=== PATIENT | male | born 1940 | race Caucasian/White ===

== ENCOUNTER → 2017-06-29 | Outpatient (CLI) | payer MEDICARE, OTHER ==
[~2017-06-29] MED LIST: ASPI-586 PO; ASPI-983 PO; ATOR40TA PO; ATOR40TA70 PO; BLOO-367 MC; BLOO1EAC87 MC; CEFT1FRO2 IV; CEPH500C PO; CLOP75TA28 PO; FURO-125 PO; IBUP1TAB14 PO; INSU100V16 SC; INSU100V16 SQ; INSU100V5 SQ; LANC-954 MC; METO-370 PO; METO-387 PO; MICO90PO TOP; MUPI22OI2 TOP; PANT40TA3 PO; PEN1DIS.93 MC; SODI473S7 TOP; SULF-222 PO
[2017-06-29 07:49] LABS: BASOPHILS % (AUTO) 0 % (0-10); EOSINOPHILS # (AUTO) 0.1 10^3/uL (0.0-0.3); EOSINOPHILS % (AUTO) 0 % (0-10); HEMATOCRIT 39 % (40-54); HEMOGLOBIN 13.1 G/DL (13.3-17.7); LYMPHOCYTES # (AUTO) 1.3 X 10^3 (1.0-4.0); LYMPHOCYTES % (AUTO) 11 % (12-44); MEAN CORPUSCULAR HEMOGLOBIN 27 PG (25-34); MEAN CORPUSCULAR HGB CONC 34 G/DL (32-36); MEAN CORPUSCULAR VOLUME 80 FL (80-99); MEAN PLATELET VOLUME 9.7 FL (7.4-10.4); MONOCYTES # (AUTO) 0.8 X 10^3 (0.0-1.0); MONOCYTES % (AUTO) 7 % (0-12); NEUTROPHILS # (AUTO) 9.9 X 10^3 (1.8-7.8); NEUTROPHILS % (AUTO) 82 % (42-75); PLATELET COUNT 435 10^3/uL (130-400); RED BLOOD COUNT 4.87 10^6/uL (4.35-5.85); WHITE BLOOD COUNT 12.1 10^3/uL (4.3-11.0)
[2017-06-29 08:13] LABS: ALANINE AMINOTRANSFERASE 7 U/L (0-55); ALBUMIN 3.5 GM/DL (3.2-4.5); ALKALINE PHOSPHATASE 150 U/L (40-136); BILIRUBIN,TOTAL 0.5 MG/DL (0.1-1.0); BUN/CREATININE RATIO 10; CALCIUM 9.6 MG/DL (8.5-10.1); CARBON DIOXIDE 24 MMOL/L (21-32); CHLORIDE 96 MMOL/L (98-107); CHOLESTEROL 156 MG/DL (< 200); CREATININE SERUM 0.96 MG/DL (0.60-1.30); GFR ESTIMATED > 60; GLUCOSE 343 MG/DL (70-105); HDL CHOLESTEROL 37 MG/DL (40-60); POTASSIUM 4.4 MMOL/L (3.6-5.0); SODIUM 132 MMOL/L (135-145); TOTAL PROTEIN 6.8 GM/DL (6.4-8.2); TRIGLYCERIDES 81 MG/DL (<150); VLDL CHOLESTEROL 16 MG/DL (5-40)
== END ==
LOC: LAB 07:27
PROVIDERS: ATTEND Family Medicine
DX: L03.119 Cellulitis of unspecified part of limb (principal)
CPT/HCPCS: 36415; 80053; 80061; 83036; 85025

== ENCOUNTER 2017-06-30 14:12 | Inpatient (IN) | payer MEDICARE, OTHER ==
[~2017-06-30] VITALS: Ht 177.8 cm; Wt 88.2 kg
[2017-06-30 14:39] VITALS: BP 149/65
[2017-06-30] MEDS ORDERED: SULF-222 PO (15:44)
[2017-06-30] MEDS ORDERED: CEPH500C PO (15:44)
[2017-06-30] MEDS ORDERED: MUPI22OI2 TOP (15:44)
[2017-06-30] MEDS ORDERED: IBUP1TAB14 PO (15:45)
[2017-06-30 16:10] VITALS: BP 145/65
[2017-06-30 17:23] LABS: HEMOGLOBIN 13.1 G/DL (13.3-17.7); MEAN PLATELET VOLUME 9.7 FL (7.4-10.4); RED BLOOD COUNT 4.87 10^6/uL (4.35-5.85); RED CELL DISTRIBUTION WIDTH 13.3 % (10.0-14.5); WHITE BLOOD COUNT 11.5 10^3/uL (4.3-11.0)
[2017-06-30 17:30] LABS: INR 1.1 (0.8-1.4); PROTHROMBIN TIME PATIENT 14.4 SEC (12.2-14.7)
[2017-06-30 17:37] LABS: ALANINE AMINOTRANSFERASE 6 U/L (0-55); ALBUMIN 3.4 GM/DL (3.2-4.5); ALKALINE PHOSPHATASE 140 U/L (40-136); BILIRUBIN,TOTAL 0.4 MG/DL (0.1-1.0); BUN/CREATININE RATIO 11; CALCIUM 9.2 MG/DL (8.5-10.1); CARBON DIOXIDE 25 MMOL/L (21-32); CHLORIDE 99 MMOL/L (98-107); CREATININE SERUM 0.84 MG/DL (0.60-1.30); GFR ESTIMATED > 60; GLUCOSE 269 MG/DL (70-105); POTASSIUM 4.3 MMOL/L (3.6-5.0); SODIUM 135 MMOL/L (135-145); TOTAL PROTEIN 6.9 GM/DL (6.4-8.2)
[2017-06-30] MEDS ORDERED: inSUlin DETERMIR 1 UNIT/0.01 ML (LEVEMIR) CHARGE PER UNIT SQ NR (18:00)
--- NOTE | 2017-06-30 18:56 | Diagnostic Imaging Report ---
INDICATION: Right foot abscess. FINDINGS: Three views of the right foot show some gas in the soft tissues adjacent to the head of the fifth metatarsal with some osteopenia of the head of the first metatarsal and of the proximal phalanx and middle phalanx of the second toe. IMPRESSION: Gas in the soft tissues over the fifth MTP joint. There is osteopenia. The findings are concerning for osteomyelitis. Dictated by: Dictated on workstation # [id number]
--- NOTE | 2017-06-30 18:57 | Diagnostic Imaging Report ---
INDICATION: Right ankle pain. FINDINGS: Three views of the right ankle show an accessory ossicle at the tip of the medial malleolus. There is no acute fracture or dislocation. IMPRESSION: No acute abnormalities seen in the right ankle. Dictated by: Dictated on workstation # [id number]
--- NOTE | 2017-06-30 19:05 | Diagnostic Imaging Report ---
Clinical indication: Patient with severe ulcers, bilaterally. Comparison: None. Procedure: Bilateral lower extremity Doppler duplex examination was performed using B-mode ultrasound, color Doppler imaging, Doppler spectral recordings and peak systolic velocities. Ankle/brachial indices were calculated. Findings: Right lower extremity: Flow velocities (in cm per second) are as follows- Common femoral: 110 Profunda femoris: 102 Superficial femoral (proximal): 113 Superficial femoral (mid): Occluded Superficial femoral (distal): 120 Popliteal: 36 Dorsalis pedis artery: 93 Left lower extremity: Flow velocities (in cm per second) are as follows- Common femoral: 82 Profunda femoris: 73 Superficial femoral (proximal): 86 Superficial femoral (mid): 38 Superficial femoral (distal): 27 Popliteal: 34 Posterior tibial artery: 27 Dorsalis pedis artery: 24 There is diffuse atherosclerotic disease seen throughout the bilateral arterial lower extremity systems. The bilateral common femoral arteries show biphasic waveform. Otherwise, remainder of the bilateral lower extremity arterial systems shows monophasic waveforms. There is a roughly 8-10 cm segment of occlusion involving the right mid superficial femoral artery. Impression: 1. There is a 8-10 cm segment of occlusion of the right mid superficial femoral artery. 2: There is diffuse atherosclerotic disease with multisegmental areas of arterial vascular stenosis of both lower extremities. Dictated by: Dictated on workstation # [id number]
[2017-06-30 19:20] VITALS: BP 140/64
[2017-06-30] MEDS ORDERED: VANCOMYCIN INJECTION 0.1 MG in NS (IVPB) 250 ML IV SCH (19:30)
[2017-06-30] MEDS ORDERED: PIPERACILLIN/TAZO 4.5 GM/D5W 100 ML IVPB IV NR ×2 (19:30)
--- NOTE | 2017-06-30 19:37 | History & Physicial ---
History of Present Illness History of Present Illness Reason for visit/HPI Patient came to the office with abscess and ulcer of right foot. Left foot is not as bad. Blood tests taken showing that patient's new diabetic with a hemoglobin of 13.4. Patient sent to wound care. Patient admitted. Patient needed debridement by surgeon tomorrow. Surgery prostate Date of Admission June 30, 2017 at 14:40 Time Seen by Provider: 19:30 I consulted on this patient on 06/30/17 19:31 Attending Physician Neel Arriaga DO Admitting Physician Neel Arriaga DO Consult Allergies and Home Medications Allergies Coded Allergies: No Known Drug Allergies (Unverified , 06/30/17) Home Medications Cephalexin 500 Mg Capsule, 500 MG PO TID, (Reported) 10 DAY SUPPLY FILLED 06-23-17 Ibuprofen/Diphenhydramine Cit 1 Each Tablet, 2 TAB PO HS PRN for PAIN-MILD, ( Reported) Mupirocin 22 Gm Oint...g., TOP BID, (Reported) APPLY TO RIGHT TOE Sulfamethoxazole/Trimethoprim 1 Each Tablet, 1 TAB PO BID, (Reported) 10 DAY SUPPLY FILLED 06-23-17 Patient Home Medication List Home Medication List Reviewed: Yes Past Kdmhzsx-Uzjivy-Cqokjd Hx Patient Social History Marrital Status: Employed/Student: unemployed Alcohol Use: Denies Use Recreational Drug Use: No Smoking Status: Former Smoker Former Smoker, Quit: June 15, 2006 Type Used: Cigarettes Physical Abuse Screen: No Sexual Abuse: No Recent Foreign Travel: No Contact w/other who traveled: No Recent Infectious Disease Expo: No Seasonal Allergies Seasonal Allergies: No Respiratory No Cardiovascular No Neurological No Genitourinary Yes (prostate removed) Gastrointestinal No Musculoskeletal No HEENT History of HEENT Disorders: Yes Cancer No Psychosocial History of Psychiatric Problem: No Integumentary History of Skin or Integumenta: No Blood Transfusions History of Blood Disorders: No Adverse Reaction to a Blood Tr: No Constitutional: no symptoms reported EENTM: no symptoms reported, other (Hearing aid since hard of hearing) Respiratory: no symptoms reported Cardiovascular: no symptoms reported Gastrointestinal: no symptoms reported Genitourinary: no symptoms reported, other (Past states surgery) Physical Exam Vital Signs Vital Signs - First Documented 06/30/17 14:39 Temp 97.5 Pulse 60 Resp 20 B/P (MAP) 149/65 (93) Pulse Ox 97 O2 Delivery Room Air Capillary Refill : General Appearance: No Apparent Distress, WD/WN Eyes: Bilateral Eye Normal Inspection HEENT: Normal ENT Inspection Neck: Full Range of Motion, Normal Inspection Respiratory: Chest Non Tender, Normal Breath Sounds, No Accessory Muscle Use, No Respiratory Distress Cardiovascular: Regular Rate, Rhythm, No Murmur Gastrointestinal: Non Tender, Soft Assessment/Plan Assessment and Plan Abscess of right foot. Could have osteomyelitis. New-onset diabetes. Cellulitis of feet. Occlusion of artery Admission Diagnosis Admission Status: Inpatient Order (span 2 midnights) Reason for Inpatient Admission: New-onset diabetes. Abscess of foot. Osteomyelitis. Occlusion of artery in leg Clinical Quality Measures DVT/VTE Risk/Contraindication: Risk Factor Score Per Nursin RFS Level Per Nursing on Admit: 4+=Very High NEEL ARRIAGA DO June 30, 2017 19:37
[2017-06-30] MEDS ORDERED: VANCOMYCIN 1500 MG/NS 500 ML IVPB IV NR ×2 (20:00)
[2017-06-30] MEDS: inSUlin ASPART (NovoLOG) 1 UNIT/0.01 ML (CHARGE PER UNIT) SC SCH (20:34)
[2017-07-01 00:35] VITALS: BP 117/58
[2017-07-01] MEDS: PIPERACILLIN SODIUM/TAZOBACTAM 4.5 GM in D5W 100 ML IVPB 100 ML IV SCH ×3 (01:28→16:35)
[2017-07-01 04:23] VITALS: BP 123/61
[2017-07-01] MEDS: inSUlin ASPART (NovoLOG) 1 UNIT/0.01 ML (CHARGE PER UNIT) SC SCH ×4 (05:18→21:15)
[2017-07-01 06:11] LABS: HEMOGLOBIN 12.5 G/DL (13.3-17.7); MEAN PLATELET VOLUME 10.1 FL (7.4-10.4); RED BLOOD COUNT 4.68 10^6/uL (4.35-5.85); WHITE BLOOD COUNT 11.8 10^3/uL (4.3-11.0)
[2017-07-01 06:26] LABS: BUN/CREATININE RATIO 10; CALCIUM 8.9 MG/DL (8.5-10.1); CARBON DIOXIDE 24 MMOL/L (21-32); CHLORIDE 103 MMOL/L (98-107); CHOLESTEROL 147 MG/DL (< 200); CREATININE SERUM 0.84 MG/DL (0.60-1.30); GFR ESTIMATED > 60; GLUCOSE 123 MG/DL (70-105); HDL CHOLESTEROL 33 MG/DL (40-60); POTASSIUM 4.1 MMOL/L (3.6-5.0); SODIUM 138 MMOL/L (135-145); TRIGLYCERIDES 72 MG/DL (<150); VLDL CHOLESTEROL 14 MG/DL (5-40)
[2017-07-01] MEDS ORDERED: morphine INJ 4 MG/ML 1 ML (VIAL/SYRINGE) ONE (07:39)
[2017-07-01 08:00] VITALS: BP 147/67
[2017-07-01] MEDS: VANCOMYCIN 1250 MG/NS 250 ML IVPB IV SCH ×4 (08:43→21:14)
--- NOTE | 2017-07-01 08:51 | Progress Note (SOAP) ---
Subjective Time Seen by Provider: 08:51 Subjective/Events-last exam Abscess right foot and ulcers. New-onset diabetes. Patient feeling okay today. Blood sugars better Objective Exam Vital Signs Date Time Temp Pulse Resp B/P (MAP) Pulse Ox O2 Delivery O2 Flow Rate FiO2 07/01/17 04:23 97.9 68 17 123/61 (81) 93 Room Air 07/01/17 00:35 98.2 70 17 117/58 (77) 92 Room Air 06/30/17 19:20 98.2 77 18 140/64 (89) 95 Room Air 06/30/17 16:10 97.6 68 20 145/65 (91) 98 Room Air 06/30/17 16:10 97.6 68 20 145/65 (91) 98 Room Air 06/30/17 15:00 97 Room Air 06/30/17 14:39 97.5 60 20 149/65 (93) 97 Room Air I & O 07/01/17 07:00 Intake Total 820 ml Balance 820 ml Capillary Refill : General Appearance: No Apparent Distress, Thin HEENT: Normal ENT Inspection, Other (Has hearing aid in left ear) Neck: Full Range of Motion Respiratory: Lungs Clear, No Accessory Muscle Use, No Respiratory Distress Cardiovascular: Regular Rate, Rhythm, No Murmur Results Lab Laboratory Tests 06/30/17 17:10 07/01/17 05:21 Laboratory Tests 06/30/17 17:10: White Blood Count 11.5H, Red Blood Count 4.87, Hemoglobin 13.1L, Hematocrit 39L , Mean Corpuscular Volume 80, Mean Corpuscular Hemoglobin 27, Mean Corpuscular Hemoglobin Concent 34, Red Cell Distribution Width 13.3, Platelet Count 506H, Mean Platelet Volume 9.7, Prothrombin Time 14.4, INR Comment 1.1, Activated Partial Thromboplast Time 28, Sodium Level 135, Potassium Level 4.3, Chloride Level 99, Carbon Dioxide Level 25, Anion Gap 11, Blood Urea Nitrogen 9, Creatinine 0.84, Estimat Glomerular Filtration Rate > 60, BUN/Creatinine Ratio 11, Glucose Level 269H, Calcium Level 9.2, Total Bilirubin 0.4, Aspartate Amino Transf (AST/SGOT) 8, Alanine Aminotransferase (ALT/SGPT) 6, Alkaline Phosphatase 140H, Total Protein 6.9, Albumin 3.4 06/30/17 20:27: Glucometer 359H 07/01/17 05:01: Glucometer 119H 07/01/17 05:21: White Blood Count 11.8H, Red Blood Count 4.68, Hemoglobin 12.5L, Hematocrit 38L , Mean Corpuscular Volume 81, Mean Corpuscular Hemoglobin 27, Mean Corpuscular Hemoglobin Concent 33, Red Cell Distribution Width 13.0, Platelet Count 459H, Mean Platelet Volume 10.1, Sodium Level 138, Potassium Level 4.1, Chloride Level 103, Carbon Dioxide Level 24, Anion Gap 11, Blood Urea Nitrogen 8, Creatinine 0.84, Estimat Glomerular Filtration Rate > 60, BUN/Creatinine Ratio 10, Glucose Level 123H, Calcium Level 8.9, Triglycerides Level 72, Cholesterol Level 147, LDL Cholesterol Direct 100, VLDL Cholesterol 14, HDL Cholesterol 33L Assessment/Plan Assessment/Plan Assess & Plan/Chief Complaint Abscess right foot. Peripheral artery disease. Occlusion of vessels. New-onset diabetes area Hemoglobin A1c 13.4 Clinical Quality Measures Admission Status Admission Dx Abscess of right foot. Could have osteomyelitis. New-onset diabetes. Cellulitis of feet. Occlusion of artery DVT/VTE Risk/Contraindication: Risk Factor Score Per Nursin RFS Level Per Nursing on Admit: 4+=Very High Contraindications-Pharm: Other *list below* Contraindications-Mechi: Other *list below* BRITTANY ARRIAGA DO July 01, 2017 08:51
--- NOTE | 2017-07-01 09:16 | Diagnostic Imaging Report ---
PROCEDURE: MRI right lower extremity without contrast. TECHNIQUE: Multiplanar, multisequence non contrast-enhanced MRI of the right lower extremity was accomplished. INDICATION: Diabetic ulcer on the lateral side of the right foot for several weeks. FINDINGS: A marker was placed at the area of ulcer along the lateral aspect of the right foot. There is soft tissue thickening and soft tissue defect noted at the area of marker along the lateral aspect of the right foot at the level of the distal fifth metatarsal. A low signal intensity within the soft tissues is noted consistent with soft tissue gas. This does correlate to plain films performed one day earlier. There does appear to be some gas located within the marrow of the distal fifth metatarsal as well as mild edema. Features are suggestive of acute osteomyelitis of the distal fifth metatarsal. The first through fourth metatarsals are intact. The tissues surrounding the fifth metatarsal appear to be inflamed. Overlying skin is thickened. No superficial or deep soft tissue fluid collection or abscess is identified. There does appear to be fluid signal along the plantar aspect of the right foot, not entirely included on this study. This does not appear to be well formed. IMPRESSION: Inflammatory changes involving the lateral aspect of the right foot at the level of the distal fifth metatarsal. This correlates with the patient's known skin ulcer. There appears to be gas within the surrounding soft tissues as well as intraosseous gas in the distal fifth metatarsal and signal changes present. Features are consistent with acute osteomyelitis. Ill-defined fluid along the plantar aspect is also seen but no well-formed fluid collection is identified. Dictated by: Dictated on workstation # [id number]
--- NOTE | 2017-07-01 09:19 | Diagnostic Imaging Report ---
PROCEDURE: MRI right joint lower extremity without contrast. TECHNIQUE: Multiplanar, multisequence non contrast-enhanced MRI of the right lower extremity was accomplished. INDICATION: Diabetic ulcer of the lateral portion of the right foot. FINDINGS: The marrow signal intensity of the hindfoot is normal. No marrow edema is identified. The visualized portion of the fifth metatarsal does show some edema on the inversion recovery sequence in the midshaft, correlating with the abnormality noted on MRI of the forefoot and changes of osteomyelitis. The marrow of the mid foot is unremarkable. No fluid collections are seen to suggest abscess formation. Nonspecific fluid along the plantar aspect of the right foot is identified, indeterminate. No definite soft tissue gas is seen. IMPRESSION: There are some mild marrow changes identified in the visualized portion of the fifth metatarsal midshaft, correlating with the findings noted on the forefoot MRI of osteomyelitis distally. There is also ill-defined fluid along the plantar aspect of the right foot but no well-formed fluid collection or abscess is seen. Dictated by: Dictated on workstation # [id number]
[2017-07-01 11:30] VITALS: BP 147/67
--- NOTE | 2017-07-01 11:40 | Consultation ---
History of Present Illness History of Present Illness Patient Consulted On(uli/time) 07/01/17 11:32 Date Seen by Provider: July 01, 2017 Time Seen by Provider: 11:33 Reason for Visit: Right foot wound with infection. History of Present Illness Pt seen today for inpatient consult of right foot. He has necrotic foul smelling draining wound to his right foot that got significantly worse in the past week. He presented to wound care for his foot yesterday and was direct admitted for the infection. Allergies and Home Medications Allergies Coded Allergies: No Known Drug Allergies (Unverified , 06/30/17) Home Medications Cephalexin 500 Mg Capsule, 500 MG PO TID, (Reported) 10 DAY SUPPLY FILLED 06-23-17 Ibuprofen/Diphenhydramine Cit 1 Each Tablet, 2 TAB PO HS PRN for PAIN-MILD, ( Reported) Mupirocin 22 Gm Oint...g., TOP BID, (Reported) APPLY TO RIGHT TOE Sulfamethoxazole/Trimethoprim 1 Each Tablet, 1 TAB PO BID, (Reported) 10 DAY SUPPLY FILLED 06-23-17 Patient Home Medication List Home Medication List Reviewed: Yes Past Kdkwvng-Imjexc-Kmxamj Hx Patient Social History Alcohol Use: Denies Use Recreational Drug Use: No Smoking Status: Former Smoker Type Used: Cigarettes Former Smoker, Quit: June 15, 2006 Recent Foreign Travel: No Contact w/Someone Who Travel: No Recent Infectious Disease Expo: No Seasonal Allergies Seasonal Allergies: No Past Medical History Respiratory: No Cardiac: No Neurological: No Genitourinary: Yes (prostate removed) Gastrointestinal: No Musculoskeletal: No HEENT: Yes Cancer: No Psychosocial: No Integumentary: No Blood Disorders: No Adverse Reaction/Blood Tranf: No Review of Systems-General Constitutional: No no symptoms reported, No see HPI, No chills, No diaphoresis , No dizziness, No fever, No malaise, No weakness, No weight gain, No weight loss, No other Respiratory: No no symptoms reported, No see HPI, No cough, No dyspnea on exertion, No hemoptysis, No orthopnea, No phlegm, No short of breath, No stridor , No wheezing, No other Physical Exam-General Problems Physical Exam Vital Signs Vital Signs - First Documented 06/30/17 14:39 Temp 97.5 Pulse 60 Resp 20 B/P (MAP) 149/65 (93) Pulse Ox 97 O2 Delivery Room Air Capillary Refill : Extremities: other (right foot with 2.5 x 2.5cm necrotic wound over the dorsal 5th MTPJ, +malodor, +purulence, +probe to bone, +erythema, pulses nonpalpable, foot warm to the touch CFT WNL) Assessment/Plan Assessment/Plan Admission Diagnosis/Plan Gangrene Right Foot Osteomyelitis Right 5th Metatarsal Peripheral Arterial Disease RLE -Consult Dr Colvin for Arterial Occlusion RLE -NPO tomorrow -Consent patient for Right 5th Ray Resection RLE and wound VAC application RLE -Plan for OR tomorrow. Reason for Inpatient Admission: DM foot Infection Clinical Quality Measures DVT/VTE Risk/Contraindication: Risk Factor Score Per Nursin RFS Level Per Nursing on Admit: 4+=Very High Contraindications-Pharm: Other *list below* Contraindications-Mechi: Other *list below* MARK KNIGHT DPM July 01, 2017 11:40
--- NOTE | 2017-07-01 13:31 | Vascular Consult ---
HPI-Cardiology Cardiology Consultation: Date of Consultation 07/01/17 Date of Admission Attending Physician Neel Cottrell DO Admitting Physician Neel Cottrell DO Consulting Physician Nathalia COLVIN MD HPI: Time Seen by Provider: 13:15 Chief Complaint: Right foot ulcer This is a 76-year-old gentleman who has history of diabetes and previous prolonged history of smoking. He presented with necrotic ulcer of the right small toe with plan for amputation by Dr. Schmitz. MRI shows evidence of osteomyelitis. Leukocytosis with suggest infection. Right superficial femoral artery occlusion on ultrasound. Review of Systems-Cardiology Review of Systems Constitutional: As described under HPI; No As described under HPI, No no symptoms reported, No chills, No fever, No lightheadedness Eyes: No As described under HPI, No no symptoms reported, No blindness, No blurred vision, No contact lenses, No drainage, No decreased acuity, No foreign body sensation, No pain, No vision change Ears/Nose/Throat: No As described under HPI, No no symptoms reported, No chronic hearing loss, No ear discharge, No ear pain, No nasal drainage, No ulcerations Respiratory: No no symptoms reported; As described under HPI; No As described under HPI, No cough, No orthopnea, No shortness of breath, No SOB with excertion Cardiovascular: No no symptoms reported; As described under HPI; No As described under HPI, No chest pain, No edema, No irregular heart rate, No lightheadedness, No palpitations Gastrointestinal: No no symptoms reported, No As described under HPI, No abdomen distended, No abdominal pain, No blood streaked bowels, No constipation , No diarrhea, No nausea, No vomiting, No stool coloration changes Genitourinary: No As described under HPI, No burning, No dysuria, No discharge , No frequency, No flank pain, No hematuria, No urgency Skin: No rash, No skin related problems; ulcerations Psychiatric/Neurological: No anxiety, No depression, No seizure, No focal weakness, No syncope Hematologic: No bleeding abnormalities LPR-Rauzyh-Ljmccz Hx Patient Social History Marrital Status: Employed/Student: unemployed Alcohol Use: Denies Use Recreational Drug Use: No Smoking Status: Former Smoker Type Used: Cigarettes Recent Foreign Travel: No Recent Infectious Disease Expo: No Physical Abuse Screen: No Sexual Abuse: No Past Medical History PMH As described under Assessment. Allergies and Home Medications Allergies Coded Allergies: No Known Drug Allergies (Unverified , 06/30/17) Home Medications Cephalexin 500 Mg Capsule, 500 MG PO TID, (Reported) 10 DAY SUPPLY FILLED 06-23-17 Ibuprofen/Diphenhydramine Cit 1 Each Tablet, 2 TAB PO HS PRN for PAIN-MILD, ( Reported) Mupirocin 22 Gm Oint...g., TOP BID, (Reported) APPLY TO RIGHT TOE Sulfamethoxazole/Trimethoprim 1 Each Tablet, 1 TAB PO BID, (Reported) 10 DAY SUPPLY FILLED 06-23-17 Patient Home Medication List Home Medication List Reviewed: Yes Physical Exam-Cardiology Physical Exam Vital Signs/I&O 07/01/17 07/01/17 07/01/17 07/01/17 04:23 08:00 09:00 11:30 Temp 97.9 97.5 98.0 Pulse 68 63 62 Resp 17 18 20 B/P (MAP) 123/61 (81) 147/67 (93) 147/67 (93) Pulse Ox 93 97 94 O2 Delivery Room Air Room Air Room Air Room Air 07/01/17 00:00 Intake Total 720 ml Balance 720 ml Capillary Refill : Constitutional: No appears stated age; AAO x 3; No apparent distress, No PERRL , No well-developed, No well-nourished, No other HEENT: No PERRL, No normal ENT inspection, No TMs normal, No pharynx normal, No scleral icterus (R), No scleral icterus (L), No pale conjunctivae (R), No pale conjunctivae (L), No photophobia, No TM abnormal (R), No TM abnormal (L), No pharyngeal erythema, No tonsillar exudate, No other, No discharge, No EOMI, No hearing is well preserved, No hard of hearing, No oral hygience is good, No ulceration, No xanthelasmas are seen Neck: No non-tender, No full range of motion, No supple, No normal inspection, No carotid bruit, No limited range of motion, No lymphadenopathy (R), No lymphadenopathy (L), No tender lateral, No tender midline, No thyromegaly, No other, No carotid pulses are 2 + bilaterally, No with good upstrokes Respiratory: No accessory muscle use, No respiratory distress, No chest tender , No chest expansion is symmetric; chest is bilaterally symmetric; No lungs clear to percussion; lungs clear to auscultation; No crackles, No rhonchi, No rales, No stridor, No wheezing, No pleural rub, No other Cardiovascular: regular rate-rhythm; No irregularly irregular, No extra beats, No parasternal heave is noted, No JVD, No edema, No bradycardia, No tachycardia , No point of maximal impulse, No cardiac thrills are palpable; S1 and S2; No gallop/S3, No gallop/S4, No diastolic murmur, No systolic murmur, No friction rub, No click, No other Gastrointestinal: No tender, No soft, No round, No distended, No pulsatile mass , No organomegaly, No guarding, No rebound, No tenderness, No hernia, No mass, No audible bowel sounds, No abnormal bowel sounds, No abdominal bruits, No spleenomegaly, No other Rectal: deferred Extremities: No normal range of motion, No non-tender, No normal inspection, No pedal edema, No calf tenderness, No normal capillary refill, No pelvis stable , No calf tenderness, No inflammation, No pedal edema, No slow capillary refill , No swelling, No other, No abrasion, No clubbing, No cyanosis, No ecchymosis, No laceration, No no lower extremity edema bilateral, No significant edema, No tenderness; wound Neurologic/Psychiatric: no motor/sensory deficits, alert, normal mood/affect, oriented x 3 Skin: No normal color, No warm/dry, No cyanosis, No cool, No diaphoresis, No damp, No ecchymosis, No jaundice, No mottled, No pallor, No rash, No tattoos/ piercings, No ulcerations, No rash on exposed areas, No ulcerations on exposed areas, No other Data Review Labs Laboratory Tests 06/30/17 17:10: White Blood Count 11.5H, Red Blood Count 4.87, Hemoglobin 13.1L, Hematocrit 39L , Mean Corpuscular Volume 80, Mean Corpuscular Hemoglobin 27, Mean Corpuscular Hemoglobin Concent 34, Red Cell Distribution Width 13.3, Platelet Count 506H, Mean Platelet Volume 9.7, Prothrombin Time 14.4, INR Comment 1.1, Activated Partial Thromboplast Time 28, Sodium Level 135, Potassium Level 4.3, Chloride Level 99, Carbon Dioxide Level 25, Anion Gap 11, Blood Urea Nitrogen 9, Creatinine 0.84, Estimat Glomerular Filtration Rate > 60, BUN/Creatinine Ratio 11, Glucose Level 269H, Calcium Level 9.2, Total Bilirubin 0.4, Aspartate Amino Transf (AST/SGOT) 8, Alanine Aminotransferase (ALT/SGPT) 6, Alkaline Phosphatase 140H, Total Protein 6.9, Albumin 3.4 06/30/17 20:27: Glucometer 359H 07/01/17 05:01: Glucometer 119H 07/01/17 05:21: White Blood Count 11.8H, Red Blood Count 4.68, Hemoglobin 12.5L, Hematocrit 38L , Mean Corpuscular Volume 81, Mean Corpuscular Hemoglobin 27, Mean Corpuscular Hemoglobin Concent 33, Red Cell Distribution Width 13.0, Platelet Count 459H, Mean Platelet Volume 10.1, Sodium Level 138, Potassium Level 4.1, Chloride Level 103, Carbon Dioxide Level 24, Anion Gap 11, Blood Urea Nitrogen 8, Creatinine 0.84, Estimat Glomerular Filtration Rate > 60, BUN/Creatinine Ratio 10, Glucose Level 123H, Calcium Level 8.9, Triglycerides Level 72, Cholesterol Level 147, LDL Cholesterol Direct 100, VLDL Cholesterol 14, HDL Cholesterol 33L 07/01/17 10:59: Glucometer 182H A/P-Cardiology Assessment/Admission Diagnosis Right fifth metatarsal osteomyelitis, Severe PAD with total right superficial femoral artery occlusion, Diabetes, Previous history of smoking Plan Right fifth metatarsal osteomyelitis, IV antibiotics, plan for amputation and wound evacuation by Dr. Schmitz tomorrow. Critical limb ischemia /Severe PAD with total right superficial femoral artery occlusion, peripheral angiography and intervention to the right SFA tomorrow afternoon. Discussed with the patient and family. Left femoral access. Diabetes, Previous history of smoking. Thank you for your consultation. Please call me if you have any questions. Alberto Colvin MD, FACP, FACC, FSCAI, FHRS, CCDS Interventional Cardiology Cardiac Electrophysiology Vascular Medicine and Endovascular Interventions Clinical Quality Measures DVT/VTE Risk/Contraindication: Risk Factor Score Per Nursin RFS Level Per Nursing on Admit: 4+=Very High Contraindications-Pharm: Other *list below* Contraindications-Mechi: Other *list below* KHALID,M YORDY MD July 01, 2017 1:31 pm
[2017-07-01] MEDS ORDERED: PANTOPRAZOLE 40 MG (PROTONIX) TAB PO ONE (16:28)
[2017-07-01] MEDS ORDERED: CALCIUM CARBONATE 500 MG (TUMS) TAB.CHEW ONE (16:29)
[2017-07-01] MEDS ORDERED: CALCIUM CARBONATE 500 MG (TUMS) TAB.CHEW PO NR (16:30)
[2017-07-01] MEDS: PANTOPRAZOLE 40 MG (PROTONIX) TAB PO SCH (16:35)
[2017-07-01 17:00] VITALS: BP 158/72
[2017-07-01] MEDS: ONDANSETRON 4 MG/2 ML (SDV) Z0FRAN IVP PRN ×2 (17:10→21:17)
[2017-07-01 19:59] VITALS: BP 136/60
[2017-07-02 00:19] VITALS: BP 131/62
[2017-07-02] MEDS: PIPERACILLIN SODIUM/TAZOBACTAM 4.5 GM in D5W 100 ML IVPB 100 ML IV SCH ×3 (01:52→17:02)
[2017-07-02 04:26] VITALS: BP 141/75
[2017-07-02] MEDS: PANTOPRAZOLE 40 MG (PROTONIX) TAB PO SCH (05:34)
[2017-07-02] MEDS: inSUlin ASPART (NovoLOG) 1 UNIT/0.01 ML (CHARGE PER UNIT) SC SCH ×4 (05:38→21:08)
[2017-07-02] MEDS: ONDANSETRON 4 MG/2 ML (SDV) Z0FRAN IVP PRN ×2 (05:55→08:39)
[2017-07-02] MEDS ORDERED: TROUGH ORDER-PHARMACY XX NR (07:00)
--- NOTE | 2017-07-02 07:52 | Progress Note (SOAP) ---
Subjective Time Seen by Provider: 07:50 Subjective/Events-last exam Patient have to procedures done today. Spoke to about his diabetes. To get education. Patient to have wound VAC arm. Objective Exam Vital Signs Date Time Temp Pulse Resp B/P (MAP) Pulse Ox O2 Delivery O2 Flow Rate FiO2 07/02/17 04:26 97.7 68 17 141/75 (97) 95 Room Air 07/02/17 00:19 97.6 70 18 131/62 (85) 95 Room Air 07/01/17 21:00 Room Air 07/01/17 19:59 98.8 78 17 136/60 (85) 96 Room Air 07/01/17 17:00 97.7 74 17 158/72 (100) 97 Room Air 07/01/17 11:30 98.0 62 20 147/67 (93) 94 Room Air 07/01/17 09:00 Room Air 07/01/17 08:00 97.5 63 18 147/67 (93) 97 Room Air I & O 07/02/17 07:00 Intake Total 1657 ml Balance 1657 ml Capillary Refill : General Appearance: No Apparent Distress, WD/WN HEENT: Normal ENT Inspection Neck: Normal Inspection Respiratory: Chest Non Tender, Lungs Clear, No Accessory Muscle Use, No Respiratory Distress Cardiovascular: Regular Rate, Rhythm Gastrointestinal: non tender, soft Results Lab Laboratory Tests 07/01/17 10:59: Glucometer 182H 07/01/17 16:41: Glucometer 244H 07/01/17 20:20: Glucometer 275H 07/02/17 07:22: Assessment/Plan Assessment/Plan Assess & Plan/Chief Complaint Abscess right foot. Peripheral artery disease. Occlusion of vessels. New-onset diabetes area Hemoglobin A1c 13.4. . 07/02/17. Abscess right foot. Osteomyelitis. Peripheral artery disease. Occlusion of artery. Patient have 2 procedures done today Clinical Quality Measures Admission Status Admission Dx Abscess of right foot. Could have osteomyelitis. New-onset diabetes. Cellulitis of feet. Occlusion of artery DVT/VTE Risk/Contraindication: Risk Factor Score Per Nursin RFS Level Per Nursing on Admit: 4+=Very High Contraindications-Pharm: Other *list below* Contraindications-Mechi: Other *list below* BRITTANY ARRIAGA DO July 02, 2017 07:52
[2017-07-02 08:00] VITALS: BP 164/66
[2017-07-02] MEDS: VANCOMYCIN 1250 MG/NS 250 ML IVPB IV SCH ×2 (08:05)
[2017-07-02] MEDS ORDERED: NS IV 1000 ML 2,000 ML ONE (11:39)
[2017-07-02] MEDS ORDERED: HEParin 1000 UNIT/ML (10ML VIAL) FOR BOLUS ONE (11:45)
[2017-07-02] MEDS ORDERED: MIDAZOLAM 5 MG/5 ML (VERSED) VIAL ONE (11:45)
[2017-07-02] MEDS ORDERED: fentaNYL INJECTION 100 MCG/2 ML AMP ONE ×2 (11:45→12:12)
[2017-07-02] MEDS ORDERED: LIDOCAINE 1% INJ 20 ML 20 ML VIAL ONE (11:52)
[2017-07-02] MEDS ORDERED: BUPIVACAINE 0.5% 30 ML (SENSORCAINE) VIAL ONE (11:59)
[2017-07-02] MEDS ORDERED: MIDAZOLAM 2 MG/2 ML (VERSED) VIAL ONE (12:12)
[2017-07-02] MEDS ORDERED: LACTATED RINGERS 1,000 ML IV SCH (12:30)
[2017-07-02] MEDS ORDERED: VANCOMYCIN 1000 MG/VIAL ONE (13:38)
[2017-07-02] MEDS ORDERED: GENTAMICIN 40 MG/ML 2 ML INJ SDV ONE (13:38)
--- NOTE | 2017-07-02 13:56 | Cardiology Progress Note ---
Cardiology SOAP Progress Note Subjective: Right foot surgery today. Objective: I&O/Vital Signs 07/02/17 07/02/17 04:26 08:00 Temp 97.7 97.8 Pulse 68 63 Resp 17 20 B/P (MAP) 141/75 (97) 164/66 (98) Pulse Ox 95 99 O2 Delivery Room Air Room Air 07/02/17 00:00 Intake Total 942 ml Balance 942 ml Weight (Pounds): 194 Weight (Ounces): 8.0 Weight (Calculated Kilograms): 88.211867 Constitutional: No appears stated age; AAO x 3; No apparent distress, No PERRL , No well-developed, No well-nourished, No other Respiratory: No accessory muscle use, No respiratory distress, No chest tender , No chest expansion is symmetric; chest is bilaterally symmetric; No lungs clear to percussion; lungs clear to auscultation; No crackles, No rhonchi, No rales, No stridor, No wheezing, No pleural rub, No other Cardiovascular: regular rate-rhythm; No irregularly irregular, No extra beats, No parasternal heave is noted, No JVD, No edema, No bradycardia, No tachycardia , No point of maximal impulse, No cardiac thrills are palpable; S1 and S2; No gallop/S3, No gallop/S4, No diastolic murmur, No systolic murmur, No friction rub, No click, No other Gastrointestional: No tender, No soft, No round, No distended, No pulsatile mass, No organomegaly, No guarding, No rebound, No tenderness, No hernia, No mass, No audible bowel sounds, No abnormal bowel sounds, No abdominal bruits, No spleenomegaly, No other Extremities: No normal range of motion, No non-tender, No normal inspection, No pedal edema, No calf tenderness, No normal capillary refill, No pelvis stable , No calf tenderness, No inflammation, No pedal edema, No slow capillary refill , No swelling, No other, No abrasion, No clubbing, No cyanosis, No ecchymosis, No laceration, No no lower extremity edema bilateral, No significant edema, No tenderness; wound Neurologic/Psychiatric: no motor/sensory deficits, alert, normal mood/affect, oriented x 3 Skin: No normal color, No warm/dry, No cyanosis, No cool, No diaphoresis, No damp, No ecchymosis, No jaundice, No mottled, No pallor, No rash, No tattoos/ piercings, No ulcerations, No rash on exposed areas, No ulcerations on exposed areas, No other Results/Procedures: Labs Laboratory Tests 07/01/17 16:41: Glucometer 244H 07/01/17 20:20: Glucometer 275H 07/02/17 07:22: Vancomycin Level Trough 23.5H 07/02/17 11:40: Glucometer 275H A/P: Assessment/Dx: Right fifth metatarsal osteomyelitis, Severe PAD with total right superficial femoral artery occlusion, Diabetes, Previous history of smoking Plan: Right fifth metatarsal osteomyelitis, IV antibiotics. Dr. Schmitz to proceed with amputation and wound evacuation today. Critical limb ischemia /Severe PAD with total right superficial femoral artery occlusion. We will delay peripheral angiography and intervention since we may have to give high dose heparin and other antiplatelet agents and in the immediate postop period there is a risk of bleeding. If the patient gets discharged over the weekend I will arrange it early next week. If the patient ends up staying the weekend we will do the procedure on Wednesday afternoon. Discussed at length with the family. Left femoral access. Diabetes, Previous history of smoking. Thank you for your consultation. Please call me if you have any questions. Alberto Colvin MD, FACP, FACC, FSCAI, FHRS, CCDS Interventional Cardiology Cardiac Electrophysiology Vascular Medicine and Endovascular Interventions Nathalia COLVIN MD July 02, 2017 1:56 pm
[2017-07-02] MEDS ORDERED: LIDOCAINE PF 2% 5 ML (XYLOCAINE) VIAL ONE (14:10)
[2017-07-02] MEDS ORDERED: SEVOFLURANE (ULTANE) 15 ML INHAL SOLN ONE (14:10)
[2017-07-02] MEDS ORDERED: ONDANSETRON 4 MG/2 ML (SDV) Z0FRAN ONE (14:10)
[2017-07-02] MEDS ORDERED: proPOfol 200 MG/20 ML (DIPRIVAN) VIAL IV ONE (14:10)
[2017-07-02] MEDS ORDERED: LIDOCAINE JELLY 2% (XYLOCAINE) 5 ML TUBE ONE (14:13)
[2017-07-02] MEDS ORDERED: ONDANSETRON 4 MG/2 ML (SDV) Z0FRAN IVP PRN (14:45)
[2017-07-02] MEDS ORDERED: morphine INJ 10 MG/ML 1ML (SYR OR VIAL) IVP PRN (14:45)
[2017-07-02] MEDS ORDERED: MEPERIDINE (DEMEROL) INJ 50 MG/ML IVP PRN (14:45)
[2017-07-02 15:30] VITALS: BP 160/64
--- NOTE | 2017-07-02 18:30 | Wound Care Assessment ---
Wound Care Assessment Date Seen by Provider: July 02, 2017 Time Seen by Provider: 18:25 Chief Complaint R foot abscess. HPI The patient is a 76 year old male with necrotic abscess of R lateral foot, s/p debridement and R 5th ray amputation for gangrene and osteomyelitis. R superficial femoral obstruction identified and is to be addressed after recovery from today's procedure. No complaint of pain at this time. He is noted to have perineal galding; topical antifungal ordered. Past Medical History: Admits Diabetes Type II, Admits Heart Disease, Admits Peripheral Artery Disease Smoking Status: Former Smoker Recreational Drug Use: No Alcohol Use: Denies Use Review of Systems Pulmonary: No Dyspnea Cardiovascular: No: Chest Pain Exam Vital Signs Date Time Temp Pulse Resp B/P (MAP) Pulse Ox O2 Delivery O2 Flow Rate FiO2 07/02/17 15:30 96.2 71 18 160/64 (96) 96 Room Air Capillary Refill : General Appearance: no apparent distress Extremities: other (R foot is in an intact, dry surgical dressing.) Results Laboratory Tests 07/01/17 20:20: Glucometer 275H 07/02/17 07:22: Vancomycin Level Trough 23.5H 07/02/17 11:40: Glucometer 275H 07/02/17 14:31: Glucometer 314H 07/02/17 16:22: Glucometer 335H Assessment/Plan/Dx 1. Abscess, R lateral foot. 2. Diabetic foot ulcer, R lateral foot, [place] Grade 4. 3. Atherosclerotic peripheral arterial disease, R superficial femoral artery occlusion, with critical limb ischemia. 4. Osteomyelitis R 5th metatarsal. 5. Perineal fungal dermatitis. Plan: Will follow. Nystatin to groins. Revascularization per Dr. Colvin next week. MARIA R REYNOSO MD July 02, 2017 18:30
[2017-07-02 19:05] VITALS: BP 148/63
[2017-07-02] MEDS: MICONAZOLE 2% POWDER (DESENEX AF) 90 GM TOP SCH (21:08)
[2017-07-03 00:26] VITALS: BP 135/62
[2017-07-03] MEDS: PIPERACILLIN SODIUM/TAZOBACTAM 4.5 GM in D5W 100 ML IVPB 100 ML IV SCH ×3 (01:55→17:05)
[2017-07-03] MEDS: ONDANSETRON 4 MG/2 ML (SDV) Z0FRAN IVP PRN (02:33)
[2017-07-03 04:16] VITALS: BP 127/61
[2017-07-03] MEDS ORDERED: TROUGH ORDER-PHARMACY XX ONE (06:00)
[2017-07-03 06:36] LABS: BASOPHILS % (AUTO) 0 % (0-10); EOSINOPHILS % (AUTO) 0 % (0-10); HEMATOCRIT 39 % (40-54); HEMOGLOBIN 12.8 G/DL (13.3-17.7); LYMPHOCYTES # (AUTO) 1.1 X 10^3 (1.0-4.0); LYMPHOCYTES % (AUTO) 9 % (12-44); MEAN CORPUSCULAR HEMOGLOBIN 27 PG (25-34); MEAN CORPUSCULAR HGB CONC 33 G/DL (32-36); MEAN CORPUSCULAR VOLUME 81 FL (80-99); MEAN PLATELET VOLUME 9.9 FL (7.4-10.4); MONOCYTES # (AUTO) 0.7 X 10^3 (0.0-1.0); MONOCYTES % (AUTO) 6 % (0-12); NEUTROPHILS # (AUTO) 10.6 X 10^3 (1.8-7.8); NEUTROPHILS % (AUTO) 85 % (42-75); PLATELET COUNT 524 10^3/uL (130-400); RED BLOOD COUNT 4.81 10^6/uL (4.35-5.85); RED CELL DISTRIBUTION WIDTH 13.3 % (10.0-14.5); WHITE BLOOD COUNT 12.5 10^3/uL (4.3-11.0)
[2017-07-03 06:55] LABS: CALCIUM 8.8 MG/DL (8.5-10.1); CREATININE SERUM 2.85 MG/DL (0.60-1.30); POTASSIUM 4.5 MMOL/L (3.6-5.0)
[2017-07-03] MEDS: PANTOPRAZOLE 40 MG (PROTONIX) TAB PO SCH (07:02)
[2017-07-03] MEDS: inSUlin ASPART (NovoLOG) 1 UNIT/0.01 ML (CHARGE PER UNIT) SC SCH ×4 (07:03→20:56)
[2017-07-03 07:04] LABS: VANCOMYCIN,TROUGH 16.5 UG/ML (10.0-20.0)
[2017-07-03 08:00] VITALS: BP 143/65
[2017-07-03] MEDS: MICONAZOLE 2% POWDER (DESENEX AF) 90 GM TOP SCH ×2 (09:35→20:56)
--- NOTE | 2017-07-03 09:41 | Anesthesia-General Post-Op ---
General Patient Condition Mental Status/LOC: Same as Preop Cardiovascular: Satisfactory Nausea/Vomiting: Absent Respiratory: Satisfactory Pain: Controlled Complications: Absent Post Op Complications Complications None Follow Up Care/Instructions Patient Instructions None needed. Anesthesia/Patient Condition Patient Condition Patient is doing well, no complaints, stable vital signs, no apparent adverse anesthesia problems. No complications reported per nursing. DEDRICK STORY CRNA July 03, 2017 09:41
--- NOTE | 2017-07-03 11:38 | Progress Note-Hospitalist ---
Subjective HPI/CC On Admission Date Seen by Provider: July 03, 2017 Time Seen by Provider: 10:30 Subjective/Events-last exam Patient is extremely hard of hearing. He has no new complaints. History is obtained primarily from his . He does have some complaints of some nausea with some reflux and constipation. Labs are reviewed and he has a new onset of creatinine up to 2.85 vancomycin has been held. Review of Systems Gastrointestinal: Nausea, Vomiting, Constipation Neurological: Weakness Objective Exam Vital Signs Vital Signs Date Time Temp Pulse Resp B/P (MAP) Pulse Ox O2 Delivery O2 Flow Rate FiO2 07/03/17 09:10 Room Air 07/03/17 08:00 97.2 72 16 143/65 (91) 95 Capillary Refill : General Appearance: Chronically ill, Obese HEENT: Normal ENT Inspection Neck: Normal Inspection, Limited Range of Motion Respiratory: Chest Non Tender, Lungs Clear, Normal Breath Sounds, No Accessory Muscle Use Cardiovascular: Regular Rate, Rhythm, Other (Decreased peripheral pulses) Gastrointestinal: Normal Bowel Sounds, Soft, Distended Rectal: Deferred Extremity: Pedal Edema, Slow Capillary Refill Neurologic/Psychiatric: Alert Skin: Pallor Results/Procedures Lab Laboratory Tests 07/03/17 06:05 Patient resulted labs reviewed. Imaging: Reviewed Imaging Report Assessment/Plan Assessment and Plan Assess & Plan/Chief Complaint 1. New onset acute renal failure. Patient has not had a dye load at this time so I suspect his new onset renal insufficiency is from dehydration and vancomycin. Combination with Zosyn has shown to augment acute renal failure. Vancomycin has been held at this time. We'll start IV fluids and monitor 2. Osteomyelitis of the right fifth metatarsal-Vanco and Zosyn 3. History of abscess-status post I&D with placement of the wound VAC followed by Dr. Schmitz and Dr. Tatum 4. Severe peripheral vascular disease with superficial femoral artery occlusion waiting and intervention although this will be complicated by the acute renal failure currently and may require waiting 5. Type II diabetes 6. Nausea with vomiting considered delayed gastric emptying we'll start Reglan. 7. Constipation we'll utilize a Dulcolax suppository. Complicated multifactorial patient Clinical Quality Measures DVT/VTE Risk/Contraindication: Risk Factor Score Per Nursin RFS Level Per Nursing on Admit: 4+=Very High Contraindications-Pharm: Other *list below* Contraindications-Mechi: Other *list below* MINNIE WALSH MD July 03, 2017 11:38
[2017-07-03] MEDS ORDERED: BISACODYL 10 MG SUPP (DULCOLAX) PR ONE (11:45)
[2017-07-03] MEDS: METOCLOPRAMIDE INJ 10 MG/2 ML (REGLAN) IVP SCH ×3 (11:48→23:51)
[2017-07-03] MEDS: NS IV 1000 ML 1,000 ML IV SCH ×3 (11:48→23:23)
[2017-07-03 12:00] VITALS: BP 155/69
[2017-07-03] MEDS: VANCOMYCIN 500 MG/D5W 100 ML IV SCH ×2 (13:31)
[2017-07-03 16:02] VITALS: BP 144/63
[2017-07-03] MEDS: POLYETHYLENE GLYCOL 17 GM (MIRALAX) PACK PO SCH (20:56)
[2017-07-04 00:51] VITALS: BP 128/64
[2017-07-04] MEDS: PIPERACILLIN SODIUM/TAZOBACTAM 4.5 GM in D5W 100 ML IVPB 100 ML IV SCH ×3 (01:44→16:55)
[2017-07-04] MEDS: inSUlin ASPART (NovoLOG) 1 UNIT/0.01 ML (CHARGE PER UNIT) SC SCH ×4 (06:29→21:57)
[2017-07-04] MEDS: PANTOPRAZOLE 40 MG (PROTONIX) TAB PO SCH (06:29)
[2017-07-04] MEDS: METOCLOPRAMIDE INJ 10 MG/2 ML (REGLAN) IVP SCH ×3 (06:29→17:00)
[2017-07-04 06:51] LABS: HEMOGLOBIN 12.6 G/DL (13.3-17.7); MEAN PLATELET VOLUME 9.7 FL (7.4-10.4); RED BLOOD COUNT 4.79 10^6/uL (4.35-5.85); RED CELL DISTRIBUTION WIDTH 13.6 % (10.0-14.5); WHITE BLOOD COUNT 11.2 10^3/uL (4.3-11.0)
[2017-07-04 07:09] LABS: CALCIUM 8.7 MG/DL (8.5-10.1); CREATININE SERUM 2.91 MG/DL (0.60-1.30); POTASSIUM 4.4 MMOL/L (3.6-5.0)
[2017-07-04 08:00] VITALS: BP 138/65
[2017-07-04] MEDS: NS IV 1000 ML 1,000 ML IV SCH ×2 (08:14→16:56)
[2017-07-04] MEDS: MICONAZOLE 2% POWDER (DESENEX AF) 90 GM TOP SCH ×2 (08:14→21:58)
[2017-07-04] MEDS: VANCOMYCIN 500 MG/D5W 100 ML IV SCH ×2 (12:21)
--- NOTE | 2017-07-04 12:41 | Progress Note-Hospitalist ---
Subjective HPI/CC On Admission Date Seen by Provider: July 04, 2017 Time Seen by Provider: 12:00 Subjective/Events-last exam Patient is without complaint. Creatinine has increased up to 2.91 today hemoglobin dropped from 12.5-11.2. He has some urinary hesitancy but no other symptoms. He denies having had any previous renal problems Objective Exam Vital Signs Vital Signs Date Time Temp Pulse Resp B/P (MAP) Pulse Ox O2 Delivery O2 Flow Rate FiO2 07/04/17 08:00 98.2 72 18 138/65 (89) 96 Room Air Capillary Refill : General Appearance: No Apparent Distress, WD/WN HEENT: Normal ENT Inspection Neck: Limited Range of Motion Respiratory: Lungs Clear, Normal Breath Sounds, No Accessory Muscle Use, No Respiratory Distress Cardiovascular: Regular Rate, Rhythm, No Gallop Gastrointestinal: No Organomegaly, Non Tender, Soft Rectal: Deferred Back: Normal Inspection Extremity: Pedal Edema Neurologic/Psychiatric: Alert, Oriented x3, No Motor/Sensory Deficits, Normal Mood/Affect Results/Procedures Lab Laboratory Tests 07/04/17 06:05 Patient resulted labs reviewed. Imaging: Reviewed Imaging Report Assessment/Plan Assessment and Plan Assess & Plan/Chief Complaint 1. New onset acute non-oliguric renal failure. Patient has not had a dye load at this time so I suspect his new onset renal insufficiency is from dehydration and vancomycin. Combination with Zosyn has shown to augment acute renal failure. Vancomycin has been held at this time. He is on IV fluids. We will check a post void residual and a renal sonogram. 2. Osteomyelitis of the right fifth metatarsal-Vanco held will continue Zosyn 3. History of abscess-status post I&D with placement of the wound VAC followed by Dr. Schmitz and Dr. Tatum 4. Severe peripheral vascular disease with superficial femoral artery occlusion waiting and intervention although this will be complicated by the acute renal failure currently and may require waiting 5. Type II diabetes 6. Nausea with vomiting considered delayed gastric emptying improved with Reglan- 7. Constipation we'll utilize a Dulcolax suppository. Complicated multifactorial patient Clinical Quality Measures DVT/VTE Risk/Contraindication: Risk Factor Score Per Nursin RFS Level Per Nursing on Admit: 4+=Very High Contraindications-Pharm: Other *list below* Contraindications-Mechi: Other *list below* MINNIE WALSH MD July 04, 2017 12:41
[2017-07-04 16:00] VITALS: BP 147/72
[2017-07-04] MEDS: POLYETHYLENE GLYCOL 17 GM (MIRALAX) PACK PO SCH (21:50)
[2017-07-05 00:23] VITALS: BP 162/92
[2017-07-05] MEDS: METOCLOPRAMIDE INJ 10 MG/2 ML (REGLAN) IVP SCH ×2 (01:17→05:49)
[2017-07-05] MEDS: PIPERACILLIN SODIUM/TAZOBACTAM 4.5 GM in D5W 100 ML IVPB 100 ML IV SCH ×3 (01:17→17:41)
[2017-07-05] MEDS: NS IV 1000 ML 1,000 ML IV SCH ×3 (01:18→17:42)
[2017-07-05] MEDS: PANTOPRAZOLE 40 MG (PROTONIX) TAB PO SCH (05:49)
[2017-07-05] MEDS: inSUlin ASPART (NovoLOG) 1 UNIT/0.01 ML (CHARGE PER UNIT) SC SCH ×4 (05:49→21:18)
[2017-07-05 07:00] LABS: HEMOGLOBIN 13.3 G/DL (13.3-17.7); MEAN PLATELET VOLUME 9.9 FL (7.4-10.4); RED BLOOD COUNT 4.95 10^6/uL (4.35-5.85); RED CELL DISTRIBUTION WIDTH 13.5 % (10.0-14.5); WHITE BLOOD COUNT 12.1 10^3/uL (4.3-11.0)
[2017-07-05 07:22] LABS: CALCIUM 9.2 MG/DL (8.5-10.1); CREATININE SERUM 2.69 MG/DL (0.60-1.30); POTASSIUM 4.2 MMOL/L (3.6-5.0)
--- NOTE | 2017-07-05 07:40 | Progress Note (SOAP) ---
Subjective Time Seen by Provider: 07:35 Subjective/Events-last exam Patient doing good today. Abscess of right foot. Peripheral vascular disease. Osteomyelitis of the right fifth metatarsal. New-onset renal insufficiency. Objective Exam Vital Signs Date Time Temp Pulse Resp B/P (MAP) Pulse Ox O2 Delivery O2 Flow Rate FiO2 07/05/17 00:23 97.9 82 16 162/92 (115) 94 Room Air 07/04/17 21:00 Room Air 07/04/17 16:00 98.2 79 16 147/72 (97) 97 Room Air 07/04/17 08:00 98.2 72 18 138/65 (89) 96 Room Air I & O 07/05/17 07:00 Intake Total 4920 ml Output Total 1350 ml Balance 3570 ml Capillary Refill : General Appearance: No Apparent Distress, WD/WN HEENT: Normal ENT Inspection Neck: Full Range of Motion, Normal Inspection Respiratory: No Accessory Muscle Use, No Respiratory Distress Results Lab Laboratory Tests 07/04/17 10:57: Glucometer 312H 07/04/17 15:41: Glucometer 267H 07/04/17 20:41: Glucometer 256H 07/05/17 04:56: Glucometer 251H 07/05/17 06:20: 07/05/17 06:30: White Blood Count 12.1H, Red Blood Count 4.95, Hemoglobin 13.3, Hematocrit 41, Mean Corpuscular Volume 82, Mean Corpuscular Hemoglobin 27, Mean Corpuscular Hemoglobin Concent 33, Red Cell Distribution Width 13.5, Platelet Count 577H, Mean Platelet Volume 9.9, Sodium Level 140, Potassium Level 4.2, Chloride Level 105, Carbon Dioxide Level 22, Anion Gap 13, Blood Urea Nitrogen 20H, Creatinine 2.69H, Estimat Glomerular Filtration Rate 23, BUN/Creatinine Ratio 7, Glucose Level 252H, Calcium Level 9.2 Microbiology 07/01/17 MRSA Screen - Final, Complete MRSA not isolated Assessment/Plan Assessment/Plan Assess & Plan/Chief Complaint Abscess right foot. Peripheral artery disease. Occlusion of vessels. New-onset diabetes area Hemoglobin A1c 13.4. . 07/02/17. Abscess right foot. Osteomyelitis. Peripheral artery disease. Occlusion of artery. Patient have 2 procedures done today. . 07/05/17. [place] of right foot. Osteomyelitis of right fifth metatarsal. Peripheral vascular disease. Occlusion of the superficial femoral artery. Type II diabetes. Renal insufficiency Clinical Quality Measures Admission Status Admission Dx Abscess of right foot. Could have osteomyelitis. New-onset diabetes. Cellulitis of feet. Occlusion of artery DVT/VTE Risk/Contraindication: Risk Factor Score Per Nursin RFS Level Per Nursing on Admit: 4+=Very High Contraindications-Pharm: Other *list below* Contraindications-Mechi: Other *list below* BRITTANY ARRIAGA DO July 05, 2017 07:40
[2017-07-05 08:00] VITALS: BP 151/78
[2017-07-05] MEDS: MICONAZOLE 2% POWDER (DESENEX AF) 90 GM TOP SCH ×2 (09:19→21:18)
[2017-07-05] MEDS: inSUlin DETERMIR 1 UNIT/0.01 ML (LEVEMIR) CHARGE PER UNIT SQ SCH (09:19)
--- NOTE | 2017-07-05 10:15 | Cardiology Progress Note ---
Cardiology SOAP Progress Note Subjective: No chest pain or shortness of breath. Objective: I&O/Vital Signs 07/05/17 07/05/17 08:00 09:00 Temp 98.3 Pulse 85 Resp 20 B/P (MAP) 151/78 (102) Pulse Ox 96 O2 Delivery Room Air Room Air 07/05/17 00:00 Intake Total 2220 ml Output Total 500 ml Balance 1720 ml Weight (Pounds): 194 Weight (Ounces): 8.0 Weight (Calculated Kilograms): 88.931786 Constitutional: No appears stated age; AAO x 3; No apparent distress, No PERRL , No well-developed, No well-nourished, No other Respiratory: No accessory muscle use, No respiratory distress, No chest tender , No chest expansion is symmetric; chest is bilaterally symmetric; No lungs clear to percussion; lungs clear to auscultation; No crackles, No rhonchi, No rales, No stridor, No wheezing, No pleural rub, No other Cardiovascular: regular rate-rhythm; No irregularly irregular, No extra beats, No parasternal heave is noted, No JVD, No edema, No bradycardia, No tachycardia , No point of maximal impulse, No cardiac thrills are palpable; S1 and S2; No gallop/S3, No gallop/S4, No diastolic murmur, No systolic murmur, No friction rub, No click, No other Gastrointestional: No tender, No soft, No round, No distended, No pulsatile mass, No organomegaly, No guarding, No rebound, No tenderness, No hernia, No mass, No audible bowel sounds, No abnormal bowel sounds, No abdominal bruits, No spleenomegaly, No other Extremities: No normal range of motion, No non-tender, No normal inspection, No pedal edema, No calf tenderness, No normal capillary refill, No pelvis stable , No calf tenderness, No inflammation, No pedal edema, No slow capillary refill , No swelling, No other, No abrasion, No clubbing, No cyanosis, No ecchymosis, No laceration, No no lower extremity edema bilateral, No significant edema, No tenderness; wound Neurologic/Psychiatric: no motor/sensory deficits, alert, normal mood/affect, oriented x 3 Skin: No normal color, No warm/dry, No cyanosis, No cool, No diaphoresis, No damp, No ecchymosis, No jaundice, No mottled, No pallor, No rash, No tattoos/ piercings, No ulcerations, No rash on exposed areas, No ulcerations on exposed areas, No other Results/Procedures: Labs Laboratory Tests 07/04/17 15:41: Glucometer 267H 07/04/17 20:41: Glucometer 256H 07/05/17 04:56: Glucometer 251H 07/05/17 06:20: B-Type Natriuretic Peptide 1352.4H 07/05/17 06:30: White Blood Count 12.1H, Red Blood Count 4.95, Hemoglobin 13.3, Hematocrit 41, Mean Corpuscular Volume 82, Mean Corpuscular Hemoglobin 27, Mean Corpuscular Hemoglobin Concent 33, Red Cell Distribution Width 13.5, Platelet Count 577H, Mean Platelet Volume 9.9, Sodium Level 140, Potassium Level 4.2, Chloride Level 105, Carbon Dioxide Level 22, Anion Gap 13, Blood Urea Nitrogen 20H, Creatinine 2.69H, Estimat Glomerular Filtration Rate 23, BUN/Creatinine Ratio 7, Glucose Level 252H, Calcium Level 9.2 07/05/17 11:23: Glucometer 218H Microbiology 07/01/17 MRSA Screen - Final, Complete MRSA not isolated A/P: Assessment/Dx: Right fifth metatarsal osteomyelitis, Severe PAD with total right superficial femoral artery occlusion, Acute kidney injury Diabetes, Previous history of smoking Plan: Right fifth metatarsal osteomyelitis, IV antibiotics. Dr. Schmitz performed amputation and wound care on Wednesday afternoon. Patient on Zosyn IV. Critical limb ischemia /Severe PAD with total right superficial femoral artery occlusion. Peripheral angiography not performed on Wednesday since the patient was going for amputation and the risk of bleeding was elevated. Currently the concern is acute kidney injury. The patient is not having any resting limb discomfort. Therefore we will continue to watch renal function and hopefully perform angiography once creatinine is close to or below 1.5. Even then we'll try to perform angiography and intervention with least amount of contrast. Acute kidney injury: Likely ATN from either vancomycin or even Zosyn. Rule out obstruction with renal ultrasound. Change IV fluids to half-normal saline with 1-1/2 ampule of bicarbonate at 200 mL an hour. Elevated BNP: Clear lungs. We'll request an echocardiogram to assess LV function. Patient denies any resting shortness of breath but obviously he is not ambulating therefore we do not know if he has any shortness of breath with exertion. Diabetes, Previous history of smoking. Thank you for your consultation. Please call me if you have any questions. Alberto Colvin MD, FACP, FACC, FSCAI, FHRS, CCDS Interventional Cardiology Cardiac Electrophysiology Vascular Medicine and Endovascular Interventions Nathalia COLVIN MD July 05, 2017 10:15
[2017-07-05] MEDS ORDERED: METOCLOPRAMIDE INJ 10 MG/2 ML (REGLAN) IVP SCH (12:00)
[2017-07-05] MEDS: morphine INJ 4 MG/ML 1 ML (VIAL/SYRINGE) IVP PRN (12:14)
--- NOTE | 2017-07-05 12:17 | Podiatry Progress Note ---
Standard Progress Note Progress Notes/Assess & Plan Date Seen by Provider: July 05, 2017 Time Seen by Provider: 12:11 Progress/Assessment & Plan Pt seen at . No complaints at this time. RLE- Wound VAC intact, minimal drainage. VAC changed today, erythema much improved mild amount of seropurulent drainage from the plantar foot, tracking noted, +necrosis noted to the wound. Final Diagnosis POD #3 I&D Right foot with 5th Ray Resection -D/C wound VAC at this time -Start Flush and pack dressing twice daily per wound care -Awaiting Revascularization procedure -Will likely need another debridement after revasc procedure MARK KNIGHT DPM July 05, 2017 12:17
--- NOTE | 2017-07-05 14:20 | Diagnostic Imaging Report ---
INDICATION: Acute renal failure. Please give technique for renal ultrasound. Right kidney measures 12.2 x 7.3 x 6.5 cm and left kidney measures 13.1 x 6.6 x 5.4 cm. Cortical thickness and echogenicity is normal. No calculi are seen. There is no hydronephrosis. There is a 14 mm cyst involving the lower pole of the left kidney. The bladder is unremarkable. Ureteral jets are not visualized. IMPRESSION: Small left renal cyst. Study is otherwise unremarkable. Dictated by: Dictated on workstation # [id number]
[2017-07-05] MEDS: SODIUM BICARBONATE IV SCH ×4 (14:38→23:45)
[2017-07-05] MEDS: 1/2 NS IV SCH ×4 (14:38→23:45)
[2017-07-05 16:20] VITALS: BP 133/73
[2017-07-06] VITALS: BP 139/77
[2017-07-06] MEDS: PIPERACILLIN SODIUM/TAZOBACTAM 4.5 GM in D5W 100 ML IVPB 100 ML IV SCH (01:14)
[2017-07-06] MEDS: inSUlin ASPART (NovoLOG) 1 UNIT/0.01 ML (CHARGE PER UNIT) SC SCH ×4 (05:22→22:59)
[2017-07-06] MEDS: 1/2 NS IV SCH ×4 (06:03→21:55)
[2017-07-06] MEDS: SODIUM BICARBONATE IV SCH ×4 (06:03→21:55)
[2017-07-06] MEDS: PANTOPRAZOLE 40 MG (PROTONIX) TAB PO SCH (06:24)
[2017-07-06 06:53] LABS: HEMOGLOBIN 12.6 G/DL (13.3-17.7); MEAN PLATELET VOLUME 9.7 FL (7.4-10.4); RED BLOOD COUNT 4.76 10^6/uL (4.35-5.85); RED CELL DISTRIBUTION WIDTH 13.8 % (10.0-14.5); WHITE BLOOD COUNT 10.2 10^3/uL (4.3-11.0)
[2017-07-06 07:15] LABS: CALCIUM 8.8 MG/DL (8.5-10.1); CREATININE SERUM 2.4 MG/DL (0.60-1.30)
--- NOTE | 2017-07-06 07:34 | Progress Note (SOAP) ---
Subjective Time Seen by Provider: 07:30 Subjective/Events-last exam Patient feeling better today. Renal insufficiency. GFR is 27 today compared to 21 2 days ago. GFR is slowly turning around Abscess of right foot. Occlusion of vessel artery Objective Exam Vital Signs Date Time Temp Pulse Resp B/P (MAP) Pulse Ox O2 Delivery O2 Flow Rate FiO2 07/06/17 00:00 96.8 78 16 139/77 (97) 95 Room Air 07/05/17 21:00 Room Air 07/05/17 16:20 98.4 74 20 133/73 (93) 95 Room Air 07/05/17 09:00 Room Air 07/05/17 08:00 98.3 85 20 151/78 (102) 96 Room Air I & O 07/06/17 07:00 Intake Total 2890 ml Output Total 1600 ml Balance 1290 ml Capillary Refill : General Appearance: No Apparent Distress, WD/WN Neck: Normal Inspection, Non Tender Respiratory: Lungs Clear, No Accessory Muscle Use, No Respiratory Distress Cardiovascular: Regular Rate, Rhythm, No Murmur Gastrointestinal: non tender, soft Results Lab Laboratory Tests 07/06/17 06:23 Laboratory Tests 07/05/17 11:23: Glucometer 218H 07/05/17 16:53: Glucometer 265H 07/05/17 21:11: Glucometer 270H 07/06/17 05:14: Glucometer 115H 07/06/17 06:23: White Blood Count 10.2, Red Blood Count 4.76, Hemoglobin 12.6L, Hematocrit 39L, Mean Corpuscular Volume 82, Mean Corpuscular Hemoglobin 26, Mean Corpuscular Hemoglobin Concent 32, Red Cell Distribution Width 13.8, Platelet Count 565H, Mean Platelet Volume 9.7, Sodium Level 141, Potassium Level 4.0, Chloride Level 107, Carbon Dioxide Level 21, Anion Gap 13, Blood Urea Nitrogen 17, Creatinine 2.40H, Estimat Glomerular Filtration Rate 27, BUN/Creatinine Ratio 7, Glucose Level 125H, Calcium Level 8.8 Microbiology 07/01/17 MRSA Screen - Final, Complete MRSA not isolated Assessment/Plan Assessment/Plan Assess & Plan/Chief Complaint Abscess right foot. Peripheral artery disease. Occlusion of vessels. New-onset diabetes area Hemoglobin A1c 13.4. . 07/02/17. Abscess right foot. Osteomyelitis. Peripheral artery disease. Occlusion of artery. Patient have 2 procedures done today. . 07/05/17. [place] of right foot. Osteomyelitis of right fifth metatarsal. Peripheral vascular disease. Occlusion of the superficial femoral artery. Type II diabetes. Renal insufficiency. . 07/06/17. Abscess of right foot. Osteomyelitis of right middle metatarsal. Peripheral vascular disease. Occlusion of the superficial femoral artery. Renal insufficiency slowly improving. Type II diabetes Clinical Quality Measures Admission Status Admission Dx Abscess of right foot. Could have osteomyelitis. New-onset diabetes. Cellulitis of feet. Occlusion of artery DVT/VTE Risk/Contraindication: Risk Factor Score Per Nursin RFS Level Per Nursing on Admit: 4+=Very High Contraindications-Pharm: Other *list below* Contraindications-Mechi: Other *list below* BRITTANY ARRIAGA DO July 06, 2017 07:34
[2017-07-06 08:13] VITALS: BP 151/73
[2017-07-06] MEDS: cefTRIAXone INJECTION 1,000 MG in NS (IVPB) 50 ML IV SCH (09:21)
[2017-07-06] MEDS: inSUlin DETERMIR 1 UNIT/0.01 ML (LEVEMIR) CHARGE PER UNIT SQ SCH (09:21)
[2017-07-06] MEDS: MICONAZOLE 2% POWDER (DESENEX AF) 90 GM TOP SCH ×2 (09:21→21:38)
[2017-07-06 15:58] VITALS: BP 165/74
--- NOTE | 2017-07-06 18:16 | Wound Care Assessment ---
Wound Care Assessment Date Seen by Provider: July 06, 2017 Time Seen by Provider: 18:07 Chief Complaint R foot abscess. HPI The patient is a 76 year old male s/p amputation of R 5th ray for abscess of R lateral foot and gangrene. Has suffered intercurrent deterioration of renal function. This will delay any vascular intervention to address the documented R superficial femoral artery obstruction. The rationale for continued hospitalization was discussed at length with the patient and his . Plan to recheck wound in morning. Will request a mobility assessment from Physical Therapy for managing at home non-weight bearing on R foot. Past Medical History: Admits Diabetes Type II, Admits Heart Disease, Admits Peripheral Artery Disease Chronic renal failure. Smoking Status: Former Smoker Recreational Drug Use: No Alcohol Use: Denies Use Review of Systems Pulmonary: No Dyspnea Cardiovascular: No: Chest Pain Musculoskeletal: foot pain (less) Exam Vital Signs Date Time Temp Pulse Resp B/P (MAP) Pulse Ox O2 Delivery O2 Flow Rate FiO2 07/06/17 15:58 97.8 74 22 165/74 (104) 96 Room Air Capillary Refill : General Appearance: no apparent distress Neurologic/Psychiatric: alert, other (Upset at staying in hospital. Need for continued evaluation again explained.) Skin: other (R foot dressed.) Results Laboratory Tests 07/05/17 21:11: Glucometer 270H 07/06/17 05:14: Glucometer 115H 07/06/17 06:23: White Blood Count 10.2, Red Blood Count 4.76, Hemoglobin 12.6L, Hematocrit 39L, Mean Corpuscular Volume 82, Mean Corpuscular Hemoglobin 26, Mean Corpuscular Hemoglobin Concent 32, Red Cell Distribution Width 13.8, Platelet Count 565H, Mean Platelet Volume 9.7, Sodium Level 141, Potassium Level 4.0, Chloride Level 107, Carbon Dioxide Level 21, Anion Gap 13, Blood Urea Nitrogen 17, Creatinine 2.40H, Estimat Glomerular Filtration Rate 27, BUN/Creatinine Ratio 7, Glucose Level 125H, Calcium Level 8.8 07/06/17 11:11: Glucometer 229H 07/06/17 16:02: Glucometer 246H Microbiology 07/01/17 MRSA Screen - Final, Complete MRSA not isolated Assessment/Plan/Dx 1. Abscess, R lateral foot with gangrene, s/p 5th ray amputation. 2. Diabetic foot ulcer, R distal foot, [place] Grade 4. 3. Atherosclerotic peripheral arterial disease, R superficial femoral artery occlusion, with critical limb ischemia. 4. Osteomyelitis R 5th metatarsal. 5. Acute on chronic renal failure, Stage 4. Plan: Case/care d/w Dr. Cottrell and Diamond. Plan wound recheck tomorrow, further debridement as needed -- cognizant of critical limb ischemia. Revascularization per Dr. Colvin when safe from a renal standpoint. Will request Physical Therapy assessment of mobility needs for home in light of non- weight bearing R leg. MARIA R REYNOSO MD July 06, 2017 18:16
[2017-07-07] VITALS: BP 159/75
[2017-07-07] MEDS: SODIUM BICARBONATE IV SCH ×3 (03:02→16:44)
[2017-07-07] MEDS: 1/2 NS IV SCH ×3 (03:02→16:44)
[2017-07-07] MEDS: inSUlin ASPART (NovoLOG) 1 UNIT/0.01 ML (CHARGE PER UNIT) SC SCH ×4 (05:43→20:40)
[2017-07-07] MEDS: PANTOPRAZOLE 40 MG (PROTONIX) TAB PO SCH (06:22)
[2017-07-07 06:24] LABS: MEAN PLATELET VOLUME 9.8 FL (7.4-10.4); RED BLOOD COUNT 4.51 10^6/uL (4.35-5.85); RED CELL DISTRIBUTION WIDTH 13.4 % (10.0-14.5); WHITE BLOOD COUNT 9.6 10^3/uL (4.3-11.0)
[2017-07-07 06:48] LABS: CALCIUM 8.5 MG/DL (8.5-10.1); CREATININE SERUM 2.02 MG/DL (0.60-1.30); POTASSIUM 3.9 MMOL/L (3.6-5.0)
--- NOTE | 2017-07-07 07:26 | Progress Note (SOAP) ---
Subjective Time Seen by Provider: 07:15 Subjective/Events-last exam Abscess right foot. GFR 32 coming up. Patient to be evaluated today by wound care to see if needs further debridement. New-onset diabetes Objective Exam Vital Signs Date Time Temp Pulse Resp B/P (MAP) Pulse Ox O2 Delivery O2 Flow Rate FiO2 07/07/17 00:00 98.0 92 18 159/75 (103) 94 Room Air 07/06/17 15:58 97.8 74 22 165/74 (104) 96 Room Air 07/06/17 08:13 96.4 79 16 151/73 (99) 95 Room Air I & O 07/07/17 07:00 Intake Total 5132 ml Output Total 1425 ml Balance 3707 ml Capillary Refill : General Appearance: No Apparent Distress, WD/WN HEENT: Normal ENT Inspection Neck: Full Range of Motion, Non Tender Respiratory: Lungs Clear, Normal Breath Sounds, No Accessory Muscle Use, No Respiratory Distress Cardiovascular: Regular Rate, Rhythm, Normal Peripheral Pulses Gastrointestinal: non tender, soft Results Lab Laboratory Tests 07/07/17 06:00 Laboratory Tests 07/06/17 11:11: Glucometer 229H 07/06/17 16:02: Glucometer 246H 07/06/17 21:24: Glucometer 200H 07/07/17 05:18: Glucometer 171H 07/07/17 06:00: White Blood Count 9.6, Red Blood Count 4.51, Hemoglobin 12.0L, Hematocrit 37L, Mean Corpuscular Volume 81, Mean Corpuscular Hemoglobin 27, Mean Corpuscular Hemoglobin Concent 33, Red Cell Distribution Width 13.4, Platelet Count 488H, Mean Platelet Volume 9.8, Sodium Level 140, Potassium Level 3.9, Chloride Level 107, Carbon Dioxide Level 23, Anion Gap 10, Blood Urea Nitrogen 17, Creatinine 2.02H, Estimat Glomerular Filtration Rate 32, BUN/Creatinine Ratio 8, Glucose Level 188H, Calcium Level 8.5 Microbiology 07/01/17 MRSA Screen - Final, Complete MRSA not isolated Assessment/Plan Assessment/Plan Assess & Plan/Chief Complaint Abscess right foot. Peripheral artery disease. Occlusion of vessels. New-onset diabetes area Hemoglobin A1c 13.4. . 07/02/17. Abscess right foot. Osteomyelitis. Peripheral artery disease. Occlusion of artery. Patient have 2 procedures done today. . 07/05/17. [place] of right foot. Osteomyelitis of right fifth metatarsal. Peripheral vascular disease. Occlusion of the superficial femoral artery. Type II diabetes. Renal insufficiency. . 07/06/17. Abscess of right foot. Osteomyelitis of right middle metatarsal. Peripheral vascular disease. Occlusion of the superficial femoral artery. Renal insufficiency slowly improving. Type II diabetes. . 07/07/17. Abscess right foot. Osteomyelitis of right middle metatarsal. Peripheral vascular disease. Occlusion of the superficial femoral artery. Diabetes type II. Patient feeling good today. To evaluate surgical area. Patient may need debridement today. Renal functioning is improving. Admitting in the right direction. Patient voices no complaints Clinical Quality Measures Admission Status Admission Dx Abscess of right foot. Could have osteomyelitis. New-onset diabetes. Cellulitis of feet. Occlusion of artery DVT/VTE Risk/Contraindication: Risk Factor Score Per Nursin RFS Level Per Nursing on Admit: 4+=Very High Contraindications-Pharm: Other *list below* Contraindications-Mechi: Other *list below* BRITTANY ARRIAGA DO July 07, 2017 07:26
[2017-07-07 08:30] VITALS: BP 159/76
--- NOTE | 2017-07-07 08:35 | Wound Care Assessment ---
Wound Care Assessment Date Seen by Provider: July 07, 2017 Time Seen by Provider: 07:45 Chief Complaint R foot abscess. HPI The patient is a 76 year old male s/p amputation of R 5th ray for abscess of R lateral foot and gangrene. He is to have mobility assessment from Physical Therapy. No new complaint. He continues IV antibiotics. Past Medical History: Admits Diabetes Type II, Admits Heart Disease, Admits Peripheral Artery Disease Smoking Status: Former Smoker Recreational Drug Use: No Alcohol Use: Denies Use Review of Systems Pulmonary: No Dyspnea Cardiovascular: No: Chest Pain Gastrointestinal: No: Nausea Exam Vital Signs Date Time Temp Pulse Resp B/P (MAP) Pulse Ox O2 Delivery O2 Flow Rate FiO2 07/07/17 00:00 98.0 92 18 159/75 (103) 94 Room Air Capillary Refill : General Appearance: no apparent distress Skin: other (R lateral foot -- 5.4 x 2.3 x 1.3 cm, base 75% granulation, 25% slough, fascia exposed, mod. s.s. drainage.) Results Laboratory Tests 07/06/17 11:11: Glucometer 229H 07/06/17 16:02: Glucometer 246H 07/06/17 21:24: Glucometer 200H 07/07/17 05:18: Glucometer 171H 07/07/17 06:00: White Blood Count 9.6, Red Blood Count 4.51, Hemoglobin 12.0L, Hematocrit 37L, Mean Corpuscular Volume 81, Mean Corpuscular Hemoglobin 27, Mean Corpuscular Hemoglobin Concent 33, Red Cell Distribution Width 13.4, Platelet Count 488H, Mean Platelet Volume 9.8, Sodium Level 140, Potassium Level 3.9, Chloride Level 107, Carbon Dioxide Level 23, Anion Gap 10, Blood Urea Nitrogen 17, Creatinine 2.02H, Estimat Glomerular Filtration Rate 32, BUN/Creatinine Ratio 8, Glucose Level 188H, Calcium Level 8.5 Microbiology 07/01/17 MRSA Screen - Final, Complete MRSA not isolated Assessment/Plan/Dx 1. Abscess, R lateral foot with gangrene, s/p 5th ray amputation. 2. Diabetic foot ulcer, R distal foot, [place] Grade 4. 3. Atherosclerotic peripheral arterial disease, R superficial femoral artery occlusion, with critical limb ischemia. 4. Osteomyelitis R 5th metatarsal. 5. Acute on chronic renal failure, Stage 4. Plan: Will hold off any debridement pending revascularization per Dr. Colvin when safe from a renal standpoint. MARIA R REYNOSO MD July 07, 2017 08:35
[2017-07-07] MEDS ORDERED: DAKIN'S 1/4 STRENGTH (0.125%) 473 ML BTL TOP SCH (09:00)
[2017-07-07] MEDS: cefTRIAXone INJECTION 1,000 MG in NS (IVPB) 50 ML IV SCH (09:01)
[2017-07-07] MEDS: inSUlin DETERMIR 1 UNIT/0.01 ML (LEVEMIR) CHARGE PER UNIT SQ SCH (09:01)
[2017-07-07] MEDS: MICONAZOLE 2% POWDER (DESENEX AF) 90 GM TOP SCH ×2 (09:02→20:42)
--- NOTE | 2017-07-07 09:32 | Physical Therapy Evaluation ---
PT Evaluation-General Medical Diagnosis Admission Date June 30, 2017 at 14:40 Medical Diagnosis: abscess right lateral foot, s/p right 5th toe amputation, debility Onset Date: June 30, 2017 Therapy Diagnosis Therapy Diagnosis: impaired mobility, strength, endurance, balance Height/Weight Height (Feet): 5 Height (Inches): 10.00 Weight (Pounds): 194 Weight (Ounces): 8.0 Precautions Precautions/Isolations: Standard Precautions Weight Bear Status Right Lower Extremity: Right Non Weight Bearing Referral Physician: Willam Tatum MD Reason for Referral: Evaluation/Treatment Medical History Pertinent Medical History: DM Additional Medical History former smoker Social History Home: Single Level Current Living Status: Spouse Entry Into Home: Stairs Without Railing PT Steps Into Home: 2 Prior/Core FIM Prior Level of Function Functional [place] Measure 0=Not Assessed/NA 4=Minimal Assistance 1=Total Assistance 5=Supervision or Setup 2=Maximal Assistance 6=Modified [place] 3=Moderate Assistance 7=Complete [place] Bed Mobility: 7 Transfers (B,C,W/C) (FIM): 7 Gait: 7 PT Evaluation-Current Subjective Patient in bed pre tx, agrees to PT, no complaints of pain. Pt/Family Goals to be independent at home Objective Patient Orientation: Person, Place, Situation Attachments: IV ROM/Strength ROM Lower Extremities WNL Strength Lower Extremities right lower extremity (hip flexion 3/5, knee flexion 5/5, knee extension 4/5), left lower extremity (hip flexion 3/5, knee flexion 5/5, knee extension 4/5), dorsiflexion not tested due to bandages on feet. Neuromuscular (Tone, Coordination, Reflexes) NT Sensory Vision: Wears Glasses Hearing: Impaired Sensation Right Lower Extremit: Impaired Sensation Left Lower Extremity: Impaired Sensation Lower Extremities Patient has impaired light touch sensation in both legs below the knees Transfers Functional [place] Measure 0=Not Assessed/NA 4=Minimal Assistance 1=Total Assistance 5=Supervision or Setup 2=Maximal Assistance 6=Modified [place] 3=Moderate Assistance 7=Complete [place] Transfers (B, C, W/C) (FIM): 4 Scootin Rollin Supine to/from Sit: 5 Sit to/from Stand: 4 bed t/f WC(FIM only if WC use): 4 cues for hand placement and safety Gait Mode of Locomotion: Walk Anticipated Mode of Locomotion: Walk Gait (FIM): 1 Distance: 10' Gait Level of Assist: 4 Gait Persons Needed: 1 Gait Assistive Device: FWW Comments/Gait Description Patient can ambulate 10' with min assist for balance and cues for step placement and weight bearing status. Patient is able to maintain NWB of right leg. Balance Sitting Static: Normal Sitting Dynamic: Normal Standing Static: Fair Standing Dynamic: Fair Treatment supine exercises x20 (AP, QS, HS) Assessment/Needs Patient has impaired mobility, strength, endurance, balance. Patient's inquired about a knee scooter but he doesn't have the balance required to be able to do one of those safely. Rehab Potential: Fair PT Short Term Goals Short Term Goals Time Frame: July 14, 2017 Transfers (B,C,W/C) (FIM): 5 Gait (FIM): 2 Gait Distance Comment: 50' Gait Level of Assist: 5 Gait Assistive Device: FWW PT Plan Problem List Problem List: Activity Tolerance, Functional Strength, Safety, Balance, Gait, Transfer, Bed Mobility, ROM Treatment/Plan Treatment Plan: Continue Plan of Care Treatment Plan: Bed Mobility, Education, Functional Activity [place], Functional Strength, Gait, Safety, Therapeutic Exercise, Transfers Treatment Duration: July 14, 2017 Frequency: 6 times per week Estimated Hrs Per Day: .25 hour per day (15-30') Patient and/or Family Agrees t: Yes Safety Risks/Education Patient Education: Gait Training, Transfer Techniques, Reviewed Precautions, Correct Positioning, Safety Issues Teaching Recipient: Patient Teaching Methods: Demonstration, Discussion Response to Teaching: Reinforcement Needed Discharge Recommendations Plan Patient will perform bed mobility and transfer training, balance and endurance training, functional strengthening, stair training, gait training, and education , to improve functional mobility and independence at home. Therapy D/C Recommendations: Home w/ Family Support Time/GCodes Time In: 904 Time Out: 924 Total Billed Treatment Time: 20 Total Billed Treatment 1 visit EVNathalia 20' KISHAN LONG PT July 07, 2017 09:32
--- NOTE | 2017-07-07 10:04 | Cardiology Progress Note ---
Cardiology SOAP Progress Note Subjective: No chest pain or shortness of breath Objective: I&O/Vital Signs 07/07/17 07/07/17 07/07/17 00:00 08:30 08:45 Temp 98.0 97.8 Pulse 92 70 Resp 18 18 B/P (MAP) 159/75 (103) 159/76 (103) Pulse Ox 94 96 O2 Delivery Room Air Room Air Room Air 07/07/17 00:00 Intake Total 2932 ml Output Total 1425 ml Balance 1507 ml Weight (Pounds): 194 Weight (Ounces): 8.0 Weight (Calculated Kilograms): [id number] Constitutional: No appears stated age; AAO x 3; No apparent distress, No PERRL , No well-developed, No well-nourished, No other Respiratory: No accessory muscle use, No respiratory distress, No chest tender , No chest expansion is symmetric; chest is bilaterally symmetric; No lungs clear to percussion; lungs clear to auscultation; No crackles, No rhonchi, No rales, No stridor, No wheezing, No pleural rub, No other Cardiovascular: regular rate-rhythm; No irregularly irregular, No extra beats, No parasternal heave is noted, No JVD, No edema, No bradycardia, No tachycardia , No point of maximal impulse, No cardiac thrills are palpable; S1 and S2; No gallop/S3, No gallop/S4, No diastolic murmur, No systolic murmur, No friction rub, No click, No other Gastrointestional: No tender, No soft, No round, No distended, No pulsatile mass, No organomegaly, No guarding, No rebound, No tenderness, No hernia, No mass, No audible bowel sounds, No abnormal bowel sounds, No abdominal bruits, No spleenomegaly, No other Extremities: No normal range of motion, No non-tender, No normal inspection, No pedal edema, No calf tenderness, No normal capillary refill, No pelvis stable , No calf tenderness, No inflammation, No pedal edema, No slow capillary refill , No swelling, No other, No abrasion, No clubbing, No cyanosis, No ecchymosis, No laceration, No no lower extremity edema bilateral, No significant edema, No tenderness; wound Neurologic/Psychiatric: no motor/sensory deficits, alert, normal mood/affect, oriented x 3 Skin: No normal color, No warm/dry, No cyanosis, No cool, No diaphoresis, No damp, No ecchymosis, No jaundice, No mottled, No pallor, No rash, No tattoos/ piercings, No ulcerations, No rash on exposed areas, No ulcerations on exposed areas, No other Results/Procedures: Labs Laboratory Tests 07/06/17 11:11: Glucometer 229H 07/06/17 16:02: Glucometer 246H 07/06/17 21:24: Glucometer 200H 07/07/17 05:18: Glucometer 171H 07/07/17 06:00: White Blood Count 9.6, Red Blood Count 4.51, Hemoglobin 12.0L, Hematocrit 37L, Mean Corpuscular Volume 81, Mean Corpuscular Hemoglobin 27, Mean Corpuscular Hemoglobin Concent 33, Red Cell Distribution Width 13.4, Platelet Count 488H, Mean Platelet Volume 9.8, Sodium Level 140, Potassium Level 3.9, Chloride Level 107, Carbon Dioxide Level 23, Anion Gap 10, Blood Urea Nitrogen 17, Creatinine 2.02H, Estimat Glomerular Filtration Rate 32, BUN/Creatinine Ratio 8, Glucose Level 188H, Calcium Level 8.5 Microbiology 07/01/17 MRSA Screen - Final, Complete MRSA not isolated A/P: Assessment/Dx: Right fifth metatarsal osteomyelitis, Severe PAD with total right superficial femoral artery occlusion, Acute kidney injury Diabetes, Previous history of smoking Plan: Right fifth metatarsal osteomyelitis, IV antibiotics. Dr. Schmitz performed amputation and wound care on Wednesday afternoon. Patient on Zosyn IV. Critical limb ischemia /Severe PAD with total right superficial femoral artery occlusion. Peripheral angiography not performed on Wednesday since the patient was going for amputation and the risk of bleeding was elevated. Currently the concern is acute kidney injury. The patient is not having any resting limb discomfort. Peripheral angiography tomorrow. Discussed with the patient and family. Especially the risk of worsening kidney function. Acute kidney injury: Likely ATN from either vancomycin or even Zosyn. Renal ultrasound did not show any obstruction. On half-normal saline with 1-1/2 ampule of bicarbonate at 200 mL an hour. Significantly improved kidney function with a creatinine of 2 today. Elevated BNP: Clear lungs. Echocardiogram. Patient denies any resting shortness of breath but obviously he is not ambulating therefore we do not know if he has any shortness of breath with exertion. Diabetes, Previous history of smoking. Thank you for your consultation. Please call me if you have any questions. Alberto Colvin MD, FACP, FACC, FSCAI, FHRS, CCDS Interventional Cardiology Cardiac Electrophysiology Vascular Medicine and Endovascular Interventions Nathalia COLVIN MD July 07, 2017 10:04 am
[2017-07-07] MEDS: CLOPIDOGREL 75 MG (PLAVIX) TABLET PO SCH (11:11)
[2017-07-07] MEDS: ASPIRIN E.C. 81 MG (ECOTRIN) TAB PO SCH (11:11)
[2017-07-07] MEDS: DAKIN'S 1/4 STRENGTH (0.125%) 473 ML BTL TOP SCH ×2 (11:11→20:40)
--- NOTE | 2017-07-07 12:54 | Diagnostic Imaging Report ---
Clinical indication: PICC line placement. Exam: Portable chest x-ray upright view. Comparisons: None. Findings: Right PICC line is seen with tip in the distal superior vena cava. Lungs/pleura: There is mild bibasilar atelectasis versus infiltrate. There is no pneumothorax. There is no pleural effusion. Mediastinum: Unremarkable. Pulmonary vasculature: Unremarkable. Heart: There is cardiomegaly. Bones/extrathoracic soft tissue: Unremarkable. Impression: 1: Right PICC line is seen with tip in the distal superior vena cava. 2: Cardiomegaly with no significant pulmonary vascular congestion. 3: Mild bibasilar atelectasis versus infiltrate. Dictated by: Dictated on workstation # [id number]
[2017-07-07 16:26] VITALS: BP 172/83
[2017-07-07 18:16] VITALS: BP 174/79
[2017-07-07] MEDS: amLODIPine 5 MG (NORVASC) TAB PO SCH (18:31)
[2017-07-08] VITALS (24 sets, daily range): BP systolic 133–164; BP diastolic 68–96
[2017-07-08] MEDS: inSUlin ASPART (NovoLOG) 1 UNIT/0.01 ML (CHARGE PER UNIT) SC SCH ×4 (05:35→21:48)
[2017-07-08] MEDS: 1/2 NS IV SCH ×2 (05:35→11:57)
[2017-07-08] MEDS: SODIUM BICARBONATE IV SCH ×2 (05:35→11:57)
[2017-07-08] MEDS: PANTOPRAZOLE 40 MG (PROTONIX) TAB PO SCH (05:35)
[2017-07-08 05:49] LABS: MEAN PLATELET VOLUME 9.6 FL (7.4-10.4); RED BLOOD COUNT 4.51 10^6/uL (4.35-5.85); RED CELL DISTRIBUTION WIDTH 13.7 % (10.0-14.5)
[2017-07-08 06:27] LABS: CALCIUM 8.8 MG/DL (8.5-10.1); CREATININE SERUM 1.83 MG/DL (0.60-1.30); POTASSIUM 3.8 MMOL/L (3.6-5.0)
[2017-07-08] MEDS ORDERED: CEFT1FRO2 IV (07:21)
--- NOTE | 2017-07-08 07:51 | Progress Note (SOAP) ---
Subjective Time Seen by Provider: 07:15 Subjective/Events-last exam Abscess of right foot. Diabetes. Occlusion of the vessel and leg. GFR 36 coming up Sugars okay. Patient have procedure today by Dr. Colvin lacer and tier Objective Exam Vital Signs Date Time Temp Pulse Resp B/P (MAP) Pulse Ox O2 Delivery O2 Flow Rate FiO2 07/08/17 00:00 97.6 72 16 162/84 (110) 96 Room Air 07/07/17 21:00 Room Air 07/07/17 18:16 174/79 (110) 07/07/17 16:26 97.0 78 18 172/83 (112) 96 Room Air 07/07/17 08:45 Room Air 07/07/17 08:30 97.8 70 18 159/76 (103) 96 Room Air I & O 07/08/17 07:00 Intake Total 2980 ml Output Total 1950 ml Balance 1030 ml Capillary Refill : General Appearance: No Apparent Distress, Thin HEENT: Normal ENT Inspection Neck: Normal Inspection Respiratory: Lungs Clear, No Accessory Muscle Use, No Respiratory Distress Cardiovascular: Regular Rate, Rhythm Gastrointestinal: non tender, soft Results Lab Laboratory Tests 07/07/17 10:48: Glucometer 294H 07/07/17 16:29: Glucometer 259H 07/07/17 20:30: Glucometer 222H 07/08/17 05:15: Glucometer 127H 07/08/17 05:31: White Blood Count 9.0, Red Blood Count 4.51, Hemoglobin 12.0L, Hematocrit 37L, Mean Corpuscular Volume 81, Mean Corpuscular Hemoglobin 27, Mean Corpuscular Hemoglobin Concent 33, Red Cell Distribution Width 13.7, Platelet Count 516H, Mean Platelet Volume 9.6, Sodium Level 142, Potassium Level 3.8, Chloride Level 107, Carbon Dioxide Level 23, Anion Gap 12, Blood Urea Nitrogen 17, Creatinine 1.83H, Estimat Glomerular Filtration Rate 36, BUN/Creatinine Ratio 9, Glucose Level 140H, Calcium Level 8.8 Microbiology 07/01/17 MRSA Screen - Final, Complete MRSA not isolated Assessment/Plan Assessment/Plan Assess & Plan/Chief Complaint Abscess right foot. Peripheral artery disease. Occlusion of vessels. New-onset diabetes area Hemoglobin A1c 13.4. . 07/02/17. Abscess right foot. Osteomyelitis. Peripheral artery disease. Occlusion of artery. Patient have 2 procedures done today. . 07/05/17. [place] of right foot. Osteomyelitis of right fifth metatarsal. Peripheral vascular disease. Occlusion of the superficial femoral artery. Type II diabetes. Renal insufficiency. . 07/06/17. Abscess of right foot. Osteomyelitis of right middle metatarsal. Peripheral vascular disease. Occlusion of the superficial femoral artery. Renal insufficiency slowly improving. Type II diabetes. . 07/07/17. Abscess right foot. Osteomyelitis of right middle metatarsal. Peripheral vascular disease. Occlusion of the superficial femoral artery. Diabetes type II. Patient feeling good today. To evaluate surgical area. Patient may need debridement today. Renal functioning is improving. Admitting in the right direction. Patient voices no complaints. . 07/08/17. Abscess right foot area Osteomyelitis Diabetes. GFR improving now at 36. Sugars okay. To have lacer and tier to procedure today open vessel Clinical Quality Measures Admission Status Admission Dx Abscess of right foot. Could have osteomyelitis. New-onset diabetes. Cellulitis of feet. Occlusion of artery DVT/VTE Risk/Contraindication: Risk Factor Score Per Nursin RFS Level Per Nursing on Admit: 4+=Very High Contraindications-Pharm: Other *list below* Contraindications-Mechi: Other *list below* BRITTANY ARRIAGA DO July 08, 2017 7:51 am
--- NOTE | 2017-07-08 07:53 | Progress Note (SOAP) ---
Subjective Time Seen by Provider: 07:15 Subjective/Events-last exam Patient feeling good. GFR going up is 36. Sugars better. Patient have procedure today by cardiology Objective Exam Vital Signs Date Time Temp Pulse Resp B/P (MAP) Pulse Ox O2 Delivery O2 Flow Rate FiO2 07/08/17 00:00 97.6 72 16 162/84 (110) 96 Room Air 07/07/17 21:00 Room Air 07/07/17 18:16 174/79 (110) 07/07/17 16:26 97.0 78 18 172/83 (112) 96 Room Air 07/07/17 08:45 Room Air 07/07/17 08:30 97.8 70 18 159/76 (103) 96 Room Air I & O 07/08/17 07:00 Intake Total 2980 ml Output Total 1950 ml Balance 1030 ml Capillary Refill : General Appearance: No Apparent Distress, WD/WN HEENT: Normal ENT Inspection Neck: Full Range of Motion, Normal Inspection Results Lab Laboratory Tests 07/07/17 10:48: Glucometer 294H 07/07/17 16:29: Glucometer 259H 07/07/17 20:30: Glucometer 222H 07/08/17 05:15: Glucometer 127H 07/08/17 05:31: White Blood Count 9.0, Red Blood Count 4.51, Hemoglobin 12.0L, Hematocrit 37L, Mean Corpuscular Volume 81, Mean Corpuscular Hemoglobin 27, Mean Corpuscular Hemoglobin Concent 33, Red Cell Distribution Width 13.7, Platelet Count 516H, Mean Platelet Volume 9.6, Sodium Level 142, Potassium Level 3.8, Chloride Level 107, Carbon Dioxide Level 23, Anion Gap 12, Blood Urea Nitrogen 17, Creatinine 1.83H, Estimat Glomerular Filtration Rate 36, BUN/Creatinine Ratio 9, Glucose Level 140H, Calcium Level 8.8 Microbiology 07/01/17 MRSA Screen - Final, Complete MRSA not isolated Assessment/Plan Assessment/Plan Assess & Plan/Chief Complaint Abscess right foot. Peripheral artery disease. Occlusion of vessels. New-onset diabetes area Hemoglobin A1c 13.4. . 07/02/17. Abscess right foot. Osteomyelitis. Peripheral artery disease. Occlusion of artery. Patient have 2 procedures done today. . 07/05/17. [place] of right foot. Osteomyelitis of right fifth metatarsal. Peripheral vascular disease. Occlusion of the superficial femoral artery. Type II diabetes. Renal insufficiency. . 07/06/17. Abscess of right foot. Osteomyelitis of right middle metatarsal. Peripheral vascular disease. Occlusion of the superficial femoral artery. Renal insufficiency slowly improving. Type II diabetes. . 07/07/17. Abscess right foot. Osteomyelitis of right middle metatarsal. Peripheral vascular disease. Occlusion of the superficial femoral artery. Diabetes type II. Patient feeling good today. To evaluate surgical area. Patient may need debridement today. Renal functioning is improving. Admitting in the right direction. Patient voices no complaints Clinical Quality Measures Admission Status Admission Dx Abscess of right foot. Could have osteomyelitis. New-onset diabetes. Cellulitis of feet. Occlusion of artery DVT/VTE Risk/Contraindication: Risk Factor Score Per Nursin RFS Level Per Nursing on Admit: 4+=Very High Contraindications-Pharm: Other *list below* Contraindications-Mechi: Other *list below* BRITTANY ARRIAGA DO July 08, 2017 07:53
[2017-07-08] MEDS ORDERED: LIDOCAINE 1% INJ 20 ML 20 ML VIAL ONE (09:02)
[2017-07-08] MEDS ORDERED: HEParin (CATH LAB) 2,000 ML IV ONE (09:02)
[2017-07-08] MEDS: cefTRIAXone INJECTION 1,000 MG in NS (IVPB) 50 ML IV SCH (09:15)
[2017-07-08] MEDS: MICONAZOLE 2% POWDER (DESENEX AF) 90 GM TOP SCH ×2 (09:16→21:49)
[2017-07-08] MEDS: DAKIN'S 1/4 STRENGTH (0.125%) 473 ML BTL TOP SCH ×2 (09:16→21:48)
[2017-07-08] MEDS: CLOPIDOGREL 75 MG (PLAVIX) TABLET PO SCH (09:17)
[2017-07-08] MEDS: amLODIPine 5 MG (NORVASC) TAB PO SCH (09:18)
[2017-07-08] MEDS: ASPIRIN E.C. 81 MG (ECOTRIN) TAB PO SCH (09:18)
[2017-07-08] MEDS: inSUlin DETERMIR 1 UNIT/0.01 ML (LEVEMIR) CHARGE PER UNIT SQ SCH (09:36)
--- NOTE | 2017-07-08 11:34 | Physical Therapy Daily Note ---
PT Daily Note-Current Subjective Patient agrees to PT. Pain Numeric Pain Scale: 0-No Pain Location: No Pain Reported Mental Status Patient Orientation: Normal For Age Attachments: IV Transfers Functional [place] Measure 0=Not Assessed/NA 4=Minimal Assistance 1=Total Assistance 5=Supervision or Setup 2=Maximal Assistance 6=Modified [place] 3=Moderate Assistance 7=Complete IndependenceIRFPAI Quality Coding Scale 6 Independent with activity with or without an assistive device 5 Patient requires set up or clean up by helper. Patient completes activity by themselves 4 Supervision or touching assist (CGA). [place] provide cues , steadying assist 3 The helper provides less than half the effort to complete the activity 2 The helper provides more than half the effort to complete the activity 1 Dependent. The helper does all the effort to complete an activity 7 Patient refused to complete or attempt activity 9 The patient did not perform the activity before the current illness or injury 88 Not attempted due to Medical conditions or safety concerns Transfers (B, C, W/C) (FIM): 5 Scootin Rollin Supine to/from Sit: 5 Sit to/from Stand: 5 Weight Bearing Right Lower Extremity: Right Non Weight Bearing Gait Training Gait (FIM): 1 Distance (FIM): 1=up to 49 ft Distance: 10' x 6 Gait Level of Assist: 5 Gait Persons Needed: 1 Gait Assistive Device: FWW Patient is able to comply with NWB right foot for short distances Assessment Patient returned to bed with right Le elevated. Patient to have procedure in a.m. per report. PT Short Term Goals Short Term Goals Time Frame: July 14, 2017 Transfers (B,C,W/C) (FIM): 5 Gait (FIM): 2 Gait Distance Comment: 50' Gait Level of Assist: 5 Gait Assistive Device: FWW PT Plan Treatment/Plan Treatment Plan: Continue Plan of Care Treatment Plan: Bed Mobility, Education, Functional Activity Abdirizak, Functional Strength, Gait, Safety, Therapeutic Exercise, Transfers Treatment Duration: July 14, 2017 Frequency: 6 times per week Estimated Hrs Per Day: .25 hour per day (15-30') Patient and/or Family Agrees t: Yes Time/GCodes Time In: 1015 Time Out: 1029 Total Billed Treatment Time: 14 Total Billed Treatment 1 visit GT 14 min REI DANGELO PT July 08, 2017 11:34
[2017-07-08] MEDS ORDERED: fentaNYL INJECTION 100 MCG/2 ML AMP ONE (12:09)
[2017-07-08] MEDS ORDERED: MIDAZOLAM 5 MG/5 ML (VERSED) VIAL ONE (12:09)
[2017-07-08] MEDS ORDERED: HEParin 1000 UNIT/ML (10ML VIAL) FOR BOLUS ONE (12:09)
[2017-07-08] MEDS ORDERED: NS IV 1000 ML 1,000 ML ONE ×2 (12:50→13:26)
[2017-07-08] MEDS ORDERED: NITRO DRIP 25000 MCG/D5W 0 ML IV ONE (13:25)
--- NOTE | 2017-07-08 16:03 | Cardiology Progress Note ---
Cardiology SOAP Progress Note Subjective: Chest pain or shortness of breath Objective: I&O/Vital Signs 07/08/17 08:00 Temp 97.6 Pulse 72 Resp 21 B/P (MAP) 163/81 (108) Pulse Ox 92 O2 Delivery Room Air 07/08/17 00:00 Intake Total 1905 ml Output Total 1650 ml Balance 255 ml Weight (Pounds): 194 Weight (Ounces): 8.0 Weight (Calculated Kilograms): 88.831332 Constitutional: No appears stated age; AAO x 3; No apparent distress, No PERRL , No well-developed, No well-nourished, No other Respiratory: No accessory muscle use, No respiratory distress, No chest tender , No chest expansion is symmetric; chest is bilaterally symmetric; No lungs clear to percussion; lungs clear to auscultation; No crackles, No rhonchi, No rales, No stridor, No wheezing, No pleural rub, No other Cardiovascular: regular rate-rhythm; No irregularly irregular, No extra beats, No parasternal heave is noted, No JVD, No edema, No bradycardia, No tachycardia , No point of maximal impulse, No cardiac thrills are palpable; S1 and S2; No gallop/S3, No gallop/S4, No diastolic murmur, No systolic murmur, No friction rub, No click, No other Gastrointestional: No tender, No soft, No round, No distended, No pulsatile mass, No organomegaly, No guarding, No rebound, No tenderness, No hernia, No mass, No audible bowel sounds, No abnormal bowel sounds, No abdominal bruits, No spleenomegaly, No other Extremities: No normal range of motion, No non-tender, No normal inspection, No pedal edema, No calf tenderness, No normal capillary refill, No pelvis stable , No calf tenderness, No inflammation, No pedal edema, No slow capillary refill , No swelling, No other, No abrasion, No clubbing, No cyanosis, No ecchymosis, No laceration, No no lower extremity edema bilateral, No significant edema, No tenderness; wound Neurologic/Psychiatric: no motor/sensory deficits, alert, normal mood/affect, oriented x 3 Skin: No normal color, No warm/dry, No cyanosis, No cool, No diaphoresis, No damp, No ecchymosis, No jaundice, No mottled, No pallor, No rash, No tattoos/ piercings, No ulcerations, No rash on exposed areas, No ulcerations on exposed areas, No other Results/Procedures: Labs Laboratory Tests 07/07/17 16:29: Glucometer 259H 07/07/17 20:30: Glucometer 222H 07/08/17 05:15: Glucometer 127H 07/08/17 05:31: White Blood Count 9.0, Red Blood Count 4.51, Hemoglobin 12.0L, Hematocrit 37L, Mean Corpuscular Volume 81, Mean Corpuscular Hemoglobin 27, Mean Corpuscular Hemoglobin Concent 33, Red Cell Distribution Width 13.7, Platelet Count 516H, Mean Platelet Volume 9.6, Sodium Level 142, Potassium Level 3.8, Chloride Level 107, Carbon Dioxide Level 23, Anion Gap 12, Blood Urea Nitrogen 17, Creatinine 1.83H, Estimat Glomerular Filtration Rate 36, BUN/Creatinine Ratio 9, Glucose Level 140H, Calcium Level 8.8 07/08/17 10:45: Glucometer 137H Microbiology 07/01/17 MRSA Screen - Final, Complete MRSA not isolated A/P: Assessment/Dx: Right fifth metatarsal osteomyelitis, Severe PAD with total right superficial femoral artery occlusion, Mild acute systolic congestive heart failure Acute kidney injury Diabetes, Previous history of smoking Plan: Right fifth metatarsal osteomyelitis, IV antibiotics. Dr. Schmitz performed amputation and wound care on Wednesday afternoon. Patient on ceftriaxone. Critical limb ischemia /Severe PAD with total right superficial femoral artery occlusion. Peripheral angiography not performed on Wednesday since the patient was going for amputation and the risk of bleeding was elevated. Currently the concern is acute kidney injury. The patient is not having any resting limb discomfort. Peripheral angiography today. Discussed with the patient and family. Especially the risk of worsening kidney function. Acute kidney injury: Likely ATN from either vancomycin or even Zosyn. Renal ultrasound did not show any obstruction. On half-normal saline with 1-1/2 ampule of bicarbonate at 200 mL an hour. Significantly improved kidney function with a creatinine of 1.8 today. Acute mild systolic congestive heart failure: Elevated BNP: Clear lungs. Echocardiogram shows an EF of 35-40 percent. Patient denies any resting shortness of breath but obviously he is not ambulating therefore we do not know if he has any shortness of breath with exertion. Diabetes, Previous history of smoking. Thank you for your consultation. Please call me if you have any questions. Alberto Colvin MD, FACP, FACC, FSCAI, FHRS, CCDS Interventional Cardiology Cardiac Electrophysiology Vascular Medicine and Endovascular Interventions Nathalia COLVIN MD July 08, 2017 4:03 pm
--- NOTE | 2017-07-08 16:03 | Cardiac Procedure Note-CS/ASA ---
Pre-Procedure Note Pre-Op Procedure Note H&P Reviewed The H&P was reviewed, patient examined and no changes noted. Date H&P Reviewed: July 08, 2017 Time H&P Reviewed: 12:00 Conscious Sedation Pre-Proced Time Reviewed: 12:00 ASA Class: 3 Airway Mallampati Classification: ([place] appropriate class) I. II. III, IV Lungs Heart ASA score ASA 1: a normal healthy patient ASA 2: a patient with a mild systemic disease (mid diabetes, controlled hypertension, obesity ASA 3: a patient with a severe systemic disease that limits activity (angina , COPD, prior Myocardial infarction) ASA 4: a patient with an incapacitating disease that is a constant threat to life (CHF, renal failure) ASA 5: a moribund patient not expected to survive 24 hrs. (ruptured aneurysm) ASA 6: a declared brain patient whose organs are being harvested. For emergent operations, add the letter E after the classification Grade 1 Sedation Plan: Analgesia, Amnesia, Plan communicated to team members, Discussed options with patient/fam, Discussed risks with patient/fam Note The patient is an appropriate candidate to undergo the planned procedure, sedation, and anesthesia. The patient immediately re-assessed prior to indication. Nathalia RAMIREZ MD July 08, 2017 4:03 pm
--- NOTE | 2017-07-08 16:06 | Cardiology Post Procedure Note ---
Post-Procedure Note Physician (s)/Collection Specialist (s) Physician Nathalia RAMIREZ MD Pre-Procedure Diagnosis Pre-Procedure Diagnosis: Critical limb ischemia Post-Procedure Note Procedure Start Date: July 08, 2017 Procedure Start Time: 13:00 Name of Procedure: Peripheral angiography and intervention Findings/Procedure Note Severe bilateral PAD. Totally occluded long the right SFA with severe disease in the right TP trunk and posterior tibial artery. Short segment total occlusion left SFA with below the knee disease as well. Right SFA treated with arthrectomy and TECHNICIAN TEST SYSTEMS with excellent results. Right TP trunk and posterior tibial artery treated with TECHNICIAN TEST SYSTEMS alone. Anesthesia Type: Conscious Sedation Estimated blood loss (mL): 50 Contrast Amount: 110 Post-Procedure Diagnosis Post-operative diagnosis: Critical limb ischemia status post-successful intervention to the right lower extremity. Nathalia RAMIREZ MD July 08, 2017 4:06 pm
[2017-07-08] MEDS ORDERED: PATIENT MAY USE OWN MEDS, ALL PO SCH (16:15)
[2017-07-08] MEDS: morphine INJ 4 MG/ML 1 ML (VIAL/SYRINGE) IVP PRN (20:09)
[2017-07-08] MEDS ORDERED: ATORVASTATIN 80 MG (LIPITOR) TABLET PO SCH (21:00)
[2017-07-08] MEDS ORDERED: ATORVASTATIN 40 MG (LIPITOR) TABLET PO SCH (21:00)
--- NOTE | 2017-07-08 22:01 | OPERATIVE REPORT ---
DATE OF SERVICE: 07/08/2017 PERIPHERAL ANGIOGRAM AND INTERVENTION INDICATION: Critical limb ischemia. PREOPERATIVE DIAGNOSIS: Critical limb ischemia. POSTOPERATIVE DIAGNOSIS: Critical limb ischemia, severe bilateral PAD, successful intervention to right lower extremity. HISTORY: The patient is a 76-year-old gentleman, who presented with necrotic right 5th metatarsal. He has history of diabetes on insulin. He has remote history of smoking. MRI showed osteomyelitis, therefore the plan was amputation of the 5th metatarsal with wound evacuation. Ultrasound of bilateral lower extremity showed occlusive disease in the right superficial femoral artery with likely disease in the left lower extremity as well. The patient was initially started on Zosyn and vancomycin intravenously. The patient underwent right metatarsal amputation 6 days ago under general anesthesia by Dr. Fields. The next day, the patient was found to have developed acute kidney injury with creatinine going from 0.8 to 2.91. This was thought to be likely from either vancomycin or possibly Zosyn, therefore vancomycin was discontinued. Vancomycin trough level was 29. Zosyn was also discontinued and patient was started on ceftriaxone IV. The patient was started on generous IV fluids. Four days ago, I changed the IV fluid to half normal saline with 75 mEq of bicarbonate at 200 mL an hour. The patient gradually improved as far as the creatinine is concerned. The patient's creatinine today was 1.8. The patient was also noted to have an elevated BNP and an echocardiogram showed an LVEF of 30% to 35%. Due to critical limb ischemia, peripheral angiography and intervention is strongly indicated, therefore I discussed at length with the patient and family and Dr. Fields. This consent included significant worsening of renal function and even dialysis. I also discussed with Dr. Cottrell. The patient was brought to the laboratory worker today. PROCEDURE PERFORMED: 1. Abdominal aortogram with nonselective bilateral renal artery angiogram. 2. Bilateral lower extremity runoff. 3. Selective angiogram of the right lower extremity. 4. Atherectomy and MANAGER READING of right superficial femoral artery. 5. MANAGER READING of the tibioperoneal trunk. 6. MANAGER READING of right posterior tibial artery. ESTIMATED BLOOD LOSS: 50 mL. COMPLICATIONS: None. SPECIMENS: None. ANTICOAGULATION: IV heparin. ANESTHESIA: Conscious sedation. CONTRAST: 130 mL of Omnipaque. FLUOROSCOPY DOSE: 317 milligrays. PROCEDURE IN DETAIL: The patient was brought to the laboratory worker after informed consent was taken. He was draped and prepped in the usual sterile fashion. Access was gained in the left femoral artery with a 6-[place] sheath. Over a regular wire, we advanced a pigtail catheter into the mid abdominal aorta and an abdominal aortogram with nonselective bilateral renal angiogram was performed. The pigtail catheter was then moved to the level of the bifurcation and crossover was performed. The tip of the pigtail catheter was placed in the right common iliac artery and the right lower extremity runoff was performed. Through the sheath in, the left LABEL CODER runoff of the left lower extremity was also performed. The wire, which was a Storq wire was then advanced and placed in the right SFA. The pigtail catheter was taken out. The sheath was upgraded to a 7-[place] 65 cm destination sheath. The wire was taken out. The tip of the sheath was placed in the right LABEL CODER and a lower extremity runoff was performed. FINDINGS: Abdominal aortogram did not show any severe abdominal aortic disease. Patent left renal artery. Mild to moderate mid segment stenosis of the right renal artery. Mild diffuse disease in the distal abdominal aorta. 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 Moderate to severe disease in the left external iliac and common femoral artery. Patent proximal and mid segment of the left SFA with total occlusion in the mid to distal segment. It is a short occlusion with collaterals supplied by the deep femoral artery. Reconstitution in the left distal SFA and popliteal artery. There is a possibility of the [id number]; however, we cannot accurately assess stenosis severity. However, there is at least 2-vessel runoff [id number] that supplies to the left foot. This is with an anterior tibial artery and with likely either a deep peroneal artery or the posterior tibial artery. Moderate to severe right external iliac stenosis is noted. Severe stenosis is noted at the ostium of the right SFA with diffuse severe disease in the proximal segment of the right SFA. Total occlusion of the mid and distal segments of the right SFA with reconstitution in the popliteal artery, which is rather healthy. Collaterals are supplied by the deep femoral artery. Three-vessel runoff is noted. No significant disease in the right anterior tibial artery. Severe disease is noted in the right tibioperoneal trunk as well as the proximal and mid posterior tibial artery. There is mild disease noted in the deep peroneal artery; however, this supplies only to the mid bains area. RECOMMENDATIONS: 1. Atherectomy/MANAGER READING to the right SFA is recommended. 2. MANAGER READING is recommended to the right tibioperoneal trunk. 3. MANAGER READING is recommended to the right posterior tibial artery. INTERVENTION DETAILS: IV heparin was given. Three ACTs were performed. The first ACT was 190 seconds. A 1000 units of IV heparin was further given. The next ACT was over 220 seconds. The patient was already on aspirin and Plavix. The tip of the destination sheath in the distal common femoral artery. We then took a 0.035 Glidewire with a NaviCross; however, we were not able to get into the proximal SFA. We therefore switched to a V-18 wire; however, we were still not able to get into the mid segment of the SFA. We then took a 0.014 Command wire and we were able to not only get into the mid segment of the right SFA, but were able to cross the occlusive segment and get distally into the reconstitution segment in the distal SFA and proximal popliteal artery. The NaviCross catheter was advanced till after the distal reconstitution. The wire was taken out and selective angiogram which showed that we were intraluminal. We then put in a 0.014 bare wire. This wire was placed in the distal right posterior tibial artery. We then placed Emboshield filter wire. The filter was deployed in the mid popliteal artery. We then took a JetTectura G3 system 2.0 and performed atherectomy burst with the blades in from the ostium of the SFA and the distal SFA. Angiogram showed recanalization with still severe residual disease. We then performed next round of atherectomy with the blades out. This was also done from the level of the ostium of the right SFA till the proximal popliteal segment. The Jetstream atherectomy system was taken out and peripheral angiogram showed recanalization with less residual stenosis. We then took a machine lacer 5 x 200 x 135 cm balloon and placed the distal tip was placed in the proximal popliteal artery and the proximal tip was in the mid SFA. The balloon was inflated to above nominal pressure for 3 minutes. We then withdrew the balloon back where the distal tip was in the mid SFA and the proximal tip was in the distal common femoral artery. Another prolonged inflation for 3 minutes was performed at higher than nominal pressures. The balloon was then taken out and post-angiogram showed excellent recanalization and revascularization of the right SFA with almost no residual stenosis and brisk blood flow. The balloon was then taken out. The filter wire and bare wire was very carefully taken out as well. We then took over command 0.014 wire and placed it in the distal right posterior tibial artery and then took a 3.0 long coyote balloon and 2 inflations were performed. Both inflations were for 2-1/2 minutes at above nominal pressures. The first inflation was in the mid right posterior tibial artery and the second was in the right tibioperoneal trunk with excellent results. The wire was taken out and final angiogram showed excellent revascularization. Moderate to severe stenosis was noted in the right external iliac artery. The sheath was pulled back to the bifurcation of the aorta and a hand injection showed no damage to the bifurcation. The sheath was taken out and exchange for a short 7 [place] sheath. Patient tolerated procedure well and did not have any complications. Conclusions: 1. Successful revascularization of the right lower extremity with arthrectomy/ MANAGER READING to the right SFA and MANAGER READING alone to the right tibioperoneal trunk and posterior tibial artery. 2. Staged intervention to the left lower extremity for critical limb ischemia. 3. Continue aspirin, Plavix and Lipitor. Admit to the ICU for manual compression. 4. Check BUN/creatinine the morning. Continue IV fluids overnight. Job ID: [id number] DocumentID: [id number] Dictated Date: 07/08/2017 17:46:39 Manager [place]ow Date: 07/08/2017 22:00:48 Dictated By: TAVON RAMIREZ MD [id number]
[2017-07-09 00:34] VITALS: BP 146/72
[2017-07-09] MEDS: SODIUM BICARBONATE IV SCH ×3 (03:51→12:33)
[2017-07-09] MEDS: 1/2 NS IV SCH ×3 (03:51→12:33)
[2017-07-09 05:36] LABS: HEMOGLOBIN 10.2 G/DL (13.3-17.7); MEAN PLATELET VOLUME 9.8 FL (7.4-10.4); RED BLOOD COUNT 3.9 10^6/uL (4.35-5.85); RED CELL DISTRIBUTION WIDTH 13.9 % (10.0-14.5)
[2017-07-09] MEDS: inSUlin ASPART (NovoLOG) 1 UNIT/0.01 ML (CHARGE PER UNIT) SC SCH ×3 (06:02→17:36)
[2017-07-09 06:03] LABS: CALCIUM 8.6 MG/DL (8.5-10.1); CREATININE SERUM 1.76 MG/DL (0.60-1.30); POTASSIUM 3.9 MMOL/L (3.6-5.0)
[2017-07-09] MEDS: NS IV 1000 ML 1,000 ML IV SCH ×3 (06:31→12:33)
[2017-07-09] MEDS: PANTOPRAZOLE 40 MG (PROTONIX) TAB PO SCH (06:31)
--- NOTE | 2017-07-09 07:37 | Progress Note (SOAP) ---
Subjective Time Seen by Provider: 07:35 Subjective/Events-last exam In good today. Yesterday patient had geography down. Patient kidney function today 36 better GFR Objective Exam Vital Signs Date Time Temp Pulse Resp B/P (MAP) Pulse Ox O2 Delivery O2 Flow Rate FiO2 07/09/17 01:00 77 07/09/17 00:34 97.9 61 19 146/72 (96) 95 Room Air 07/08/17 21:20 98.6 83 20 148/73 (98) 95 Room Air 07/08/17 21:10 84 07/08/17 21:00 98.1 81 20 154/69 (97) 91 Room Air 07/08/17 20:45 98.1 81 20 137/75 (95) 91 Room Air 07/08/17 20:30 98.1 90 20 155/96 (115) 91 Room Air 07/08/17 20:15 98.1 70 20 141/68 (92) 91 Room Air 07/08/17 20:00 98.6 80 18 137/71 (93) 91 Room Air 07/08/17 19:45 98.5 77 20 133/68 (89) 94 Room Air 07/08/17 19:30 73 23 142/70 (94) 91 Room Air 07/08/17 19:15 78 16 146/78 (100) 93 Nasal Cannula 2.00 07/08/17 19:00 78 26 144/72 (96) 94 Nasal Cannula 2.00 07/08/17 19:00 85 07/08/17 18:45 86 32 160/84 (109) 95 Nasal Cannula 2.00 07/08/17 18:30 83 13 152/76 (101) 95 Nasal Cannula 2.00 07/08/17 18:15 85 16 164/91 (115) 94 Nasal Cannula 2.00 07/08/17 18:00 78 19 146/83 (104) 95 Nasal Cannula 2.00 07/08/17 17:45 80 18 150/77 (101) 93 Nasal Cannula 2.00 07/08/17 17:30 71 18 157/71 (99) 94 Nasal Cannula 2.00 07/08/17 17:15 64 17 155/77 (103) 94 Nasal Cannula 2.00 07/08/17 17:00 65 20 154/78 (103) 93 Nasal Cannula 2.00 07/08/17 16:45 78 23 153/81 (105) 93 Nasal Cannula 2.00 07/08/17 16:30 67 22 154/72 (99) 91 Nasal Cannula 2.00 07/08/17 16:15 71 21 156/79 (104) 93 Nasal Cannula 2.00 07/08/17 16:00 97.8 75 25 152/74 (100) 93 Nasal Cannula 2.00 07/08/17 08:00 97.6 72 21 163/81 (108) 92 Room Air I & O 07/09/17 07:00 Intake Total 770 ml Output Total 2125 ml Balance -1355 ml Capillary Refill : Less Than 3 Seconds General Appearance: No Apparent Distress, WD/WN HEENT: Normal ENT Inspection Neck: Full Range of Motion Respiratory: No Accessory Muscle Use, No Respiratory Distress Cardiovascular: Regular Rate, Rhythm Gastrointestinal: non tender, soft Results Lab Laboratory Tests 07/08/17 10:45: Glucometer 137H 07/08/17 17:30: Activated Partial Thromboplast Time 40H 07/08/17 21:26: Glucometer 168H 07/09/17 05:07: White Blood Count 11.0, Red Blood Count 3.90L, Hemoglobin 10.2L, Hematocrit 32L , Mean Corpuscular Volume 83, Mean Corpuscular Hemoglobin 26, Mean Corpuscular Hemoglobin Concent 32, Red Cell Distribution Width 13.9, Platelet Count 512H, Mean Platelet Volume 9.8, Sodium Level 143, Potassium Level 3.9, Chloride Level 109H, Carbon Dioxide Level 21, Anion Gap 13, Blood Urea Nitrogen 26H, Creatinine 1.76H, Estimat Glomerular Filtration Rate 38, BUN/Creatinine Ratio 15 , Glucose Level 170H, Calcium Level 8.6 07/09/17 05:36: Glucometer 161H Microbiology 07/01/17 MRSA Screen - Final, Complete MRSA not isolated Assessment/Plan Assessment/Plan Assess & Plan/Chief Complaint Abscess right foot. Peripheral artery disease. Occlusion of vessels. New-onset diabetes area Hemoglobin A1c 13.4. . 07/02/17. Abscess right foot. Osteomyelitis. Peripheral artery disease. Occlusion of artery. Patient have 2 procedures done today. . 07/05/17. [place] of right foot. Osteomyelitis of right fifth metatarsal. Peripheral vascular disease. Occlusion of the superficial femoral artery. Type II diabetes. Renal insufficiency. . 07/06/17. Abscess of right foot. Osteomyelitis of right middle metatarsal. Peripheral vascular disease. Occlusion of the superficial femoral artery. Renal insufficiency slowly improving. Type II diabetes. . 07/07/17. Abscess right foot. Osteomyelitis of right middle metatarsal. Peripheral vascular disease. Occlusion of the superficial femoral artery. Diabetes type II. Patient feeling good today. To evaluate surgical area. Patient may need debridement today. Renal functioning is improving. Admitting in the right direction. Patient voices no complaints. . 07/08/17. Abscess right foot area Osteomyelitis Diabetes. GFR improving now at 36. Sugars okay. To have ink technician to procedure today open vessel. . 07/09/17. Abscess right foot. Osteomyelitis. Diabetes new-onset. GFR improving. Political Organizer procedure done yesterday. Clinical Quality Measures Admission Status Admission Dx Abscess of right foot. Could have osteomyelitis. New-onset diabetes. Cellulitis of feet. Occlusion of artery DVT/VTE Risk/Contraindication: Risk Factor Score Per Nursin RFS Level Per Nursing on Admit: 4+=Very High Contraindications-Pharm: Other *list below* Contraindications-Mechi: Other *list below* BRITTANY ARRIAGA DO July 09, 2017 07:37
[2017-07-09 07:53] VITALS: BP 144/65
[2017-07-09] MEDS: meTOproloL SUCCINATE 50 MG (TOPROL XL) TAB PO SCH ×2 (08:16→08:19)
[2017-07-09] MEDS: amLODIPine 5 MG (NORVASC) TAB PO SCH (08:17)
[2017-07-09] MEDS: cefTRIAXone INJECTION 1,000 MG in NS (IVPB) 50 ML IV SCH (08:17)
[2017-07-09] MEDS: ASPIRIN E.C. 81 MG (ECOTRIN) TAB PO SCH (08:17)
[2017-07-09] MEDS: CLOPIDOGREL 75 MG (PLAVIX) TABLET PO SCH (08:18)
[2017-07-09] MEDS: inSUlin DETERMIR 1 UNIT/0.01 ML (LEVEMIR) CHARGE PER UNIT SQ SCH (08:18)
[2017-07-09] MEDS: DAKIN'S 1/4 STRENGTH (0.125%) 473 ML BTL TOP SCH (08:18)
[2017-07-09] MEDS: MICONAZOLE 2% POWDER (DESENEX AF) 90 GM TOP SCH (08:19)
[2017-07-09] MEDS ORDERED: CLOPIDOGREL 75 MG (PLAVIX) TABLET PO SCH (09:00)
[2017-07-09] MEDS ORDERED: ASPIRIN E.C. 81 MG (ECOTRIN) TAB PO SCH (09:00)
--- NOTE | 2017-07-09 09:37 | Cardiology Progress Note ---
Cardiology SOAP Progress Note Subjective: No chest pain or shortness of breath. However the patient does have history of shortness of breath. Objective: I&O/Vital Signs 07/09/17 07/09/17 07/09/17 00:34 01:00 07:53 Temp 97.9 96.7 Pulse 61 77 85 Resp 19 16 B/P (MAP) 146/72 (96) 144/65 (91) Pulse Ox 95 97 O2 Delivery Room Air Room Air 07/09/17 00:00 Intake Total 520 ml Output Total 1225 ml Balance -705 ml Weight (Pounds): 194 Weight (Ounces): 8.0 Weight (Calculated Kilograms): 88.790191 Constitutional: No appears stated age; AAO x 3; No apparent distress, No PERRL , No well-developed, No well-nourished, No other Respiratory: No accessory muscle use, No respiratory distress, No chest tender , No chest expansion is symmetric; chest is bilaterally symmetric; No lungs clear to percussion; lungs clear to auscultation; No crackles, No rhonchi, No rales, No stridor, No wheezing, No pleural rub, No other Cardiovascular: regular rate-rhythm; No irregularly irregular, No extra beats, No parasternal heave is noted, No JVD, No edema, No bradycardia, No tachycardia , No point of maximal impulse, No cardiac thrills are palpable; S1 and S2; No gallop/S3, No gallop/S4, No diastolic murmur, No systolic murmur, No friction rub, No click, No other Gastrointestional: No tender, No soft, No round, No distended, No pulsatile mass, No organomegaly, No guarding, No rebound, No tenderness, No hernia, No mass, No audible bowel sounds, No abnormal bowel sounds, No abdominal bruits, No spleenomegaly, No other Extremities: No normal range of motion, No non-tender, No normal inspection, No pedal edema, No calf tenderness, No normal capillary refill, No pelvis stable , No calf tenderness, No inflammation, No pedal edema, No slow capillary refill , No swelling, No other, No abrasion, No clubbing, No cyanosis, No ecchymosis, No laceration, No no lower extremity edema bilateral, No significant edema, No tenderness; wound (left lower extremity wounds as well.) Neurologic/Psychiatric: no motor/sensory deficits, alert, normal mood/affect, oriented x 3 Skin: No normal color, No warm/dry, No cyanosis, No cool, No diaphoresis, No damp, No ecchymosis, No jaundice, No mottled, No pallor, No rash, No tattoos/ piercings, No ulcerations, No rash on exposed areas, No ulcerations on exposed areas, No other Results/Procedures: Labs Laboratory Tests 07/08/17 17:30: Activated Partial Thromboplast Time 40H 07/08/17 21:26: Glucometer 168H 07/09/17 05:07: White Blood Count 11.0, Red Blood Count 3.90L, Hemoglobin 10.2L, Hematocrit 32L , Mean Corpuscular Volume 83, Mean Corpuscular Hemoglobin 26, Mean Corpuscular Hemoglobin Concent 32, Red Cell Distribution Width 13.9, Platelet Count 512H, Mean Platelet Volume 9.8, Sodium Level 143, Potassium Level 3.9, Chloride Level 109H, Carbon Dioxide Level 21, Anion Gap 13, Blood Urea Nitrogen 26H, Creatinine 1.76H, Estimat Glomerular Filtration Rate 38, BUN/Creatinine Ratio 15 , Glucose Level 170H, Calcium Level 8.6 07/09/17 05:36: Glucometer 161H 07/09/17 10:37: Glucometer 300H Microbiology 07/01/17 MRSA Screen - Final, Complete MRSA not isolated A/P: Assessment/Dx: Right fifth metatarsal osteomyelitis, Severe PAD with total right superficial femoral artery occlusion, Mild acute systolic congestive heart failure Acute kidney injury Diabetes, Previous history of smoking Plan: Right fifth metatarsal osteomyelitis, IV antibiotics. Dr. Schmitz performed amputation and wound care on Wednesday afternoon. Patient on ceftriaxone. Bilateral Critical limb ischemia /Severe bilateral PAD with total right superficial femoral artery occlusion. Peripheral angiography not performed on Wednesday since the patient was going for amputation and the risk of bleeding was elevated. Currently the concern is acute kidney injury. The patient is not having any resting limb discomfort. Peripheral angiography was done yesterday. With complicated intervention but successful revascularization of the right SFA with arthrectomy and CANAL SUPERINTENDENT. CANAL SUPERINTENDENT also performed to the right tibioperoneal trunk and posterior tibial artery and establishing at least a 2 vessel runoff to the foot. Patient also has ulcers on the left lower extremity and angiogram showed short total occlusion in the left SFA which will require revascularization in the near future. Acute kidney injury: Likely ATN from either vancomycin or even Zosyn. Renal ultrasound did not show any obstruction. On half-normal saline with 1-1/2 ampule of bicarbonate at 200 mL an hour. Significantly improved kidney function with a creatinine of 1.7 today. Acute mild systolic congestive heart failure: Elevated BNP: Clear lungs. Echocardiogram shows an EF of 3035 percent. Coronary angiography is recommended however cannot be done due to acute kidney injury and contrast load yesterday. Will treat for cardiomyopathy with beta rayna. Will hold lisinopril until kidney function improves. LifeVest for primary prevention of sudden cardiac . Patient can be discharged after LifeVest is done. Diabetes, Previous history of smoking. Okay to discharge on aspirin, Plavix, beta rayna, Lipitor, with LifeVest. Comprehensive metabolic profile on Wednesday07/14/2017 and follow-up in the morning with me. If kidney function is significantly improved we will likely schedule staged procedure and coronary angiography on 07/15/2017. Thank you for your consultation. Please call me if you have any questions. Alberto Colvin MD, FACP, FACC, FSCAI, FHRS, CCDS Interventional Cardiology Cardiac Electrophysiology Vascular Medicine and Endovascular Interventions Nathalia COLVIN MD July 09, 2017 9:37 am
[2017-07-09] MEDS ORDERED: FUROSEMIDE 40 MG/4 ML INJ (LASIX) IVP NR (10:15)
--- NOTE | 2017-07-09 11:38 | Physical Therapy Daily Note ---
PT Daily Note-Current Subjective Patient agrees to PT. Pain Numeric Pain Scale: 0-No Pain Location: No Pain Reported Mental Status Patient Orientation: Normal For Age Attachments: IV Transfers Functional [place] Measure 0=Not Assessed/NA 4=Minimal Assistance 1=Total Assistance 5=Supervision or Setup 2=Maximal Assistance 6=Modified [place] 3=Moderate Assistance 7=Complete IndependenceIRFPAI Quality Coding Scale 6 Independent with activity with or without an assistive device 5 Patient requires set up or clean up by helper. Patient completes activity by themselves 4 Supervision or touching assist (CGA). [place] provide cues , steadying assist 3 The helper provides less than half the effort to complete the activity 2 The helper provides more than half the effort to complete the activity 1 Dependent. The helper does all the effort to complete an activity 7 Patient refused to complete or attempt activity 9 The patient did not perform the activity before the current illness or injury 88 Not attempted due to Medical conditions or safety concerns Transfers (B, C, W/C) (FIM): 4 Scootin Rollin Supine to/from Sit: 5 Sit to/from Stand: 4 CGA for safety Weight Bearing Right Lower Extremity: Right Non Weight Bearing Gait Training Gait (FIM): 1 Distance (FIM): 1=up to 49 ft Distance: 20' x 4 Gait Level of Assist: 4 Gait Assistive Device: FWW patient is able to comply with NWB right foot Exercises Supine Ex: Ankle pumps, Quad Set, Heel Slides, Straight leg raise Supine Reps: 15 Assessment Patient tolerated treatment well and returned to bed with right LE elevated. Patient does fatigue very quickly with minimal activity. PT Short Term Goals Short Term Goals Time Frame: July 14, 2017 Transfers (B,C,W/C) (FIM): 5 Gait (FIM): 2 Gait Distance Comment: 50' Gait Level of Assist: 5 Gait Assistive Device: FWW PT Plan Treatment/Plan Treatment Plan: Continue Plan of Care Treatment Plan: Bed Mobility, Education, Functional Activity [place], Functional Strength, Gait, Safety, Therapeutic Exercise, Transfers Treatment Duration: July 14, 2017 Frequency: 6 times per week Estimated Hrs Per Day: .25 hour per day (15-30') Patient and/or Family Agrees t: Yes Time/GCodes Time In: 1045 Time Out: 1108 Total Billed Treatment Time: 23 Total Billed Treatment 1 visit FA x 2 23 min REI DANGELO PT July 09, 2017 11:38
[2017-07-09 12:00] VITALS: BP 125/58
[2017-07-09] MEDS ORDERED: PANT40TA3 PO (14:07)
[2017-07-09] MEDS ORDERED: CLOP75TA28 PO (14:07)
[2017-07-09] MEDS ORDERED: METO-370 PO (14:07)
[2017-07-09] MEDS ORDERED: INSU100V5 SQ (14:07)
[2017-07-09] MEDS ORDERED: ATOR40TA PO (14:07)
[2017-07-09] MEDS ORDERED: SODI473S7 TOP (14:07)
[2017-07-09] MEDS ORDERED: ASPI-983 PO (14:07)
[2017-07-09] MEDS ORDERED: MICO90PO TOP (14:07)
[2017-07-09] MEDS ORDERED: INSU100V16 SC (14:07)
[2017-07-09 16:03] VITALS: BP 115/56
[2017-07-09] MEDS ORDERED: BLOO1EAC87 MC (17:08)
[2017-07-09] MEDS ORDERED: BLOO-367 MC (17:08)
[2017-07-09] MEDS ORDERED: PEN1DIS.93 MC (17:08)
[2017-07-09] MEDS ORDERED: LANC-954 MC (17:08)
--- NOTE | 2017-07-09 17:12 | Wound Care Assessment ---
Wound Care Assessment Date Seen by Provider: July 09, 2017 Time Seen by Provider: 16:30 Chief Complaint R lateral foot ulcer. HPI The patient is a 76 year old male s/p amputation of R 5th ray for abscess of R lateral foot and gangrene. The wound is clean, with primarily a viable base. Past Medical History: Admits Diabetes Type II, Admits Heart Disease, Admits Peripheral Artery Disease Smoking Status: Former Smoker Recreational Drug Use: No Alcohol Use: Denies Use Review of Systems Pulmonary: No Dyspnea Cardiovascular: No: Chest Pain Exam Vital Signs Date Time Temp Pulse Resp B/P (MAP) Pulse Ox O2 Delivery O2 Flow Rate FiO2 07/09/17 12:00 97.0 62 18 125/58 (80) 96 Room Air 07/08/17 19:15 2.00 Capillary Refill : Less Than 3 Seconds General Appearance: no apparent distress Respiratory: no respiratory distress Skin: other (R foot wound dressing intact and dry.) Results Laboratory Tests 07/08/17 17:30: Activated Partial Thromboplast Time 40H 07/08/17 21:26: Glucometer 168H 07/09/17 05:07: White Blood Count 11.0, Red Blood Count 3.90L, Hemoglobin 10.2L, Hematocrit 32L , Mean Corpuscular Volume 83, Mean Corpuscular Hemoglobin 26, Mean Corpuscular Hemoglobin Concent 32, Red Cell Distribution Width 13.9, Platelet Count 512H, Mean Platelet Volume 9.8, Sodium Level 143, Potassium Level 3.9, Chloride Level 109H, Carbon Dioxide Level 21, Anion Gap 13, Blood Urea Nitrogen 26H, Creatinine 1.76H, Estimat Glomerular Filtration Rate 38, BUN/Creatinine Ratio 15 , Glucose Level 170H, Calcium Level 8.6 07/09/17 05:36: Glucometer 161H 07/09/17 10:37: Glucometer 300H Microbiology 07/01/17 MRSA Screen - Final, Complete MRSA not isolated Assessment/Plan/Dx 1. Abscess, R lateral foot with gangrene, s/p 5th ray amputation. 2. Diabetic foot ulcer, R distal foot, [place] Grade 4. 3. Atherosclerotic peripheral arterial disease, R superficial femoral artery occlusion, with critical limb ischemia. 4. Osteomyelitis R 5th metatarsal. 5. Acute on chronic renal failure, Stage 4. Plan: Will follow patient as out-patient in [facility]. MARIA R REYNOSO MD July 09, 2017 17:12
--- NOTE | 2017-07-14 07:34 | Discharge Summary ---
Diagnosis/Chief Complaint Date of Admission June 30, 2017 at 14:40 Date of Discharge July 09, 2017 at 20:11 Discharge Time: 07:30 Discharge Diagnosis New-onset diabetes. 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 Occlusion of right mid superficial vessel. Abscess right lateral foot with gangrene. Diabetic foot ulcer. Peripheral artery disease. Mild acute systolic congestive heart failure. skin ulcer. Take renal insufficiency. Acute kidney failure. Personal history of nicotine dependence. Reason Hospital Visit Patient came to the office with abscess and ulcer of right foot. Left foot is not as bad. Blood tests taken showing that patient's new diabetic with a hemoglobin of 13.4. Patient sent to wound care. Patient admitted. Patient needed debridement by surgeon tomorrow. Surgery prostate Discharge Summary Procedures Surgery for osteomyelitis. Angiography of the limb by cardiology Consultations Podiatry. Cardiology. Wound care. Discharge Physical Examination Allergies: Coded Allergies: No Known Drug Allergies (Unverified , 06/30/17) Vitals & I&Os Vital Signs Date Time Temp Pulse Resp B/P (MAP) Pulse Ox O2 Delivery O2 Flow Rate FiO2 07/09/17 16:03 97.5 63 18 115/56 (75) 97 Room Air 07/08/17 19:15 2.00 Hospital Course Patient in the hospital acute renal failure. Patient had successful surgeries. Patient sent home on IV antibiotic for osteomyelitis Labs (last 24 hrs) Laboratory Tests 06/30/17 17:10: White Blood Count 11.5H, Red Blood Count 4.87, Hemoglobin 13.1L, Hematocrit 39L , Mean Corpuscular Volume 80, Mean Corpuscular Hemoglobin 27, Mean Corpuscular Hemoglobin Concent 34, Red Cell Distribution Width 13.3, Platelet Count 506H, Mean Platelet Volume 9.7, Prothrombin Time 14.4, INR Comment 1.1, Activated Partial Thromboplast Time 28, Sodium Level 135, Potassium Level 4.3, Chloride Level 99, Carbon Dioxide Level 25, Anion Gap 11, Blood Urea Nitrogen 9, Creatinine 0.84, Estimat Glomerular Filtration Rate > 60, BUN/Creatinine Ratio 11, Glucose Level 269H, Calcium Level 9.2, Total Bilirubin 0.4, Aspartate Amino Transf (AST/SGOT) 8, Alanine Aminotransferase (ALT/SGPT) 6, Alkaline Phosphatase 140H, Total Protein 6.9, Albumin 3.4 06/30/17 20:27: Glucometer 359H 07/01/17 05:01: Glucometer 119H 07/01/17 05:21: White Blood Count 11.8H, Red Blood Count 4.68, Hemoglobin 12.5L, Hematocrit 38L , Mean Corpuscular Volume 81, Mean Corpuscular Hemoglobin 27, Mean Corpuscular Hemoglobin Concent 33, Red Cell Distribution Width 13.0, Platelet Count 459H, Mean Platelet Volume 10.1, Sodium Level 138, Potassium Level 4.1, Chloride Level 103, Carbon Dioxide Level 24, Anion Gap 11, Blood Urea Nitrogen 8, Creatinine 0.84, Estimat Glomerular Filtration Rate > 60, BUN/Creatinine Ratio 10, Glucose Level 123H, Calcium Level 8.9, Triglycerides Level 72, Cholesterol Level 147, LDL Cholesterol Direct 100, VLDL Cholesterol 14, HDL Cholesterol 33L 07/01/17 10:59: Glucometer 182H 07/01/17 16:41: Glucometer 244H 07/01/17 20:20: Glucometer 275H 07/02/17 07:22: Vancomycin Level Trough 23.5H 07/02/17 11:40: Glucometer 275H 07/02/17 14:31: Glucometer 314H 07/02/17 16:22: Glucometer 335H 07/02/17 20:53: Glucometer 354H 07/03/17 05:26: Glucometer 251H 07/03/17 06:05: White Blood Count 12.5H, Red Blood Count 4.81, Hemoglobin 12.8L, Hematocrit 39L , Mean Corpuscular Volume 81, Mean Corpuscular Hemoglobin 27, Mean Corpuscular Hemoglobin Concent 33, Red Cell Distribution Width 13.3, Platelet Count 524H, Mean Platelet Volume 9.9, Neutrophils (%) (Auto) 85H, Lymphocytes (%) (Auto) 9L , Monocytes (%) (Auto) 6, Eosinophils (%) (Auto) 0, Basophils (%) (Auto) 0, Neutrophils # (Auto) 10.6H, Lymphocytes # (Auto) 1.1, Monocytes # (Auto) 0.7, Eosinophils # (Auto) 0.0, Basophils # (Auto) 0.0, Erythrocyte Sedimentation Rate 71H, Sodium Level 137, Potassium Level 4.5, Chloride Level 101, Carbon Dioxide Level 23, Anion Gap 13, Blood Urea Nitrogen 22H, Creatinine 2.85#H, Estimat Glomerular Filtration Rate 22, BUN/Creatinine Ratio 8, Glucose Level 300H, Calcium Level 8.8, Vancomycin Level Trough 16.5 07/03/17 12:15: Glucometer 284H 07/03/17 16:06: Glucometer 300H 07/03/17 20:20: Glucometer 255H 07/04/17 05:12: Glucometer 266H 07/04/17 06:05: White Blood Count 11.2H, Red Blood Count 4.79, Hemoglobin 12.6L, Hematocrit 39L , Mean Corpuscular Volume 81, Mean Corpuscular Hemoglobin 26, Mean Corpuscular Hemoglobin Concent 32, Red Cell Distribution Width 13.6, Platelet Count 560H, Mean Platelet Volume 9.7, Sodium Level 140, Potassium Level 4.4, Chloride Level 105, Carbon Dioxide Level 20L, Anion Gap 15H, Blood Urea Nitrogen 21H, Creatinine 2.91H, Estimat Glomerular Filtration Rate 21, BUN/Creatinine Ratio 7 , Glucose Level 264H, Calcium Level 8.7 07/04/17 10:57: Glucometer 312H 07/04/17 15:41: Glucometer 267H 07/04/17 20:41: Glucometer 256H 07/05/17 04:56: Glucometer 251H 07/05/17 06:20: B-Type Natriuretic Peptide 1352.4H 07/05/17 06:30: White Blood Count 12.1H, Red Blood Count 4.95, Hemoglobin 13.3, Hematocrit 41, Mean Corpuscular Volume 82, Mean Corpuscular Hemoglobin 27, Mean Corpuscular Hemoglobin Concent 33, Red Cell Distribution Width 13.5, Platelet Count 577H, Mean Platelet Volume 9.9, Sodium Level 140, Potassium Level 4.2, Chloride Level 105, Carbon Dioxide Level 22, Anion Gap 13, Blood Urea Nitrogen 20H, Creatinine 2.69H, Estimat Glomerular Filtration Rate 23, BUN/Creatinine Ratio 7, Glucose Level 252H, Calcium Level 9.2 07/05/17 11:23: Glucometer 218H 07/05/17 16:53: Glucometer 265H 07/05/17 21:11: Glucometer 270H 07/06/17 05:14: Glucometer 115H 07/06/17 06:23: White Blood Count 10.2, Red Blood Count 4.76, Hemoglobin 12.6L, Hematocrit 39L, Mean Corpuscular Volume 82, Mean Corpuscular Hemoglobin 26, Mean Corpuscular Hemoglobin Concent 32, Red Cell Distribution Width 13.8, Platelet Count 565H, Mean Platelet Volume 9.7, Sodium Level 141, Potassium Level 4.0, Chloride Level 107, Carbon Dioxide Level 21, Anion Gap 13, Blood Urea Nitrogen 17, Creatinine 2.40H, Estimat Glomerular Filtration Rate 27, BUN/Creatinine Ratio 7, Glucose Level 125H, Calcium Level 8.8 07/06/17 11:11: Glucometer 229H 07/06/17 16:02: Glucometer 246H 07/06/17 21:24: Glucometer 200H 07/07/17 05:18: Glucometer 171H 07/07/17 06:00: White Blood Count 9.6, Red Blood Count 4.51, Hemoglobin 12.0L, Hematocrit 37L, Mean Corpuscular Volume 81, Mean Corpuscular Hemoglobin 27, Mean Corpuscular Hemoglobin Concent 33, Red Cell Distribution Width 13.4, Platelet Count 488H, Mean Platelet Volume 9.8, Sodium Level 140, Potassium Level 3.9, Chloride Level 107, Carbon Dioxide Level 23, Anion Gap 10, Blood Urea Nitrogen 17, Creatinine 2.02H, Estimat Glomerular Filtration Rate 32, BUN/Creatinine Ratio 8, Glucose Level 188H, Calcium Level 8.5 07/07/17 10:48: Glucometer 294H 07/07/17 16:29: Glucometer 259H 07/07/17 20:30: Glucometer 222H 07/08/17 05:15: Glucometer 127H 07/08/17 05:31: White Blood Count 9.0, Red Blood Count 4.51, Hemoglobin 12.0L, Hematocrit 37L, Mean Corpuscular Volume 81, Mean Corpuscular Hemoglobin 27, Mean Corpuscular Hemoglobin Concent 33, Red Cell Distribution Width 13.7, Platelet Count 516H, Mean Platelet Volume 9.6, Sodium Level 142, Potassium Level 3.8, Chloride Level 107, Carbon Dioxide Level 23, Anion Gap 12, Blood Urea Nitrogen 17, Creatinine 1.83H, Estimat Glomerular Filtration Rate 36, BUN/Creatinine Ratio 9, Glucose Level 140H, Calcium Level 8.8 07/08/17 10:45: Glucometer 137H 07/08/17 17:30: Activated Partial Thromboplast Time 40H 07/08/17 21:26: Glucometer 168H 07/09/17 05:07: White Blood Count 11.0, Red Blood Count 3.90L, Hemoglobin 10.2L, Hematocrit 32L , Mean Corpuscular Volume 83, Mean Corpuscular Hemoglobin 26, Mean Corpuscular Hemoglobin Concent 32, Red Cell Distribution Width 13.9, Platelet Count 512H, Mean Platelet Volume 9.8, Sodium Level 143, Potassium Level 3.9, Chloride Level 109H, Carbon Dioxide Level 21, Anion Gap 13, Blood Urea Nitrogen 26H, Creatinine 1.76H, Estimat Glomerular Filtration Rate 38, BUN/Creatinine Ratio 15 , Glucose Level 170H, Calcium Level 8.6 07/09/17 05:36: Glucometer 161H 07/09/17 10:37: Glucometer 300H 07/09/17 17:35: Glucometer 100 Microbiology 07/01/17 MRSA Screen - Final, Complete MRSA not isolated Laboratory Tests 06/30/17 17:10 07/01/17 05:21 07/03/17 06:05 07/04/17 06:05 07/05/17 06:30 07/06/17 06:23 07/07/17 06:00 07/08/17 05:31 07/09/17 05:07 Pending Labs Microbiology Date/Time Source Procedure Growth Status 07/01/17 21:25 Nasal MRSA Screen - Final MRSA not isolated Complete Laboratory Tests 06/30/17 17:10: White Blood Count 11.5, Red Blood Count 4.87, Hemoglobin 13.1, Hematocrit 39, Mean Corpuscular Volume 80, Mean Corpuscular Hemoglobin 27, Mean Corpuscular Hemoglobin Concent 34, Red Cell Distribution Width 13.3, Platelet Count 506, Mean Platelet Volume 9.7, Prothrombin Time 14.4, INR Comment 1.1, Activated Partial Thromboplast Time 28, Sodium Level 135, Potassium Level 4.3, Chloride Level 99, Carbon Dioxide Level 25, Anion Gap 11, Blood Urea Nitrogen 9, Creatinine 0.84, Estimat Glomerular Filtration Rate > 60, BUN/Creatinine Ratio 11, Glucose Level 269, Calcium Level 9.2, Total Bilirubin 0.4, Aspartate Amino Transf (AST/SGOT) 8, Alanine Aminotransferase (ALT/SGPT) 6, Alkaline Phosphatase 140, Total Protein 6.9, Albumin 3.4 06/30/17 20:27: Glucometer 359 07/01/17 05:01: Glucometer 119 07/01/17 05:21: White Blood Count 11.8, Red Blood Count 4.68, Hemoglobin 12.5, Hematocrit 38, Mean Corpuscular Volume 81, Mean Corpuscular Hemoglobin 27, Mean Corpuscular Hemoglobin Concent 33, Red Cell Distribution Width 13.0, Platelet Count 459, Mean Platelet Volume 10.1, Sodium Level 138, Potassium Level 4.1, Chloride Level 103, Carbon Dioxide Level 24, Anion Gap 11, Blood Urea Nitrogen 8, Creatinine 0.84, Estimat Glomerular Filtration Rate > 60, BUN/Creatinine Ratio 10, Glucose Level 123, Calcium Level 8.9, Triglycerides Level 72, Cholesterol Level 147, LDL Cholesterol Direct 100, VLDL Cholesterol 14, HDL Cholesterol 33 07/01/17 10:59: Glucometer 182 07/01/17 16:41: Glucometer 244 07/01/17 20:20: Glucometer 275 07/02/17 07:22: Vancomycin Level Trough 23.5 07/02/17 11:40: Glucometer 275 07/02/17 14:31: Glucometer 314 07/02/17 16:22: Glucometer 335 07/02/17 20:53: Glucometer 354 07/03/17 05:26: Glucometer 251 07/03/17 06:05: White Blood Count 12.5, Red Blood Count 4.81, Hemoglobin 12.8, Hematocrit 39, Mean Corpuscular Volume 81, Mean Corpuscular Hemoglobin 27, Mean Corpuscular Hemoglobin Concent 33, Red Cell Distribution Width 13.3, Platelet Count 524, Mean Platelet Volume 9.9, Neutrophils (%) (Auto) 85, Lymphocytes (%) (Auto) 9, Monocytes (%) (Auto) 6, Eosinophils (%) (Auto) 0, Basophils (%) (Auto) 0, Neutrophils # (Auto) 10.6, Lymphocytes # (Auto) 1.1, Monocytes # (Auto) 0.7, Eosinophils # (Auto) 0.0, Basophils # (Auto) 0.0, Erythrocyte Sedimentation Rate 71, Sodium Level 137, Potassium Level 4.5, Chloride Level 101, Carbon Dioxide Level 23, Anion Gap 13, Blood Urea Nitrogen 22, Creatinine 2.85, Estimat Glomerular Filtration Rate 22, BUN/Creatinine Ratio 8, Glucose Level 300 , Calcium Level 8.8, Vancomycin Level Trough 16.5 07/03/17 12:15: Glucometer 284 07/03/17 16:06: Glucometer 300 07/03/17 20:20: Glucometer 255 07/04/17 05:12: Glucometer 266 07/04/17 06:05: White Blood Count 11.2, Red Blood Count 4.79, Hemoglobin 12.6, Hematocrit 39, Mean Corpuscular Volume 81, Mean Corpuscular Hemoglobin 26, Mean Corpuscular Hemoglobin Concent 32, Red Cell Distribution Width 13.6, Platelet Count 560, Mean Platelet Volume 9.7, Sodium Level 140, Potassium Level 4.4, Chloride Level 105, Carbon Dioxide Level 20, Anion Gap 15, Blood Urea Nitrogen 21, Creatinine 2.91, Estimat Glomerular Filtration Rate 21, BUN/Creatinine Ratio 7, Glucose Level 264, Calcium Level 8.7 07/04/17 10:57: Glucometer 312 07/04/17 15:41: Glucometer 267 07/04/17 20:41: Glucometer 256 07/05/17 04:56: Glucometer 251 07/05/17 06:20: B-Type Natriuretic Peptide 1352.4 07/05/17 06:30: White Blood Count 12.1, Red Blood Count 4.95, Hemoglobin 13.3, Hematocrit 41, Mean Corpuscular Volume 82, Mean Corpuscular Hemoglobin 27, Mean Corpuscular Hemoglobin Concent 33, Red Cell Distribution Width 13.5, Platelet Count 577, Mean Platelet Volume 9.9, Sodium Level 140, Potassium Level 4.2, Chloride Level 105, Carbon Dioxide Level 22, Anion Gap 13, Blood Urea Nitrogen 20, Creatinine 2.69, Estimat Glomerular Filtration Rate 23, BUN/Creatinine Ratio 7, Glucose Level 252, Calcium Level 9.2 07/05/17 11:23: Glucometer 218 07/05/17 16:53: Glucometer 265 07/05/17 21:11: Glucometer 270 07/06/17 05:14: Glucometer 115 07/06/17 06:23: White Blood Count 10.2, Red Blood Count 4.76, Hemoglobin 12.6, Hematocrit 39, Mean Corpuscular Volume 82, Mean Corpuscular Hemoglobin 26, Mean Corpuscular Hemoglobin Concent 32, Red Cell Distribution Width 13.8, Platelet Count 565, Mean Platelet Volume 9.7, Sodium Level 141, Potassium Level 4.0, Chloride Level 107, Carbon Dioxide Level 21, Anion Gap 13, Blood Urea Nitrogen 17, Creatinine 2.40, Estimat Glomerular Filtration Rate 27, BUN/Creatinine Ratio 7, Glucose Level 125, Calcium Level 8.8 07/06/17 11:11: Glucometer 229 07/06/17 16:02: Glucometer 246 07/06/17 21:24: Glucometer 200 07/07/17 05:18: Glucometer 171 07/07/17 06:00: White Blood Count 9.6, Red Blood Count 4.51, Hemoglobin 12.0, Hematocrit 37, Mean Corpuscular Volume 81, Mean Corpuscular Hemoglobin 27, Mean Corpuscular Hemoglobin Concent 33, Red Cell Distribution Width 13.4, Platelet Count 488, Mean Platelet Volume 9.8, Sodium Level 140, Potassium Level 3.9, Chloride Level 107, Carbon Dioxide Level 23, Anion Gap 10, Blood Urea Nitrogen 17, Creatinine 2.02, Estimat Glomerular Filtration Rate 32, BUN/Creatinine Ratio 8, Glucose Level 188, Calcium Level 8.5 07/07/17 10:48: Glucometer 294 07/07/17 16:29: Glucometer 259 07/07/17 20:30: Glucometer 222 07/08/17 05:15: Glucometer 127 07/08/17 05:31: White Blood Count 9.0, Red Blood Count 4.51, Hemoglobin 12.0, Hematocrit 37, Mean Corpuscular Volume 81, Mean Corpuscular Hemoglobin 27, Mean Corpuscular Hemoglobin Concent 33, Red Cell Distribution Width 13.7, Platelet Count 516, Mean Platelet Volume 9.6, Sodium Level 142, Potassium Level 3.8, Chloride Level 107, Carbon Dioxide Level 23, Anion Gap 12, Blood Urea Nitrogen 17, Creatinine 1.83, Estimat Glomerular Filtration Rate 36, BUN/Creatinine Ratio 9, Glucose Level 140, Calcium Level 8.8 07/08/17 10:45: Glucometer 137 07/08/17 17:30: Activated Partial Thromboplast Time 40 07/08/17 21:26: Glucometer 168 07/09/17 05:07: White Blood Count 11.0, Red Blood Count 3.90, Hemoglobin 10.2, Hematocrit 32, Mean Corpuscular Volume 83, Mean Corpuscular Hemoglobin 26, Mean Corpuscular Hemoglobin Concent 32, Red Cell Distribution Width 13.9, Platelet Count 512, Mean Platelet Volume 9.8, Sodium Level 143, Potassium Level 3.9, Chloride Level 109, Carbon Dioxide Level 21, Anion Gap 13, Blood Urea Nitrogen 26, Creatinine 1.76, Estimat Glomerular Filtration Rate 38, BUN/Creatinine Ratio 15, Glucose Level 170, Calcium Level 8.6 07/09/17 05:36: Glucometer 161 07/09/17 10:37: Glucometer 300 07/09/17 17:35: Glucometer 100 Discharge Home Medications: Active Scripts Active Pen Needle ([place], Insulin Disposable) 1 Each Dis.needle Each MC QID diabetes Sidekick Blood Glucose System (Blood Glucose Strips-Dispmeter) 1 Each Kit Each MC TID Diabetes Blood Lancets (Lancets) 1 Each Each Each MC TID DM check sugar TID Blood Glucose Meter (Blood-Glucose Meter) 1 Each Each Each MC TID E11.65 Dakin's (Sodium Hypochlorite) 473 Ml Solution 0 Ml TOP BID 30 Days Pantoprazole Sodium 40 Mg Tablet.dr 40 Mg PO DAILY@0700 30 Days Levemir (Insulin Determir) 1,000 Units/10 Ml Soln 15 Unit SQ DAILY 30 Days Lotrimin AF (Miconazole Nitrate) 90 Gm Powder 0 Gm TOP BID 30 Days Novolog (Insulin Aspart) 100 Unit/1 Ml Susp 0 Unit SC ACHS 30 Days Aspirin EC (Aspirin) 81 Mg Tablet.dr 81 Mg PO DAILY 30 Days Metoprolol Succinate 50 Mg Tab.er.24h 50 Mg PO DAILY 30 Days Lipitor (Atorvastatin Calcium) 40 Mg Tablet 40 Mg PO HS 30 Days Clopidogrel (Clopidogrel Bisulfate) 75 Mg Tablet 75 Mg PO DAILY 30 Days Ceftriaxone 1 gm Piggyback (Ceftriaxone Na/Dextrose,Iso) 1 Gm/50 Ml Froz.piggy 1 Gm IV DAILY LAST DOSE DUE ON 08/11/2017 Reported Advil Pm Caplet (Ibuprofen/Diphenhydramine Cit) 1 Each Tablet 2 Tab PO HS PRN Instructions to patient/family Please see electronic discharge instructions given to patient. Clinical Quality Measures DVT/VTE Risk/Contraindication: Risk Factor Score Per Nursin RFS Level Per Nursing on Admit: 4+=Very High Contraindications-Pharm: Other *list below* Contraindications-Mechi: Other *list below* BRITTANY ARRIAGA DO July 14, 2017 07:34
--- NOTE | 2017-07-29 00:24 | OPERATIVE REPORT ---
DATE OF SERVICE: 07/02/2017 SURGEON: Josh Knight DPM. BUSINESS ANALYTICS ANALYST: None. PREOPERATIVE DIAGNOSES: 1. Abscess, right foot. 2. Osteomyelitis, right fifth metatarsal. POSTOPERATIVE DIAGNOSES: 1. Abscess, right foot. 2. Osteomyelitis, right fifth metatarsal. PROCEDURES PERFORMED: 1. I and D right foot. 2. Fifth ray resection, right foot. 3. Placement of bone void spacer with antibiotic bead bone void. 4. Wound VAC application, right foot. ANESTHESIA: General anesthesia. HEMOSTASIS: Locally controlled. ESTIMATED BLOOD LOSS: Less than 50 mL. MATERIALS USED: Antibiotic bone void spacer and KCI wound VAC. INTRAOPERATIVE INJECTABLES: None. COMPLICATIONS: None. INDICATIONS: The patient is a 77-year-old male with a history of an abscess and osteomyelitis to his right foot. He has a large wound to the plantar aspect of the right fifth metatarsal head that is now concerning for osteomyelitis of the fifth metatarsal. There is a positive purulent drainage and abscess formation is noted. The patient was made aware of the risks and benefits of the surgery as well as alternatives to undergoing and signed consent prior to being taken to the OR. DESCRIPTION OF PROCEDURE: Under mild sedation, the patient was brought to the OR and placed on the operating table in a supine position with administration of general anesthesia, the right lower extremity was prepped and draped in aseptic manner and proper timeout was performed. Right lower extremity was identified as surgical site. Next, an approximately 6 cm incision was made extending from the base of the fifth metatarsal dorsolaterally down to the level of the fifth toe and encompassing the fifth toe around the level of the metatarsal head. It was also to encompass the wound to the plantar aspect of the fifth metatarsal. The incision was made down to the level of the bone and the fifth toe was then amputated as it was released at the metatarsophalangeal joint and disarticulated from this joint and passed from the surgical table. It was noted there was abscess formation that was tracking plantarly approximately 2 cm down toward the plantar vault of the foot. This was released and expressed. There was purulent fluid expressed from the plantar foot. Approximately, 5 mL of purulence was noted from this area. There was also purulence from the dorsal aspect around the fifth metatarsal. It was noted that the bone in the fifth metatarsal was very poor quality and consistent with the diagnosis of osteomyelitis. Next, a sagittal saw was used to resect the distal two-thirds of the fifth metatarsal and using a sagittal saw, the bone was cut and passed from the surgical field. A proximal margin was sent for pathological specimen. The wound was then flushed with copious amounts of sterile saline under pulse lavage and once 3 liters of pulse lavage were used to flush the foot, any remaining necrotic tissue was debrided using a rongeur and passed from the surgical field. There was good healthy bleeding wound bed noted at the area of the wound. The wound was approximately 6 cm x 3 cm x 2 cm. There was exposed fourth metatarsal shaft noted within the wound. Next, a bone void filler was placed in the area of the bone void of the fifth metatarsal with antibiotic beads that were made on the back table with vancomycin and gentamicin was added into the beads. The beads were . Once hardened, they were placed into the area of the surgical wound and Adaptic was placed over the area of the beads and then the wound VAC was applied with appropriate suction was administered throughout the wound VAC. The foot was then dressed with a dry sterile dressing consisting of 4 x 4's, cast padding and Tera wrap. The patient was transferred from OR to recovery with vital signs stable and the vascular status intact to the right lower extremity. Job ID: [id number] DocumentID: [id number] Dictated Date: 07/28/2017 15:55:17 Mast Maker Date: 07/29/2017 00:24:02 Dictated By: JOSH KNIGHT DPM
== END 2017-07-09 20:11 | disposition home or self-care (01) | DRG 270 ==
LOC: 4TH 14:40
PROVIDERS: ADMIT Family Medicine; ATTEND Family Medicine
PROC: 0Y6X0Z0 Detachment at Right 5th Toe, Complete, Open Approach (ICD-10-PCS; 2017-07-02)
PROC: 0QBN0ZZ Excision of Right Metatarsal, Open Approach (ICD-10-PCS; 2017-07-02)
PROC: 0J9Q0ZZ Drainage of Right Foot Subcutaneous Tissue and Fascia, Open Approach (ICD-10-PCS; 2017-07-02)
PROC: 04CK3ZZ Extirpation of Matter from Right Femoral Artery, Percutaneous Approach (ICD-10-PCS; principal; 2017-07-08)
PROC: 047K3ZZ Dilation of Right Femoral Artery, Percutaneous Approach (ICD-10-PCS; 2017-07-08)
PROC: 047R3ZZ Dilation of Right Posterior Tibial Artery, Percutaneous Approach (ICD-10-PCS; 2017-07-08)
PROC: 047T3ZZ Dilation of Right Peroneal Artery, Percutaneous Approach (ICD-10-PCS; 2017-07-08)
PROC: B41D1ZZ Fluoroscopy of Aorta and Bilateral Lower Extremity Arteries using Low Osmolar Contrast (ICD-10-PCS; 2017-07-08)
DX: E11.52 Type 2 diabetes mellitus with diabetic peripheral angiopathy with gangrene (principal); N17.0 Acute kidney failure with tubular necrosis; I50.21 Acute systolic (congestive) heart failure; M86.171 Other acute osteomyelitis, right ankle and foot; L97.416 Non-pressure chronic ulcer of right heel and midfoot with bone involvement without evidence of necrosis; L03.115 Cellulitis of right lower limb; L03.116 Cellulitis of left lower limb; N18.4 Chronic kidney disease, stage 4 (severe); E11.69 Type 2 diabetes mellitus with other specified complication; E11.621 Type 2 diabetes mellitus with foot ulcer; I70.234 Atherosclerosis of native arteries of right leg with ulceration of heel and midfoot; I70.201 Unspecified atherosclerosis of native arteries of extremities, right leg; E11.22 Type 2 diabetes mellitus with diabetic chronic kidney disease; I70.1 Atherosclerosis of renal artery; I70.0 Atherosclerosis of aorta; I70.8 Atherosclerosis of other arteries; K30 Functional dyspepsia; K59.00 Constipation, unspecified; B35.6 Tinea cruris; H91.90 Unspecified hearing loss, unspecified ear; Z97.4 Presence of external hearing-aid; Z87.891 Personal history of nicotine dependence; Z90.79 Acquired absence of other genital organ(s); T36.8X5A Adverse effect of other systemic antibiotics, initial encounter; T36.0X5A Adverse effect of penicillins, initial encounter
CPT/HCPCS: 36415; 36569; 37225; 71045; 73610; 73630; 73721; 75625; 75716; 76770; 76937; 80048; 80053; 80061; 80202; 82962; 83880; 85025; 85027; 85347; 85610; 85652; 85730; 87081; 88305; 88311; 93306; 93925

== ENCOUNTER → 2017-06-30 | Outpatient (CLI) | payer MEDICARE, OTHER | LOC: WOUNDCARE 12:00 | PROVIDERS: ATTEND Surgery | DX: E11.621 Type 2 diabetes mellitus with foot ulcer (principal); L97.512 Non-pressure chronic ulcer of other part of right foot with fat layer exposed; I70.245 Atherosclerosis of native arteries of left leg with ulceration of other part of foot; L97.522 Non-pressure chronic ulcer of other part of left foot with fat layer exposed; M65.171 Other infective (teno)synovitis, right ankle and foot; E11.42 Type 2 diabetes mellitus with diabetic polyneuropathy; E11.65 Type 2 diabetes mellitus with hyperglycemia ==

== ENCOUNTER → 2017-07-13 | Outpatient (CLI) | payer MEDICARE | LOC: WOUNDCARE 14:51 | PROVIDERS: ATTEND Surgery | DX: E11.621 Type 2 diabetes mellitus with foot ulcer (principal); I70.235 Atherosclerosis of native arteries of right leg with ulceration of other part of foot; L97.513 Non-pressure chronic ulcer of other part of right foot with necrosis of muscle; L97.522 Non-pressure chronic ulcer of other part of left foot with fat layer exposed; E11.622 Type 2 diabetes mellitus with other skin ulcer; L97.211 Non-pressure chronic ulcer of right calf limited to breakdown of skin; E11.42 Type 2 diabetes mellitus with diabetic polyneuropathy; E11.65 Type 2 diabetes mellitus with hyperglycemia | CPT/HCPCS: 11043; 11046 ==

== ENCOUNTER 2017-07-15 08:18 | Day surgery (SDC) | payer MEDICARE ==
[2017-07-15] VITALS (14 sets, daily range): BP systolic 129–169; BP diastolic 55–75
[~2017-07-15] VITALS: Ht 177.8 cm; Wt 88.0 kg
[~2017-07-15 08:18] MED LIST changes: -ASPI-586 PO; -ATOR40TA70 PO; -FURO-125 PO; -INSU100V16 SQ; -METO-387 PO
[2017-07-15] MEDS ORDERED: HEParin (CATH LAB) 2,000 ML IV ONE (09:31)
[2017-07-15] MEDS ORDERED: NS IV 1000 ML 1,000 ML ONE ×2 (09:31→15:24)
[2017-07-15] MEDS ORDERED: LIDOCAINE 1% INJ 20 ML 20 ML VIAL ONE (09:31)
[2017-07-15] MEDS ORDERED: NS IV 1000 ML 1,000 ML IV SCH ×2 (09:45→10:00)
[2017-07-15 10:08] LABS: HEMOGLOBIN 9.4 G/DL (13.3-17.7); MEAN PLATELET VOLUME 10.2 FL (7.4-10.4); RED BLOOD COUNT 3.5 10^6/uL (4.35-5.85); RED CELL DISTRIBUTION WIDTH 14.2 % (10.0-14.5)
[2017-07-15 10:22] LABS: INR 1.1 (0.8-1.4); PROTHROMBIN TIME PATIENT 14.2 SEC (12.2-14.7)
[2017-07-15 10:28] LABS: ALBUMIN 3.1 GM/DL (3.2-4.5); BILIRUBIN,TOTAL 0.3 MG/DL (0.1-1.0); CALCIUM 8.6 MG/DL (8.5-10.1); CREATININE SERUM 1.59 MG/DL (0.60-1.30); POTASSIUM 3.7 MMOL/L (3.6-5.0)
[2017-07-15] MEDS ORDERED: CLOP75TA28 PO (11:02)
[2017-07-15] MEDS ORDERED: ASPI-586 PO (11:03)
[2017-07-15] MEDS ORDERED: METO-370 PO (11:04)
[2017-07-15] MEDS ORDERED: PANT40TA3 PO (11:04)
[2017-07-15] MEDS ORDERED: ATOR40TA70 PO (11:05)
[2017-07-15] MEDS ORDERED: INSU100V5 SQ (11:09)
[2017-07-15] MEDS ORDERED: INSU100V16 SQ (11:12)
[2017-07-15] MEDS ORDERED: MIDAZOLAM 5 MG/5 ML (VERSED) VIAL ONE (14:42)
[2017-07-15] MEDS ORDERED: fentaNYL INJECTION 100 MCG/2 ML AMP ONE (14:42)
--- NOTE | 2017-07-15 14:48 | Cardiac Procedure Note-CS/ASA ---
Pre-Procedure Note Pre-Op Procedure Note H&P Reviewed The H&P was reviewed, patient examined and no changes noted. Date H&P Reviewed: July 15, 2017 Time H&P Reviewed: 14:48 Conscious Sedation Pre-Proced Time Reviewed: 14:48 ASA Class: 3 Airway Mallampati Classification: (crow appropriate class) I. II. III, IV Lungs Heart ASA score ASA 1: a normal healthy patient ASA 2: a patient with a mild systemic disease (mid diabetes, controlled hypertension, obesity ASA 3: a patient with a severe systemic disease that limits activity (angina , COPD, prior Myocardial infarction) ASA 4: a patient with an incapacitating disease that is a constant threat to life (CHF, renal failure) ASA 5: a moribund patient not expected to survive 24 hrs. (ruptured aneurysm) ASA 6: a declared brain patient whose organs are being harvested. For emergent operations, add the letter E after the classification Grade 1 Sedation Plan: Analgesia, Amnesia, Plan communicated to team members, Discussed options with patient/fam, Discussed risks with patient/fam Note The patient is an appropriate candidate to undergo the planned procedure, sedation, and anesthesia. The patient immediately re-assessed prior to indication. Nathalia RAMIREZ MD July 15, 2017 14:48
[2017-07-15] MEDS ORDERED: HEParin 1000 UNIT/ML (10ML VIAL) FOR BOLUS ONE (15:54)
[2017-07-15] MEDS ORDERED: NITRO DRIP 25000 MCG/D5W 250 ML IV ONE (15:54)
[2017-07-15] MEDS ORDERED: FUROSEMIDE 40 MG/4 ML INJ (LASIX) ONE (18:07)
[2017-07-15] MEDS: NS IV 1000 ML 1,000 ML IV SCH (18:25)
--- NOTE | 2017-07-15 18:25 | Coronary Angiography & PCI ---
Coronary Angiography & PCI DATE OF PROCEDURE: 07/15/17 INDICATION: Shortness of breath, new onset dilated cardiomyopathy, bilateral lower extremity critical limb ischemia. PREOPERATIVE DIAGNOSIS: Shortness of breath, new onset dilated cardiomyopathy, bilateral lower extremity critical limb ischemia. POSTOPERATIVE DIAGNOSIS: Severe two-vessel CAD, status post successful PCI to LAD and left circumflex artery. HISTORY: This is a 76-year-old gentleman who has history of diabetes. He presented 2 weeks ago with right lower extremity necrotic fifth metatarsal and critical limb ischemia. Ultrasound showed severe bilateral SFA disease. He underwent amputation of the fifth metatarsal. Patient developed acute kidney injury likely due to vancomycin or Zosyn. Kidney function improved significantly with IV fluids. peripheral angiography and intervention was performed on 07/08/2017, with left femoral access and treatment of long total occlusion of the right SFA and below the knee disease. The procedure was successful in revascularizing right lower extremity. Due to creatinine of 1.8, the procedure was stopped. The patient was hydrated overnight. His creatinine the next day was 1.7 and he was discharged on aspirin, Plavix, statin, beta blockers. SEBASTIAN inhibitor was were not given due to renal insufficiency. Echocardiogram showed LVEF of 25 percent with dilated LV. This is first known LVEF measurement on the patient with no coronary evaluation. The patient had elevated BNP and complain of shortness of breath. However coronary angiography was not performed last week due to significant renal insufficiency. Repeat creatinine today was 1.5 therefore he was scheduled for coronary angiography as well as peripheral angiography and intervention to the left lower extremity due to nonhealing ulcers suggesting critical limb ischemia. All the risks and complication were explained in detail. PROCEDURES PERFORMED: 1. Coronary angiography. 2. Left heart catheterization. 3. PCI to the LAD. 4. PCI to mid left circumflex artery. 5. Peripheral angiography and intervention (please see other dictated report for further details). COMPLICATIONS: None. SPECIMENS: None. ESTIMATED BLOOD LOSS: 10 mL ANESTHESIA: Conscious sedation ANTICOAGULATION: IV heparin CONTRAST: 136 mL for both coronary and peripheral procedures. FLUOROSCOPY: 32.5 minutes for both procedures. FLOUROSCOPY DOSE: 1875 mg for both procedures. PROCEDURE DETAILS: The patient is a 76 male and was brought to the labor relations supervisor after informed consent was taken. All the risks and complications were explained in detail; this included the risk of bleeding, vascular damage, stroke , AK and even . The patient was draped and prepped in the usual sterile fashion. Access was gained in the right femoral artery with a 6 Vincentian sheath. Coronary angiography was performed with a JR4 and a JL4 catheter. Left heart catheterization was performed with a JR4 catheter. FINDINGS: 1.Left main: Separate ostia. 2.LAD: Severe long disease segment in the proximal and mid LAD. Stenosis severity 99 percent. AMELIA 2 flow. Likely subtotal occlusion. Transapical vessel. First diagonal artery also has ostial/proximal segment which is totally occluded with distal reconstitution. 3.Left circumflex artery: Severe mid left circumflex artery stenosis. Stenosis severity is 90 percent. AMELIA 3 flow. 4.RCA: Mild mid disease. 5.Left heart catheterization: LV pressure 101/14 mmHg. LVEDP 23 mmHg. Aortic pressure 127/51 mmHg. No gradient across the aortic valve. LV gram not done due to elevated creatinine. RECOMMENDATIONS: 1. PCI to the LAD is recommended. 2. PCI to the left circumflex artery is recommended. INTERVENTION DETAILS: EBU 3.5 guide catheter, whisper extra-support guidewire, IV heparin for anticoagulation. 3 ACTs were performed. The lesion in the left circumflex artery was crossed with a whisper wire. Direct stenting was performed with the Xience Alpine 3 x 15 mm drug eluting stent at 16 anthony for 51 seconds. Postdilatation was performed with the NC Quantum 3.5 x 12 mm balloon. 14 nathony for 34 seconds. The wire was taken out and post-angiographic results were excellent. The same wire was used and the lesion in the LAD was crossed and the tip of the whisper wire was placed in the distal LAD. We predilated the entire segment of proximal/mid LAD with a 2.0 by 20 mm Emerge balloon. 3 inflations were done for 10 anthony for 30 seconds, 10 anthony for 65 seconds, 12 anthony for 28 seconds. We then took a Xience Alpine 2.5 x 13 mm drug-eluting stent and placed it in the proximal/mid LAD segment at 12 anthony for 50 seconds. We then took a second Xience Alpine 2.5 x 15 mm and placed it proximal to the previous stent with slight overlap. This was done at 14 anthony 46 seconds. The overlap zone was postdilated with the same stent balloon at 16 anthony for 34 seconds. The stent balloon and wire was taken out and showed excellent angiographic result with no residue stenosis and AMELIA-3 flow distally. Mild to moderate ostial LAD and distal disease is noted. This was left alone. Patient tolerated procedure well and did not have any complication. Patient then had peripheral angiography and intervention done on the left lower extremity. Please see separate dictation for details. CONCLUSIONS: 1. Severe long LAD subtotal occlusion treated with 2 drug-eluting stents. 2. Severe mid left circumflex artery stenosis treated with one drug-eluting stent. 3. Elevated LVEDP. 4. Continue long-term dual antiplatelet therapy. Continue rest of the secondary prevention measures. 5. IV fluids overnight. BUN and creatinine in the morning. Alberto Colvin MD, FACP, FACC, [facility] Interventional Cardiology Nathalia COLVIN MD July 15, 2017 18:25
[2017-07-15] MEDS ORDERED: PATIENT MAY USE OWN MEDS, ALL PO SCH (18:30)
[2017-07-15] MEDS: FUROSEMIDE 40 MG/4 ML INJ (LASIX) IVP SCH (18:30)
[2017-07-16] VITALS (11 sets, daily range): BP systolic 125–171; BP diastolic 52–70
[2017-07-16] MEDS: NS IV 1000 ML 1,000 ML IV SCH (01:29)
--- NOTE | 2017-07-16 04:39 | OPERATIVE REPORT ---
DATE OF SERVICE: 07/15/2017 PERIPHERAL ANGIOGRAPHY AND INTERVENTION REPORT PRIMARY PHYSICIAN: Dr. Cottrell. INDICATION: Bilateral critical limb ischemia. Nonhealing ulcers on the left lower extremity. Recent right fifth metatarsal amputation. PREOPERATIVE INDICATION: Severe critical limb ischemia, left lower extremity. POSTOPERATIVE DIAGNOSIS: Successful percutaneous transluminal angioplasty to left external iliac artery and stent/percutaneous transluminal angioplasty to left superficial femoral artery/popliteal artery. HISTORY: This is a 76-year-old gentleman with history of necrotic right fifth metatarsal, which was amputated 2 weeks ago. The patient developed acute kidney injury. Therefore, peripheral angiography was delayed. Arterial ultrasound showed severe occlusive disease in the right SFA and left SFA. Peripheral angiography was performed in 07/08/2017 and arthrectomy/OILSEED MEAT PRESSER was done to the right occlusive SFA with complete revascularization. OILSEED MEAT PRESSER was also done to the right tibioperoneal trunk and posterior tibial artery, which was successful. The patient was discharged and seen in the office yesterday. The patient has nonhealing ulcers in the left foot. Previous ultrasound showed likely severe disease in the left SFA. Angiogram had shown occlusive disease in the distal left SFA. Severe stenosis was also noted in the left external iliac artery. The patient was, therefore, scheduled for peripheral angiography and intervention. Please note that the patient has shortness of breath and new onset dilated cardiomyopathy; therefore, he also underwent coronary angiography and PCI to the LAD and left circumflex artery with drug-eluting stents. Please see the separate report for details of coronary angiography and PCI. PROCEDURE PERFORMED: 1. Left lower extremity angiogram. 2. Selective left SFA, popliteal, [id number] angiogram. 3. OILSEED MEAT PRESSER to left external iliac artery. 4. OILSEED MEAT PRESSER/stent to the distal SFA/popliteal artery. ANESTHESIA: Conscious sedation. BLOOD LOSS: 20 mL. COMPLICATIONS: None. CONTRAST USED: 136 mL for both coronary and peripheral procedures. FLUOROSCOPY DOSE: 1875 mCi for both procedures. FLUOROSCOPY TIME: 32.5 minutes for both procedures. ANTICOAGULATION: IV heparin. DESCRIPTION OF PROCEDURE: We had a 6-Portuguese sheath in the right femoral artery. The patient received IV heparin and aspirin and Plavix. Crossover was performed with the UF catheter and a a long Storq wire. The wire was placed in the SFA and the UF catheter was taken out. The sheath was then taken out and exchanged for a long sheath, which is a 6-Portuguese x 45 cm flexor sheath. The tip of the sheath was placed in the SFA and a unilateral left lower extremity angiogram was performed. This showed occlusive disease in the distal SFA and popliteal artery. The sheath was then pulled to the level of the left common iliac artery and another angiogram performed of the left external iliac artery and common femoral artery, which showed severe disease in the distal left external iliac artery. Stenosis severity was 80%. We then took 0.014 Command 300 cm wire and a NaviCross 0.035 catheter. With both of these, we were able to advance till the level of the occlusion. We damaged the Command wire; therefore that was taken out and we used another 0.014 Command 300 cm wire. With the NaviCross and Command wire, we were able to cross the occlusive segment in the distal SFA. The tip of the wire was then placed in the distal popliteal artery. We took an [place] 5 x 60 x 150 balloon and performed 2 balloon inflations in the distal SFA and popliteal artery. These inflations were performed for 10 atmospheres at 206 seconds. The next one was for 14 atmospheres for 180 seconds. Post-balloon angiogram showed significant dissection and residual stenosis; therefore, this needed to be stented. At this point in time, we took the balloon and performed balloon inflation to the left external iliac artery for 14 atmospheres for 180 milliseconds with excellent results. Residual stenosis was less than 20% with good flow. Prolonged balloon inflation was done at the level of the dissection in the distal SFA and popliteal artery with not significant resolution. The balloon was taken out and then the distal SFA was treated with a Supera 5 mm x 100 mm Florentino stent. Post-stent deployment, we noted that there was a significant dissection even distal to the stent. Therefore, another Supera 5 mm x 80 mm stent was deployed with an overlap with the proximal stent in the distal SFA till the mid popliteal artery. Post-angiogram showed excellent results with no residual dissection or stenosis with excellent blood flow to the lower extremity. Moderate disease in the anterior tibial artery is seen; however, with good flow, no further intervention was performed. The wire and balloons were taken out and post-angiogram showed excellent results. The sheath was then pulled out to the level of distal abdominal aorta and abdominal aortogram was performed, which showed no damage to the distal bifurcation. The sheath was exchanged to a short 6-Portuguese sheath and a Mynx device was placed. The patient tolerated procedure well, did not have any complication. Three ACTs were performed, which were over 200 seconds. CONCLUSION: 1. Critical limb ischemia in left lower extremity. 2. Total occlusion of the distal left SFA treated with 2 stents. 3. Severe disease in the left external iliac artery treated with balloon angioplasty with excellent results. Continue aspirin, Plavix, statin. Continue IV fluids and check BUN and creatinine in the morning. Job ID: [id number] DocumentID: [id number] Dictated Date: 07/15/2017 18:58:45 Floor Care Technician Date: 07/16/2017 04:38:45 Dictated By: TAVON RAMIREZ MD MTDD
[2017-07-16 05:15] LABS: HEMOGLOBIN 9.6 G/DL (13.3-17.7); MEAN PLATELET VOLUME 10.2 FL (7.4-10.4); RED BLOOD COUNT 3.61 10^6/uL (4.35-5.85); RED CELL DISTRIBUTION WIDTH 14.7 % (10.0-14.5); WHITE BLOOD COUNT 12.3 10^3/uL (4.3-11.0)
[2017-07-16 05:32] LABS: CALCIUM 8.6 MG/DL (8.5-10.1); CREATININE SERUM 1.45 MG/DL (0.60-1.30); POTASSIUM 3.6 MMOL/L (3.6-5.0)
[2017-07-16] MEDS: FUROSEMIDE 40 MG/4 ML INJ (LASIX) IVP SCH (08:38)
[2017-07-16] MEDS ORDERED: ASPIRIN E.C. 81 MG (ECOTRIN) TAB PO SCH (09:00)
[2017-07-16] MEDS ORDERED: CLOPIDOGREL 75 MG (PLAVIX) TABLET PO SCH (09:00)
[2017-07-16] MEDS ORDERED: FURO-125 PO (09:44)
[2017-07-16] MEDS ORDERED: METO-387 PO (09:44)
--- NOTE | 2017-07-16 10:30 | Cardiology Discharge Summary ---
Diagnosis/Chief Complaint Date of Admission 07/15/2017 Date of Discharge 07/16/2017 Admission Diagnosis Severe new-onset dilated cardiomyopathy, shortness of breath, critical limb ischemia Final/Discharge Diagnosis Severe 2 vessel CAD treated with drug-eluting stents. Critical limb ischemia left lower extremity treated with stent and CLINICAL DATA MANAGEMENT DIRECTOR to left SFA and CLINICAL DATA MANAGEMENT DIRECTOR to left external iliac artery. Chief Complaint/HPI Chief Complaint/HPI This is a 76-year-old gentleman who has history of diabetes. He presented 2 weeks ago with right lower extremity necrotic fifth metatarsal and critical limb ischemia. Ultrasound showed severe bilateral SFA disease. He underwent amputation of the fifth metatarsal. Patient developed acute kidney injury likely due to vancomycin or Zosyn. Kidney function improved significantly with IV fluids. peripheral angiography and intervention was performed on 07/08/2017, with left femoral access and treatment of long total occlusion of the right SFA and below the knee disease. The procedure was successful in revascularizing right lower extremity. Due to creatinine of 1.8, the procedure was stopped. The patient was hydrated overnight. His creatinine the next day was 1.7 and he was discharged on aspirin, Plavix, statin, beta blockers. SEBASTIAN inhibitor was were not given due to renal insufficiency. Echocardiogram showed LVEF of 25 percent with dilated LV. This is first known LVEF measurement on the patient with no coronary evaluation. The patient had elevated BNP and complain of shortness of breath. However coronary angiography was not performed last week due to significant renal insufficiency. Repeat creatinine today was 1.5 therefore he was scheduled for coronary angiography as well as peripheral angiography and intervention to the left lower extremity due to nonhealing ulcers suggesting critical limb ischemia. All the risks and complication were explained in detail. Discharge Summary Procedures Coronary angiography showed severe LAD and left circumflex artery stenosis. LAD was treated with 2 stents. Left circumflex artery was treated with one stent. Peripheral angiography showed severe left external iliac artery stenosis treated successfully with CLINICAL DATA MANAGEMENT DIRECTOR. Occluded distal SFA treated with balloon angioplasty and stent. Discharge Physical Examination Normal cardiovascular and respiratory examination. Dopplerable peripheral pulses. Normal right groin. Hospital Course Unremarkable. Pending Labs Laboratory Tests 07/16/17 05:09: White Blood Count 12.3, Red Blood Count 3.61, Hemoglobin 9.6, Hematocrit 30, Mean Corpuscular Volume 83, Mean Corpuscular Hemoglobin 27, Mean Corpuscular Hemoglobin Concent 32, Red Cell Distribution Width 14.7, Platelet Count 560, Mean Platelet Volume 10.2, Sodium Level 146, Potassium Level 3.6, Chloride Level 109, Carbon Dioxide Level 21, Anion Gap 16, Blood Urea Nitrogen 21, Creatinine 1.45, Estimat Glomerular Filtration Rate 47, BUN/Creatinine Ratio 14 , Glucose Level 58, Calcium Level 8.6 07/16/17 06:21: Glucometer 80 Discussion & Recommendations Discussion All the discharge instructions were discussed at length with the patient. He will need to be on aspirin and Plavix long-term. Continue low-dose beta rayna and high-dose statin. No SEBASTIAN inhibitor for now due to elevated creatinine. Get an improved to 1.4 today. Patient was given Lasix overnight due to elevated LVEDP and shortness of breath. Patient will follow-up in the office in 6 weeks. Discharge took over 30 minutes to complete. Follow up appt.: Dr. Colvin in 6 weeks. Dicharge Diet: Cardiac Diet Activity as Tolerated: Yes Home Medications Reviewed patient Home Medication Reconciliation performed by pharmacy medication reconciliations dish technician and/or nursing. Patients Allergies have been reviewed. Discharge Home Medications: Reviewed and agree with Discharge Medication list on patient's Discharge Instruction sheet Condition at discharge Stable. Instructions to patient/family Discharge instruction discussed with the patient. Diagnosis/Problems Diagnosis/Problems (1) Critical lower limb ischemia Status: Chronic (2) NEW ONSET DILATED CARDIOMYOPATHY Status: Chronic Nathalia COLVIN MD Jul 16, 2017 10:30 am
--- NOTE | 2017-07-16 10:32 | Discharge Inst-Post CATH ---
Discharge Inst-CATH Post Cardiac Cath D/C Inst Follow Up/Plan Dr Colvin in 6 weeks CARDIAC CATH DISCHARGE INSTRUCTIONS *Hold Metformin for 48 hours post heart cath. ACTIVITY * Go Home directly and rest. * Limit activity of the leg (or wrist if it was used) for 7 days including aerobics, swimming, jogging, bicycling, etc. * Restrict stair-climbing for 7 days if possible, if not, climb up with your non -cath leg, then bring together on the same step. * Avoid lifting, pushing, pulling or excessive movement of the affected extremity for 7 days. * Customary sexual activity may be resumed after 2 days-use caution not to use a position that strains or causes pain to the affected extremity. * No driving for 24 hours. * NO SMOKING. * Avoid straining for bowel movements for 7 days. * Gentle walking on level ground is allowed. * Returning to work will depend on the type of procedure and the results. Your doctor will discuss this with you. CALL YOUR DOCTOR FOR ANY OF THE FOLLOWING: *If bleeding from the puncture site occurs- Apply gentle pressure to site with clean cloth and call your doctor or EMS. * If a knot or lump forms under the skin, increases in size, or causes pain. * If bruising appears to be worsening or moving further down your leg instead of disappearing. * Temperature above 101 F. CARE OF YOUR GROIN INCISION; * Bruising or purple discoloration of the skin near the puncture site is common. * You may shower only, no bathtub bathing for 5 days. Be careful to avoid slipping as your leg may feel stiff. * If a closure device was used on your femoral artery, please see the attached guide regarding care of the device and your leg. * REMOVE the dressing from your groin the next day after your procedure in the shower. CARE OF YOUR WRIST INCISION; * Bruising or purple discoloration of the skin near the puncture site is common. * You may shower. * DO NOT submerge wrist. * Remove dressing in 24 hours. Nathalia COLVIN MD Jul 16, 2017 10:32 am
== END 2017-07-16 10:40 | disposition home or self-care (01) ==
LOC: CATH 08:18 → ICU 18:25 → CATH 07-16 10:40
PROVIDERS: ATTEND Internal Medicine Interventional Cardiology
DX: I70.202 Unspecified atherosclerosis of native arteries of extremities, left leg (principal); I25.10 Atherosclerotic heart disease of native coronary artery without angina pectoris; I42.0 Dilated cardiomyopathy; N18.9 Chronic kidney disease, unspecified; E78.5 Hyperlipidemia, unspecified; I12.9 Hypertensive chronic kidney disease with stage 1 through stage 4 chronic kidney disease, or unspecified chronic kidney disease; E11.9 Type 2 diabetes mellitus without complications; I27.20 Pulmonary hypertension, unspecified; Z87.891 Personal history of nicotine dependence; Z79.4 Long term (current) use of insulin; Z79.899 Other long term (current) drug therapy; Z79.82 Long term (current) use of aspirin
CPT/HCPCS: 36415; 37220; 37226; 80048; 80053; 82962; 85027; 85347; 85610; 85730; 87081; 93005

== ENCOUNTER → 2017-07-21 | Outpatient (CLI) | payer MEDICARE ==
[~2017-07-21] MED LIST changes: +ASPI-586 PO; +ATOR40TA70 PO; +FURO-125 PO; +INSU100V16 SQ; +METO-387 PO
[2017-07-21 13:07] LABS: BASOPHILS % (AUTO) 0 % (0-10); EOSINOPHILS # (AUTO) 0.1 10^3/uL (0.0-0.3); EOSINOPHILS % (AUTO) 2 % (0-10); HEMATOCRIT 30 % (40-54); HEMOGLOBIN 9.7 G/DL (13.3-17.7); LYMPHOCYTES # (AUTO) 1.4 X 10^3 (1.0-4.0); LYMPHOCYTES % (AUTO) 19 % (12-44); MEAN CORPUSCULAR HEMOGLOBIN 27 PG (25-34); MEAN CORPUSCULAR HGB CONC 33 G/DL (32-36); MEAN CORPUSCULAR VOLUME 84 FL (80-99); MEAN PLATELET VOLUME 10.1 FL (7.4-10.4); MONOCYTES # (AUTO) 0.5 X 10^3 (0.0-1.0); MONOCYTES % (AUTO) 7 % (0-12); NEUTROPHILS # (AUTO) 5.4 X 10^3 (1.8-7.8); NEUTROPHILS % (AUTO) 72 % (42-75); PLATELET COUNT 448 10^3/uL (130-400); RED BLOOD COUNT 3.57 10^6/uL (4.35-5.85); RED CELL DISTRIBUTION WIDTH 14.6 % (10.0-14.5); WHITE BLOOD COUNT 7.5 10^3/uL (4.3-11.0)
[2017-07-21 13:18] LABS: CALCIUM 8.7 MG/DL (8.5-10.1); CREATININE SERUM 1.5 MG/DL (0.60-1.30); POTASSIUM 3.9 MMOL/L (3.6-5.0)
== END ==
LOC: LAB 12:50
PROVIDERS: ATTEND Family Medicine
DX: E11.9 Type 2 diabetes mellitus without complications (principal); N28.9 Disorder of kidney and ureter, unspecified
CPT/HCPCS: 36415; 80048; 85025

== ENCOUNTER → 2017-07-21 | Outpatient (CLI) | payer MEDICARE | LOC: WOUNDCARE 13:39 | PROVIDERS: ATTEND Surgery | DX: E11.621 Type 2 diabetes mellitus with foot ulcer (principal); L97.513 Non-pressure chronic ulcer of other part of right foot with necrosis of muscle; E11.42 Type 2 diabetes mellitus with diabetic polyneuropathy; L97.522 Non-pressure chronic ulcer of other part of left foot with fat layer exposed; E11.65 Type 2 diabetes mellitus with hyperglycemia; L97.211 Non-pressure chronic ulcer of right calf limited to breakdown of skin; I70.235 Atherosclerosis of native arteries of right leg with ulceration of other part of foot | CPT/HCPCS: 11043; 11046 ==

== ENCOUNTER → 2017-07-26 | Outpatient (CLI) | payer MEDICARE | LOC: WOUNDCARE 11:59 | PROVIDERS: ATTEND Surgery | DX: E11.621 Type 2 diabetes mellitus with foot ulcer (principal); I70.235 Atherosclerosis of native arteries of right leg with ulceration of other part of foot; L97.516 Non-pressure chronic ulcer of other part of right foot with bone involvement without evidence of necrosis; L97.522 Non-pressure chronic ulcer of other part of left foot with fat layer exposed; E11.622 Type 2 diabetes mellitus with other skin ulcer; L97.211 Non-pressure chronic ulcer of right calf limited to breakdown of skin; E11.42 Type 2 diabetes mellitus with diabetic polyneuropathy | CPT/HCPCS: 11044; 11047; 97597 ==

== ENCOUNTER → 2017-08-02 | Outpatient (CLI) | payer MEDICARE | LOC: WOUNDCARE 12:18 | PROVIDERS: ATTEND Surgery | DX: E11.621 Type 2 diabetes mellitus with foot ulcer (principal); L97.512 Non-pressure chronic ulcer of other part of right foot with fat layer exposed; L97.522 Non-pressure chronic ulcer of other part of left foot with fat layer exposed; I70.235 Atherosclerosis of native arteries of right leg with ulceration of other part of foot; L97.211 Non-pressure chronic ulcer of right calf limited to breakdown of skin; E11.42 Type 2 diabetes mellitus with diabetic polyneuropathy | CPT/HCPCS: 11042; 11045 ==

== ENCOUNTER → 2017-08-16 | Outpatient (CLI) | payer MEDICARE, OTHER ==
[~2017-08-16] MED LIST changes: +DOXY100C42 PO; +FURO20TA4 PO; +HYSEPT TOP; +LISI2.5T PO; +POVI3780 TP
== END ==
LOC: WOUNDCARE 14:46
PROVIDERS: ATTEND Surgery
DX: E11.621 Type 2 diabetes mellitus with foot ulcer (principal); L97.512 Non-pressure chronic ulcer of other part of right foot with fat layer exposed; E11.42 Type 2 diabetes mellitus with diabetic polyneuropathy; L97.522 Non-pressure chronic ulcer of other part of left foot with fat layer exposed; L97.211 Non-pressure chronic ulcer of right calf limited to breakdown of skin; I70.235 Atherosclerosis of native arteries of right leg with ulceration of other part of foot
CPT/HCPCS: 11042; 87070; 87075; 87077; 87186; 87205

== ENCOUNTER → 2017-08-23 | Outpatient (CLI) | payer MEDICARE, OTHER | LOC: WOUNDCARE 14:53 | PROVIDERS: ATTEND Surgery | DX: E11.621 Type 2 diabetes mellitus with foot ulcer (principal); I70.235 Atherosclerosis of native arteries of right leg with ulceration of other part of foot; L97.512 Non-pressure chronic ulcer of other part of right foot with fat layer exposed; L97.522 Non-pressure chronic ulcer of other part of left foot with fat layer exposed; E11.42 Type 2 diabetes mellitus with diabetic polyneuropathy | CPT/HCPCS: 11042 ==

== ENCOUNTER → 2017-08-30 | Outpatient (CLI) | payer MEDICARE | LOC: WOUNDCARE 09:16 | PROVIDERS: ATTEND Surgery | DX: E11.621 Type 2 diabetes mellitus with foot ulcer (principal); L97.512 Non-pressure chronic ulcer of other part of right foot with fat layer exposed; L97.522 Non-pressure chronic ulcer of other part of left foot with fat layer exposed; I70.235 Atherosclerosis of native arteries of right leg with ulceration of other part of foot; E11.42 Type 2 diabetes mellitus with diabetic polyneuropathy | CPT/HCPCS: 11042 ==

== ENCOUNTER → 2017-08-30 | Outpatient (CLI) | payer MEDICARE ==
[2017-08-30 11:12] LABS: BUN/CREATININE RATIO 21; CALCIUM 9.6 MG/DL (8.5-10.1); CARBON DIOXIDE 27 MMOL/L (21-32); CHLORIDE 105 MMOL/L (98-107); CREATININE SERUM 1.16 MG/DL (0.60-1.30); GFR ESTIMATED > 60; GLUCOSE 116 MG/DL (70-105); POTASSIUM 4.4 MMOL/L (3.6-5.0); SODIUM 141 MMOL/L (135-145)
== END ==
LOC: LAB 10:25
PROVIDERS: ATTEND Surgery
DX: E11.621 Type 2 diabetes mellitus with foot ulcer (principal); E11.42 Type 2 diabetes mellitus with diabetic polyneuropathy; L97.512 Non-pressure chronic ulcer of other part of right foot with fat layer exposed
CPT/HCPCS: 36415; 80048

== ENCOUNTER → 2017-09-06 | Outpatient (CLI) | payer MEDICARE | LOC: WOUNDCARE 14:48 | PROVIDERS: ATTEND Surgery | DX: E11.621 Type 2 diabetes mellitus with foot ulcer (principal); I70.235 Atherosclerosis of native arteries of right leg with ulceration of other part of foot; L97.512 Non-pressure chronic ulcer of other part of right foot with fat layer exposed; L97.522 Non-pressure chronic ulcer of other part of left foot with fat layer exposed; E11.42 Type 2 diabetes mellitus with diabetic polyneuropathy | CPT/HCPCS: 11042; 87070; 87075; 87186; 87205 ==

== ENCOUNTER 2017-09-09 08:36 | Day surgery (SDC) | payer MEDICARE ==
[~2017-09-09] VITALS: Ht 175.3 cm; Wt 83.9 kg
[2017-09-09] VITALS (28 sets, daily range): BP systolic 102–175; BP diastolic 48–98
[~2017-09-09 08:36] MED LIST changes: -DOXY100C42 PO; -FURO20TA4 PO; -HYSEPT TOP; -LISI2.5T PO; -POVI3780 TP
[2017-09-09] MEDS ORDERED: HEParin (CATH LAB) 2,000 ML IV ONE (08:50)
[2017-09-09] MEDS ORDERED: NS IV 1000 ML 1,000 ML ONE (08:50)
[2017-09-09] MEDS ORDERED: LIDOCAINE 1% INJ 20 ML 20 ML VIAL ONE (08:50)
[2017-09-09] MEDS ORDERED: NS IV 1000 ML 1,000 ML IV SCH (08:57)
[2017-09-09 09:14] LABS: HEMOGLOBIN 11.8 G/DL (13.3-17.7); MEAN PLATELET VOLUME 10.8 FL (7.4-10.4); RED BLOOD COUNT 4.43 10^6/uL (4.35-5.85); RED CELL DISTRIBUTION WIDTH 14.9 % (10.0-14.5); WHITE BLOOD COUNT 6.8 10^3/uL (4.3-11.0)
[2017-09-09 09:31] LABS: INR 1.1 (0.8-1.4); PROTHROMBIN TIME PATIENT 13.8 SEC (12.2-14.7)
[2017-09-09 09:38] LABS: ALANINE AMINOTRANSFERASE 9 U/L (0-55); ALKALINE PHOSPHATASE 99 U/L (40-136); BILIRUBIN,TOTAL 0.4 MG/DL (0.1-1.0); BUN/CREATININE RATIO 27; CALCIUM 9.6 MG/DL (8.5-10.1); CARBON DIOXIDE 26 MMOL/L (21-32); CHLORIDE 110 MMOL/L (98-107); CREATININE SERUM 1.11 MG/DL (0.60-1.30); GFR ESTIMATED > 60; GLUCOSE 135 MG/DL (70-105); POTASSIUM 4.1 MMOL/L (3.6-5.0); SODIUM 144 MMOL/L (135-145); TOTAL PROTEIN 6.8 GM/DL (6.4-8.2)
[2017-09-09] MEDS ORDERED: MIDAZOLAM 5 MG/5 ML (VERSED) VIAL ONE (10:55)
[2017-09-09] MEDS ORDERED: fentaNYL INJECTION 100 MCG/2 ML AMP ONE ×3 (10:55→17:25)
[2017-09-09] MEDS ORDERED: diphenhydrAMINE 50 MG/ML INJ (BENADRYL) ONE (11:52)
[2017-09-09] MEDS ORDERED: HEParin 1000 UNIT/ML (10ML VIAL) FOR BOLUS ONE (11:55)
--- NOTE | 2017-09-09 14:22 | Cardiac Procedure Note-CS/ASA ---
Pre-Procedure Note Pre-Op Procedure Note H&P Reviewed The H&P was reviewed, patient examined and no changes noted. Date H&P Reviewed: Sep 09, 2017 Time H&P Reviewed: 10:30 Conscious Sedation Pre-Proced Time Reviewed: 10:30 ASA Class: 3 Airway Mallampati Classification: (wales appropriate class) I. II. III, IV Lungs Heart ASA score ASA 1: a normal healthy patient ASA 2: a patient with a mild systemic disease (mid diabetes, controlled hypertension, obesity ASA 3: a patient with a severe systemic disease that limits activity (angina , COPD, prior Myocardial infarction) ASA 4: a patient with an incapacitating disease that is a constant threat to life (CHF, renal failure) ASA 5: a moribund patient not expected to survive 24 hrs. (ruptured aneurysm) ASA 6: a declared brain patient whose organs are being harvested. For emergent operations, add the letter E after the classification Grade 1 Sedation Plan: Analgesia, Amnesia, Plan communicated to team members, Discussed options with patient/fam, Discussed risks with patient/fam Note The patient is an appropriate candidate to undergo the planned procedure, sedation, and anesthesia. The patient immediately re-assessed prior to indication. Nathalia RAMIREZ MD Sep 09, 2017 2:22 pm
--- NOTE | 2017-09-09 14:23 | Coronary Angiography & PCI ---
Peripheral Angio & Interv DATE OF SERVICE: 09/09/17 PRIMARY PHYSICIAN: Neel Cottrell DO PERFORMING INTERVENTIONALIST: Dr. Alberto Ramirez INDICATION: Critical limb ischemia. PREOPERATIVE INDICATION: Critical limb ischemia. POSTOPERATIVE DIAGNOSIS: Stent to right SFA, KNIFEMAN to right PT and right DP. HISTORY: This is a 77-year-old gentleman with history of critical limb ischemia with previous bilateral occluded SFA treated successfully with KNIFEMAN with/without arthrectomy. Patient still had slow healing right lower extremity ulcers. Repeat WEI showed severely abnormal TBI, right worse than left. Therefore peripheral angiography and intervention was recommended. PROCEDURE PERFORMED: 1. Bilateral lower extremity runoff. 2. Stent to distal right SFA. 3. KNIFEMAN to right posterior tibial artery. 4. KNIFEMAN to right deep peroneal artery. SPECIMENS: None. ANESTHESIA: Conscious sedation. BLOOD LOSS: 20 mL. COMPLICATIONS: None. CONTRAST USED: 208 ml. FLUOROSCOPY DOSE: 204 Mgy. FLUOROSCOPY TIME: minutes. ANTICOAGULATION: IV heparin. DESCRIPTION OF PROCEDURE: The patient was brought to the engineering laboratory technician after informed consent was taken. All the risks and complications were explained in detail. The patient was draped and prepped in the usual sterile fashion. Access was gained in the left femoral artery without difficulty due to significant calcification. 6 Swazi sheath was placed. A pigtail catheter was advanced on a Storq wire into distal abdominal aorta and bilateral lower extremity runoff was performed. FINDINGS: Diffuse disease in distal abdominal aorta. Diffuse disease is noted in the right common iliac artery. At least moderate stenosis is noted in the right external iliac artery. Mild diffuse disease in the proximal and mid SFA however severe/subtotal occlusion of distal SFA is noted. Patent right anterior tibial artery. Ostial severe deep peroneal artery stenosis with moderate to severe proximal stenosis. Severe disease in the right posterior tibial artery is noted as well. Moderate to severe left external iliac artery stenosis. Mild diffuse disease in the left SFA. Severe left anterior tibial artery stenosis. RECOMMENDATIONS: Intervention to right SFA, PT and DP is recommended. INTERVENTIONAL DETAILS: Crossover was done with a rim catheter. The Storq wire tip was placed in the mid SFA. The rim catheter was taken out and a long 6 Swazi x 90 cm sheath was placed. IV heparin was given. 2 ACTs were performed. First ACT was 200 seconds. Second ACT was 217 seconds. The tip of the long sheath was placed in mid SFA and another selective angiogram was done. At this point in time it was noted that the severe lesion was now occluded. We crossed the lesion with a command 0.014 guidewire. Balloon angioplasty was done with an [place] 18 [id number] at 14 anthony for 3 minutes. Significant improvement was noted however and dissection was noted which was not flow-limiting therefore we performed a stent with supera 5 mm X 120 mm stent. Excellent post stent results were noted with no residual stenosis and excellent flow. We then crossed the lesion in the posterior tibial artery and placed the tip of the wire in the distal segment of the posterior tibial artery. We used a coyote 2.0X 100 X1 50 balloon and performed 2 inflations in the distal and proximal segments at 12 anthony and 14 anthony respectively. Post-angiogram still showed residual stenosis therefore we did gentle inflations again in both segments at 8 anthony respectively. Flow was reasonable however there was still residual stenosis. The wire was then taken back and we crossed the lesion in the deep peroneal artery in the left lower extremity. The tip of the 014 guidewire was placed in the distal deep peroneal artery in the left lower extremity and 2 inflations were done at 8 anthony each which showed significant improvement however there was still residual disease noted. The wire and balloon was taken out. Moderate to severe disease in the left external iliac artery was left alone. Quick angiogram at the level of the bifurcation did not show any damage with the crossover. Manual compression will be done after the long sheath was taken out and a short sheath was put in. CONCLUSION: 1. Successful stent to distal right SFA, KNIFEMAN to right posterior tibial artery, right deep peroneal artery. 2. Continue dual antiplatelet therapy. Aggressive statin therapy. 3. Staged intervention to left lower extremity next week. Alberto Ramirez MD, FACP, FACC, [facility] Vascular Medicine and Endovascular Interventions Nathalia RAMIREZ MD Sep 09, 2017 2:23 pm
[2017-09-09] MEDS ORDERED: PATIENT MAY USE OWN MEDS, ALL PO SCH (14:30)
[2017-09-09] MEDS ORDERED: CATHETER FLUSH 10 ML SYR IV PRN (15:15)
[2017-09-09] MEDS ORDERED: fentaNYL INJECTION 100 MCG/2 ML AMP IVP ONE (16:50)
[2017-09-09] MEDS ORDERED: ATROPINE INJECTION 1 MG/10 ML SYR (ABBOTT) ONE (17:25)
[2017-09-09] MEDS: NS IV 1000 ML 1,000 ML IV SCH (18:29)
[2017-09-10] VITALS (10 sets, daily range): BP systolic 115–142; BP diastolic 48–60
[2017-09-10] MEDS: NS IV 1000 ML 1,000 ML IV SCH (00:25)
[2017-09-10 06:23] LABS: HEMOGLOBIN 9.9 G/DL (13.3-17.7); MEAN PLATELET VOLUME 10.8 FL (7.4-10.4); RED BLOOD COUNT 3.82 10^6/uL (4.35-5.85); RED CELL DISTRIBUTION WIDTH 14.9 % (10.0-14.5)
[2017-09-10 06:41] LABS: BUN/CREATININE RATIO 23; CALCIUM 8.7 MG/DL (8.5-10.1); CARBON DIOXIDE 23 MMOL/L (21-32); CHLORIDE 112 MMOL/L (98-107); GFR ESTIMATED > 60; GLUCOSE 108 MG/DL (70-105); SODIUM 144 MMOL/L (135-145)
[2017-09-10] MEDS ORDERED: CLOPIDOGREL 75 MG (PLAVIX) TABLET PO SCH (09:00)
[2017-09-10] MEDS ORDERED: ASPIRIN E.C. 81 MG (ECOTRIN) TAB PO SCH (09:00)
--- NOTE | 2017-09-10 14:35 | Cardiology Discharge Summary ---
Diagnosis/Chief Complaint Date of Admission 09/09/2017 Date of Discharge 09/10/2017 Admission Diagnosis Critical limb ischemia Final/Discharge Diagnosis Critical limb ischemia, status post distal SFA stent and SHEET CATCHER to right PT and DP Chief Complaint/HPI Chief Complaint/HPI This is a 77-year-old gentleman with history of critical limb ischemia with previous bilateral occluded SFA treated successfully with SHEET CATCHER with/without arthrectomy. Patient still had slow healing right lower extremity ulcers. Repeat WEI showed severely abnormal TBI, right worse than left. Therefore peripheral angiography and intervention was recommended. Discharge Summary Procedures Peripheral angiography, with stent to right distal SFA and SHEET CATCHER to right PT and DP artery. Discharge Physical Examination Normal cardiovascular examination. Mild bruising noted in left groin. Hospital Course Unremarkable. Discussion & Recommendations Discussion Discussed at length with the patient. We will have staged procedure to the left lower extremity next . Patient will continue aspirin, Plavix and Lipitor. Discharge took over 30 minutes to complete. Follow up appt.: Dr. Colvin in 3-4 weeks. Dicharge Diet: Cardiac Diet Activity as Tolerated: Yes Home Medications Reviewed patient Home Medication Reconciliation performed by pharmacy medication reconciliations orthophotography technician and/or nursing. Patients Allergies have been reviewed. Discharge Home Medications: Reviewed and agree with Discharge Medication list on patient's Discharge Instruction sheet Condition at discharge Stable. Instructions to patient/family Discussed at length with the patient and family. Nathalia COLVIN MD Sep 10, 2017 14:35
--- NOTE | 2017-09-10 14:35 | Discharge Inst-Post CATH ---
Discharge Inst-CATH Post Cardiac Cath D/C Inst Follow Up/Plan Discussed at length with the patient and family. CARDIAC CATH DISCHARGE INSTRUCTIONS *Hold Metformin for 48 hours post heart cath. ACTIVITY * Go Home directly and rest. * Limit activity of the leg (or wrist if it was used) for 7 days including aerobics, swimming, jogging, bicycling, etc. * Restrict stair-climbing for 7 days if possible, if not, climb up with your non -cath leg, then bring together on the same step. * Avoid lifting, pushing, pulling or excessive movement of the affected extremity for 7 days. * Customary sexual activity may be resumed after 2 days-use caution not to use a position that strains or causes pain to the affected extremity. * No driving for 24 hours. * NO SMOKING. * Avoid straining for bowel movements for 7 days. * Gentle walking on level ground is allowed. * Returning to work will depend on the type of procedure and the results. Your doctor will discuss this with you. CALL YOUR DOCTOR FOR ANY OF THE FOLLOWING: *If bleeding from the puncture site occurs- Apply gentle pressure to site with clean cloth and call your doctor or EMS. * If a knot or lump forms under the skin, increases in size, or causes pain. * If bruising appears to be worsening or moving further down your leg instead of disappearing. * Temperature above 101 F. CARE OF YOUR GROIN INCISION; * Bruising or purple discoloration of the skin near the puncture site is common. * You may shower only, no bathtub bathing for 5 days. Be careful to avoid slipping as your leg may feel stiff. * If a closure device was used on your femoral artery, please see the attached guide regarding care of the device and your leg. * REMOVE the dressing from your groin the next day after your procedure in the shower. CARE OF YOUR WRIST INCISION; * Bruising or purple discoloration of the skin near the puncture site is common. * You may shower. * DO NOT submerge wrist. * Remove dressing in 24 hours. Nathalia RAMIREZ MD Sep 10, 2017 14:35
== END 2017-09-10 10:25 | disposition home or self-care (01) ==
LOC: CATH 08:36 → ICU 14:20 → CATH 09-10 10:25
PROVIDERS: ATTEND Internal Medicine Interventional Cardiology
DX: I70.235 Atherosclerosis of native arteries of right leg with ulceration of other part of foot (principal); L97.519 Non-pressure chronic ulcer of other part of right foot with unspecified severity; E11.621 Type 2 diabetes mellitus with foot ulcer; I70.0 Atherosclerosis of aorta; I48.0 Paroxysmal atrial fibrillation; I42.0 Dilated cardiomyopathy; I12.9 Hypertensive chronic kidney disease with stage 1 through stage 4 chronic kidney disease, or unspecified chronic kidney disease; E11.22 Type 2 diabetes mellitus with diabetic chronic kidney disease; N18.9 Chronic kidney disease, unspecified; I25.10 Atherosclerotic heart disease of native coronary artery without angina pectoris; I27.20 Pulmonary hypertension, unspecified; Z79.82 Long term (current) use of aspirin; Z79.4 Long term (current) use of insulin; Z87.891 Personal history of nicotine dependence
CPT/HCPCS: 36415; 37226; 75716; 80048; 80053; 82962; 85027; 85347; 85610; 85730; 87081

== ENCOUNTER → 2017-09-13 | Outpatient (CLI) | payer MEDICARE ==
[~2017-09-13] MED LIST changes: +DOXY100C42 PO; +FURO20TA4 PO; +HYSEPT TOP; +LISI2.5T PO; +POVI3780 TP
== END ==
LOC: WOUNDCARE 14:48
PROVIDERS: ATTEND Surgery
DX: E11.621 Type 2 diabetes mellitus with foot ulcer (principal); I70.235 Atherosclerosis of native arteries of right leg with ulceration of other part of foot; L97.512 Non-pressure chronic ulcer of other part of right foot with fat layer exposed; I70.245 Atherosclerosis of native arteries of left leg with ulceration of other part of foot; L97.522 Non-pressure chronic ulcer of other part of left foot with fat layer exposed; E11.42 Type 2 diabetes mellitus with diabetic polyneuropathy
CPT/HCPCS: 11042

== ENCOUNTER 2017-09-16 10:43 | Day surgery (SDC) | payer MEDICARE ==
[~2017-09-16] VITALS: Ht 177.8 cm; Wt 83.9 kg
[2017-09-16] VITALS (11 sets, daily range): BP systolic 134–171; BP diastolic 57–83
[~2017-09-16 10:43] MED LIST changes: -DOXY100C42 PO; -FURO20TA4 PO; +HEParin (CATH LAB) 2,000 ML IV ONE; -HYSEPT TOP; +LIDOCAINE 1% INJ 20 ML 20 ML VIAL ONE; -LISI2.5T PO; +NS IV 1000 ML 1,000 ML IV SCH; +NS IV 1000 ML 1,000 ML ONE; -POVI3780 TP
[2017-09-16 12:07] LABS: HEMOGLOBIN 10.1 G/DL (13.3-17.7); MEAN PLATELET VOLUME 10.8 FL (7.4-10.4); RED BLOOD COUNT 3.88 10^6/uL (4.35-5.85); RED CELL DISTRIBUTION WIDTH 14.9 % (10.0-14.5); WHITE BLOOD COUNT 6.6 10^3/uL (4.3-11.0)
[2017-09-16 12:15] LABS: INR 1.1 (0.8-1.4); PROTHROMBIN TIME PATIENT 13.9 SEC (12.2-14.7)
[2017-09-16 12:21] LABS: ALANINE AMINOTRANSFERASE 9 U/L (0-55); ALBUMIN 3.6 GM/DL (3.2-4.5); ALKALINE PHOSPHATASE 101 U/L (40-136); BILIRUBIN,TOTAL 0.6 MG/DL (0.1-1.0); BUN/CREATININE RATIO 24; CALCIUM 9.7 MG/DL (8.5-10.1); CARBON DIOXIDE 26 MMOL/L (21-32); CHLORIDE 108 MMOL/L (98-107); CREATININE SERUM 0.98 MG/DL (0.60-1.30); GFR ESTIMATED > 60; GLUCOSE 125 MG/DL (70-105); POTASSIUM 4.5 MMOL/L (3.6-5.0); SODIUM 143 MMOL/L (135-145); TOTAL PROTEIN 6.3 GM/DL (6.4-8.2)
[2017-09-16] MEDS ORDERED: LISI2.5T PO (12:52)
[2017-09-16] MEDS ORDERED: HYSEPT TOP (12:52)
[2017-09-16] MEDS ORDERED: DOXY100C42 PO (12:52)
[2017-09-16] MEDS ORDERED: FURO20TA4 PO (12:52)
[2017-09-16] MEDS ORDERED: POVI3780 TP (12:52)
[2017-09-16] MEDS ORDERED: METO-387 PO (12:52)
[2017-09-16] MEDS ORDERED: MIDAZOLAM 5 MG/5 ML (VERSED) VIAL ONE (12:58)
[2017-09-16] MEDS ORDERED: fentaNYL INJECTION 100 MCG/2 ML AMP ONE (12:58)
[2017-09-16] MEDS ORDERED: HEParin 1000 UNIT/ML (10ML VIAL) FOR BOLUS ONE (13:11)
[2017-09-16] MEDS ORDERED: NITRO DRIP 25000 MCG/D5W 250 ML IV ONE (13:12)
--- NOTE | 2017-09-16 15:42 | Cardiac Procedure Note-CS/ASA ---
Pre-Procedure Note Pre-Op Procedure Note H&P Reviewed The H&P was reviewed, patient examined and no changes noted. Date H&P Reviewed: Sep 16, 2017 Time H&P Reviewed: 13:00 Conscious Sedation Pre-Proced Time Reviewed: 13:00 ASA Class: 3 Airway Mallampati Classification: ([place] appropriate class) I. II. III, IV Lungs Heart ASA score ASA 1: a normal healthy patient ASA 2: a patient with a mild systemic disease (mid diabetes, controlled hypertension, obesity ASA 3: a patient with a severe systemic disease that limits activity (angina , COPD, prior Myocardial infarction) ASA 4: a patient with an incapacitating disease that is a constant threat to life (CHF, renal failure) ASA 5: a moribund patient not expected to survive 24 hrs. (ruptured aneurysm) ASA 6: a declared brain patient whose organs are being harvested. For emergent operations, add the letter E after the classification Grade 1 Sedation Plan: Analgesia, Amnesia, Plan communicated to team members, Discussed options with patient/fam, Discussed risks with patient/fam Note The patient is an appropriate candidate to undergo the planned procedure, sedation, and anesthesia. The patient immediately re-assessed prior to indication. Nathalia RAMIREZ MD Sep 16, 2017 3:42 pm
[2017-09-16] MEDS ORDERED: NS IV 1000 ML 1,000 ML IV SCH (15:44)
--- NOTE | 2017-09-16 15:44 | Coronary Angiography & PCI ---
Peripheral Angio & Interv DATE OF SERVICE: 09/16/17 PRIMARY PHYSICIAN: Neel Cottrell DO PERFORMING INTERVENTIONALIST: Dr. Alberto Ramirez INDICATION: Critical Limb Ischemia. PREOPERATIVE INDICATION: Critical Limb Ischemia. POSTOPERATIVE DIAGNOSIS: Status post HELMET COVERER to numerous lesions in the left lower extremity. HISTORY: This is a 77-year-old gentleman with history of critical limb ischemia and previous intervention to bilateral lower extremities. Ischemic cardiomyopathy. Previous PCI. Peripheral angiogram and intervention to the left lower extremity is recommended. PROCEDURE PERFORMED: 1. Bilateral lower extremity angiogram. 2. HELMET COVERER left anterior tibial artery. 3. HELMET COVERER left posterior tibial artery. 4. HELMET COVERER left tibioperoneal trunk/deep peroneal artery. 5. HELMET COVERER left superficial femoral artery. 6. HELMET COVERER with drug-coated balloon to left external iliac artery. SPECIMENS: None. ANESTHESIA: Conscious sedation. BLOOD LOSS: 20 mL. COMPLICATIONS: None. CONTRAST USED: 145 ml. FLUOROSCOPY DOSE: 584 Mgy. FLUOROSCOPY TIME: minutes. ANTICOAGULATION: IV heparin. DESCRIPTION OF PROCEDURE: The patient was brought to the geoscience laboratory technician after informed consent was taken. All the risks and complications were explained in detail. The patient was draped and prepped in the usual sterile fashion. Access was gained in the right femoral artery with a 6 Burmese sheath. We advanced a UF catheter on stork wire and pressure difference was recorded between distal abdominal aorta and right femoral artery. Crossover was performed with a UF catheter and stork wire. However we were not able to traverse the left external iliac artery and we had to exchange with a zip wire. The tip of the zip wire was placed in the mid SFA and the UF catheter was taken out and exchanged with a straight catheter. Pressure difference across the left external iliac artery was over 30 mm Hg. The straight catheter was then taken out and sheath exchange was done with a 6 Burmese x 90 mm sheath the tip of which was placed in the SFA and lower extremity angiogram was done. The wire was placed in the popliteal artery and the sheath was advanced further till proximal popliteal artery. Another left lower extremity angiogram were done. FINDINGS: Moderate right external iliac artery stenosis. Severe left external iliac artery stenosis. Stenosis severity 80 percent. Moderate to severe diffuse left SFA disease. Pressure difference over 30 mmHg. Totally occluded ostial left anterior tibial artery. Severe diffuse disease of the left TP trunk. Severe tandem lesions in the left posterior tibial artery and deep peroneal artery. RECOMMENDATIONS: HELMET COVERER to the left external iliac artery, SFA, anterior tibial, posterior tibial artery, deep peroneal artery. INTERVENTIONAL DETAILS: All interventions in the left lower extremity. IV heparin was given and to ACTs were done. The first ACT was . The second ACT was 245 seconds. The long sheath was initially placed in the proximal popliteal artery. The lesion in the posterior tibial artery in the left lower extremity was crossed with a 0.014 command wire. The tip of the command wire was placed in distal PT. We then took [place] 14 2 x 120 X 150 mm, and performed 2 inflations in the mid PT on 8 anthony for 3 minutes each. Significant residual stenosis was noted therefore no further inflations were done at 6 anthony for 1-2 minutes. Nitroglycerin was given intravascularly with some improvement. The TP trunk was also treated with the same balloon at 10 anthony for 3 minutes with significant improvement however there was still mild residual stenosis. The balloon and wire were pulled back and then with the same wire we crossed into the deep peroneal artery and the tip was placed in the distal vessel. With the same 2.0 balloon and performed 2 inflations in the mid and ostium of the deep peroneal artery at 8 anthony with reasonable results. However as distal stenosis was still noted. Improvement with nitroglycerin was noted. We then pulled the wire back and with the help of the balloon were able to cross the total occlusion in the proximal anterior tibial artery. The tip of the wire was placed in the mid anterior tibial artery and initial predilatation with the same 2.0 balloon at 10 anthony. We then took the balloon out and [place] 14 3 x 60 x 150 mm and performed 2 inflations in the anterior tibial artery. The first inflation was on nominal pressure which showed recanalization but still significant stenosis. The next inflation was done at 10 anthony with significant improvement in residual stenosis. We then took the wire and balloon back into the popliteal artery and the wire was placed back in the posterior tibial artery and the tibial peroneal trunk was treated with the 3.0 balloon at 10 anthony with excellent results. The balloon was taken out. The sheath was pulled back and the tip was placed in left common iliac artery. The lesion in the left external iliac artery was treated with a drug-coated balloon Lutonix 6 x 100 X 130mm. 10 anthony for 3 minutes. Excellent results. The drug-coated balloon was taken out and we then took a [place] 18 and two inflations in the distal SFA (within the stent) , mid and proximal SFA. Inflations at 10 anthony for 1 minute. Excellent results. The wire and balloons were taken out and post-angiogram showed excellent results. The sheath was pulled back to the level of bifurcation of the distal abdominal aorta. A quick angiogram did not show any vascular complication. We then exchanged the long sheath with a short sheath. Unilateral right lower extremity angiogram was done. Vascular closure was done with Mynx closure device. CONCLUSION: HELMET COVERER to left external iliac artery with a drug-coated balloon. HELMET COVERER to left SFA, anterior tibial artery, posterior tibial artery, deep peroneal artery, tibioperoneal trunk. Aspirin, Plavix, statin. Alberto Ramirez MD, FACP, FACC, [facility] Vascular Medicine and Endovascular Interventions Nathalia RAMIREZ MD Sep 16, 2017 3:44 pm
[2017-09-16] MEDS ORDERED: PATIENT MAY USE OWN MEDS, ALL PO SCH (15:45)
--- NOTE | 2017-09-16 15:47 | Discharge Inst-Post CATH ---
Discharge Inst-CATH Post Cardiac Cath D/C Inst Follow Up/Plan Dr Colvin in a month. CARDIAC CATH DISCHARGE INSTRUCTIONS *Hold Metformin for 48 hours post heart cath. ACTIVITY * Go Home directly and rest. * Limit activity of the leg (or wrist if it was used) for 7 days including aerobics, swimming, jogging, bicycling, etc. * Restrict stair-climbing for 7 days if possible, if not, climb up with your non -cath leg, then bring together on the same step. * Avoid lifting, pushing, pulling or excessive movement of the affected extremity for 7 days. * Customary sexual activity may be resumed after 2 days-use caution not to use a position that strains or causes pain to the affected extremity. * No driving for 24 hours. * NO SMOKING. * Avoid straining for bowel movements for 7 days. * Gentle walking on level ground is allowed. * Returning to work will depend on the type of procedure and the results. Your doctor will discuss this with you. CALL YOUR DOCTOR FOR ANY OF THE FOLLOWING: *If bleeding from the puncture site occurs- Apply gentle pressure to site with clean cloth and call your doctor or EMS. * If a knot or lump forms under the skin, increases in size, or causes pain. * If bruising appears to be worsening or moving further down your leg instead of disappearing. * Temperature above 101 F. CARE OF YOUR GROIN INCISION; * Bruising or purple discoloration of the skin near the puncture site is common. * You may shower only, no bathtub bathing for 5 days. Be careful to avoid slipping as your leg may feel stiff. * If a closure device was used on your femoral artery, please see the attached guide regarding care of the device and your leg. * REMOVE the dressing from your groin the next day after your procedure in the shower. CARE OF YOUR WRIST INCISION; * Bruising or purple discoloration of the skin near the puncture site is common. * You may shower. * DO NOT submerge wrist. * Remove dressing in 24 hours. Nathalia COLVIN MD Sep 16, 2017 3:47 pm
--- NOTE | 2017-09-16 15:49 | Cardiology Discharge Summary ---
Diagnosis/Chief Complaint Date of Admission 09/16/2017 Date of Discharge 09/16/2017 Admission Diagnosis Critical limb ischemia Final/Discharge Diagnosis Critical limb ischemia, status post PRESS OPERATOR MEAT to left PT, AT, DP, SFA, external iliac artery. Chief Complaint/HPI Chief Complaint/HPI This is a 77-year-old gentleman with critical limb ischemia. Discharge Summary Procedures Bilateral lower extremity angiogram. PRESS OPERATOR MEAT to left anterior tibial artery, posterior tibial artery, tibioperoneal trunk , deep peroneal artery, superficial femoral artery, drug-coated balloon to left external iliac artery. Satisfactory results. Discharge Physical Examination Stable. Hospital Course Unremarkable. Pending Labs Laboratory Tests 09/16/17 11:42: White Blood Count 6.6, Red Blood Count 3.88, Hemoglobin 10.1, Hematocrit 31, Mean Corpuscular Volume 80, Mean Corpuscular Hemoglobin 26, Mean Corpuscular Hemoglobin Concent 33, Red Cell Distribution Width 14.9, Platelet Count 292, Mean Platelet Volume 10.8, Prothrombin Time 13.9, INR Comment 1.1, Activated Partial Thromboplast Time 29, Sodium Level 143, Potassium Level 4.5, Chloride Level 108, Carbon Dioxide Level 26, Anion Gap 9, Blood Urea Nitrogen 24, Creatinine 0.98, Estimat Glomerular Filtration Rate > 60, BUN/Creatinine Ratio 24, Glucose Level 125, Calcium Level 9.7, Total Bilirubin 0.6, Aspartate Amino Transf (AST/SGOT) 12, Alanine Aminotransferase (ALT/SGPT) 9, Alkaline Phosphatase 101, Total Protein 6.3, Albumin 3.6 Discussion & Recommendations Discussion Patient will continue dual antiplatelet therapy and Lipitor. We will keep himself well hydrated. I'll follow-up in one month. Follow up appt.: Dr. Colvin in one month Dicharge Diet: Cardiac Diet Activity as Tolerated: Yes Home Medications Reviewed patient Home Medication Reconciliation performed by pharmacy medication reconciliations transport technician and/or nursing. Patients Allergies have been reviewed. Discharge Home Medications: Reviewed and agree with Discharge Medication list on patient's Discharge Instruction sheet Condition at discharge Stable. Instructions to patient/family Dr Colvin in a month. Nathalia COLVIN MD Sep 16, 2017 3:49 pm
[2017-09-17] MEDS ORDERED: ASPIRIN E.C. 81 MG (ECOTRIN) TAB PO SCH (09:00)
[2017-09-17] MEDS ORDERED: CLOPIDOGREL 75 MG (PLAVIX) TABLET PO SCH (09:00)
== END 2017-09-16 19:45 | disposition home or self-care (01) ==
LOC: CATH 10:43 → 4TH 16:09 → CATH 19:45
PROVIDERS: ATTEND Internal Medicine Interventional Cardiology
DX: I70.202 Unspecified atherosclerosis of native arteries of extremities, left leg (principal); I70.239 Atherosclerosis of native arteries of right leg with ulceration of unspecified site; L97.919 Non-pressure chronic ulcer of unspecified part of right lower leg with unspecified severity; I70.92 Chronic total occlusion of artery of the extremities; E11.22 Type 2 diabetes mellitus with diabetic chronic kidney disease; I12.9 Hypertensive chronic kidney disease with stage 1 through stage 4 chronic kidney disease, or unspecified chronic kidney disease; N18.9 Chronic kidney disease, unspecified; I48.0 Paroxysmal atrial fibrillation; I42.0 Dilated cardiomyopathy; I27.20 Pulmonary hypertension, unspecified; E78.5 Hyperlipidemia, unspecified; Z79.82 Long term (current) use of aspirin; Z79.4 Long term (current) use of insulin; Z87.891 Personal history of nicotine dependence
CPT/HCPCS: 36415; 37220; 80053; 85027; 85347; 85610; 85730; 87081

== ENCOUNTER → 2017-09-20 | Outpatient (CLI) | payer MEDICARE ==
[~2017-09-20] MED LIST changes: +DOXY100C42 PO; +FURO20TA4 PO; -HEParin (CATH LAB) 2,000 ML IV ONE; +HYSEPT TOP; -LIDOCAINE 1% INJ 20 ML 20 ML VIAL ONE; +LISI2.5T PO; -NS IV 1000 ML 1,000 ML IV SCH; -NS IV 1000 ML 1,000 ML ONE; +POVI3780 TP
== END ==
LOC: WOUNDCARE 14:42
PROVIDERS: ATTEND Surgery
DX: E11.621 Type 2 diabetes mellitus with foot ulcer (principal); I70.235 Atherosclerosis of native arteries of right leg with ulceration of other part of foot; L97.512 Non-pressure chronic ulcer of other part of right foot with fat layer exposed; I70.245 Atherosclerosis of native arteries of left leg with ulceration of other part of foot; L97.522 Non-pressure chronic ulcer of other part of left foot with fat layer exposed; E11.42 Type 2 diabetes mellitus with diabetic polyneuropathy
CPT/HCPCS: 11042

== ENCOUNTER → 2017-09-27 | Outpatient (CLI) | payer MEDICARE | LOC: WOUNDCARE 12:46 | PROVIDERS: ATTEND Surgery | DX: E11.621 Type 2 diabetes mellitus with foot ulcer (principal); I70.235 Atherosclerosis of native arteries of right leg with ulceration of other part of foot; L97.512 Non-pressure chronic ulcer of other part of right foot with fat layer exposed; I70.245 Atherosclerosis of native arteries of left leg with ulceration of other part of foot; L97.522 Non-pressure chronic ulcer of other part of left foot with fat layer exposed; E11.42 Type 2 diabetes mellitus with diabetic polyneuropathy | CPT/HCPCS: 11042 ==

== ENCOUNTER → 2017-10-20 | Outpatient (CLI) | payer MEDICARE | LOC: WOUNDCARE 09:08 | PROVIDERS: ATTEND Surgery | DX: E11.621 Type 2 diabetes mellitus with foot ulcer (principal); I70.235 Atherosclerosis of native arteries of right leg with ulceration of other part of foot; L97.515 Non-pressure chronic ulcer of other part of right foot with muscle involvement without evidence of necrosis; I70.245 Atherosclerosis of native arteries of left leg with ulceration of other part of foot; L97.522 Non-pressure chronic ulcer of other part of left foot with fat layer exposed; E11.42 Type 2 diabetes mellitus with diabetic polyneuropathy | CPT/HCPCS: 11042 ==

== ENCOUNTER → 2017-10-27 | Outpatient (CLI) | payer MEDICARE | LOC: WOUNDCARE 08:09 | PROVIDERS: ATTEND Surgery | DX: E11.621 Type 2 diabetes mellitus with foot ulcer (principal); I70.235 Atherosclerosis of native arteries of right leg with ulceration of other part of foot; L97.515 Non-pressure chronic ulcer of other part of right foot with muscle involvement without evidence of necrosis; I70.245 Atherosclerosis of native arteries of left leg with ulceration of other part of foot; L97.522 Non-pressure chronic ulcer of other part of left foot with fat layer exposed; E11.42 Type 2 diabetes mellitus with diabetic polyneuropathy | CPT/HCPCS: 11042 ==

== ENCOUNTER → 2017-11-03 | Outpatient (CLI) | payer MEDICARE | LOC: WOUNDCARE 08:05 | PROVIDERS: ATTEND Surgery | DX: E11.621 Type 2 diabetes mellitus with foot ulcer (principal); I70.235 Atherosclerosis of native arteries of right leg with ulceration of other part of foot; L97.515 Non-pressure chronic ulcer of other part of right foot with muscle involvement without evidence of necrosis; I70.245 Atherosclerosis of native arteries of left leg with ulceration of other part of foot; L97.522 Non-pressure chronic ulcer of other part of left foot with fat layer exposed; E11.42 Type 2 diabetes mellitus with diabetic polyneuropathy | CPT/HCPCS: 11042; 87070; 87075; 87205 ==

== ENCOUNTER → 2017-11-10 | Outpatient (CLI) | payer MEDICARE | LOC: WOUNDCARE 08:09 | PROVIDERS: ATTEND Surgery | DX: E11.621 Type 2 diabetes mellitus with foot ulcer (principal); I70.235 Atherosclerosis of native arteries of right leg with ulceration of other part of foot; L97.515 Non-pressure chronic ulcer of other part of right foot with muscle involvement without evidence of necrosis; I70.245 Atherosclerosis of native arteries of left leg with ulceration of other part of foot; L97.522 Non-pressure chronic ulcer of other part of left foot with fat layer exposed; E11.42 Type 2 diabetes mellitus with diabetic polyneuropathy | CPT/HCPCS: 11042 ==

== ENCOUNTER → 2017-11-17 | Outpatient (CLI) | payer MEDICARE | LOC: WOUNDCARE 08:10 | PROVIDERS: ATTEND Surgery | DX: L97.515 Non-pressure chronic ulcer of other part of right foot with muscle involvement without evidence of necrosis (principal); E11.621 Type 2 diabetes mellitus with foot ulcer; I70.235 Atherosclerosis of native arteries of right leg with ulceration of other part of foot; I70.245 Atherosclerosis of native arteries of left leg with ulceration of other part of foot; L97.522 Non-pressure chronic ulcer of other part of left foot with fat layer exposed; E11.42 Type 2 diabetes mellitus with diabetic polyneuropathy | CPT/HCPCS: 11042 ==

== ENCOUNTER → 2017-11-24 | Outpatient (CLI) | payer MEDICARE | LOC: WOUNDCARE 08:08 | PROVIDERS: ATTEND Surgery | DX: E11.621 Type 2 diabetes mellitus with foot ulcer (principal); I70.235 Atherosclerosis of native arteries of right leg with ulceration of other part of foot; L97.515 Non-pressure chronic ulcer of other part of right foot with muscle involvement without evidence of necrosis; I70.245 Atherosclerosis of native arteries of left leg with ulceration of other part of foot; L97.522 Non-pressure chronic ulcer of other part of left foot with fat layer exposed; E11.42 Type 2 diabetes mellitus with diabetic polyneuropathy | CPT/HCPCS: 11042 ==

== ENCOUNTER → 2017-12-01 | Outpatient (CLI) | payer MEDICARE | LOC: WOUNDCARE 08:03 | PROVIDERS: ATTEND Surgery | DX: E11.621 Type 2 diabetes mellitus with foot ulcer (principal); L97.512 Non-pressure chronic ulcer of other part of right foot with fat layer exposed; E11.42 Type 2 diabetes mellitus with diabetic polyneuropathy; L97.522 Non-pressure chronic ulcer of other part of left foot with fat layer exposed; I70.235 Atherosclerosis of native arteries of right leg with ulceration of other part of foot; I70.245 Atherosclerosis of native arteries of left leg with ulceration of other part of foot | CPT/HCPCS: 11042; 87070; 87075; 87205 ==

== ENCOUNTER → 2017-12-08 | Outpatient (CLI) | payer MEDICARE | LOC: WOUNDCARE 08:11 | PROVIDERS: ATTEND Surgery | DX: E11.621 Type 2 diabetes mellitus with foot ulcer (principal); I70.245 Atherosclerosis of native arteries of left leg with ulceration of other part of foot; L97.422 Non-pressure chronic ulcer of left heel and midfoot with fat layer exposed; L97.522 Non-pressure chronic ulcer of other part of left foot with fat layer exposed; L03.116 Cellulitis of left lower limb; I70.235 Atherosclerosis of native arteries of right leg with ulceration of other part of foot; L97.512 Non-pressure chronic ulcer of other part of right foot with fat layer exposed; E11.42 Type 2 diabetes mellitus with diabetic polyneuropathy | CPT/HCPCS: 11042; 15275; 87070; 87075; 87205 ==

== ENCOUNTER → 2017-12-15 | Outpatient (CLI) | payer MEDICARE | LOC: WOUNDCARE 08:09 | PROVIDERS: ATTEND Surgery | DX: E11.621 Type 2 diabetes mellitus with foot ulcer (principal); L97.512 Non-pressure chronic ulcer of other part of right foot with fat layer exposed; L97.422 Non-pressure chronic ulcer of left heel and midfoot with fat layer exposed; L03.116 Cellulitis of left lower limb; E11.42 Type 2 diabetes mellitus with diabetic polyneuropathy; L97.522 Non-pressure chronic ulcer of other part of left foot with fat layer exposed; I70.235 Atherosclerosis of native arteries of right leg with ulceration of other part of foot; I70.245 Atherosclerosis of native arteries of left leg with ulceration of other part of foot | CPT/HCPCS: 11042; 15275 ==

== ENCOUNTER → 2017-12-21 | Outpatient (CLI) | payer MEDICARE | LOC: WOUNDCARE 14:36 | PROVIDERS: ATTEND Surgery | DX: E11.621 Type 2 diabetes mellitus with foot ulcer (principal); E11.42 Type 2 diabetes mellitus with diabetic polyneuropathy; L97.422 Non-pressure chronic ulcer of left heel and midfoot with fat layer exposed; L97.512 Non-pressure chronic ulcer of other part of right foot with fat layer exposed; L97.522 Non-pressure chronic ulcer of other part of left foot with fat layer exposed; I70.235 Atherosclerosis of native arteries of right leg with ulceration of other part of foot; I70.245 Atherosclerosis of native arteries of left leg with ulceration of other part of foot | CPT/HCPCS: 11042; 15275 ==

== ENCOUNTER → 2017-12-29 | Outpatient (CLI) | payer MEDICARE | LOC: WOUNDCARE 10:54 | PROVIDERS: ATTEND Orthopaedic Surgery Hand Surgery | DX: E11.621 Type 2 diabetes mellitus with foot ulcer (principal); I70.245 Atherosclerosis of native arteries of left leg with ulceration of other part of foot; L97.422 Non-pressure chronic ulcer of left heel and midfoot with fat layer exposed; L97.522 Non-pressure chronic ulcer of other part of left foot with fat layer exposed; I70.235 Atherosclerosis of native arteries of right leg with ulceration of other part of foot; L97.512 Non-pressure chronic ulcer of other part of right foot with fat layer exposed; E11.42 Type 2 diabetes mellitus with diabetic polyneuropathy | CPT/HCPCS: 11042; 15275 ==

== ENCOUNTER → 2018-01-04 | Outpatient (CLI) | payer MEDICARE | LOC: WOUNDCARE 10:59 | PROVIDERS: ATTEND Nurse Practitioner | DX: E11.621 Type 2 diabetes mellitus with foot ulcer (principal); L97.522 Non-pressure chronic ulcer of other part of left foot with fat layer exposed; E11.42 Type 2 diabetes mellitus with diabetic polyneuropathy; L97.512 Non-pressure chronic ulcer of other part of right foot with fat layer exposed; I70.235 Atherosclerosis of native arteries of right leg with ulceration of other part of foot; I70.245 Atherosclerosis of native arteries of left leg with ulceration of other part of foot; L97.422 Non-pressure chronic ulcer of left heel and midfoot with fat layer exposed | CPT/HCPCS: 11044; 15275; 87070; 87075; 87077; 87205 ==

== ENCOUNTER → 2018-01-04 | Outpatient (CLI) | payer MEDICARE ==
--- NOTE | 2018-01-04 13:15 | Diagnostic Imaging Report ---
INDICATION: Foot ulcer. FINDINGS: The alignment is normal. There is no fracture or dislocation. There is no radiographic evidence of osteomyelitis. Soft tissues are unremarkable. IMPRESSION: 1. No acute radiographic abnormality. 2. Mild degenerative changes. Dictated by: Dictated on workstation # [id number]
== END ==
LOC: RAD 12:27
PROVIDERS: ATTEND Nurse Practitioner
DX: E11.621 Type 2 diabetes mellitus with foot ulcer (principal); L97.422 Non-pressure chronic ulcer of left heel and midfoot with fat layer exposed; E11.42 Type 2 diabetes mellitus with diabetic polyneuropathy; L97.512 Non-pressure chronic ulcer of other part of right foot with fat layer exposed; I70.235 Atherosclerosis of native arteries of right leg with ulceration of other part of foot; I70.245 Atherosclerosis of native arteries of left leg with ulceration of other part of foot; L97.524 Non-pressure chronic ulcer of other part of left foot with necrosis of bone; M19.072 Primary osteoarthritis, left ankle and foot
CPT/HCPCS: 73630

== ENCOUNTER → 2018-01-12 | Outpatient (CLI) | payer MEDICARE | LOC: WOUNDCARE 10:55 | PROVIDERS: ATTEND Orthopaedic Surgery Hand Surgery | DX: E11.621 Type 2 diabetes mellitus with foot ulcer (principal); I70.245 Atherosclerosis of native arteries of left leg with ulceration of other part of foot; L97.426 Non-pressure chronic ulcer of left heel and midfoot with bone involvement without evidence of necrosis; M86.172 Other acute osteomyelitis, left ankle and foot; I70.235 Atherosclerosis of native arteries of right leg with ulceration of other part of foot; L97.512 Non-pressure chronic ulcer of other part of right foot with fat layer exposed; E11.42 Type 2 diabetes mellitus with diabetic polyneuropathy | CPT/HCPCS: 11042; 15275 ==

== ENCOUNTER → 2018-01-17 | Outpatient (CLI) | payer MEDICARE, OTHER ==
--- NOTE | 2018-01-17 08:55 | Diagnostic Imaging Report ---
EXAMINATION: Magnetic resonance imaging of the left ankle without contrast. DATE: January 17, 2018. COMPARISON: Left foot radiographs January 04, 2018. HISTORY: 77-year-old male, left lateral foot ulcer. Evaluation for osteomyelitis. TECHNIQUE: Magnetic Resonance Imaging sequences were performed of the ankle without contrast. [< >] FINDINGS: TENDONS AND LIGAMENTS: The Achilles tendon is unremarkable. The posterior flexor tendons - tibialis posterior, flexor digitorum longus, flexor hallucis longus - are intact. The peroneal tendons - peroneus longus and peroneus brevis - are intact. The anterior extensor tendons - tibialis anterior, extensor hallucis longus and extensor digitorum longus tendons - are intact. The anterior and posterior syndesmotic ligaments are intact. The anterior talofibular, posterior talofibular, calcaneofibular and deltoid ligaments are intact. The plantar fascia is intact. JOINTS: The ankle mortise is intact. The subtalar and visualized joints of the mid-foot are intact. BONE: The bones all have normal configuration. There is edema-like signal in the base of the fifth metatarsal perhaps best illustrated on series 6, image 9 and sagittal STIR sequence image 8. There is no loss of normal T1 marrow signal or cortical or otherwise noted bone destruction. There is an overlying skin defect compatible with provided history of soft tissue ulcer. The additional bone marrow signal is unremarkable. The talar dome is intact. There is no evidence of osteonecrosis. BURSAE AND SOFT TISSUES: As mentioned above, there is a skin defect laterally located in the region of the base of the fifth metatarsal compatible with provided history of soft tissue ulcer. Sensitivity for detection of abscess is reduced with lack of intravenous contrast. No clearly identified focal fluid collection. There is edema of the abductor hallucis muscle as well as additional edema within the visualized foot musculature at the level of the midfoot. IMPRESSION: 1. Skin defect laterally at the level of the fifth metatarsal base compatible with provided history of soft tissue ulcer. No clearly identified focal fluid collection. 2. Nonspecific edema-like signal within the fifth metatarsal base without loss of normal T1 marrow signal or bone destruction to specifically diagnose osteomyelitis. Early findings of osteomyelitis would be a differential diagnostic consideration. This also potentially could reflect a bone contusion. 3. Edema of the abductor hallucis muscle as well as additional foot musculature at the level of the midfoot. This is nonspecific although may potentially be denervation related. 4. Intact tendons. Dictated by: Dictated on workstation # [id number]
== END ==
LOC: RAD 07:31
PROVIDERS: ATTEND Orthopaedic Surgery Hand Surgery
DX: E11.621 Type 2 diabetes mellitus with foot ulcer (principal); L97.426 Non-pressure chronic ulcer of left heel and midfoot with bone involvement without evidence of necrosis; E11.42 Type 2 diabetes mellitus with diabetic polyneuropathy; L97.512 Non-pressure chronic ulcer of other part of right foot with fat layer exposed; I70.235 Atherosclerosis of native arteries of right leg with ulceration of other part of foot; I70.245 Atherosclerosis of native arteries of left leg with ulceration of other part of foot; M86.172 Other acute osteomyelitis, left ankle and foot

== ENCOUNTER → 2018-01-19 | Outpatient (CLI) | payer MEDICARE, OTHER | LOC: WOUNDCARE 13:02 | PROVIDERS: ATTEND Orthopaedic Surgery Hand Surgery | DX: E11.621 Type 2 diabetes mellitus with foot ulcer (principal); E11.42 Type 2 diabetes mellitus with diabetic polyneuropathy; L97.426 Non-pressure chronic ulcer of left heel and midfoot with bone involvement without evidence of necrosis; L97.512 Non-pressure chronic ulcer of other part of right foot with fat layer exposed; I70.235 Atherosclerosis of native arteries of right leg with ulceration of other part of foot; I70.245 Atherosclerosis of native arteries of left leg with ulceration of other part of foot; M86.172 Other acute osteomyelitis, left ankle and foot | CPT/HCPCS: 15275; 97597 ==

== ENCOUNTER → 2018-01-26 | Outpatient (CLI) | payer MEDICARE | LOC: WOUNDCARE 10:47 | PROVIDERS: ATTEND Orthopaedic Surgery Hand Surgery | DX: E11.621 Type 2 diabetes mellitus with foot ulcer (principal); I70.245 Atherosclerosis of native arteries of left leg with ulceration of other part of foot; L97.426 Non-pressure chronic ulcer of left heel and midfoot with bone involvement without evidence of necrosis; I70.235 Atherosclerosis of native arteries of right leg with ulceration of other part of foot; L97.512 Non-pressure chronic ulcer of other part of right foot with fat layer exposed; M86.172 Other acute osteomyelitis, left ankle and foot; E11.42 Type 2 diabetes mellitus with diabetic polyneuropathy | CPT/HCPCS: 15275 ==

== ENCOUNTER → 2018-01-26 | Outpatient (CLI) | payer MEDICARE, OTHER ==
[2018-01-26 12:16] LABS: ALBUMIN 3.6 GM/DL (3.2-4.5); BUN/CREATININE RATIO 34; CALCIUM 9.1 MG/DL (8.5-10.1); CARBON DIOXIDE 24 MMOL/L (21-32); CHLORIDE 108 MMOL/L (98-107); CREATININE SERUM 1.02 MG/DL (0.60-1.30); GFR ESTIMATED > 60; GLUCOSE 99 MG/DL (70-105); POTASSIUM 4.2 MMOL/L (3.6-5.0); SODIUM 140 MMOL/L (135-145)
--- NOTE | 2018-01-26 15:23 | Diagnostic Imaging Report ---
PROCEDURE: US Bilateral lower extremity arterial. TECHNIQUE: Multiple real-time grayscale images are obtained through both lower extremity arterial systems with color Doppler imaging and color Doppler spectral analysis. INDICATION: Limb ischemia. COMPARISON: There are no prior studies available for comparison. FINDINGS: There is fairly good arterial blood flow in the common femoral and superficial femoral and popliteal arteries. Triphasic and biphasic waveforms were seen and there is no abrupt alteration of the velocities. However, the waveform does change to monophasic in the trifurcation vessels and there is decreased velocity in the trifurcation arteries. I do suspect that there may be a hemodynamically significant stenosis involving the trifurcation and this does result in diminished arterial blood flow to the lower extremities. If further evaluation is desired, then CTA of the aorta with bilateral runoffs would be recommended. IMPRESSION: There does appear to be diminished arterial blood flow to both lower legs. 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 Recommendations, as above. Dictated by: Dictated on workstation # [id number]
--- NOTE | 2018-01-26 15:30 | Diagnostic Imaging Report ---
EXAMINATION: Noninvasive vascular bilateral. INDICATION: Leg pain. FINDINGS: The ankle-brachial indices were obtained in the usual manner. The ankle-brachial index on the right is 0.71 and on the left 0.69 (normal 1.00 or greater). IMPRESSION: 1. The ankle-brachial indices are below normal limits. 2. Reportedly, a dedicated bilateral arterial Doppler exam is pending for further study. Dictated by: Dictated on workstation # [id number]
== END ==
LOC: RAD 11:47
PROVIDERS: ATTEND Internal Medicine Interventional Cardiology
DX: I73.9 Peripheral vascular disease, unspecified (principal); I12.9 Hypertensive chronic kidney disease with stage 1 through stage 4 chronic kidney disease, or unspecified chronic kidney disease; N18.9 Chronic kidney disease, unspecified; I99.8 Other disorder of circulatory system; E78.5 Hyperlipidemia, unspecified; E11.22 Type 2 diabetes mellitus with diabetic chronic kidney disease; I42.9 Cardiomyopathy, unspecified
CPT/HCPCS: 36415; 80069; 93922; 93925

== ENCOUNTER → 2018-02-02 | Outpatient (CLI) | payer MEDICARE | LOC: WOUNDCARE 10:36 | PROVIDERS: ATTEND Orthopaedic Surgery Hand Surgery | DX: E11.621 Type 2 diabetes mellitus with foot ulcer (principal); I70.245 Atherosclerosis of native arteries of left leg with ulceration of other part of foot; L97.426 Non-pressure chronic ulcer of left heel and midfoot with bone involvement without evidence of necrosis; M86.172 Other acute osteomyelitis, left ankle and foot; I70.235 Atherosclerosis of native arteries of right leg with ulceration of other part of foot; L97.512 Non-pressure chronic ulcer of other part of right foot with fat layer exposed; E11.42 Type 2 diabetes mellitus with diabetic polyneuropathy | CPT/HCPCS: 15275; 97597 ==

== ENCOUNTER → 2018-02-16 | Outpatient (CLI) | payer MEDICARE | LOC: LAB 12:25 | PROVIDERS: ATTEND Surgery | DX: E11.621 Type 2 diabetes mellitus with foot ulcer (principal); L97.424 Non-pressure chronic ulcer of left heel and midfoot with necrosis of bone; E11.42 Type 2 diabetes mellitus with diabetic polyneuropathy | CPT/HCPCS: 36415; 83036 ==

== ENCOUNTER → 2018-02-16 | Outpatient (CLI) | payer MEDICARE | LOC: WOUNDCARE 10:48 | PROVIDERS: ATTEND Surgery | DX: E11.621 Type 2 diabetes mellitus with foot ulcer (principal); I70.245 Atherosclerosis of native arteries of left leg with ulceration of other part of foot; L97.424 Non-pressure chronic ulcer of left heel and midfoot with necrosis of bone; M86.172 Other acute osteomyelitis, left ankle and foot; I70.235 Atherosclerosis of native arteries of right leg with ulceration of other part of foot; L97.512 Non-pressure chronic ulcer of other part of right foot with fat layer exposed; E11.42 Type 2 diabetes mellitus with diabetic polyneuropathy | CPT/HCPCS: 11044; 87070; 87075; 87205 ==

== ENCOUNTER → 2018-02-23 | Outpatient (CLI) | payer MEDICARE | LOC: WOUNDCARE 08:10 | PROVIDERS: ATTEND Surgery | DX: E11.621 Type 2 diabetes mellitus with foot ulcer (principal); I70.245 Atherosclerosis of native arteries of left leg with ulceration of other part of foot; L97.426 Non-pressure chronic ulcer of left heel and midfoot with bone involvement without evidence of necrosis; M86.172 Other acute osteomyelitis, left ankle and foot; E11.42 Type 2 diabetes mellitus with diabetic polyneuropathy | CPT/HCPCS: 11043 ==

== ENCOUNTER 2018-02-24 07:54 | Day surgery (SDC) | payer MEDICARE ==
[~2018-02-24] VITALS: Ht 177.8 cm; Wt 83.9 kg
[2018-02-24] VITALS (21 sets, daily range): BP systolic 116–167; BP diastolic 52–110
[2018-02-24] MEDS ORDERED: LIDOCAINE 1% INJ 20 ML 20 ML VIAL ONE (08:04)
[2018-02-24] MEDS ORDERED: NS IV 1000 ML 1,000 ML ONE (08:04)
[2018-02-24] MEDS ORDERED: HEParin (CATH LAB) 2,000 ML IV ONE (08:04)
[2018-02-24] MEDS ORDERED: NS IV 1000 ML 1,000 ML IV SCH (08:15)
[2018-02-24 08:31] LABS: HEMOGLOBIN 10.7 G/DL (13.3-17.7); MEAN PLATELET VOLUME 10.2 FL (7.4-10.4); RED BLOOD COUNT 4.08 10^6/uL (4.35-5.85); WHITE BLOOD COUNT 7.9 10^3/uL (4.3-11.0)
[2018-02-24 08:44] LABS: INR 1.1 (0.8-1.4); PROTHROMBIN TIME PATIENT 13.8 SEC (12.2-14.7)
[2018-02-24 08:53] LABS: ALANINE AMINOTRANSFERASE 11 U/L (0-55); ALBUMIN 3.8 GM/DL (3.2-4.5); ALKALINE PHOSPHATASE 135 U/L (40-136); BILIRUBIN,TOTAL 0.5 MG/DL (0.1-1.0); BUN/CREATININE RATIO 25; CALCIUM 9.4 MG/DL (8.5-10.1); CARBON DIOXIDE 26 MMOL/L (21-32); CHLORIDE 105 MMOL/L (98-107); CHOLESTEROL 129 MG/DL (< 200); CREATININE SERUM 0.95 MG/DL (0.60-1.30); GFR ESTIMATED > 60; GLUCOSE 121 MG/DL (70-105); HDL CHOLESTEROL 49 MG/DL (40-60); POTASSIUM 4.3 MMOL/L (3.6-5.0); SODIUM 140 MMOL/L (135-145); TOTAL PROTEIN 6.5 GM/DL (6.4-8.2); TRIGLYCERIDES 59 MG/DL (<150); VLDL CHOLESTEROL 12 MG/DL (5-40)
[2018-02-24] MEDS ORDERED: MIDAZOLAM 5 MG/5 ML (VERSED) VIAL ONE (09:16)
[2018-02-24] MEDS ORDERED: fentaNYL INJECTION 100 MCG/2 ML AMP ONE (09:17)
[2018-02-24] MEDS ORDERED: NITRO DRIP 25000 MCG/D5W 0 ML IV ONE (10:18)
[2018-02-24] MEDS ORDERED: HEParin 1000 UNIT/ML (10ML VIAL) FOR BOLUS ONE (10:18)
--- NOTE | 2018-02-24 11:47 | Cardiac Procedure Note-CS/ASA ---
Pre-Procedure Note Pre-Op Procedure Note H&P Reviewed The H&P was reviewed, patient examined and no changes noted. Date H&P Reviewed: Feb 24, 2018 Time H&P Reviewed: 09:30 Conscious Sedation Pre-Proced Time 09:30 ASA Score 3 For ASA 3 and 4: Consider anesthesia and medical clearance. Also, for patients with a history of failed moderate sedation consider anesthesia. Airway Lungs Heart ASA score ASA 1: a normal healthy patient ASA 2: a patient with a mild systemic disease (mid diabetes, controlled hypertension, obesity ASA 3: a patient with a severe systemic disease that limits activity (angina , COPD, prior Myocardial infarction) ASA 4: a patient with an incapacitating disease that is a constant threat to life (CHF, renal failure) ASA 5: a moribund patient not expected to survive 24 hrs. (ruptured aneurysm) ASA 6: a declared brain patient whose organs are being harvested. For emergent operations, add the letter E after the classification Mallampati Classification Grade 1 Sedation Plan Analgesia, Amnesia, Plan communicated to team members, Discussed options with patient/fam, Discussed risks with patient/fam The patient is an appropriate candidate to undergo the planned procedure, sedation, and anesthesia. The patient immediately re-assessed prior to indication. Nathalia RAMIREZ MD Feb 24, 2018 11:47
--- NOTE | 2018-02-24 11:48 | Coronary Angiography & PCI ---
Peripheral Angio & Interv DATE OF SERVICE: 02/24/18 PRIMARY PHYSICIAN: Neel Cottrell DO PERFORMING INTERVENTIONALIST: Dr. Alberto Ramirez INDICATION: Left lower extremity critical limb ischemia PREOPERATIVE INDICATION: Left lower extremity critical limb ischemia POSTOPERATIVE DIAGNOSIS: Successful left mid SFA stent, balloon angioplasty to left anterior tibial artery, left tibioperoneal trunk. HISTORY: This is a 77-year-old gentleman with history of CAD and PAD with previous history of nonhealing ulcers. Treated with stents and balloon angioplasty to both right lower extremity and left lower lower extremity. Patient presented with nonhealing ulcer on the left lateral aspect of the foot. Abnormal WEI and TBI. Peripheral angiography and intervention was scheduled for left lower extremity critical limb ischemia. PROCEDURE PERFORMED: 1. Abdominal aortogram with bilateral lower extremity runoff. 2. Left mid SFA stent. 3. Balloon angioplasty to left anterior tibial artery. 4. Balloon angioplasty to left tibioperoneal trunk. SPECIMENS: None. ANESTHESIA: Conscious sedation. BLOOD LOSS: 20 mL. COMPLICATIONS: None. CONTRAST USED: 180 ml. FLUOROSCOPY DOSE: 623 Mgy. FLUOROSCOPY TIME: 27 minutes. ANTICOAGULATION: IV heparin DESCRIPTION OF PROCEDURE: The patient was brought to the lab engineer after informed consent was taken. All the risks and complications were explained in detail. The patient was draped and prepped in the usual sterile fashion. Access was gained in the right femoral artery with a 6 Congolese sheath. A pigtail catheter was advanced on a regular J-wire and placed in the mid abdominal aorta. We performed an abdominal aortogram and lower extremity runoff. We could not perform a crossover with the pigtail catheter therefore the pigtail catheter was taken out and a rim catheter was placed and crossover was performed with the rim catheter and a Glidewire. The tip of the glide wire was placed in the mid left SFA and the rim catheter was taken out. The short 6 Congolese sheath was also taken out and we placed a 6 Congolese by 55 cm long sheath. The tip of the sheath was placed in the proximal left SFA and a selective left lower extremity angiogram was performed. FINDINGS: Mild diffuse abdominal aortic disease. Moderate right renal artery stenosis. Normal left renal artery. No significant disease in the left common/external iliac artery. Severe mid left SFA stenosis. Gradient across the lesion was over 25 mmHg. Stenosis severity 70-80 percent. Mild to moderate in-stent restenosis in the distal SFA stent. Moderate to severe stenosis is noted just distal to the distal SFA stent. Severe subtotal occlusion of the ostium of the left anterior tibial artery. Severe stenosis of the left tibioperoneal trunk. Stenosis severity 80 percent. No significant right common iliac artery disease. Moderate to severe right external iliac artery stenosis. Moderate to severe mid SFA stenosis. Patent stent in the distal SFA. No significant popliteal disease. No significant proximal disease of the right anterior tibial artery and tibioperoneal trunk. RECOMMENDATIONS: Left SFA stent is recommended. Balloon angioplasty to left anterior tibial artery is recommended. Balloon angioplasty to left tibioperoneal trunk is recommended. INTERVENTIONAL DETAILS: As mentioned above the exchange the short 6 Congolese sheath with a long 6 Congolese by 55 cm sheath. The tip of the sheath was placed in the proximal SFA. We took a command 0.014 wire and crossed the lesion in the left tibioperoneal trunk. We then took a 2.0 balloon and performed an initial balloon dilatation at 8 anthony, however the artery is larger than 2 mm. Therefore we took a 3.0 x 60 mm balloon and performed VENEER STOCK GRADER at 13 anthony for 61 seconds with good results of the left tibioperoneal trunk. We then took the same wire and crossed the lesion in the left anterior tibial artery and used the same balloon which was inflated to 14 anthony for 3 minutes with excellent results with less than 10 percent residual stenosis and brisk flow distally. This balloon was taken out and then we went in with a [place] 18 5 x 60 mm balloon and performed balloon angioplasty in the distal aspect of the stent and just distally to the stent in the popliteal artery at 6 anthony for 73 seconds with excellent results. We then performed balloon angioplasty within the distal/mid and proximal segment of the previous stent at 14, 8, 14 anthony respectively. Excellent results were noted. The lesion in the mid SFA was also treated with balloon angioplasty with the same balloon at 14 anthony for 3 minutes. We then took a Supera 5 x 1 20 mm stent and deployed it by overlapping with the previous stent with excellent results. The wire was taken out and post-angiogram showed excellent results with no stenosis in the mid SFA with brisk flow to the left foot. Patient tolerated procedure well and did not have any complications. Mynx closure of the RFA. CONCLUSION: Successful left SFA stent, balloon angioplasty to the left anterior tibial as well as tibioperoneal trunk. Long-term dual antiplatelet therapy. Overnight observation on the stepdown unit. Alberto Ramirez MD, FACP, FACC, [facility] Vascular Medicine and Endovascular Interventions Nathalia RAMIREZ MD Feb 24, 2018 11:47
[2018-02-24] MEDS ORDERED: PATIENT MAY USE OWN MEDS, ALL PO SCH (12:00)
--- NOTE | 2018-02-24 12:09 | NUR ---
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 PT ORIENTED TO SURROUNDINGS AND PLACED ON MONITORS. CALL LIGHT W/IN REACH. RIGHT GROIN CATH SITE WNL. NO C/O AT THIS TIME. WILL CONT TO MONITOR.
[2018-02-24] MEDS ORDERED: CATHETER FLUSH 10 ML SYR IV PRN (12:45)
[2018-02-24] MEDS: NS IV 1000 ML 1,000 ML IV SCH (16:42)
[2018-02-24] MEDS: DOXYCYCLINE 100 MG (VIBRAMYCIN) TABLET PO SCH (18:38)
--- NOTE | 2018-02-24 18:39 | NUR ---
LEFT FOOT DRESSING CHANGED BY W/ BETADINE EARLIER IN DAY.
[2018-02-24] MEDS ORDERED: NON-FORMULARY MEDICATION 1 EA EA (Doxycycline Monohydrate 100 MG) PO SCH (21:00)
[2018-02-24] MEDS ORDERED: ATORVASTATIN 40 MG (LIPITOR) TABLET PO SCH ×2 (21:00)
[2018-02-24] MEDS ORDERED: POVIDONE (BETADINE) 10% SOLN 240 ML BTL TP SCH (21:00)
[2018-02-25] VITALS: BP 116/51
[2018-02-25] MEDS: NS IV 1000 ML 1,000 ML IV SCH (01:06)
[2018-02-25 04:00] VITALS: BP 123/60
[2018-02-25 04:18] LABS: HEMOGLOBIN 9.5 G/DL (13.3-17.7); MEAN PLATELET VOLUME 10.6 FL (7.4-10.4); RED BLOOD COUNT 3.66 10^6/uL (4.35-5.85); WHITE BLOOD COUNT 7.2 10^3/uL (4.3-11.0)
[2018-02-25 04:37] LABS: BUN/CREATININE RATIO 23; CALCIUM 8.9 MG/DL (8.5-10.1); CARBON DIOXIDE 24 MMOL/L (21-32); CHLORIDE 110 MMOL/L (98-107); CREATININE SERUM 0.93 MG/DL (0.60-1.30); GFR ESTIMATED > 60; GLUCOSE 119 MG/DL (70-105); SODIUM 142 MMOL/L (135-145)
[2018-02-25] MEDS ORDERED: inSUlin ASPART (NovoLOG) 1 UNIT/0.01 ML (CHARGE PER UNIT) SC SCH (06:00)
[2018-02-25] MEDS ORDERED: INSULIN VIAL ASPART for PUMP 100 UNIT/ML VIAL SQ SCH (06:00)
[2018-02-25] MEDS ORDERED: PANTOPRAZOLE 40 MG (PROTONIX) TAB PO SCH (07:00)
[2018-02-25] MEDS: DOXYCYCLINE 100 MG (VIBRAMYCIN) TABLET PO SCH (08:04)
[2018-02-25] MEDS ORDERED: NON-FORMULARY MEDICATION 1 EA EA (Aspirin (Aspir 81) 81 MG) PO SCH (09:00)
[2018-02-25] MEDS ORDERED: inSUlin DETERMIR 1 UNIT/0.01 ML (LEVEMIR) CHARGE PER UNIT SQ SCH ×2 (09:00)
[2018-02-25] MEDS ORDERED: FUROSEMIDE 20 MG (LASIX) TAB PO SCH ×2 (09:00)
[2018-02-25] MEDS ORDERED: CLOPIDOGREL 75 MG (PLAVIX) TABLET PO SCH ×3 (09:00)
[2018-02-25] MEDS ORDERED: lisINopril 5 MG (PRINIVIL) TABLET PO SCH (09:00)
[2018-02-25] MEDS ORDERED: LISINOPRIL 2.5 MG TAB PO SCH (09:00)
[2018-02-25] MEDS ORDERED: inSUlin DETERMIR 1000 UNITS/10 ML VIAL (LEVEMIR) SQ SCH (09:00)
[2018-02-25] MEDS ORDERED: NON-FORMULARY MEDICATION 1 EA EA (Lisinopril 2.5 MG) PO SCH (09:00)
[2018-02-25] MEDS ORDERED: ASPIRIN E.C. 81 MG (ECOTRIN) TAB PO SCH ×2 (09:00)
--- NOTE | 2018-02-25 10:16 | Cardiology Discharge Summary ---
Diagnosis/Chief Complaint Date of Admission 02/24/2018 Date of Discharge 02/25/2018 Admission Diagnosis Left foot critical limb ischemia Final/Discharge Diagnosis Severe PAD Chief Complaint/HPI Chief Complaint/HPI This is a 77-year-old gentleman with history of CAD and PAD with previous history of nonhealing ulcers. Treated with stents and balloon angioplasty to both right lower extremity and left lower lower extremity. Patient presented with nonhealing ulcer on the left lateral aspect of the foot. Abnormal WEI and TBI. Peripheral angiography and intervention was scheduled for left lower extremity critical limb ischemia. Discharge Summary Procedures Successful stenting left mid SFA. Successful balloon angioplasty of in-stent restenosis in the distal SFA stent as well as at the distal aspect of the stent in the popliteal artery. Successful balloon angioplasty of the left anterior tibial artery. Successful balloon angioplasty of the left tibioperoneal trunk. Discharge Physical Examination Normal cardiovascular examination. Normal respiratory examination. Hospital Course Unremarkable. Pending Labs Laboratory Tests 02/25/18 03:20: White Blood Count 7.2, Red Blood Count 3.66, Hemoglobin 9.5, Hematocrit 30, Mean Corpuscular Volume 82, Mean Corpuscular Hemoglobin 26, Mean Corpuscular Hemoglobin Concent 32, Red Cell Distribution Width 15.0, Platelet Count 299, Mean Platelet Volume 10.6, Sodium Level 142, Potassium Level 4.0, Chloride Level 110, Carbon Dioxide Level 24, Anion Gap 8, Blood Urea Nitrogen 21, Creatinine 0.93, Estimat Glomerular Filtration Rate > 60, BUN/Creatinine Ratio 23, Glucose Level 119, Calcium Level 8.9 Discussion & Recommendations Discussion Discharge instructions took more than 30 minutes to complete. The procedure was discussed at length with the patient and . Compliance with medications was emphasized. Follow up appt.: Dr. Tatum for wound care. Dr. Colvin in 2-3 weeks. Dicharge Diet: Cardiac Diet Activity as Tolerated: Yes Home Medications Reviewed patient Home Medication Reconciliation performed by pharmacy medication reconciliations ultrasound technician and/or nursing. Patients Allergies have been reviewed. Discharge Home Medications: Reviewed and agree with Discharge Medication list on patient's Discharge Instruction sheet Condition at discharge Stable. Instructions to patient/family Discussed with the patient and . Nathalia COLVIN MD Feb 25, 2018 10:16
--- NOTE | 2018-02-25 10:18 | Discharge Inst-Post CATH ---
Discharge Inst-CATH/EP Post Cardiac Cath/EP D/C Inst Follow Up/Plan Dr. Colvin in 2-3 weeks. CARDIAC CATH DISCHARGE INSTRUCTIONS *Hold Metformin for 48 hours post heart cath. ACTIVITY * Go Home directly and rest. * Limit activity of the leg (or wrist if it was used) for 7 days including aerobics, swimming, jogging, bicycling, etc. * Restrict stair-climbing for 7 days if possible, if not, climb up with your non -cath leg, then bring together on the same step. * Avoid lifting, pushing, pulling or excessive movement of the affected extremity for 7 days. * Customary sexual activity may be resumed after 2 days-use caution not to use a position that strains or causes pain to the affected extremity. * No driving for 24 hours. * NO SMOKING. * Avoid straining for bowel movements for 7 days. * Gentle walking on level ground is allowed. * Returning to work will depend on the type of procedure and the results. Your doctor will discuss this with you. CALL YOUR DOCTOR FOR ANY OF THE FOLLOWING: *If bleeding from the puncture site occurs- Apply gentle pressure to site with clean cloth and call your doctor or EMS. * If a knot or lump forms under the skin, increases in size, or causes pain. * If bruising appears to be worsening or moving further down your leg instead of disappearing. * Temperature above 101 F. CARE OF YOUR GROIN INCISION; * Bruising or purple discoloration of the skin near the puncture site is common. * You may shower only, no bathtub bathing for 5 days. Be careful to avoid slipping as your leg may feel stiff. * If a closure device was used on your femoral artery, please see the attached guide regarding care of the device and your leg. * Leave the dressing on, until removed by office staff. CARE OF YOUR WRIST INCISION; * Bruising or purple discoloration of the skin near the puncture site is common. * You may shower. * DO NOT submerge wrist. * Leave dressing on, until removed by office staff.. Nathalia COLVIN MD Feb 25, 2018 10:18
[2018-02-25 10:52] VITALS: BP 115/51
== END 2018-02-25 10:40 | disposition home or self-care (01) ==
LOC: CATH 07:54 → ICU 12:10 → CATH 02-25 10:40
PROVIDERS: ATTEND Internal Medicine Interventional Cardiology
DX: I70.244 Atherosclerosis of native arteries of left leg with ulceration of heel and midfoot (principal); L97.529 Non-pressure chronic ulcer of other part of left foot with unspecified severity; E11.9 Type 2 diabetes mellitus without complications; I48.0 Paroxysmal atrial fibrillation; I42.9 Cardiomyopathy, unspecified; I12.9 Hypertensive chronic kidney disease with stage 1 through stage 4 chronic kidney disease, or unspecified chronic kidney disease; N18.9 Chronic kidney disease, unspecified; E78.5 Hyperlipidemia, unspecified; Z79.4 Long term (current) use of insulin; Z79.82 Long term (current) use of aspirin; Z79.899 Other long term (current) drug therapy; Z87.891 Personal history of nicotine dependence; Z95.820 Peripheral vascular angioplasty status with implants and grafts
CPT/HCPCS: 36415; 37226; 75630; 80048; 80053; 80061; 85027; 85347; 85610; 85730; 87081

== ENCOUNTER → 2018-03-02 | Outpatient (CLI) | payer MEDICARE | LOC: WOUNDCARE 08:13 | PROVIDERS: ATTEND Surgery | DX: E11.621 Type 2 diabetes mellitus with foot ulcer (principal); I70.245 Atherosclerosis of native arteries of left leg with ulceration of other part of foot; L97.426 Non-pressure chronic ulcer of left heel and midfoot with bone involvement without evidence of necrosis; M86.172 Other acute osteomyelitis, left ankle and foot; E11.42 Type 2 diabetes mellitus with diabetic polyneuropathy | CPT/HCPCS: 11043 ==

== ENCOUNTER → 2018-03-09 | Outpatient (CLI) | payer MEDICARE | LOC: WOUNDCARE 08:10 | PROVIDERS: ATTEND Surgery | DX: E11.621 Type 2 diabetes mellitus with foot ulcer (principal); I70.245 Atherosclerosis of native arteries of left leg with ulceration of other part of foot; L97.426 Non-pressure chronic ulcer of left heel and midfoot with bone involvement without evidence of necrosis; E11.42 Type 2 diabetes mellitus with diabetic polyneuropathy; M86.172 Other acute osteomyelitis, left ankle and foot | CPT/HCPCS: 11043 ==

== ENCOUNTER → 2018-03-16 | Outpatient (CLI) | payer MEDICARE | LOC: WOUNDCARE 08:01 | PROVIDERS: ATTEND Surgery | DX: E11.621 Type 2 diabetes mellitus with foot ulcer (principal); E11.42 Type 2 diabetes mellitus with diabetic polyneuropathy; L97.422 Non-pressure chronic ulcer of left heel and midfoot with fat layer exposed; I70.244 Atherosclerosis of native arteries of left leg with ulceration of heel and midfoot; M86.172 Other acute osteomyelitis, left ankle and foot | CPT/HCPCS: 15275 ==

== ENCOUNTER → 2018-03-23 | Outpatient (CLI) | payer MEDICARE | LOC: WOUNDCARE 08:05 | PROVIDERS: ATTEND Surgery | DX: E11.621 Type 2 diabetes mellitus with foot ulcer (principal); I70.244 Atherosclerosis of native arteries of left leg with ulceration of heel and midfoot; L97.422 Non-pressure chronic ulcer of left heel and midfoot with fat layer exposed; M86.172 Other acute osteomyelitis, left ankle and foot; E11.42 Type 2 diabetes mellitus with diabetic polyneuropathy | CPT/HCPCS: 15275 ==

== ENCOUNTER → 2018-03-30 | Outpatient (CLI) | payer MEDICARE | LOC: WOUNDCARE 08:12 | PROVIDERS: ATTEND Surgery | DX: E11.621 Type 2 diabetes mellitus with foot ulcer (principal); I70.244 Atherosclerosis of native arteries of left leg with ulceration of heel and midfoot; L97.422 Non-pressure chronic ulcer of left heel and midfoot with fat layer exposed; M86.172 Other acute osteomyelitis, left ankle and foot; E11.42 Type 2 diabetes mellitus with diabetic polyneuropathy | CPT/HCPCS: 15275; 87070; 87205 ==

== ENCOUNTER → 2018-04-05 | Outpatient (CLI) | payer MEDICARE | LOC: CARD 09:11 | PROVIDERS: ATTEND Internal Medicine Interventional Cardiology | DX: I42.9 Cardiomyopathy, unspecified (principal); I25.10 Atherosclerotic heart disease of native coronary artery without angina pectoris | CPT/HCPCS: 93306 ==

== ENCOUNTER → 2018-04-06 | Outpatient (CLI) | payer MEDICARE ==
[2018-04-06 10:21] LABS: BUN/CREATININE RATIO 24; CALCIUM 8.9 MG/DL (8.5-10.1); CARBON DIOXIDE 28 MMOL/L (21-32); CHLORIDE 107 MMOL/L (98-107); CREATININE SERUM 1.02 MG/DL (0.60-1.30); GFR ESTIMATED > 60; GLUCOSE 145 MG/DL (70-105); POTASSIUM 4.2 MMOL/L (3.6-5.0); SODIUM 141 MMOL/L (135-145)
== END ==
LOC: LAB 09:50
PROVIDERS: ATTEND Surgery
DX: E11.621 Type 2 diabetes mellitus with foot ulcer (principal); L97.422 Non-pressure chronic ulcer of left heel and midfoot with fat layer exposed
CPT/HCPCS: 36415; 80048

== ENCOUNTER → 2018-04-06 | Outpatient (CLI) | payer MEDICARE | LOC: WOUNDCARE 08:10 | PROVIDERS: ATTEND Surgery | DX: E11.621 Type 2 diabetes mellitus with foot ulcer (principal); I70.244 Atherosclerosis of native arteries of left leg with ulceration of heel and midfoot; L97.422 Non-pressure chronic ulcer of left heel and midfoot with fat layer exposed; E11.42 Type 2 diabetes mellitus with diabetic polyneuropathy; E11.69 Type 2 diabetes mellitus with other specified complication; M86.172 Other acute osteomyelitis, left ankle and foot | CPT/HCPCS: 15275 ==

== ENCOUNTER → 2018-04-13 | Outpatient (CLI) | payer MEDICARE | LOC: WOUNDCARE 08:12 | PROVIDERS: ATTEND Surgery | DX: E11.621 Type 2 diabetes mellitus with foot ulcer (principal); L97.422 Non-pressure chronic ulcer of left heel and midfoot with fat layer exposed; I70.244 Atherosclerosis of native arteries of left leg with ulceration of heel and midfoot; E11.42 Type 2 diabetes mellitus with diabetic polyneuropathy; E11.69 Type 2 diabetes mellitus with other specified complication; M86.172 Other acute osteomyelitis, left ankle and foot | CPT/HCPCS: 15275 ==

== ENCOUNTER → 2018-04-20 | Outpatient (CLI) | payer MEDICARE | LOC: WOUNDCARE 08:09 | PROVIDERS: ATTEND Surgery | DX: E11.621 Type 2 diabetes mellitus with foot ulcer (principal); I70.244 Atherosclerosis of native arteries of left leg with ulceration of heel and midfoot; L97.424 Non-pressure chronic ulcer of left heel and midfoot with necrosis of bone; E11.42 Type 2 diabetes mellitus with diabetic polyneuropathy; E11.69 Type 2 diabetes mellitus with other specified complication; M86.472 Chronic osteomyelitis with draining sinus, left ankle and foot | CPT/HCPCS: 11044; 87070; 87205 ==

== ENCOUNTER → 2018-04-26 | Outpatient (CLI) | payer MEDICARE | LOC: WOUNDCARE 12:01 | PROVIDERS: ATTEND Surgery | DX: E11.621 Type 2 diabetes mellitus with foot ulcer (principal); E11.42 Type 2 diabetes mellitus with diabetic polyneuropathy; L97.424 Non-pressure chronic ulcer of left heel and midfoot with necrosis of bone; M86.472 Chronic osteomyelitis with draining sinus, left ankle and foot; I70.244 Atherosclerosis of native arteries of left leg with ulceration of heel and midfoot | CPT/HCPCS: 11044 ==

== ENCOUNTER → 2018-04-26 | Outpatient (CLI) | payer MEDICARE ==
--- NOTE | 2018-04-26 17:16 | Diagnostic Imaging Report ---
INDICATION: Left foot ulcer FINDINGS: Three views of the left foot shows osteolysis of the lateral aspect of the base of the fifth metatarsal compared to a comparison study from 01/04/2018. There is gas in the overlying soft tissues. 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 Dictated by: Dictated on workstation # [id number]
== END ==
LOC: RAD 11:35
PROVIDERS: ATTEND Surgery
DX: E11.621 Type 2 diabetes mellitus with foot ulcer (principal); E11.42 Type 2 diabetes mellitus with diabetic polyneuropathy; L97.424 Non-pressure chronic ulcer of left heel and midfoot with necrosis of bone; L02.612 Cutaneous abscess of left foot; M86.472 Chronic osteomyelitis with draining sinus, left ankle and foot; I70.244 Atherosclerosis of native arteries of left leg with ulceration of heel and midfoot
CPT/HCPCS: 73630

== ENCOUNTER → 2018-05-04 | Outpatient (CLI) | payer MEDICARE | LOC: WOUNDCARE 07:55 | PROVIDERS: ATTEND Surgery | DX: E11.621 Type 2 diabetes mellitus with foot ulcer (principal); I70.244 Atherosclerosis of native arteries of left leg with ulceration of heel and midfoot; L97.424 Non-pressure chronic ulcer of left heel and midfoot with necrosis of bone; E11.69 Type 2 diabetes mellitus with other specified complication; M86.472 Chronic osteomyelitis with draining sinus, left ankle and foot; E11.42 Type 2 diabetes mellitus with diabetic polyneuropathy | CPT/HCPCS: 11043 ==

== ENCOUNTER → 2018-05-11 | Outpatient (CLI) | payer MEDICARE | LOC: WOUNDCARE 08:09 | PROVIDERS: ATTEND Surgery | DX: E11.621 Type 2 diabetes mellitus with foot ulcer (principal); I70.244 Atherosclerosis of native arteries of left leg with ulceration of heel and midfoot; L97.426 Non-pressure chronic ulcer of left heel and midfoot with bone involvement without evidence of necrosis; E11.69 Type 2 diabetes mellitus with other specified complication; M86.472 Chronic osteomyelitis with draining sinus, left ankle and foot; E11.42 Type 2 diabetes mellitus with diabetic polyneuropathy | CPT/HCPCS: 11042 ==

== ENCOUNTER → 2018-05-18 | Outpatient (CLI) | payer MEDICARE | LOC: WOUNDCARE 08:08 | PROVIDERS: ATTEND Surgery | DX: E11.621 Type 2 diabetes mellitus with foot ulcer (principal); L97.426 Non-pressure chronic ulcer of left heel and midfoot with bone involvement without evidence of necrosis; M86.472 Chronic osteomyelitis with draining sinus, left ankle and foot; E11.42 Type 2 diabetes mellitus with diabetic polyneuropathy; I70.244 Atherosclerosis of native arteries of left leg with ulceration of heel and midfoot | CPT/HCPCS: 11042 ==

== ENCOUNTER → 2018-05-25 | Outpatient (CLI) | payer MEDICARE | LOC: WOUNDCARE 07:58 | PROVIDERS: ATTEND Surgery | DX: E11.621 Type 2 diabetes mellitus with foot ulcer (principal); L97.511 Non-pressure chronic ulcer of other part of right foot limited to breakdown of skin; I70.244 Atherosclerosis of native arteries of left leg with ulceration of heel and midfoot; L97.422 Non-pressure chronic ulcer of left heel and midfoot with fat layer exposed; E11.69 Type 2 diabetes mellitus with other specified complication; M86.472 Chronic osteomyelitis with draining sinus, left ankle and foot; E11.42 Type 2 diabetes mellitus with diabetic polyneuropathy | CPT/HCPCS: 11042 ==

== ENCOUNTER → 2018-06-01 | Outpatient (CLI) | payer MEDICARE ==
[2018-06-01 11:54] LABS: BASOPHILS % (AUTO) 0 % (0-10); EOSINOPHILS % (AUTO) 1 % (0-10); HEMATOCRIT 30 % (40-54); HEMOGLOBIN 9.3 G/DL (13.3-17.7); LYMPHOCYTES # (AUTO) 1.3 X 10^3 (1.0-4.0); LYMPHOCYTES % (AUTO) 17 % (12-44); MEAN CORPUSCULAR HEMOGLOBIN 24 PG (25-34); MEAN CORPUSCULAR HGB CONC 32 G/DL (32-36); MEAN CORPUSCULAR VOLUME 77 FL (80-99); MEAN PLATELET VOLUME 9.2 FL (7.4-10.4); MONOCYTES # (AUTO) 0.7 X 10^3 (0.0-1.0); MONOCYTES % (AUTO) 9 % (0-12); NEUTROPHILS # (AUTO) 5.8 X 10^3 (1.8-7.8); NEUTROPHILS % (AUTO) 73 % (42-75); PLATELET COUNT 359 10^3/uL (130-400); RED CELL DISTRIBUTION WIDTH 14.1 % (10.0-14.5); WHITE BLOOD COUNT 7.9 10^3/uL (4.3-11.0)
[2018-06-01 12:19] LABS: ALANINE AMINOTRANSFERASE 14 U/L (0-55); ALBUMIN 3.2 GM/DL (3.2-4.5); ALKALINE PHOSPHATASE 148 U/L (40-136); BILIRUBIN,TOTAL 0.4 MG/DL (0.1-1.0); BUN/CREATININE RATIO 26; CALCIUM 8.8 MG/DL (8.5-10.1); CARBON DIOXIDE 25 MMOL/L (21-32); CHLORIDE 107 MMOL/L (98-107); CREATININE SERUM 0.95 MG/DL (0.60-1.30); GFR ESTIMATED > 60; GLUCOSE 107 MG/DL (70-105); POTASSIUM 3.8 MMOL/L (3.6-5.0); SODIUM 139 MMOL/L (135-145)
== END ==
LOC: LAB 11:42
PROVIDERS: ATTEND Surgery
DX: E11.621 Type 2 diabetes mellitus with foot ulcer (principal); L97.422 Non-pressure chronic ulcer of left heel and midfoot with fat layer exposed
CPT/HCPCS: 36415; 80053; 83036; 85025

== ENCOUNTER → 2018-06-01 | Outpatient (CLI) | payer MEDICARE | LOC: WOUNDCARE 08:09 | PROVIDERS: ATTEND Surgery | DX: E11.621 Type 2 diabetes mellitus with foot ulcer (principal); I70.244 Atherosclerosis of native arteries of left leg with ulceration of heel and midfoot; L97.422 Non-pressure chronic ulcer of left heel and midfoot with fat layer exposed; L97.511 Non-pressure chronic ulcer of other part of right foot limited to breakdown of skin; E11.69 Type 2 diabetes mellitus with other specified complication; M86.472 Chronic osteomyelitis with draining sinus, left ankle and foot; E11.42 Type 2 diabetes mellitus with diabetic polyneuropathy | CPT/HCPCS: 11042; 87070; 87205 ==

== ENCOUNTER → 2018-06-08 | Outpatient (CLI) | payer MEDICARE | LOC: WOUNDCARE 08:09 | PROVIDERS: ATTEND Surgery | DX: E11.621 Type 2 diabetes mellitus with foot ulcer (principal); I70.244 Atherosclerosis of native arteries of left leg with ulceration of heel and midfoot; L97.426 Non-pressure chronic ulcer of left heel and midfoot with bone involvement without evidence of necrosis; L97.511 Non-pressure chronic ulcer of other part of right foot limited to breakdown of skin; E11.69 Type 2 diabetes mellitus with other specified complication; M86.472 Chronic osteomyelitis with draining sinus, left ankle and foot; E11.42 Type 2 diabetes mellitus with diabetic polyneuropathy | CPT/HCPCS: 11042 ==

== ENCOUNTER 2018-06-13 08:15 | Outpatient (RCR) | payer MEDICARE ==
[2018-07-03] MEDS ORDERED: METR-145 PO (01:03)
[2018-07-03] MEDS ORDERED: MINO100C2 PO (01:03)
[2018-07-03] MEDS ORDERED: LISI-556 PO (01:03)
[2018-07-03] MEDS ORDERED: GABA-488 PO (01:03)
== END 2018-07-06 | disposition home or self-care (01) ==
LOC: WOUNDCARE 08:15
PROVIDERS: ATTEND Surgery
DX: E11.621 Type 2 diabetes mellitus with foot ulcer (principal); L97.424 Non-pressure chronic ulcer of left heel and midfoot with necrosis of bone
CPT/HCPCS: 82962; 99183

== ENCOUNTER → 2018-06-15 | Outpatient (CLI) | payer MEDICARE | LOC: WOUNDCARE 10:48 | PROVIDERS: ATTEND Surgery | DX: E11.621 Type 2 diabetes mellitus with foot ulcer (principal); I70.244 Atherosclerosis of native arteries of left leg with ulceration of heel and midfoot; L97.422 Non-pressure chronic ulcer of left heel and midfoot with fat layer exposed; L97.511 Non-pressure chronic ulcer of other part of right foot limited to breakdown of skin; E11.69 Type 2 diabetes mellitus with other specified complication; M86.472 Chronic osteomyelitis with draining sinus, left ankle and foot; E11.42 Type 2 diabetes mellitus with diabetic polyneuropathy | CPT/HCPCS: 11042 ==

== ENCOUNTER → 2018-06-21 | Outpatient (CLI) | payer MEDICARE | LOC: WOUNDCARE 07:58 | PROVIDERS: ATTEND Nurse Practitioner | DX: E11.621 Type 2 diabetes mellitus with foot ulcer (principal); L97.422 Non-pressure chronic ulcer of left heel and midfoot with fat layer exposed; L97.511 Non-pressure chronic ulcer of other part of right foot limited to breakdown of skin; M86.472 Chronic osteomyelitis with draining sinus, left ankle and foot; E11.42 Type 2 diabetes mellitus with diabetic polyneuropathy; I70.244 Atherosclerosis of native arteries of left leg with ulceration of heel and midfoot | CPT/HCPCS: 11042; 87070; 87075; 87205 ==

== ENCOUNTER → 2018-06-29 | Outpatient (CLI) | payer MEDICARE ==
[~2018-06-29] MED LIST changes: +GABA-488 PO; +LISI-556 PO; +METR-145 PO; +MINO100C2 PO
== END ==
LOC: WOUNDCARE 10:41
PROVIDERS: ATTEND Surgery
DX: E11.621 Type 2 diabetes mellitus with foot ulcer (principal); L97.511 Non-pressure chronic ulcer of other part of right foot limited to breakdown of skin; I70.244 Atherosclerosis of native arteries of left leg with ulceration of heel and midfoot; L97.422 Non-pressure chronic ulcer of left heel and midfoot with fat layer exposed; E11.69 Type 2 diabetes mellitus with other specified complication; M86.472 Chronic osteomyelitis with draining sinus, left ankle and foot; E11.42 Type 2 diabetes mellitus with diabetic polyneuropathy
CPT/HCPCS: 11042

== ENCOUNTER 2018-07-02 12:08 | Inpatient (IN) | payer MEDICARE ==
[~2018-07-02] VITALS: Ht 170.2 cm; Wt 81.7 kg
[~2018-07-02 12:08] MED LIST changes: -GABA-488 PO; -LISI-556 PO; -METR-145 PO; -MINO100C2 PO
--- NOTE | 2018-07-02 12:50 | ED Fall/Injury ---
General Chief Complaint: Trauma-Non Activation Stated Complaint: FALL Nursing Triage Note: PT BROUGHT IN BY EMS FROM HOME WITH COMPLAINT OF FALL. PER FAMILY, PT ROLLED OUT OF BED AROUND 7 AM. STATES PT GOT UP FROM FLOOR, FELL, AND HIT HEAD ON DRESSER. STATES THEY WERE ABLE TO GET PT BACK IN BED. STATES PT LAID IN BED, AND FOR TWO HOURS LAID THERE WITH HIS EYES OPEN, NOT COMMUNICATING. FAMILY STATES PT FELL ON WEDNESDAY AND WEDNESDAY OF THIS WEEK. STATES PT WAS COMPLAINING OF LEFT RIB PAIN ON WEDNESDAY AFTER FALL. [facility] PT HAD BLOOD FLOW STUDY ON LEGS ON WEDNESDAY DUE TO DIABETES. [facility] PT HAS TWO DIABETIC WOUNDS ON FEET. PER DAUGHTER, [facility] PT HAS BEEN "VERY MEAN" OVER THE LAST TWO MONTHS. Source: patient, family, EMS Exam Limitations: no limitations History of Present Illness Date Seen by Provider: July 02, 2018 Time Seen by Provider: 12:50 Initial Comments 77-year-old male patient presents to the emergency department via [facility] with complaints of falling out of bed at 0700 today. Patient reportedly fell a second time hitting his head on a dresser as he was getting up from the floor. Family denies patient losing consciousness. Family reports patient laid in bed for a couple of hours and not communicating with family after the fall this a.m. They also report patient fell on Wednesday after tripping in the yard and on . Reports patient is complaining of left rib pain after the fall on Wednesday. Patient reportedly had a lower extremity study for blood flow on Wednesday. Denies contacting his primary care provider or being evaluated at emergency department/urgent care. Family state patient was told on Wednesday to see his primary, but refused. Patient is currently being treated for osteomyelitis of the left foot as well as bilateral diabetic feet wounds. Location Injury Occurred: home Occurred: this morning (0700) Injuries/Pain Location: head Context: other (rolled out of bed) Loss of Consciousness: no loss of consciousness Allergies and Home Medications Allergies Coded Allergies: No Known Drug Allergies (Unverified , 02/24/18) Home Medications Aspirin 81 Mg Tablet.dr, 81 MG PO DAILY, (Reported) Atorvastatin Calcium 40 Mg Tablet, 40 MG PO HS, (Reported) Clopidogrel Bisulfate 75 Mg Tablet, 75 MG PO DAILY, (Reported) Doxycycline Monohydrate 100 Mg Capsule, 100 MG PO BID, (Reported) Furosemide 20 Mg Tablet, 20 MG PO DAILY, (Reported) Gabapentin 300 Mg Capsule, 300 MG PO HS, (Reported) Insulin Aspart 100 Unit/1 Ml Susp, 3-9 UNIT SQ AC, (Reported) USES OWN SLIDING SCALE Insulin Determir 1,000 Units/10 Ml Soln, 21 UNITS SQ DAILY, (Reported) Lisinopril 5 Mg Tablet, 5 MG PO DAILY, (Reported) Metronidazole 500 Mg Tablet, 500 MG PO BID, (Reported) Minocycline HCl 100 Mg Capsule, 100 MG PO TID, (Reported) Pantoprazole Sodium 40 Mg Tablet.dr, 40 MG PO DAILY, (Reported) Povidone-Iodine 3,780 Ml Solution, TP BID, (Reported) [Hysept 0.25% Patch] , TOP Q48H, (Reported) Patient Home Medication List Home Medication List Reviewed: Yes Review of Systems Review of Systems Constitutional: No chills, No dizziness, No fever, No malaise, No weakness Eyes: Denies Blindness, Denies Blurred Vision, Denies Decreased Acuity, Denies Pain, Denies Photophobia Ears, Nose, Mouth, Throat: denies ear pain, denies ear discharge, denies nose pain, denies nose discharge, denies mouth pain, denies throat pain Respiratory: No cough, No dyspnea on exertion, No orthopnea, No phlegm, No short of breath, No wheezing; other (left rib pain) Cardiovascular: No chest pain, No edema, No palpitations, No syncope Gastrointestinal: No abdominal pain, No constipation, No diarrhea, No jaundice, No loss of appetite, No melena, No nausea, No vomiting Genitourinary: No decreased output, No dysuria, No frequency, No hematuria, No pain Musculoskeletal: No back pain, No joint pain, No neck pain; other (left rib pain) Skin: see HPI Psychiatric/Neurological: Denies Headache, Denies Numbness, Denies Paresthesia; Pre-Existing Deficit (h/o diabetic neuropathy); Denies Seizure, Denies Tingling, Denies Weakness All Other Systems Reviewed Negative Unless Noted: Yes (Negative excepted noted.) Past Yfbhtwg-Oqsfvn-Ovnvtv Hx Past Med/Social Hx: Reviewed Nursing Past Med/Soc Hx, Reviewed and Corrections made Patient Social History Alcohol Use: Denies Use Recreational Drug Use: No Smoking Status: Former Smoker Type Used: Cigarettes Former Smoker, Quit: Sep 16, 2006 Recent Foreign Travel: No Contact w/Someone Who Travel: No Recent Infectious Disease Expo: No Immunizations Up To Date Date of Influenza Vaccine: Oct 25, 2017 Seasonal Allergies Seasonal Allergies: No Past Medical History Surgeries: Yes (AMP OF RIGHT LITTLE TOE) Respiratory: No Cardiac: No Neurological: Yes Neuropathy Genitourinary: Yes (prostate removed) Gastrointestinal: No Musculoskeletal: No Endocrine: Yes HEENT: Yes Cancer: No Psychosocial: No Integumentary: Yes (diabetic foot ulcers bilaterally) Blood Disorders: No Adverse Reaction/Blood Tranf: No Family Medical History Reviewed Nursing Family Hx No Pertinent Family Hx Physical Exam Vital Signs Vital Signs - First Documented 07/02/18 12:10 Temp 97.7 Pulse 70 Resp 10 B/P (MAP) 148/76 (100) Pulse Ox 95 O2 Delivery Room Air Capillary Refill : Less Than 3 Seconds Height, Weight, BMI Height: 5'7.00" Weight: 182lbs. 0.0oz. [id number]; 26.5 BMI Method:Stated General Appearance: WD/WN, no apparent distress HEENT: PERRL/EOMI, TMs normal, pharynx normal, other (dried blood noted about the bilat nares with blood staining in the right nare. No lomeli sign or raccoon eyes, or skull depress, or hematoma, or abrasion, or laceration.) Neck: non-tender, supple, normal inspection, other (c-collar in place.) Cardiovascular: regular rate, rhythm, no edema, no gallop, no JVD, no murmur, other (1+ pedal pulses bilaterally) Respiratory: lungs clear, normal breath sounds, no respiratory distress, no accessory muscle use, other (left anterior lower ribs TTP without ecchymosis, deformity, or swelling. no flail chest noted. ) Gastrointestinal: normal bowel sounds, soft, no organomegaly; No distended, No guarding, No rebound; tenderness (LUQ tenderness noted. ); No other (no evidence of trauma to the abdominal wall or flanks.) Back: normal inspection, no vertebral tenderness Extremities: normal range of motion, non-tender, no pedal edema, no calf tenderness, normal capillary refill, pelvis stable, other (scattered areas of ecchymosis to the BUE with a 1 cm abrasion to the right posterior elbow. ) Neurologic/Psychiatric: direct marketing coordinator II-XII nml as tested, no motor/sensory deficits, alert, normal mood/affect, other (oriented to person and place) Skin: normal color, warm/dry, other (scattered areas of ecchymosis to the BUE with a 1 cm abrasion to the right posterior elbow. ) Amada Coma Score Best Eye Response: (4) Open Spontaneously Best Verbal Response: (4) Confused Conversation Best Motor Response: (6) Obeys Commands Amada Total: 14 Progress/Results/Core Measures Results/Orders Lab Results Laboratory Tests Test 07/02/18 12:18 07/02/18 12:20 07/02/18 16:18 Range/Units White Blood Count 8.6 4.3-11.0 10^3/uL Red Blood Count 3.60 L 4.35-5.85 10^6/uL Hemoglobin 8.5 L 13.3-17.7 G/DL Hematocrit 27 L 40-54 % Mean Corpuscular Volume 76 L 80-99 FL Mean Corpuscular Hemoglobin 24 L 25-34 PG Mean Corpuscular Hemoglobin Concent 31 L 32-36 G/DL Red Cell Distribution Width 15.9 H 10.0-14.5 % Platelet Count 308 130-400 10^3/uL Mean Platelet Volume 10.1 7.4-10.4 FL Neutrophils (%) (Auto) 78 H 42-75 % Lymphocytes (%) (Auto) 14 12-44 % Monocytes (%) (Auto) 8 0-12 % Eosinophils (%) (Auto) 0 0-10 % Basophils (%) (Auto) 0 0-10 % Neutrophils # (Auto) 6.7 1.8-7.8 X 10^3 Lymphocytes # (Auto) 1.2 1.0-4.0 X 10^3 Monocytes # (Auto) 0.7 0.0-1.0 X 10^3 Eosinophils # (Auto) 0.0 0.0-0.3 10^3/uL Basophils # (Auto) 0.0 0.0-0.1 10^3/uL Prothrombin Time 19.0 H 12.2-14.7 SEC INR Comment 1.5 H 0.8-1.4 Activated Partial Thromboplast Time 37 H 24-35 SEC Sodium Level 139 135-145 MMOL/L Potassium Level 4.2 3.6-5.0 MMOL/L Chloride Level 107 98-107 MMOL/L Carbon Dioxide Level 21 21-32 MMOL/L Anion Gap 11 5-14 MMOL/L Blood Urea Nitrogen 24 H 7-18 MG/DL Creatinine 1.01 0.60-1.30 MG/DL Estimat Glomerular Filtration Rate > 60 BUN/Creatinine Ratio 24 Glucose Level 122 H 70-105 MG/DL Lactic Acid Level 0.94 0.50-2.00 MMOL/L Calcium Level 8.6 8.5-10.1 MG/DL Corrected Calcium 9.2 8.5-10.1 MG/DL Magnesium Level 1.8 1.8-2.4 MG/DL Total Bilirubin 0.6 0.1-1.0 MG/DL Aspartate Amino Transf (AST/SGOT) 17 5-34 U/L Alanine Aminotransferase (ALT/SGPT) 14 0-55 U/L Alkaline Phosphatase 146 H 40-136 U/L Total Creatine Kinase 46 30-200 U/L Creatine Kinase MB 2.7 <6.6 NG/ML Myoglobin 151.1 H 10.0-92.0 NG/ML Troponin I 1.576 *H 1.603 *H <0.028 NG/ML Total Protein 5.9 L 6.4-8.2 GM/DL Albumin 3.2 3.2-4.5 GM/DL TSH Lennon Testing 2.36 0.35-4.94 UIU/ML Serum Alcohol < 10 <10 MG/DL Urine Color YELLOW Urine Clarity VERY CLOUDY H Urine pH 5 5-9 Urine Specific [place] 1.020 1.016-1.022 Urine Protein 3+ H NEGATIVE Urine Glucose (UA) NEGATIVE NEGATIVE Urine Ketones NEGATIVE NEGATIVE Urine Nitrite NEGATIVE NEGATIVE Urine Bilirubin NEGATIVE NEGATIVE Urine Urobilinogen NORMAL NORMAL MG/DL Urine Leukocyte Esterase 1+ H NEGATIVE Urine RBC (Auto) 3+ H NEGATIVE Urine RBC 2-5 H /HPF Urine WBC 0-2 /HPF Urine Squamous Epithelial Cells 5-10 /HPF Urine Crystals PRESENT H /LPF Urine Amorphous Sediment FEW MARI URATES H /LPF Urine Bacteria NEGATIVE /HPF Urine Casts NONE /LPF Urine Mucus SMALL H /LPF Urine Culture Indicated NO Micro Results Microbiology 07/02/18 Blood Culture - Preliminary, Resulted Corynebacterium species 5/18/19 Blood Culture - Preliminary, Resulted Corynebacterium species My Orders Orders - XOCHITL DONNELLY Ed Iv/Invasive Line Start (07/02/18 12:46) Ekg Tracing (07/02/18 12:46) Catheter(Urinary) Insert & Ass 03,15 (07/02/18 12:46) Monitor-Rhythm Ecg Trace Only (07/02/18 12:46) Alcohol (07/02/18 12:46) Cbc With Automated Diff (07/02/18 12:46) Comprehensive Metabolic Panel (07/02/18 12:46) Creatine Kinase (07/02/18 12:46) Creatine Kinase Mb (07/02/18 12:46) Lactic Acid Analyzer (07/02/18 12:46) Magnesium (07/02/18 12:46) Protime With Inr (07/02/18 12:46) Partial Thromboplastin Time (07/02/18 12:46) Thyroid Analyzer (07/02/18 12:46) Troponin I (07/02/18 12:46) Ua Culture If Indicated (07/02/18 12:46) Blood Culture (07/02/18 12:46) Myoglobin Serum (07/02/18 12:46) Chest 1 View, Ap/Pa Only (07/02/18 12:46) Pelvis (07/02/18 12:46) Ct Head/Cervical Spine Wo (07/02/18 13:23) Ct Chest/Abdomen/Pelvis W (07/02/18 13:23) Iohexol Injection (Omnipaque 350 Mg/Ml 1 (07/02/18 15:00) Received Contrast (Hold Metformin- Contr (07/02/18 15:00) Ns (Ivpb) (Sodium Chloride 0.9%) (07/02/18 15:00) Ed Iv/Invasive Line Start (07/02/18 15:28) Ns Iv 1000 Ml (Sodium Chloride 0.9%) (07/02/18 15:28) Troponin I (07/02/18 15:58) Ekg Tracing (07/02/18 16:22) Medications Given in ED Vital Signs/I&O 07/02/18 12:10 Temp 97.7 Pulse 70 Resp 10 B/P (MAP) 148/76 (100) Pulse Ox 95 O2 Delivery Room Air Blood Pressure Mean: 100 Initial ECG Impression Date: July 02, 2018 Initial ECG Impression Time: 13:43 Initial ECG Rate: 57 Initial ECG Rhythm: Normal Sinus Comment sinus rhythm with premature complexes. ECG reviewed with Dr. Chou. EKG : EKG Time: 18:35 Rate: 77 Rhythm: Normal Sinus ECG Comparisson: Unchanged Comment no acute changes. ECG reviewed and discussed with Dr. España. Diagnostic Imaging Diagonstic Imaging: Xray Plain Films/CT/US/NM/MRI: chest Comments CHEST 1 VIEW, AP/PA ONLY INDICATION: Fall. EXAMINATION: Single view of the chest was obtained. COMPARISON: Prior examination from 07/07/2017. FINDINGS: There is cardiomegaly. There is moderate central pulmonary venous congestion. There is no pleural effusion or pneumothorax. The mediastinum is unremarkable. IMPRESSION: Cardiomegaly and moderate central venous congestion. Dictated on workstation # [id number] Reviewed: Reviewed by Me (radiology report reviewed by me) Diagonstic Imaging: Xray Plain Films/CT/US/NM/MRI: pelvis Comments PELVIS INDICATION: Fall. EXAMINATION: Pelvis. FINDINGS: There is a Werner catheter in the bladder. There is some contrast material within the bladder. Bony pelvis is intact. Bilateral proximal femurs are intact. There is no fracture or dislocation. IMPRESSION: No acute fracture or dislocation. Dictated on workstation # [id number] Reviewed: Reviewed by Me (radiology report reviewed by me) Diagonstic Imaging: CT Plain Films/CT/US/NM/MRI: c-spine, head Comments CT HEAD/CERVICAL SPINE WO PROCEDURE: CT head and CT cervical spine without contrast. TECHNIQUE: Multiple contiguous axial images were obtained through the brain and cervical spine without the use of intravenous contrast. Sagittal and coronal reformations through the cervical spine were then performed. Auto Exposure Controls were utilized during the CT exam to meet ALARA standards for radiation dose reduction. INDICATION: Fall out of bed. Head injury. Confusion. No relevant comparison is available. FINDINGS: There are no CT findings of acute intracranial hemorrhage. There is no abnormal extra-axial collection. There is no mass effect or shift. There is no hydrocephalus. No abnormal extra-axial collection. Basilar cisterns appear patent. There are no findings of territorial loss of armstrong-white differentiation. There is no abnormal low density within the basal ganglia within the joni. There appears to be partial opacification of the right mastoids. The left are clear. There is no evidence of a calvarial fracture. There is no air-fluid level evident within the paranasal sinuses. The orbital contents appear unremarkable. There is a slight anterolisthesis of C4 on C5. Alignment is otherwise normal. The craniocervical junction alignment normal. The facets are normally aligned. Vertebral body heights are maintained. There are multilevel degenerative endplate changes but no findings to suggest an acute cervical spine fracture. Lung apices demonstrate a right-sided pleural effusion. There is no pneumothorax. No acute soft tissue abnormality within the neck. IMPRESSION: 1. No CT evidence of an acute intracranial abnormality. Age-related global volume loss present. 2. Cervical spine demonstrates cervical degenerative disc disease and facet arthropathy without findings of an acute cervical spine fracture or traumatic malalignment. 3. Right-sided pleural effusion. Dictated on workstation # [id number] Reviewed: Reviewed by Me (radiology report reviewed by me) Diagonstic Imaging: CT Plain Films/CT/US/NM/MRI: chest, abdomen, pelvis Comments Date of Exam:07/02/18 CT CHEST/ABDOMEN/PELVIS W PROCEDURE: CT chest, abdomen and pelvis with contrast. TECHNIQUE: Multiple contiguous axial images were obtained through the chest, abdomen, and pelvis after the administration of intravenous contrast. Auto Exposure Controls were utilized during the CT exam to meet ALARA standards for radiation dose reduction. INDICATION: Fall. FINDINGS: There are bilateral pleural effusions, right greater than left. There is a pericardial effusion. There is minimal dependent atelectasis in the lung bases. There is no pneumothorax. Thoracic aorta is normal in caliber. There is no pathologically enlarged adenopathy in the chest. There are coronary artery calcifications. The liver is normal in size without focal lesions. Gallbladder is unremarkable. The spleen is normal. The pancreas and adrenal glands are unremarkable. Kidneys are normal in appearance. There is a small fat-containing midline intra-abdominal hernia. There is a 3.4 cm inferior abdominal aortic aneurysm. Bowel gas pattern is nonspecific. A Werner catheter is in the bladder. There is a moderate amount of retained fecal material likely reflecting some degree of constipation. There are bilateral pars defects at L5. There are otherwise mild degenerative changes in the lumbar spine. IMPRESSION: 1. Bilateral pleural effusions, right greater than left. There is also moderate pericardial effusion as well as some coronary artery calcifications. 2. Small fat-containing anterior abdominal wall hernia. 3. Moderate amount of retained fecal material likely owing to some degree of constipation. There also appears to be some diverticular disease without evidence of diverticulitis. 4. 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 Dictated on workstation # [id number] Reviewed: Reviewed by Me (radiology report reviewed by me) Focused Exam Lactate Level Lactic Acid Level Laboratory Tests Test 07/02/18 12:18 Lactic Acid Level 0.94 MMOL/L (0.50-2.00) Departure Communication (Admissions) Time/Spoke to Admitting Phy: 16:20 Dr. Cam graciously accepts patient to her medical service for elevated troponin and altered mental status. Dr. Lawrence and Dr. Adams consulted. Patient seen and evaluated. Initial labs, EKG, chest x-ray, still this x-ray, CT head/neck, and CT chest/abdomen/pelvis obtained. Patient denies pain at this time. Denies need for pain medication. 1447 patient case discussed with Dr. Lawrence. Will await laboratory and diagn ostic findings. We will contact Dr. Lawrence following results. 1525 C-collar removed. Patient is alert and oriented to self and place. NAD. LCTA, CVRRR. 1535 Patient case discussed with Dr. Chou with recommendations for repeat Troponin at 4 hours and admit to trauma surgeon with cardiology consult. all diagnostic findings, laboratory findings, and recommendations for repeat troponin discussed with the patient's family and patient. All verbalize understanding and agree with the treatment plan. Repeat troponin shows minimal elevation from the initial troponin. Findings discussed with Dr. Chou and Dr. Lawrence. Both agree that elevated troponin is most likely related to tissue injury from the multiple falls. However, both recommended admission to [facility] due to the elevated troponin and for further evaluation and management to rule out cardiac cause. We will admit to medicine with consult of Dr. Lawrence and Dr. Adams. Dr. Adams notified of the consult. He requests patient to be started on aspirin, toprol xl 50 mg, and dvt prophylaxis. patient case discussed with Dr. Cam with recommendations to start the aspirin and dvt prophylaxis tomorrow d/t head injury sustained today and increased risk of bleeding. Impression Primary Impression: Troponin level elevated Additional Impressions: Altered mental status Qualified Codes: R41.0 - Disorientation, unspecified Multiple falls Disposition: 09 ADMITTED INPATIENT Condition: Stable Admissions Decision to Admit Reason: Admit from ER (General) Decision to Admit/Date: July 02, 2018 Time/Decision to Admit Time: 16:27 Departure-Patient Inst. Referrals: BRITTANY ARRIAGA DO (PCP/Family) Primary Care Physician XOCHITL DONNELLY July 02, 2018 12:50
[2018-07-02 12:57] LABS: BASOPHILS % (AUTO) 0 % (0-10); EOSINOPHILS % (AUTO) 0 % (0-10); HEMATOCRIT 27 % (40-54); HEMOGLOBIN 8.5 G/DL (13.3-17.7); LYMPHOCYTES # (AUTO) 1.2 X 10^3 (1.0-4.0); LYMPHOCYTES % (AUTO) 14 % (12-44); MEAN CORPUSCULAR HEMOGLOBIN 24 PG (25-34); MEAN CORPUSCULAR HGB CONC 31 G/DL (32-36); MEAN CORPUSCULAR VOLUME 76 FL (80-99); MEAN PLATELET VOLUME 10.1 FL (7.4-10.4); MONOCYTES # (AUTO) 0.7 X 10^3 (0.0-1.0); MONOCYTES % (AUTO) 8 % (0-12); NEUTROPHILS # (AUTO) 6.7 X 10^3 (1.8-7.8); NEUTROPHILS % (AUTO) 78 % (42-75); PLATELET COUNT 308 10^3/uL (130-400); RED CELL DISTRIBUTION WIDTH 15.9 % (10.0-14.5); WHITE BLOOD COUNT 8.6 10^3/uL (4.3-11.0)
[2018-07-02 12:57] LABS: BILIRUBIN,URINE NEGATIVE (NEGATIVE); CLARITY,URINE VERY CLOUDY; COLOR,URINE YELLOW; GLUCOSE, URINE (UA) NEGATIVE (NEGATIVE); KETONES,URINE NEGATIVE (NEGATIVE); LEUKOCYTE ESTERASE ,URINE 1+ (NEGATIVE); NITRITE,URINE NEGATIVE (NEGATIVE); PH,URINE 5 (5-9); PROTEIN,URINE 3+ (NEGATIVE); UROBILINOGEN,URINE NORMAL (NORMAL)
[2018-07-02 13:01] LABS: INR 1.5 (0.8-1.4)
[2018-07-02 13:12] LABS: ALANINE AMINOTRANSFERASE 14 U/L (0-55); ALBUMIN 3.2 GM/DL (3.2-4.5); ALKALINE PHOSPHATASE 146 U/L (40-136); BILIRUBIN,TOTAL 0.6 MG/DL (0.1-1.0); BUN/CREATININE RATIO 24; CALCIUM 8.6 MG/DL (8.5-10.1); CARBON DIOXIDE 21 MMOL/L (21-32); CHLORIDE 107 MMOL/L (98-107); CREATINE KINASE 46 U/L (30-200); CREATININE SERUM 1.01 MG/DL (0.60-1.30); GFR ESTIMATED > 60; GLUCOSE 122 MG/DL (70-105); MAGNESIUM 1.8 MG/DL (1.8-2.4); POTASSIUM 4.2 MMOL/L (3.6-5.0); SODIUM 139 MMOL/L (135-145); TOTAL PROTEIN 5.9 GM/DL (6.4-8.2)
[2018-07-02 13:13] LABS: BACTERIA,URINE NEGATIVE /HPF; WBC,URINE 0-2 /HPF
[2018-07-02 13:14] LABS: AMORPHOUS SEDIMENT,UR FEW AMOR URATES /LPF
[2018-07-02 13:32] LABS: CREATINE KINASE MB 2.7 NG/ML (<6.6); TSH (THYROID ANALYZER) 2.36 UIU/ML (0.35-4.94)
[2018-07-02] MEDS ORDERED: IOHEXOL 350 MG/ML 100 ML (OMNIPAQUE 350) VIAL IV ONE (15:00)
[2018-07-02] MEDS ORDERED: HOLD METFORMIN - RECEIVED CONTRAST 20 ML VIAL IV SCH (15:00)
[2018-07-02] MEDS ORDERED: NS 250 ML (IVPB) BAG IV ONE (15:00)
--- NOTE | 2018-07-02 15:10 | Diagnostic Imaging Report ---
INDICATION: Fall. EXAMINATION: Pelvis. FINDINGS: There is a Werner catheter in the bladder. There is some contrast material within the bladder. Bony pelvis is intact. Bilateral proximal femurs are intact. There is no fracture or dislocation. IMPRESSION: No acute fracture or dislocation. Dictated by: Dictated on workstation # [id number]
--- NOTE | 2018-07-02 15:12 | Diagnostic Imaging Report ---
INDICATION: Fall. EXAMINATION: Single view of the chest was obtained. COMPARISON: Prior examination from 07/07/2017. FINDINGS: There is cardiomegaly. There is moderate central pulmonary venous congestion. There is no pleural effusion or pneumothorax. The mediastinum is unremarkable. IMPRESSION: Cardiomegaly and moderate central venous congestion. Dictated by: Dictated on workstation # [id number]
--- NOTE | 2018-07-02 15:14 | Diagnostic Imaging Report ---
PROCEDURE: CT head and CT cervical spine without contrast. TECHNIQUE: Multiple contiguous axial images were obtained through the brain and cervical spine without the use of intravenous contrast. Sagittal and coronal reformations through the cervical spine were then performed. Auto Exposure Controls were utilized during the CT exam to meet ALARA standards for radiation dose reduction. INDICATION: Fall out of bed. Head injury. Confusion. No relevant comparison is available. FINDINGS: There are no CT findings of acute intracranial hemorrhage. There is no abnormal extra-axial collection. There is no mass effect or shift. There is no hydrocephalus. No abnormal extra-axial collection. Basilar cisterns appear patent. There are no findings of territorial loss of armstrong-white differentiation. There is no abnormal low density within the basal ganglia within the joni. There appears to be partial opacification of the right mastoids. The left are clear. There is no evidence of a calvarial fracture. There is no air-fluid level evident within the paranasal sinuses. The orbital contents appear unremarkable. There is a slight anterolisthesis of C4 on C5. Alignment is otherwise normal. The craniocervical junction alignment normal. The facets are normally aligned. Vertebral body heights are maintained. There are multilevel degenerative endplate changes but no findings to suggest an acute cervical spine fracture. Lung apices demonstrate a right-sided pleural effusion. There is no pneumothorax. No acute soft tissue abnormality within the neck. IMPRESSION: 1. No CT evidence of an acute intracranial abnormality. Age-related global volume loss present. 2. Cervical spine demonstrates cervical degenerative disc disease and facet arthropathy without findings of an acute cervical spine fracture or traumatic malalignment. 3. Right-sided pleural effusion. Dictated by: Dictated on workstation # [id number]
--- NOTE | 2018-07-02 15:23 | Diagnostic Imaging Report ---
PROCEDURE: CT chest, abdomen and pelvis with contrast. TECHNIQUE: Multiple contiguous axial images were obtained through the chest, abdomen, and pelvis after the administration of intravenous contrast. Auto Exposure Controls were utilized during the CT exam to meet ALARA standards for radiation dose reduction. INDICATION: Fall. FINDINGS: There are bilateral pleural effusions, right greater than left. There is a pericardial effusion. There is minimal dependent atelectasis in the lung bases. There is no pneumothorax. Thoracic aorta is normal in caliber. There is no pathologically enlarged adenopathy in the chest. There are coronary artery calcifications. The liver is normal in size without focal lesions. Gallbladder is unremarkable. The spleen is normal. The pancreas and adrenal glands are unremarkable. Kidneys are normal in appearance. There is a small fat-containing midline intra-abdominal hernia. There is a 3.4 cm inferior abdominal aortic aneurysm. Bowel gas pattern is nonspecific. A Werner catheter is in the bladder. There is a moderate amount of retained fecal material likely reflecting some degree of constipation. There are bilateral pars defects at L5. There are otherwise mild degenerative changes in the lumbar spine. IMPRESSION: 1. Bilateral pleural effusions, right greater than left. There is also moderate pericardial effusion as well as some coronary artery calcifications. 2. Small fat-containing anterior abdominal wall hernia. 3. Moderate amount of retained fecal material likely owing to some degree of constipation. There also appears to be some diverticular disease without evidence of diverticulitis. 4. 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 Dictated by: Dictated on workstation # [id number]
[2018-07-02] MEDS ORDERED: NS IV 1000 ML 1,000 ML IV SCH (15:28)
--- NOTE | 2018-07-02 17:40 | Consultation (Surgery) ---
History of Present Illness History of Present Illness Patient Consulted On(uli/time) 07/02/18 17:37 Time Seen by Provider: 17:20 History of Present Illness Surgery asked to consult regarding multiple falls, struck head, no LOC. HPI per ED: PT BROUGHT IN BY EMS FROM HOME WITH COMPLAINT OF FALL. PER FAMILY, PT ROLLED OUT OF BED AROUND 7 AM. STATES PT GOT UP FROM FLOOR, FELL, AND HIT HEAD ON DRESSER. STATES THEY WERE ABLE TO GET PT BACK IN BED. [facility] PT LAID IN BED, AND FOR TWO HOURS LAID THERE WITH HIS EYES OPEN, NOT COMMUNICATING. FAMILY STATES PT FELL ON WEDNESDAY AND WEDNESDAY OF THIS WEEK. [facility] PT WAS COMPLAINING OF LEFT RIB PAIN ON WEDNESDAY AFTER FALL. [facility] PT HAD BLOOD FLOW STUDY ON LEGS ON WEDNESDAY DUE TO DIABETES. [facility] PT HAS TWO DIABETIC WOUNDS ON FEET. PER DAUGHTER, [facility] PT HAS BEEN "VERY MEAN" OVER THE LAST TWO MONTHS. 77-year-old male patient presents to the emergency department via [facility] with complaints of falling out of bed at 0700 today. Patient reportedly fell a second time hitting his head on a dresser as he was getting up from the floor. Family denies patient losing consciousness. Family reports patient laid in bed for a couple of hours and not communicating with family after the fall this a.m. They also report patient fell on Wednesday after tripping in the yard and on . Reports patient is complaining of left rib pain after the fall on Wednesday. Patient reportedly had a lower extremity study for blood flow on Wednesday. Denies contacting his primary care provider or being evaluated at emergency department/urgent care. Family state patient was told on Wednesday to see his primary, but refused. Patient is currently being treated for osteomyelitis of the left foot as well as bilateral diabetic feet wounds. When I saw pt he was answering simple yes/no questions but very confused. Allergies and Home Medications Allergies Coded Allergies: No Known Drug Allergies (Unverified , 02/24/18) Home Medications Aspirin 81 Mg Tablet.dr, 81 MG PO DAILY, (Reported) Atorvastatin Calcium 40 Mg Tablet, 40 MG PO HS, (Reported) Clopidogrel Bisulfate 75 Mg Tablet, 75 MG PO DAILY, (Reported) Doxycycline Monohydrate 100 Mg Capsule, 100 MG PO BID, (Reported) Furosemide 20 Mg Tablet, 20 MG PO DAILY, (Reported) Gabapentin 300 Mg Capsule, 300 MG PO HS, (Reported) Insulin Aspart 100 Unit/1 Ml Susp, 3-9 UNIT SQ AC, (Reported) USES OWN SLIDING SCALE Insulin Determir 1,000 Units/10 Ml Soln, 21 UNITS SQ DAILY, (Reported) Lisinopril 5 Mg Tablet, 5 MG PO DAILY, (Reported) Metronidazole 500 Mg Tablet, 500 MG PO BID, (Reported) Minocycline HCl 100 Mg Capsule, 100 MG PO TID, (Reported) Pantoprazole Sodium 40 Mg Tablet.dr, 40 MG PO DAILY, (Reported) Povidone-Iodine 3,780 Ml Solution, TP BID, (Reported) [Hysept 0.25% Patch] , TOP Q48H, (Reported) Patient Home Medication List Home Medication List Reviewed: Yes Past Vtyqetu-Nrwtyd-Stoskw Hx Patient Social History Alcohol Use: Denies Use Recreational Drug Use: No Smoking Status: Former Smoker Former Smoker, Quit: Sep 16, 2006 Type Used: Cigarettes Recent Foreign Travel: No Contact w/Someone Who Travel: No Recent Infectious Disease Expo: No Immunizations Up To Date Date of Influenza Vaccine: Oct 25, 2017 Seasonal Allergies Seasonal Allergies: No Surgeries History of Surgeries: Yes (AMP OF RIGHT LITTLE TOE) Respiratory History of Respiratory Disorde: No Cardiovascular History of Cardiac Disorders: No Neurological History of Neurological Disord: Yes Neurological Disorders: Neuropathy Genitourinary History of Genitourinary Disor: Yes (prostate removed) Gastrointestinal History of Gastrointestinal Di: No Musculoskeletal History of Musculoskeletal Dis: No Endocrine History of Endocrine Disorders: Yes HEENT History of HEENT Disorders: Yes Cancer History of Cancer: No Psychosocial History of Psychiatric Problem: No Integumentary History of Skin or Integumenta: Yes (diabetic foot ulcers bilaterally) Blood Transfusions History of Blood Disorders: No Adverse Reaction to a Blood Tr: No Family Medical History Significant Family History: No Pertinent Family Hx (unable to get answer from pt) Review of Systems-General ROS-Unable to Obtain: pt can't ansawer questions Physical Exam-General Problems Physical Exam Vital Signs Vital Signs - First Documented 07/02/18 12:10 Temp 97.7 Pulse 70 Resp 10 B/P (MAP) 148/76 (100) Pulse Ox 95 O2 Delivery Room Air Capillary Refill : Less Than 3 Seconds General Appearance: WD/WN, no apparent distress Eyes: Right Eye Other (pt is keeping lid closed, but can open it); Bilateral Eye PERRL, Bilateral Eye EOMI HEENT: pharynx normal; No scleral icterus (R), No scleral icterus (L); other (pt smile raises both sides) Neck: non-tender, normal inspection Respiratory: no respiratory distress, decreased breath sounds; No crackles Cardiovascular: regular rate, rhythm, no murmur Gastrointestinal: normal bowel sounds, non tender, soft, no organomegaly, no pulsatile mass, hernia (umbilical hernia) Neurologic/Psychiatric: No sensory deficit; disoriented x 3 Skin: normal color, warm/dry, ecchymosis (on forehead and nose) Lymphatic: no adenopathy (neck, axilla or groin) Data Review Labs Laboratory Tests 07/02/18 12:18: White Blood Count 8.6, Red Blood Count 3.60L, Hemoglobin 8.5L, Hematocrit 27L, Mean Corpuscular Volume 76L, Mean Corpuscular Hemoglobin 24L, Mean Corpuscular Hemoglobin Concent 31L, Red Cell Distribution Width 15.9H, Platelet Count 308, Mean Platelet Volume 10.1, Neutrophils (%) (Auto) 78H, Lymphocytes (%) (Auto) 14, Monocytes (%) (Auto) 8, Eosinophils (%) (Auto) 0, Basophils (%) (Auto) 0, Neutrophils # (Auto) 6.7, Lymphocytes # (Auto) 1.2, Monocytes # (Auto) 0.7, Eosinophils # (Auto) 0.0, Basophils # (Auto) 0.0, Prothrombin Time 19.0H, INR Comment 1.5H, Activated Partial Thromboplast Time 37H, Sodium Level 139, Potassium Level 4.2, Chloride Level 107, Carbon Dioxide Level 21, Anion Gap 11, Blood Urea Nitrogen 24H, Creatinine 1.01, Estimat Glomerular Filtration Rate > 60, BUN/Creatinine Ratio 24, Glucose Level 122H, Lactic Acid Level 0.94, Calcium Level 8.6, Corrected Calcium 9.2, Magnesium Level 1.8, Total Bilirubin 0.6, Aspartate Amino Transf (AST/SGOT) 17, Alanine Aminotransferase (ALT/SGPT) 14, Alkaline Phosphatase 146H, Total Creatine Kinase 46, Creatine Kinase MB 2.7, Myoglobin 151.1H, Troponin I 1.576*H, Total Protein 5.9L, Albumin 3.2, TSH [place] Testing 2.36, Serum Alcohol < 10 07/02/18 12:20: Urine Color YELLOW, Urine Clarity VERY CLOUDYH, Urine pH 5, Urine Specific [place] 1.020, Urine Protein 3+H, Urine Glucose (UA) NEGATIVE, Urine Ketones NEGATIVE, Urine Nitrite NEGATIVE, Urine Bilirubin NEGATIVE, Urine Urobilinogen NORMAL, Urine Leukocyte Esterase 1+H, Urine RBC (Auto) 3+H, Urine RBC 2-5H, Urine WBC 0-2, Urine Squamous Epithelial Cells 5-10, Urine Crystals PRESENTH, Urine Amorphous Sediment FEW MARI URATESH, Urine Bacteria NEGATIVE, Urine Casts NONE, Urine Mucus SMALLH, Urine Culture Indicated NO 07/02/18 16:18: Troponin I 1.603*H Assessment/Plan Assessment/Plan Assessment/Plan Multiple Falls Struck head with no LOC Altered mental status - unknown if this is new or baseline Elevated Troponin Pt does not need to be admitted secondary to trauma standpoint; but probably should be admitted for multiple falls and confusion with Cardiology consult (these are being done). ALICIA GARNER DO July 02, 2018 17:39
--- NOTE | 2018-07-02 19:30 | NUR ---
ELSIE SMITH admitted to room CU2, with an admitting diagnosis of elevated troponin, AMS, S/P multiple falls, on 07/02/18 from ED via stretcher, accompanied by staff. ELSIE SMITH introduced to surroundings, call light, bed controls, phone, TV, temperature control, lights, meal times, smoking policy, visitor policy, side rail policy, bathrooms and showers. Patient Rights given to patient in the handbook. ELSIE SMITH is confused unable to verbalized understanding and provide PMH.
[2018-07-02 20:00] VITALS: BP 165/82
[2018-07-02] MEDS ORDERED: ACETAMINOPHEN 500 MG TAB (TYLENOL) PO PRN (21:00)
--- NOTE | 2018-07-02 21:30 | NUR ---
Viri called to report patient's current medications. These medications will be enter in [place]. She also reported that the patient has history of hypertension and diabetes type II. Will check pt's blood sugar now and AC/HS.
[2018-07-02] MEDS: NS IV 1000 ML 1,000 ML IV SCH (21:58)
[2018-07-03] VITALS (16 sets, daily range): BP systolic 111–174; BP diastolic 48–88
[2018-07-03] MEDS ORDERED: GABA-488 PO (01:03)
[2018-07-03] MEDS ORDERED: MINO100C2 PO (01:03)
[2018-07-03] MEDS ORDERED: LISI-556 PO (01:03)
[2018-07-03] MEDS ORDERED: METR-145 PO (01:03)
[2018-07-03 03:33] LABS: BASOPHILS % (AUTO) 0 % (0-10); EOSINOPHILS % (AUTO) 0 % (0-10); HEMATOCRIT 28 % (40-54); HEMOGLOBIN 8.8 G/DL (13.3-17.7); LYMPHOCYTES # (AUTO) 0.5 X 10^3 (1.0-4.0); LYMPHOCYTES % (AUTO) 4 % (12-44); MEAN CORPUSCULAR HEMOGLOBIN 24 PG (25-34); MEAN CORPUSCULAR HGB CONC 32 G/DL (32-36); MEAN CORPUSCULAR VOLUME 75 FL (80-99); MEAN PLATELET VOLUME 10.3 FL (7.4-10.4); MONOCYTES # (AUTO) 0.8 X 10^3 (0.0-1.0); MONOCYTES % (AUTO) 6 % (0-12); NEUTROPHILS # (AUTO) 11.4 X 10^3 (1.8-7.8); NEUTROPHILS % (AUTO) 90 % (42-75); PLATELET COUNT 334 10^3/uL (130-400); RED CELL DISTRIBUTION WIDTH 16.5 % (10.0-14.5); WHITE BLOOD COUNT 12.7 10^3/uL (4.3-11.0)
[2018-07-03 03:57] LABS: ALANINE AMINOTRANSFERASE 11 U/L (0-55); ALBUMIN 3.3 GM/DL (3.2-4.5); ALKALINE PHOSPHATASE 151 U/L (40-136); BILIRUBIN,TOTAL 0.5 MG/DL (0.1-1.0); BUN/CREATININE RATIO 23; CALCIUM 8.6 MG/DL (8.5-10.1); CARBON DIOXIDE 21 MMOL/L (21-32); CHLORIDE 109 MMOL/L (98-107); CREATININE SERUM 0.88 MG/DL (0.60-1.30); GFR ESTIMATED > 60; GLUCOSE 98 MG/DL (70-105); POTASSIUM 3.9 MMOL/L (3.6-5.0); SODIUM 142 MMOL/L (135-145)
[2018-07-03 04:20] LABS: ACANTHOCYTES MARKED; ANISOCYTOSIS SLIGHT; HYPOCHROMASIA MARKED; LYMPHOCYTES % (MANUAL) 4 %; MICROCYTOSIS SLIGHT; MONOCYTES % (MANUAL) 6 %; NEUTROPHILS % (MANUAL) 90 %
[2018-07-03] MEDS: NS IV 1000 ML 1,000 ML IV SCH ×2 (04:31→23:59)
--- NOTE | 2018-07-03 06:08 | Pulmonary Consultation ---
History of Present Illness History of Present Illness Date of Consultation 07/03/18 06:03 Time Seen by Provider: 06:18 Date of Admission History of Present Illness 77YO with hx of DM presented to ED via EMS s/p fall hitting head on dresser per family. After getting in bed pt laid there for several hours with his eyes open however would not communicate. Pt also fell last Wednesday and . CT on admission was negative. Pt is currently confused and it is difficult to obtain ROS. I am consulted for pulmonary/ICU management. Allergies and Home Medications Allergies Coded Allergies: No Known Drug Allergies (Unverified , 02/24/18) Home Medications Aspirin 81 Mg Tablet.dr, 81 MG PO DAILY, (Reported) Atorvastatin Calcium 40 Mg Tablet, 40 MG PO HS, (Reported) Clopidogrel Bisulfate 75 Mg Tablet, 75 MG PO DAILY, (Reported) Doxycycline Monohydrate 100 Mg Capsule, 100 MG PO BID, (Reported) Furosemide 20 Mg Tablet, 20 MG PO DAILY, (Reported) Gabapentin 300 Mg Capsule, 300 MG PO HS, (Reported) Insulin Aspart 100 Unit/1 Ml Susp, 3-9 UNIT SQ AC, (Reported) USES OWN SLIDING SCALE Insulin Determir 1,000 Units/10 Ml Soln, 21 UNITS SQ DAILY, (Reported) Lisinopril 5 Mg Tablet, 5 MG PO DAILY, (Reported) Metronidazole 500 Mg Tablet, 500 MG PO BID, (Reported) Minocycline HCl 100 Mg Capsule, 100 MG PO TID, (Reported) Pantoprazole Sodium 40 Mg Tablet.dr, 40 MG PO DAILY, (Reported) Povidone-Iodine 3,780 Ml Solution, TP BID, (Reported) [Hysept 0.25% Patch] , TOP Q48H, (Reported) Past Hnewcyu-Mzarkb-Jlzdxc Hx Past Med/Social Hx: Reviewed Nursing Past Med/Soc Hx, Reviewed and Corrections made Patient Social History Alcohol Use: Denies Use Recreational Drug Use: No Smoking Status: Former Smoker Type Used: Cigarettes Former Smoker, Quit: Sep 16, 2006 Recent Foreign Travel: No Contact w/Someone Who Travel: No Recent Infectious Disease Expo: No Immunizations Up To Date Date of Influenza Vaccine: Oct 25, 2017 Seasonal Allergies Seasonal Allergies: No Past Medical History Surgeries: Yes (AMP OF RIGHT LITTLE TOE) Respiratory: No Cardiac: No Neurological: Yes Neuropathy Genitourinary: Yes (prostate removed) Gastrointestinal: No Musculoskeletal: No Endocrine: Yes HEENT: Yes Cancer: No Psychosocial: No Integumentary: Yes (diabetic foot ulcers bilaterally) Blood Disorders: No Adverse Reaction/Blood Tranf: No Family Medical History Reviewed Nursing Family Hx No Pertinent Family Hx Review of Systems Time Seen by Provider: 08:07 Sepsis Event Evaluation Height, Weight, BMI Height: 5'7.00" Weight: 182lbs. 0.0oz. 82.818197of; 28.5 BMI Method:Stated Exam Exam Vital Signs Date Time Temp Pulse Resp B/P (MAP) Pulse Ox O2 Delivery O2 Flow Rate FiO2 07/03/18 04:00 91 27 159/74 (102) 91 Room Air 07/03/18 01:00 97 07/03/18 00:00 89 28 155/77 (103) 92 Room Air 07/03/18 00:00 92 Room Air 07/02/18 20:00 96 Room Air 07/02/18 20:00 98.0 81 18 165/82 (109) 96 Room Air 07/02/18 19:36 80 07/02/18 19:30 96 Room Air 07/02/18 18:56 71 19 156/71 (99) 94 Room Air 07/02/18 12:10 97.7 70 10 148/76 (100) 95 Room Air I & O 07/03/18 07:00 Intake Total 3400 ml Output Total 500 ml Balance 2900 ml Height & Weight Height: 5'7.00" Weight: 182lbs. 0.0oz. 82.814278uw; 28.5 BMI Method:Stated General Appearance: Anxious, Chronically ill, Mild Distress HEENT: PERRL/EOMI, Normal ENT Inspection, Pharynx Normal Neck: Full Range of Motion, Normal Inspection, Non Tender, Supple Respiratory: Chest Non Tender, No Accessory Muscle Use, No Respiratory Distress, Crackles, Decreased Breath Sounds Cardiovascular: Regular Rate, Rhythm, No Edema, No Murmur Capillary Refill: Less Than 3 Seconds Gastrointestinal: normal bowel sounds, soft, no organomegaly; No distended, No guarding, No rebound; tenderness (LUQ tenderness noted. ); No other (no evidence of trauma to the abdominal wall or flanks.) Neurologic/Psychiatric: Alert, Disoriented Skin: Normal Color Lymphatic: No Adenopathy Results Lab Laboratory Tests 07/02/18 12:18 07/03/18 03:00 Assessment/Plan Assessment/Plan NSTEMI -Cardiology following [facility] with pulmonary edema -Lasix -Hep lock IVF MS changes s/p fall -Ct head negative upon discharge -Multiple recent falls Metabolic encephalopathy Leukocytosis -Orantes culture -Check UA Confusion/MS changes Multiple falls debility BETTY CONN DO July 03, 2018 06:08
[2018-07-03] MEDS ORDERED: FUROSEMIDE 40 MG/4 ML INJ (LASIX) IVP ONE (06:15)
--- NOTE | 2018-07-03 07:33 | Diagnostic Imaging Report ---
Indication: Elevated troponin and altered mental status. Comparison made with prior examination from 07/02/2018 FINDINGS: There is cardiomegaly. There is venous congestion. There is no pleural effusion or pneumothorax. The mediastinum is unremarkable. IMPRESSION: Cardiomegaly and moderate central pulmonary venous congestion. Dictated by: Dictated on workstation # [id number]
[2018-07-03] MEDS ORDERED: meTOproloL SUCCINATE 50 MG (TOPROL XL) TAB PO SCH (09:00)
[2018-07-03] MEDS ORDERED: KCL 20 MEQ TAB (K-DUR) PO ONE (09:00)
--- NOTE | 2018-07-03 09:54 | NUR ---
COMMUNICATION WITH DR. CONN AT THIS TIME R/T PATIENT CT SCAN RESULTS OF BILATERAL PE RIGHT GREATER THEN LEFT. RECEIVED NEW ORDERS FOR LOVENOX 1MG/KG/BID. ORDER ENTERED INTO ER.
--- NOTE | 2018-07-03 09:55 | NUR ---
THIS NURSE CONTACTED DR. CONN REGARDING PT CT RESULTS FROM 07/02, REPORT STATES PATIENT HAS BILATERAL PULMONARY EMBOLISM, RIGHT GREATER THEN LEFT. PATIENT NOT CURRENTLY ON ANY BLOOD THINNER BESIDES ASA 81 MG. RECEIVED ORDER FOR LOVENOX 80MG BID. ORDER ENTERED INTO EMAR. Addendum: 07/03/18 at 1948 by KYLER JONES RN PATIENT HAS PLEURAL EFFUSION. DR. CONN NOTIFED OF THIS.
[2018-07-03] MEDS ORDERED: ENOXAPARIN 80 MG/0.8 ML (LOVENOX) SYR SC SCH (10:00)
[2018-07-03] MEDS: ASPIRIN 81 MG CHEW (CHILDREN'S ASA) PO SCH (10:10)
--- NOTE | 2018-07-03 11:06 | History & Physical-Hospitalist ---
History of Present Illness HPI/Chief Complaint CC: AMS HPI: This is a 77yoWM clinic patient of Dr Cottrell who has multiple medical issues and chronic debilities who presented to the ER with AMS after falling at home and hitting his head. Apparently he has fallen multiple times recently in his yard. He goes to wound care for treatment of chronic osteomyelitis of his heels and foot. Work up ensued revealing elevated troponin, CT pleural effusions and pericardial effusion so consulted Dr Oneill and Dr Adams and Dr Lawrence. at the bedside reports he does not not know who she is. I explained that he has delirium and it will take sometimes several days to clear his thought process. Currently he is stable and overall doing better but confused. Source: patient, family, RN/MD, old records Exam Limitations: no limitations Date Seen 07/03/18 Time Seen by a Provider: 11:30 Attending Physician Chela Serrato DO PCP Neel Cottrell DO Referring Physician Date of Admission July 02, 2018 at 18:30 Home Medications & Allergies Home Medications Reviewed patient Home Medication Reconciliation performed by pharmacy medication reconciliations emissions repair technician and/or nursing. Patients Allergies have been reviewed. Allergies Allergies Coded Allergies No Known Drug Allergies (Unverified02/24/18) Past Cqzmwgq-Fsdbqh-Eteofr Hx Past Med/Social Hx: Reviewed Nursing Past Med/Soc Hx, Reviewed and Corrections made Patient Social History Marrital Status: Employed/Student: retired Alcohol Use: Denies Use Recreational Drug Use: No Smoking Status: Former Smoker Former Smoker, Quit: Sep 16, 2006 Type Used: Cigarettes Recent Foreign Travel: No Contact w/other who traveled: No Recent Infectious Disease Expo: No Immunizations Up To Date Date of Influenza Vaccine: Oct 25, 2017 Seasonal Allergies Seasonal Allergies: No Past Medical History Surgeries: Orthopedic (amputation of toe) Cardiac: Cardiomyopathy, High Cholesterol, Hypertension Neurological: Neuropathy Genitourinary: Renal Failure Gastrointestinal: Gastroesophageal Reflux Musculoskeletal: Amputee, Arthritis Endocrine: Diabetes, Non-Insulin dep History of Blood Disorders: No Adverse Reaction to Blood Robin: No Family History Reviewed Nursing Family Hx No Pertinent Family Hx Review of Systems ROS-Unable to Obtain: unable to ascertain Constitutional: see HPI Physical Exam Physical Exam Vital Signs Vital Signs - First Documented 07/02/18 07/03/18 12:10 07:50 Temp 97.7 Pulse 70 Resp 10 B/P (MAP) 148/76 (100) Pulse Ox 95 O2 Delivery Room Air O2 Flow Rate 2.00 Capillary Refill : Less Than 3 Seconds Height, Weight, BMI Height: 5'7.00" Weight: 180lbs. 3.0oz. 81.019865yn; 28.5 BMI Method:Stated General Appearance: WD/WN, Chronically ill, Mild Distress, Thin Eyes: Right Eye Normal Inspection, Right Eye PERRL HEENT: PERRL/EOMI, Normal ENT Inspection, Pharynx Normal, Moist Mucous Membranes Neck: Full Range of Motion, Normal Inspection, Non Tender Respiratory: Chest Non Tender, Lungs Clear, Normal Breath Sounds, No Accessory Muscle Use, No Respiratory Distress Cardiovascular: Regular Rate, Rhythm, No Edema, No Gallop, No JVD, No Murmur, Normal Peripheral Pulses Gastrointestinal: Normal Bowel Sounds, No Organomegaly, No Pulsatile Mass, Non Tender, Soft Back: Normal Inspection, No CVA Tenderness, No Vertebral Tenderness Extremity: Normal Capillary Refill, Normal Inspection, Normal Range of Motion, Non Tender, No Calf Tenderness, No Pedal Edema Neurologic/Psychiatric: Alert, Disoriented Skin: Normal Color, Warm/Dry, Other (dressings on foot intact) Lymphatic: No Adenopathy Results Results/Procedures Labs Laboratory Tests 07/02/18 12:18 07/03/18 03:00 Patient resulted labs reviewed. Assessment/Plan Admission Diagnosis Assessment: Delirium due to Metabolic Encephalopathy NSTEMI Pericardial effusion B/L pleural effusions DM foot ulcers Chronic osteomyelitis of the feet PVD severe Systolic congestive heart failure. Renal insufficiency. Smoker Plan: Appreciate Mai Valenzuela and rByan Pires Abx Supportive care for delirium Wound care consult Admission Status: Inpatient Order (span 2 midnights) Reason for Inpatient Admission: NSTEMI wityh pericardial effusion will require 4 days inpatient Diagnosis/Problems Diagnosis/Problems (1) Pericardial effusion Status: Acute (2) Pleural effusion Status: Acute (3) CHI (closed head injury) Status: Acute Qualifiers: Encounter type: initial encounter Qualified Codes: S09.90XA - Unspecified injury of head, initial encounter (4) Anemia Status: Chronic Qualifiers: Anemia type: unspecified type Qualified Codes: D64.9 - Anemia, unspecified (5) Leukocytosis Status: Acute Qualifiers: Leukocytosis type: leukemoid reaction Qualified Codes: D72.823 - Leukemoid reaction (6) Elevated brain natriuretic peptide (BNP) level Status: Acute (7) Altered mental status Status: Acute Qualifiers: Altered mental status type: disorientation Qualified Codes: R41.0 - Disorientation, unspecified (8) Troponin level elevated Status: Acute (9) Multiple falls Status: Acute (10) PVD (peripheral vascular disease) Status: Chronic (11) Diabetes mellitus Status: Chronic Qualifiers: Diabetes mellitus type: type 2 Diabetes mellitus chcf insulin use: without termite control technician use Diabetes mellitus complication status: with unspecified complications Qualified Codes: E11.8 - Type 2 diabetes mellitus with unspecified complications Clinical Quality Measures DVT/VTE Risk/Contraindication: Risk Factor Score Per Nursin RFS Level Per Nursing on Admit: 4+=Very High CHELA SERRATO DO July 03, 2018 11:06
--- NOTE | 2018-07-03 11:18 | Progress Note ---
Subjective Time Seen by a Provider: 10:15 Subjective/Events-last exam Pt seen and examined, with his at bedside. She states this is not normal for him. He is unable to answer any questions, without drifting off to sleep. Review of Systems unable to obtain, pt can't answer questions Focused Exam Lactate Level 07/02/18 12:18: Lactic Acid Level 0.94 Objective Exam Vital Signs Date Time Temp Pulse Resp B/P (MAP) Pulse Ox O2 Delivery O2 Flow Rate FiO2 07/03/18 10:00 80 54 143/70 (94) 100 Nasal Cannula 2.00 07/03/18 09:00 97 Nasal Cannula 2.00 07/03/18 08:00 99.5 07/03/18 07:53 97 Nasal Cannula 2.00 07/03/18 07:50 99.1 82 26 136/67 (90) 97 Nasal Cannula 2.00 07/03/18 07:00 86 07/03/18 04:00 91 27 159/74 (102) 91 Room Air 07/03/18 01:00 97 07/03/18 00:00 89 28 155/77 (103) 92 Room Air 07/03/18 00:00 92 Room Air 07/02/18 20:00 96 Room Air 07/02/18 20:00 98.0 81 18 165/82 (109) 96 Room Air 07/02/18 19:36 80 07/02/18 19:30 96 Room Air 07/02/18 18:56 71 19 156/71 (99) 94 Room Air 07/02/18 12:10 97.7 70 10 148/76 (100) 95 Room Air I & O 07/03/18 07:00 Intake Total 3500 ml Output Total 1400 ml Balance 2100 ml Capillary Refill : Less Than 3 Seconds General Appearance: Chronically ill, Mild Distress HEENT: PERRL/EOMI, Moist Mucous Membranes Respiratory: No Respiratory Distress, Accessory Muscle Use, Crackles, Decreased Breath Sounds Cardiovascular: Regular Rate, Rhythm, Friction Rub Gastrointestinal: normal bowel sounds, non tender, soft, no organomegaly, no pulsatile mass, hernia (umbilical hernia - incarcerated ) Results Lab Laboratory Tests 07/02/18 12:18: White Blood Count 8.6, Red Blood Count 3.60L, Hemoglobin 8.5L, Hematocrit 27L, Mean Corpuscular Volume 76L, Mean Corpuscular Hemoglobin 24L, Mean Corpuscular Hemoglobin Concent 31L, Red Cell Distribution Width 15.9H, Platelet Count 308, Mean Platelet Volume 10.1, Neutrophils (%) (Auto) 78H, Lymphocytes (%) (Auto) 14, Monocytes (%) (Auto) 8, Eosinophils (%) (Auto) 0, Basophils (%) (Auto) 0, Neutrophils # (Auto) 6.7, Lymphocytes # (Auto) 1.2, Monocytes # (Auto) 0.7, Eosinophils # (Auto) 0.0, Basophils # (Auto) 0.0, Prothrombin Time 19.0H, INR Comment 1.5H, Activated Partial Thromboplast Time 37H, Sodium Level 139, Potassium Level 4.2, Chloride Level 107, Carbon Dioxide Level 21, Anion Gap 11, Blood Urea Nitrogen 24H, Creatinine 1.01, Estimat Glomerular Filtration Rate > 60, BUN/Creatinine Ratio 24, Glucose Level 122H, Lactic Acid Level 0.94, Calcium Level 8.6, Corrected Calcium 9.2, Magnesium Level 1.8, Total Bilirubin 0.6, Aspartate Amino Transf (AST/SGOT) 17, Alanine Aminotransferase (ALT/SGPT) 14, Alkaline Phosphatase 146H, Total Creatine Kinase 46, Creatine Kinase MB 2.7, Myoglobin 151.1H, Troponin I 1.576*H, Total Protein 5.9L, Albumin 3.2, TSH [place] Testing 2.36, Serum Alcohol < 10 07/02/18 12:20: Urine Color YELLOW, Urine Clarity VERY CLOUDYH, Urine pH 5, Urine Specific [place] 1.020, Urine Protein 3+H, Urine Glucose (UA) NEGATIVE, Urine Ketones NEGATIVE, Urine Nitrite NEGATIVE, Urine Bilirubin NEGATIVE, Urine Urobilinogen NORMAL, Urine Leukocyte Esterase 1+H, Urine RBC (Auto) 3+H, Urine RBC 2-5H, Urine WBC 0-2, Urine Squamous Epithelial Cells 5-10, Urine Crystals PRESENTH, Urine Amorphous Sediment FEW MARI URATESH, Urine Bacteria NEGATIVE, Urine Casts NONE, Urine Mucus SMALLH, Urine Culture Indicated NO 07/02/18 16:18: Troponin I 1.603*H 07/02/18 22:09: Glucometer 72 07/03/18 03:00: White Blood Count 12.7H, Red Blood Count 3.70L, Hemoglobin 8.8L, Hematocrit 28L, Mean Corpuscular Volume 75L, Mean Corpuscular Hemoglobin 24L, Mean Corpuscular Hemoglobin Concent 32, Red Cell Distribution Width 16.5H, Platelet Count 334, Mean Platelet Volume 10.3, Neutrophils (%) (Auto) 90H, Lymphocytes (%) (Auto) 4L , Monocytes (%) (Auto) 6, Eosinophils (%) (Auto) 0, Basophils (%) (Auto) 0, Neutrophils # (Auto) 11.4H, Lymphocytes # (Auto) 0.5L, Monocytes # (Auto) 0.8, Eosinophils # (Auto) 0.0, Basophils # (Auto) 0.0, Neutrophils % (Manual) 90, Lymphocytes % (Manual) 4, Monocytes % (Manual) 6, Hypochromasia MARKED, Anisocytosis SLIGHT, Microcytosis SLIGHT, Acanthocytes MARKED, Sodium Level 142, Potassium Level 3.9, Chloride Level 109H, Carbon Dioxide Level 21, Anion Gap 12, Blood Urea Nitrogen 20H, Creatinine 0.88, Estimat Glomerular Filtration Rate > 60, BUN/Creatinine Ratio 23, Glucose Level 98, Calcium Level 8.6, Corrected Calcium 9.2, Total Bilirubin 0.5, Aspartate Amino Transf (AST/SGOT) 15, Alanine Aminotransferase (ALT/SGPT) 11, Alkaline Phosphatase 151H, B-Type Natriuretic Peptide 1293.2H, Total Protein 6.0L, Albumin 3.3 07/03/18 10:59: Glucometer 114H Microbiology Assessment/Plan Assessment/Plan Assessment/Plan Multiple Falls Struck head with no LOC Altered mental status - unknown if this is new or baseline Elevated Troponin Bilateral Pleural Effusions Pericardial Effusion No need for surgical intervention, I will sign off. Clinical Quality Measures DVT/VTE Risk/Contraindication: Risk Factor Score Per Nursin RFS Level Per Nursing on Admit: 4+=Very High ALICIA GARNER DO July 03, 2018 11:18
--- NOTE | 2018-07-03 12:59 | Consultation-Cardiology ---
HPI-Cardiology Cardiology Consultation: Date of Consultation 07/03/18 Time Seen by a Provider: 11:20 Date of Admission Attending Physician Chela Cam DO Admitting Physician Neel Cottrell DO Consulting Physician RIGO HARE MD, MA, FACP, FACC, FSCAI, CCDS HPI: Chief Complaint: Reason for consultation: Elevated troponin and BNP HPI: 77 yo man admitted to Dr Cam yesterday for mental status changes and non syncopal falls at home. He is confused and not able to provide a meaningful history. According to , who is by his bedside, he rolled out of bed to the floor yesterday and then was having difficulty getting up, kept falling. He did not report any cp. He was not short of breath. He did not lose consciousness. He didn't have any nausea, vomiting diarrhea. He has been quite confused since yesterday Review of Systems-Cardiology Review of Systems Constitutional: malaise; No weight loss, No weight gain; other (The patient himself is not able to provide a review of systems because of a confused mental state. To the extent a review of systems could be obtained from his is described under HPI) All Other Systems Reviewed Negative Unless Noted: Yes (Negative excepted noted.) FJE-Fqqyny-Njjqig Hx Patient Social History Marrital Status: Employed/Student: retired Alcohol Use: Denies Use Recreational Drug Use: No Smoking Status: Former Smoker Type Used: Cigarettes Recent Foreign Travel: No Recent Infectious Disease Expo: No Hospitalization with Isolation: Denies Immunizations Up To Date Date of Influenza Vaccine: Oct 25, 2017 Past Medical History PMH As described under Assessment. Family Medical History Family Medical History: Doesn't report fam h/o early CAD or SCD Allergies and Home Medications Allergies Coded Allergies: No Known Drug Allergies (Unverified , 02/24/18) Home Medications Aspirin 81 Mg Tablet.dr, 81 MG PO DAILY, (Reported) Atorvastatin Calcium 40 Mg Tablet, 40 MG PO HS, (Reported) Clopidogrel Bisulfate 75 Mg Tablet, 75 MG PO DAILY, (Reported) Doxycycline Monohydrate 100 Mg Capsule, 100 MG PO BID, (Reported) Furosemide 20 Mg Tablet, 20 MG PO DAILY, (Reported) Gabapentin 300 Mg Capsule, 300 MG PO HS, (Reported) Insulin Aspart 100 Unit/1 Ml Susp, 3-9 UNIT SQ AC, (Reported) USES OWN SLIDING SCALE Insulin Determir 1,000 Units/10 Ml Soln, 21 UNITS SQ DAILY, (Reported) Lisinopril 5 Mg Tablet, 5 MG PO DAILY, (Reported) Metronidazole 500 Mg Tablet, 500 MG PO BID, (Reported) Minocycline HCl 100 Mg Capsule, 100 MG PO TID, (Reported) Pantoprazole Sodium 40 Mg Tablet.dr, 40 MG PO DAILY, (Reported) Povidone-Iodine 3,780 Ml Solution, TP BID, (Reported) [Hysept 0.25% Patch] , TOP Q48H, (Reported) Patient Home Medication List Home Medication List Reviewed: Yes Physical Exam-Cardiology Physical Exam Vital Signs/I&O 07/03/18 07/03/18 07/03/18 07/03/18 01:00 04:00 07:00 07:50 Temp 99.1 Pulse 97 91 86 82 Resp 27 26 B/P (MAP) 159/74 (102) 136/67 (90) Pulse Ox 91 97 O2 Delivery Room Air Nasal Cannula O2 Flow Rate 2.00 07/03/18 07/03/18 07/03/18 07/03/18 07:53 08:00 09:00 10:00 Temp 99.5 Pulse 80 Resp 54 B/P (MAP) 143/70 (94) Pulse Ox 97 97 100 O2 Delivery Nasal Cannula Nasal Cannula Nasal Cannula O2 Flow Rate 2.00 2.00 2.00 07/03/18 07/03/18 11:00 12:00 Pulse 77 69 Resp 27 26 B/P (MAP) 145/76 (99) 147/70 (95) Pulse Ox 100 96 O2 Delivery Nasal Cannula Nasal Cannula O2 Flow Rate 2.00 2.00 07/03/18 00:00 Intake Total 2400 ml Output Total 500 ml Balance 1900 ml Capillary Refill : Less Than 3 Seconds Constitutional: No AAO x 3; well-developed, other (thin-appearing) HEENT: PERRL, other (hard of hearing), EOMI Neck: carotid pulses are 2 + bilaterally Respiratory: No accessory muscle use; other (fair air entry, but diminished at the bases; prolonged exp pase) Cardiovascular: regular rate-rhythm, S1 and S2, systolic murmur (2/6 JOY at card base) Gastrointestinal: No tender; soft; No guarding, No rebound; audible bowel sounds Extremities: No clubbing, No cyanosis, No significant edema Neurologic/Psychiatric: No oriented x 3; other (not able to cooperate with a neuro exam; seems to move all limbs equally) Skin: No rash on exposed areas, No ulcerations on exposed areas; other (R great toe and L heel under dressing that were not removed) Lymphatic: no adenopathy (neck, axilla or groin) Data Review Labs Laboratory Tests 07/02/18 16:18: Troponin I 1.603*H 07/02/18 22:09: Glucometer 72 07/03/18 03:00: White Blood Count 12.7H, Red Blood Count 3.70L, Hemoglobin 8.8L, Hematocrit 28L, Mean Corpuscular Volume 75L, Mean Corpuscular Hemoglobin 24L, Mean Corpuscular Hemoglobin Concent 32, Red Cell Distribution Width 16.5H, Platelet Count 334, Mean Platelet Volume 10.3, Neutrophils (%) (Auto) 90H, Lymphocytes (%) (Auto) 4L , Monocytes (%) (Auto) 6, Eosinophils (%) (Auto) 0, Basophils (%) (Auto) 0, Neutrophils # (Auto) 11.4H, Lymphocytes # (Auto) 0.5L, Monocytes # (Auto) 0.8, Eosinophils # (Auto) 0.0, Basophils # (Auto) 0.0, Neutrophils % (Manual) 90, Lymphocytes % (Manual) 4, Monocytes % (Manual) 6, Hypochromasia MARKED, Anis ocytosis SLIGHT, Microcytosis SLIGHT, Acanthocytes MARKED, Sodium Level 142, Potassium Level 3.9, Chloride Level 109H, Carbon Dioxide Level 21, Anion Gap 12, Blood Urea Nitrogen 20H, Creatinine 0.88, Estimat Glomerular Filtration Rate > 60, BUN/Creatinine Ratio 23, Glucose Level 98, Calcium Level 8.6, Corrected Calcium 9.2, Total Bilirubin 0.5, Aspartate Amino Transf (AST/SGOT) 15, Alanine Aminotransferase (ALT/SGPT) 11, Alkaline Phosphatase 151H, B-Type Natriuretic Peptide 1293.2H, Total Protein 6.0L, Albumin 3.3 07/03/18 10:59: Glucometer 114H Microbiology Laboratory Tests 07/02/18 12:18 07/03/18 03:00 A/P-Cardiology Assessment/Admission Diagnosis Acute mental status change and gen weakness and falls, being managed by Dr Cam Mildly elevated troponin, flat, probably due to chronic systolic CHF (type 2 MT) Mod pericardial eff seen on CT of 07/02/18. No clinical evidence of tamponade Pulmonary service has suspected PE. Pt currently on Lovenox ordered by Dr Oneill H/o dilated cardiomyopathy and chronic, systolic CHF. Last echo on 04/05/18: LVEF 45-50%, grade 1 jackson dysfunction, pulm hypertension with RVSP 56 mmHg, hypokinesis to akinesis of apical and inferior myocardium CAD: s/p PCI to LAD and LCX with CANELO on card cath of 07/15/2017 PAD. Multiple, bilateral SFA and distal leg arterial interventions by Dr Colvin in 2018. Continues with ischemic foot ulcers. Last peripheral angio on 02/24/2018 that showed severe left SFA stenosis, mild to moderate in-stent restenosis in the distal SFA stentm noderate to severe stenosis distal to the distal SFA stent, subtotal occlusion of the ostium of the left anterior tibial artery as well as severe stenosis of the left tibioperoneal trunk. Successful left mid SFA stent. Successful balloon angioplasty to the left anterior tibial artery and left tibioperoneal trunk. Hypertension, by history Hyperlipidemia, by history DM II, insulin-requiring H/o sinus sherly on beta-blockers Discussion and Recomendations * Complex management due to multiple comorbidities * Continue ASA for CAD and PAD * Echo to eval pericard eff * Dr Cam managing mental status changes and falls * Dr Oneill managing pulmonary issue * Monitor labs Clinical Quality Measures DVT/VTE Risk/Contraindication: Risk Factor Score Per Nursin RFS Level Per Nursing on Admit: 4+=Very High RIGO HARE MD FACP FAC CCDS July 03, 2018 12:59
--- NOTE | 2018-07-03 16:52 | NUR ---
COMMUNICATION WITH DR. SERRATO AT THIS TIME R/T PATIENT BLOOD SUGAR 246 ET NO INSULIN ORDERS. RECEIVED ORDERS FOR SSI B NOVOLOG. ORDERS ENTERED INTO EMAR
--- NOTE | 2018-07-03 16:59 | NUR ---
UPON READING DR. SERRATO H&P, NOTED DISCUSSION OR ANTIBIOTIC TREATMENT. NO ANTIOBIOTIC ORDERS IN PLACE. SPOKE WITH DR. SERRATO, STATED SHE HAD CHANGED HER MIND ET WOULD PREFER DR. REYNOSO TO CHECK ET DECIDE TOMORROW.
[2018-07-03] MEDS: inSUlin ASPART (NovoLOG) 1 UNIT/0.01 ML (CHARGE PER UNIT) SC SCH ×2 (17:05→22:22)
--- NOTE | 2018-07-03 17:08 | NUR ---
COMMUNICATION WITH DR. CONN AT THIS TIME R/T PATIENT INCREASED WHEEZING. RECEIVED ORDERS FOR BREATHING TX [id number]. NOTIFIED RT JIN OF ORDERS.
[2018-07-03] MEDS ORDERED: RT-ALBUTEROL/IPRATROPIUM 3 ML (DUONEB) VIAL INH SCH (18:00)
--- NOTE | 2018-07-03 18:46 | NUR ---
THIS NURSE CALLED DR. CONN AT THIS TIME. RECEIVED ORDER FOR REPEAT LABS ABG, CXR ET CHANGE PATIENT TO ICU STATUS.
--- NOTE | 2018-07-03 18:47 | Diagnostic Imaging Report ---
INDICATION: Shortness of breath and wheezing with decreased awareness. COMPARISON: Comparison made with prior examination from 07/03/2018. FINDINGS: There is cardiomegaly. There is moderate central pulmonary venous congestion. There is no pleural effusion or pneumothorax. Mediastinum is unremarkable. IMPRESSION: Cardiomegaly and moderate central pulmonary venous congestion. Dictated by: Dictated on workstation # [id number]
[2018-07-03 18:49] LABS: ABG BASE EXCESS -1.8 MMOL/L (-2.5-2.5); ABG OXYGEN SATURATION 97 % (94-100); ABG PCO2 37 MMHG (35-45); ABG PO2 90 MMHG (79-93); ABG TCO2 23.5 MMOL/L (21.0-31.0)
[2018-07-03 18:52] LABS: ALLENS TEST POSITIVE; INSPIRED O2 3L; PATIENT TEMP 98.6; VENTILATOR NO
[2018-07-03] MEDS ORDERED: ENOXAPARIN 40 MG/0.4 ML (LOVENOX) SYR SQ SCH (19:00)
[2018-07-03 19:14] LABS: BASOPHILS % (AUTO) 0 % (0-10); EOSINOPHILS % (AUTO) 0 % (0-10); HEMATOCRIT 30 % (40-54); HEMOGLOBIN 9.4 G/DL (13.3-17.7); LYMPHOCYTES # (AUTO) 0.4 X 10^3 (1.0-4.0); LYMPHOCYTES % (AUTO) 3 % (12-44); MEAN CORPUSCULAR HEMOGLOBIN 24 PG (25-34); MEAN CORPUSCULAR HGB CONC 31 G/DL (32-36); MEAN CORPUSCULAR VOLUME 76 FL (80-99); MEAN PLATELET VOLUME 10.4 FL (7.4-10.4); MONOCYTES # (AUTO) 0.6 X 10^3 (0.0-1.0); MONOCYTES % (AUTO) 4 % (0-12); NEUTROPHILS # (AUTO) 12.4 X 10^3 (1.8-7.8); NEUTROPHILS % (AUTO) 93 % (42-75); PLATELET COUNT 354 10^3/uL (130-400); RED CELL DISTRIBUTION WIDTH 16.7 % (10.0-14.5); WHITE BLOOD COUNT 13.4 10^3/uL (4.3-11.0)
[2018-07-03 19:36] LABS: ALBUMIN 3.5 GM/DL (3.2-4.5); BILIRUBIN,TOTAL 0.4 MG/DL (0.1-1.0); CREATININE SERUM 1.22 MG/DL (0.60-1.30); TOTAL PROTEIN 6.5 GM/DL (6.4-8.2)
--- NOTE | 2018-07-03 19:51 | NUR ---
SPOKE WITH DR. CONN AT THIS TIME, TO SEE IF HE WOULD LIKE A REPEAT HEAD CT DUE TO PATIENT INCREASED AMS. DR. CONN STATED TO CONTACT [facility] ET FOLLOW UP WITH THEM.
--- NOTE | 2018-07-03 20:17 | NUR ---
PT MOVED TO ROOM CU6-E-ICU NOTIFIED OF PT LABS AND INITIAL ASSESSMENT BY THIS RN.
[2018-07-03 20:30] LABS: POTASSIUM 4.6 MMOL/L (3.6-5.0)
[2018-07-03] MEDS: ENOXAPARIN 40 MG/0.4 ML (LOVENOX) SYR SQ SCH (20:58)
[2018-07-03] MEDS: RT-ALBUTEROL/IPRATROPIUM 3 ML (DUONEB) VIAL INH SCH ×2 (21:01→21:03)
--- NOTE | 2018-07-03 22:04 | Diagnostic Imaging Report ---
PROCEDURE: CT head wo r/o stroke. TECHNIQUE: Multiple contiguous axial images were obtained through the brain without the use of intravenous contrast. Auto Exposure Controls were utilized during the CT exam to meet ALARA standards for radiation dose reduction. INDICATION: Altered mental status. Comparison is made with prior examination from 07/02/2018. FINDINGS: There is mild prominence of the ventricles and sulci. There is no hydrocephalus. There is no midline shift. There is no intracranial mass, hemorrhage, or extra-axial fluid collection. There is a subtle area of decreased attenuation in the right occipital lobe. Subacute CVA cannot be excluded. There is no other CT evidence of an acute CVA. Calvarium intact. Sinuses and mastoid air cells are clear. IMPRESSION: Unchanged age-appropriate atrophy. Subtle area of decreased attenuation in the right occipital lobe suspect for subacute CVA. Recommend clinical correlation and if warranted followup with MRI. Dictated by: Dictated on workstation # [id number]
--- NOTE | 2018-07-03 22:30 | NUR ---
HEAD CT READ, DR BRAUN WITH E-ICU NOTIFIED OF RESULTS BY [facility]. NEW ORDERS FROM E-ICU, SEE ORDER HX
[2018-07-03] MEDS ORDERED: ASPIRIN 300 MG (5 GR) SUPPOSITORY PR ONE (23:45)
[2018-07-03] MEDS ORDERED: NS IV 500 ML 500 ML IV ONE (23:45)
[2018-07-04] VITALS (13 sets, daily range): BP systolic 121–157; BP diastolic 51–84
--- NOTE | 2018-07-04 | NUR ---
NOTIFIED E-ICU OF ASPIRIN SUPP BEING UNAVAILABLE. NO NEW ORDERS
[2018-07-04] MEDS: ENOXAPARIN 40 MG/0.4 ML (LOVENOX) SYR SQ SCH (00:07)
[2018-07-04 01:00] LABS: BUN/CREATININE RATIO 26; CALCIUM 8.6 MG/DL (8.5-10.1); CARBON DIOXIDE 20 MMOL/L (21-32); CHLORIDE 111 MMOL/L (98-107); CREATININE SERUM 1.14 MG/DL (0.60-1.30); GFR ESTIMATED > 60; GLUCOSE 143 MG/DL (70-105); MAGNESIUM 2.1 MG/DL (1.8-2.4); PHOSPHORUS 3.5 MG/DL (2.3-4.7); POTASSIUM 4.5 MMOL/L (3.6-5.0); SODIUM 142 MMOL/L (135-145)
[2018-07-04] MEDS: RT-ALBUTEROL/IPRATROPIUM 3 ML (DUONEB) VIAL INH SCH ×2 (01:59→06:21)
[2018-07-04 02:18] LABS: BASOPHILS % (AUTO) 0 % (0-10); EOSINOPHILS % (AUTO) 0 % (0-10); HEMATOCRIT 28 % (40-54); HEMOGLOBIN 8.9 G/DL (13.3-17.7); LYMPHOCYTES # (AUTO) 0.9 X 10^3 (1.0-4.0); LYMPHOCYTES % (AUTO) 6 % (12-44); MEAN CORPUSCULAR HEMOGLOBIN 24 PG (25-34); MEAN CORPUSCULAR HGB CONC 31 G/DL (32-36); MEAN CORPUSCULAR VOLUME 75 FL (80-99); MEAN PLATELET VOLUME 10.2 FL (7.4-10.4); MONOCYTES % (AUTO) 7 % (0-12); NEUTROPHILS # (AUTO) 11.7 X 10^3 (1.8-7.8); NEUTROPHILS % (AUTO) 86 % (42-75); PLATELET COUNT 307 10^3/uL (130-400); RED CELL DISTRIBUTION WIDTH 16.2 % (10.0-14.5); WHITE BLOOD COUNT 13.6 10^3/uL (4.3-11.0)
[2018-07-04] MEDS ORDERED: KCL 20 MEQ TAB (K-DUR) PO SCH (06:00)
[2018-07-04] MEDS ORDERED: MAGNESIUM 1 GM/100 ML IVPB 100 ML IV SCH (06:00)
[2018-07-04] MEDS ORDERED: POTASSIUM CL 10MEQ/50ML IVPB 50 ML IV SCH (06:00)
[2018-07-04] MEDS ORDERED: methylPREDNISolone 40 MG/ML (Solu-MEDROL) VIAL ONE (06:01)
--- NOTE | 2018-07-04 06:10 | Pulmonary Progress Note ---
Subjective Time Seen by a Provider: 06:23 Subjective/Events-last exam Last night pt had worsening symptoms in MS and increased WOB. Pt was changed to ICU status and EICU started IVF, repeated head CT showing subacute CVA. BS are normal Sepsis Event Evaluation Height, Weight, BMI Height: 5'7.00" Weight: 180lbs. 3.0oz. 81.679480sq; 28.5 BMI Method:Stated Focused Exam Lactate Level 07/03/18 19:00: Lactic Acid Level 2.05*H 07/03/18 20:54: Lactic Acid Level 1.70 07/04/18 00:33: Lactic Acid Level 1.24 Exam Exam Vital Signs Date Time Temp Pulse Resp B/P (MAP) Pulse Ox O2 Delivery O2 Flow Rate FiO2 07/04/18 04:00 99.2 07/04/18 04:00 64 23 132/62 (85) 98 Vapotherm 30.00 16.00 07/04/18 03:00 71 27 140/63 (88) 93 Vapotherm 30.00 16.00 07/04/18 02:00 67 30 146/73 (97) 96 Vapotherm 30.00 16.00 07/04/18 01:59 96 Vapotherm 16.00 30 07/04/18 01:00 69 07/04/18 01:00 68 29 136/84 (101) 95 Vapotherm 30.00 16.00 07/04/18 00:09 100.4 07/04/18 00:00 63 29 157/70 (99) 95 Vapotherm 30.00 16.00 07/03/18 23:00 65 28 137/65 (89) 96 Vapotherm 30.00 16.00 07/03/18 22:22 100.2 07/03/18 22:00 63 28 111/57 (75) 97 Vapotherm 30.00 16.00 07/03/18 21:59 99 Vapotherm 16.00 30 07/03/18 21:58 Vapotherm 30.00 16.00 07/03/18 21:03 73 23 100 30.00 07/03/18 21:00 60 28 146/69 (94) 100 NIV Bilevel 30.00 07/03/18 20:00 100 NIV Bilevel 30 07/03/18 20:00 100.8 07/03/18 20:00 89 26 126/57 (80) 100 NIV Bilevel 30.00 07/03/18 19:00 66 28 128/48 (74) 100 NIV Bilevel 30.00 07/03/18 19:00 70 07/03/18 18:52 68 100 30.00 07/03/18 18:42 83 Nasal Cannula 2.00 07/03/18 18:00 84 26 168/82 (110) Nasal Cannula 2.00 07/03/18 17:00 73 31 174/88 (116) Nasal Cannula 2.00 07/03/18 16:00 74 20 166/65 (98) Nasal Cannula 2.00 07/03/18 16:00 97 Nasal Cannula 3.00 07/03/18 15:00 63 34 132/64 (86) Nasal Cannula 2.00 07/03/18 14:00 65 22 100 Nasal Cannula 2.00 07/03/18 13:00 60 07/03/18 13:00 69 16 147/80 (102) 100 Nasal Cannula 2.00 07/03/18 12:00 97 Nasal Cannula 3.00 07/03/18 12:00 69 26 147/70 (95) 96 Nasal Cannula 2.00 07/03/18 11:00 77 27 145/76 (99) 100 Nasal Cannula 2.00 07/03/18 10:00 80 54 143/70 (94) 100 Nasal Cannula 2.00 07/03/18 09:00 97 Nasal Cannula 2.00 07/03/18 08:00 99.5 07/03/18 07:53 97 Nasal Cannula 2.00 07/03/18 07:50 99.1 82 26 136/67 (90) 97 Nasal Cannula 2.00 07/03/18 07:00 86 I & O 07/04/18 07:00 Intake Total 4600 ml Output Total 2230 ml Balance 2370 ml Height & Weight Height: 5'7.00" Weight: 180lbs. 3.0oz. 81.221060bg; 28.5 BMI Method:Stated General Appearance: WD/WN, Chronically ill, Moderate Distress, Thin HEENT: PERRL/EOMI, Normal ENT Inspection, Pharynx Normal, Moist Mucous Membranes Neck: Full Range of Motion, Normal Inspection, Non Tender Respiratory: Chest Non Tender, Accessory Muscle Use, Decreased Breath Sounds, Respiratory Distress Cardiovascular: Regular Rate, Rhythm, No Edema, No Gallop, No JVD, No Murmur, Normal Peripheral Pulses Capillary Refill: Less Than 3 Seconds Gastrointestinal: normal bowel sounds, non tender, soft, no organomegaly, no pulsatile mass, hernia (umbilical hernia - incarcerated ) Extremity: Normal Capillary Refill, Normal Inspection, Normal Range of Motion, Non Tender, No Calf Tenderness, No Pedal Edema Neurologic/Psychiatric: Alert, Disoriented, Motor Weakness (left sided paralysis ) Skin: Normal Color, Warm/Dry, Other (dressings on foot intact) Lymphatic: No Adenopathy Results Lab Laboratory Tests 07/02/18 12:18 07/03/18 03:00 07/03/18 19:00 07/04/18 00:33 Assessment/Plan Assessment/Plan Acute respiratory distress last night -Currently on Vapotherm -ABG appears stable -repeat ABG this AM Leukocytosis -Start Vanco/Zosyn -[facility] cultures pending Subacute CVA - with new onset left sided flaccid paralysis -Pt presented to ED on Sat after fall on Wednesday hitting head -Pt also fell Wednesday and of last week. -Initial head CT in ED on Wednesday was negative -Yesterday head CT shows subacute CVA. EICU discussed with radiology. No new orders were made. -BS are WNL -ASA -Swallow eval PT/OT and speech therapy NSTEMI -Cardiology following CHFAE with pulmonary edema -Lasix -Hep lock IVF Small Pericardial effusion - -Cardiology following -EF 35- 40% -Echo - reviewed MS changes/metabolic encephalopathy Leukocytosis -[facility] culture -Check UA Confusion/MS changes Multiple falls debility I called and discussed with family regarding pt's current condition. Daughter states just underwent CABG and is recovering. They agree at this time pt will probably need ECF upon discharge. I asked daughter about code status and she is going to talk to pt's about it. BETTY CONN DO July 04, 2018 06:10
[2018-07-04] MEDS ORDERED: PHARMACY TO DOSE IV SCH (06:15)
[2018-07-04] MEDS ORDERED: PIPERACILLIN/TAZOBACTAM (BULK) 4.5 GM in NS (IVPB) 100 ML IV SCH ×2 (06:15→13:00)
[2018-07-04] MEDS ORDERED: PIPERACILLIN/TAZO 4.5 GM VIAL (ZOSYN) IV ONE (06:40)
[2018-07-04] MEDS ORDERED: NS (IVPB) 100 ML ONE (06:40)
[2018-07-04] MEDS: inSUlin ASPART (NovoLOG) 1 UNIT/0.01 ML (CHARGE PER UNIT) SC SCH (06:50)
[2018-07-04] MEDS ORDERED: PIPERACILLIN/TAZO 4.5 GM/NS 100 ML IV NR ×2 (07:00)
--- NOTE | 2018-07-04 07:02 | Diagnostic Imaging Report ---
Indication: Confusion. Comparison: 07/03/2018 Findings: Single view of the chest demonstrates cardiac enlargement with persistent but decreased bilateral interstitial infiltrates. There is no pneumothorax or effusion. Osseous structures stable. Impression: Cardiac enlargement with persistent but decreased bilateral interstitial infiltrates. Dictated by: Dictated on workstation # [id number]
--- NOTE | 2018-07-04 07:03 | NUR ---
PHARMACY TO DOSE VANCOMYCIN: BASED ON IBW 66.1 KG, SCr 1.14, EST CrCl 52 LOADING DOSE: 2,000 MG MAIN DOSE: 1,250 MG Q 12 HRS VANCOMYCIN TROUGH DUE 07/07/18 @06:30 IF TROUGH IS GREATER THAN 20 HOLD 07/07/18 07:30 DOSE.
[2018-07-04 07:10] LABS: ABG BASE EXCESS -2.4 MMOL/L (-2.5-2.5); ABG OXYGEN SATURATION 95 % (94-100); ABG PCO2 36 MMHG (35-45); ABG PH 7.39 (7.37-7.43); ABG PO2 80 MMHG (79-93); ABG TCO2 22.6 MMOL/L (21.0-31.0)
[2018-07-04 07:12] LABS: ALLENS TEST YES-POS; INSPIRED O2 25%; PATIENT TEMP 100.1; VENTILATOR NO
[2018-07-04] MEDS ORDERED: VANCOMYCIN 2000 MG/NS 500 ML IVPB IV NR ×2 (07:30)
[2018-07-04] MEDS: NS IV 1000 ML 1,000 ML IV SCH (07:32)
--- NOTE | 2018-07-04 07:48 | Progress Note (SOAP) ---
"Subjective Time Seen by a Provider: 07:43 Subjective/Events-last exam New-onset CVA left side. Patient unresponsive. Elevated BNP. Elevated lactic acid. Congestive heart failure. Diabetes. Fall out of bed. Head trauma. Left rib pain. Multiple falls. Peripheral artery disease. | Peripheral vascular disease. Pleural effusion greater on right than last. Pericardial effusion. Patient unable to move left side of body. Left side of mouth drooping. Osteomyelitis of foot area CAT scan of the head last night shows right stroke which affected the left side Focused Exam Lactate Level 07/03/18 19:00: Lactic Acid Level 2.05*H 07/03/18 20:54: Lactic Acid Level 1.70 07/04/18 00:33: Lactic Acid Level 1.24 Objective Exam Vital Signs Date Time Temp Pulse Resp B/P (MAP) Pulse Ox O2 Delivery O2 Flow Rate FiO2 07/04/18 07:00 67 07/04/18 06:21 96 Vapotherm 25.00 25 07/04/18 06:00 62 24 135/58 (83) 98 Vapotherm 30.00 16.00 07/04/18 05:00 62 24 143/64 (90) 97 Vapotherm 30.00 16.00 07/04/18 04:00 99.2 07/04/18 04:00 64 23 132/62 (85) 98 Vapotherm 30.00 16.00 07/04/18 03:00 71 27 140/63 (88) 93 Vapotherm 30.00 16.00 07/04/18 02:00 67 30 146/73 (97) 96 Vapotherm 30.00 16.00 07/04/18 01:59 96 Vapotherm 16.00 30 07/04/18 01:00 69 07/04/18 01:00 68 29 136/84 (101) 95 Vapotherm 30.00 16.00 07/04/18 00:09 100.4 07/04/18 00:00 63 29 157/70 (99) 95 Vapotherm 30.00 16.00 07/03/18 23:00 65 28 137/65 (89) 96 Vapotherm 30.00 16.00 07/03/18 22:22 100.2 07/03/18 22:00 63 28 111/57 (75) 97 Vapotherm 30.00 16.00 07/03/18 21:59 99 Vapotherm 16.00 30 07/03/18 21:58 Vapotherm 30.00 16.00 07/03/18 21:03 73 23 100 30.00 07/03/18 21:00 60 28 146/69 (94) 100 NIV Bilevel 30.00 07/03/18 20:00 100 NIV Bilevel 30 07/03/18 20:00 100.8 07/03/18 20:00 89 26 126/57 (80) 100 NIV Bilevel 30.00 07/03/18 19:00 66 28 128/48 (74) 100 NIV Bilevel 30.00 07/03/18 19:00 70 07/03/18 18:52 68 100 30.00 07/03/18 18:42 83 Nasal Cannula 2.00 07/03/18 18:00 84 26 168/82 (110) Nasal Cannula 2.00 07/03/18 17:00 73 31 174/88 (116) Nasal Cannula 2.00 07/03/18 16:00 74 20 166/65 (98) Nasal Cannula 2.00 07/03/18 16:00 97 Nasal Cannula 3.00 07/03/18 15:00 63 34 132/64 (86) Nasal Cannula 2.00 07/03/18 14:00 65 22 100 Nasal Cannula 2.00 07/03/18 13:00 60 07/03/18 13:00 69 16 147/80 (102) 100 Nasal Cannula 2.00 07/03/18 12:00 97 Nasal Cannula 3.00 07/03/18 12:00 69 26 147/70 (95) 96 Nasal Cannula 2.00 07/03/18 11:00 77 27 145/76 (99) 100 Nasal Cannula 2.00 07/03/18 10:00 80 54 143/70 (94) 100 Nasal Cannula 2.00 07/03/18 09:00 97 Nasal Cannula 2.00 07/03/18 08:00 99.5 07/03/18 07:53 97 Nasal Cannula 2.00 07/03/18 07:50 99.1 82 26 136/67 (90) 97 Nasal Cannula 2.00 I & O 07/04/18 07:00 Intake Total 4600 ml Output Total 2380 ml Balance 2220 ml Capillary Refill : Less Than 3 Seconds General Appearance: No Apparent Distress, Other (Nonresponsive) HEENT: Other (Keeps eyes closed) Neck: Normal Inspection Respiratory: No Accessory Muscle Use, No Respiratory Distress, Decreased Breath Sounds Cardiovascular: Regular Rate, Rhythm, No Murmur Gastrointestinal: non tender, soft Results Lab Laboratory Tests 07/03/18 19:00 07/04/18 00:33 Laboratory Tests 07/03/18 10:59: Glucometer 114H 07/03/18 16:51: Glucometer 246H 07/03/18 18:45: Blood Gas Puncture Site RIGHT RADIAL, Blood Gas Patient Temperature 98.6, Arterial Blood pH 7.40, Arterial Blood Partial Pressure CO2 37, Arterial Blood Partial Pressure O2 90, Arterial Blood HCO3 22L, Arterial Blood Total CO2 23.5, Arterial Blood Oxygen Saturation 97, Arterial Blood Base Excess -1.8, Reid Test POSITIVE, Blood Gas Ventilator Setting NO, Blood Gas Inspired Oxygen 3L 07/03/18 19:00: White Blood Count 13.4H, Red Blood Count 3.96L, Hemoglobin 9.4L, Hematocrit 30L, Mean Corpuscular Volume 76L, Mean Corpuscular Hemoglobin 24L, Mean Corpuscular Hemoglobin Concent 31L, Red Cell Distribution Width 16.7H, Platelet Count 354, Mean Platelet Volume 10.4, Neutrophils (%) (Auto) 93H, Lymphocytes (%) (Auto) 3L , Monocytes (%) (Auto) 4, Eosinophils (%) (Auto) 0, Basophils (%) (Auto) 0, Neutrophils # (Auto) 12.4H, Lymphocytes # (Auto) 0.4L, Monocytes # (Auto) 0.6, Eosinophils # (Auto) 0.0, Basophils # (Auto) 0.0, Sodium Level 140, Potassium Level 4.6, Chloride Level 108H, Carbon Dioxide Level 20L, Anion Gap 12, Blood Urea Nitrogen 26H, Creatinine 1.22, Estimat Glomerular Filtration Rate 58, BUN/Creatinine Ratio 21, Glucose Level 224H, Lactic Acid Level 2.05*H, Calcium Level 9.0, Corrected Calcium 9.4, Total Bilirubin 0.4, Aspartate Amino Transf (AST/SGOT) 21, Alanine Aminotransferase (ALT/SGPT) 13, Alkaline Phosphatase 161H , B-Type Natriuretic Peptide 1719.9H, Total Protein 6.5, Albumin 3.5 07/03/18 20:54: Lactic Acid Level 1.70 07/03/18 22:07: Glucometer 200H 07/04/18 00:33: Lactic Acid Level 1.24, White Blood Count 13.6H, Red Blood Count 3.79L, Hemoglobin 8.9L, Hematocrit 28L, Mean Corpuscular Volume 75L, Mean Corpuscular Hemoglobin 24L, Mean Corpuscular Hemoglobin Concent 31L, Red Cell Distribution Width 16.2H, Platelet Count 307, Mean Platelet Volume 10.2, Neutrophils (%) (Auto) 86H, Lymphocytes (%) (Auto) 6L, Monocytes (%) (Auto) 7, Eosinophils (%) (Auto) 0, Basophils (%) (Auto) 0, Neutrophils # (Auto) 11.7H, Lymphocytes # (Auto) 0.9L, Monocytes # (Auto) 1.0, Eosinophils # (Auto) 0.0, Basophils # (Auto) 0.0, Sodium Level 142, Potassium Level 4.5, Chloride Level 111H, Carbon Dioxide Level 20L, Anion Gap 11, Blood Urea Nitrogen 30H, Creatinine 1.14, Estimat Glomerular Filtration Rate > 60, BUN/Creatinine Ratio 26, Glucose Level 143H, Calcium Level 8.6, Phosphorus Level 3.5, Magnesium Level 2.1 07/04/18 07:00: Blood Gas Puncture Site R RADIAL, Blood Gas Patient Temperature 100.1, Arterial Blood pH 7.39, Arterial Blood Partial Pressure CO2 36, Arterial Blood Partial Pressure O2 80, Arterial Blood HCO3 22L, Arterial Blood Total CO2 22.6, Arterial Blood Oxygen Saturation 95, Arterial Blood Base Excess -2.4, Reid Test YES-POS, Blood Gas Ventilator Setting NO, Blood Gas Inspired Oxygen 25% Microbiology Assessment/Plan Assessment/Plan Assess & Plan/Chief Complaint Fall. AMS. Elevated BNP. Elevated lactic acid. CVA on left last night. Bilateral pleural effusion. Pericardial effusion. Left rib pain history. Multiple falls. Diabetes. Peripheral vascular disease. Peripheral artery disease Clinical Quality Measures DVT/VTE Risk/Contraindication: Risk Factor Score Per Nursin RFS Level Per Nursing on Admit: 4+=Very High BRITTANY ARRIAGA DO July 04, 2018 07:48"
--- NOTE | 2018-07-04 09:21 | Progress Note-Cardiology ---
Cardiology SOAP Progress Note Subjective: Not able to provide any history. Verbally unresponsive Objective: I&O/Vital Signs 07/03/18 07/03/18 07/03/18 07/03/18 21:58 21:59 22:00 22:22 Temp 100.2 Pulse 63 Resp 28 B/P (MAP) 111/57 (75) Pulse Ox 99 97 O2 Delivery Vapotherm Vapotherm Vapotherm O2 Flow Rate 30.00 16.00 30.00 16.00 16.00 FiO2 30 07/03/18 07/04/18 07/04/18 07/04/18 23:00 00:00 00:09 01:00 Temp 100.4 Pulse 65 63 68 Resp 28 29 29 B/P (MAP) 137/65 (89) 157/70 (99) 136/84 (101) Pulse Ox 96 95 95 O2 Delivery Vapotherm Vapotherm Vapotherm O2 Flow Rate 30.00 30.00 30.00 16.00 16.00 16.00 07/04/18 07/04/18 07/04/18 07/04/18 01:00 01:59 02:00 03:00 Pulse 69 67 71 Resp 30 27 B/P (MAP) 146/73 (97) 140/63 (88) Pulse Ox 96 96 93 O2 Delivery Vapotherm Vapotherm Vapotherm O2 Flow Rate 16.00 30.00 30.00 16.00 16.00 FiO2 30 07/04/18 07/04/18 07/04/18 07/04/18 04:00 04:00 05:00 06:00 Temp 99.2 Pulse 64 62 62 Resp 23 24 24 B/P (MAP) 132/62 (85) 143/64 (90) 135/58 (83) Pulse Ox 98 97 98 O2 Delivery Vapotherm Vapotherm Vapotherm O2 Flow Rate 30.00 30.00 30.00 16.00 16.00 16.00 07/04/18 07/04/18 07/04/18 07/04/18 06:21 07:00 07:00 08:00 Pulse 70 67 62 Resp 28 25 B/P (MAP) 141/60 (87) 130/58 (82) Pulse Ox 96 93 93 O2 Delivery Vapotherm Vapotherm Vapotherm O2 Flow Rate 25.00 30.00 30.00 16.00 16.00 FiO2 25 07/04/18 07/04/18 08:04 09:00 Pulse 66 Resp 27 B/P (MAP) 127/51 (76) Pulse Ox 92 97 O2 Delivery NIV Bilevel Vapotherm O2 Flow Rate 30.00 16.00 FiO2 25 07/04/18 00:00 Intake Total 1100 ml Output Total 2120 ml Balance -1020 ml Weight (Pounds): 182 Weight (Ounces): 5.0 Weight (Calculated Kilograms): 82.146366 Constitutional: No AAO x 3; well-developed, other (thin-appearing) Respiratory: No accessory muscle use; other (fair air entry, but diminished at the bases; prolonged exp pase) Cardiovascular: regular rate-rhythm, S1 and S2, systolic murmur (2/6 JOY at c esther base) Gastrointestional: No tender; soft; No guarding, No rebound; audible bowel sounds Extremities: No clubbing, No cyanosis, No significant edema Neurologic/Psychiatric: No oriented x 3; other (not able to cooperate with a neuro exam; seems to move all limbs equally) Skin: No rash on exposed areas, No ulcerations on exposed areas; other (R great toe and L heel under dressing that were not removed) Results/Procedures: Labs Laboratory Tests 07/03/18 10:59: Glucometer 114H 07/03/18 16:51: Glucometer 246H 07/03/18 18:45: Blood Gas Puncture Site RIGHT RADIAL, Blood Gas Patient Temperature 98.6, Arterial Blood pH 7.40, Arterial Blood Partial Pressure CO2 37, Arterial Blood Partial Pressure O2 90, Arterial Blood HCO3 22L, Arterial Blood Total CO2 23.5, Arterial Blood Oxygen Saturation 97, Arterial Blood Base Excess -1.8, Reid Test POSITIVE, Blood Gas Ventilator Setting NO, Blood Gas Inspired Oxygen 3L 07/03/18 19:00: White Blood Count 13.4H, Red Blood Count 3.96L, Hemoglobin 9.4L, Hematocrit 30L, Mean Corpuscular Volume 76L, Mean Corpuscular Hemoglobin 24L, Mean Corpuscular Hemoglobin Concent 31L, Red Cell Distribution Width 16.7H, Platelet Count 354, Mean Platelet Volume 10.4, Neutrophils (%) (Auto) 93H, Lymphocytes (%) (Auto) 3L , Monocytes (%) (Auto) 4, Eosinophils (%) (Auto) 0, Basophils (%) (Auto) 0, Neutrophils # (Auto) 12.4H, Lymphocytes # (Auto) 0.4L, Monocytes # (Auto) 0.6, Eosinophils # (Auto) 0.0, Basophils # (Auto) 0.0, Sodium Level 140, Potassium Level 4.6, Chloride Level 108H, Carbon Dioxide Level 20L, Anion Gap 12, Blood Urea Nitrogen 26H, Creatinine 1.22, Estimat Glomerular Filtration Rate 58, BUN/Creatinine Ratio 21, Glucose Level 224H, Lactic Acid Level 2.05*H, Calcium Level 9.0, Corrected Calcium 9.4, Total Bilirubin 0.4, Aspartate Amino Transf (AST/SGOT) 21, Alanine Aminotransferase (ALT/SGPT) 13, Alkaline Phosphatase 161H , B-Type Natriuretic Peptide 1719.9H, Total Protein 6.5, Albumin 3.5 07/03/18 20:54: Lactic Acid Level 1.70 07/03/18 22:07: Glucometer 200H 07/04/18 00:33: Lactic Acid Level 1.24, White Blood Count 13.6H, Red Blood Count 3.79L, Hemoglobin 8.9L, Hematocrit 28L, Mean Corpuscular Volume 75L, Mean Corpuscular Hemoglobin 24L, Mean Corpuscular Hemoglobin Concent 31L, Red Cell Distribution Width 16.2H, Platelet Count 307, Mean Platelet Volume 10.2, Neutrophils (%) (Auto) 86H, Lymphocytes (%) (Auto) 6L, Monocytes (%) (Auto) 7, Eosinophils (%) (Auto) 0, Basophils (%) (Auto) 0, Neutrophils # (Auto) 11.7H, Lymphocytes # (Auto) 0.9L, Monocytes # (Auto) 1.0, Eosinophils # (Auto) 0.0, Basophils # (Auto) 0.0, Sodium Level 142, Potassium Level 4.5, Chloride Level 111H, Carbon Dioxide Level 20L, Anion Gap 11, Blood Urea Nitrogen 30H, Creatinine 1.14, Estimat Glomerular Filtration Rate > 60, BUN/Creatinine Ratio 26, Glucose Level 143H, Calcium Level 8.6, Phosphorus Level 3.5, Magnesium Level 2.1 07/04/18 07:00: Blood Gas Puncture Site R RADIAL, Blood Gas Patient Temperature 100.1, Arterial Blood pH 7.39, Arterial Blood Partial Pressure CO2 36, Arterial Blood Partial Pressure O2 80, Arterial Blood HCO3 22L, Arterial Blood Total CO2 22.6, Arterial Blood Oxygen Saturation 95, Arterial Blood Base Excess -2.4, Reid Test YES-POS, Blood Gas Ventilator Setting NO, Blood Gas Inspired Oxygen 25% Microbiology 07/02/18 Blood Culture - Preliminary, Resulted Corynebacterium species A/P: Assessment: Worsening acute mental status change and gen weakness and falls, being managed by Dr Cam Mildly elevated troponin, flat, probably due to chronic systolic CHF (type 2 [place]) Pericard eff, mod on CT of 07/02/18, mild on ech of 07/03/18, no clinical evidence of tamponade Pulmonary service has suspected PE. Pt currently on Lovenox ordered by Dr Oneill H/o dilated cardiomyopathy and chronic, systolic CHF. Last echo on 07/03/18: LVEF 35-40%, mild percard eff, pulm hypertension with RVSP 50 mmHg, apical akinesis, mod MR, mod to sev TR CAD: s/p PCI to LAD and LCX with CANELO on card cath of 07/15/2017 PAD. Multiple, bilateral SFA and distal leg arterial interventions by Dr Colvin in 2018. Continues with ischemic foot ulcers. Has had R little toe amputation. Last peripheral angio on 02/24/2018 that showed severe left SFA stenosis, mild to moderate in-stent restenosis in the distal SFA stent, noderate to severe stenosis distal to the distal SFA stent, subtotal occlusion of the ostium of the left anterior tibial artery as well as severe stenosis of the left tibioperoneal trunk. Successful left mid SFA stent. Successful balloon angioplasty to the left anterior tibial artery and left tibioperoneal trunk. Hypertension, by history Hyperlipidemia, by history DM II, insulin-requiring H/o sinus sherly on beta-blockers Plan: * Complex management due to multiple comorbidities * Continue ASA for CAD and PAD * Dr Cam managing mental status changes and falls * Dr Oneill managing pulmonary issues * Monitor labs RIGO HARE [facility] CCDS July 04, 2018 09:21
--- NOTE | 2018-07-04 10:29 | NUR ---
CM/SS spoke with patient's . She wanted to wait to ask questions they had until her children are back to the hospital, she stated that hard to talk after open heart surgery and vocal chord injury. Will check back in when rest of the family members are available.
[2018-07-04] MEDS ORDERED: GLYCOPYRROLATE 0.2 MG/ML (ROBINUL) 2 ML VIAL IV PRN (10:30)
[2018-07-04] MEDS ORDERED: SALIVA STIMULANT MOUTH SPRAY (BIOTENE) 1.5 OZ MM PRN (10:30)
[2018-07-04] MEDS ORDERED: BISACODYL 10 MG SUPP (DULCOLAX) PR PRN (10:30)
[2018-07-04] MEDS ORDERED: ONDANSETRON 4 MG/2 ML (SDV) Z0FRAN IVP PRN (10:30)
[2018-07-04] MEDS ORDERED: ACETAMINOPHEN 650 MG SUPP (TYLENOL) PR PRN (10:30)
[2018-07-04] MEDS ORDERED: PROMETHAZINE INJ 25 MG/ML (PHENERGAN) AMP IVP PRN (10:30)
[2018-07-04] MEDS ORDERED: SCOPOLAMINE 1.5 MG (TRANSDERM-SCOP) PATCH TOP SCH (10:30)
[2018-07-04] MEDS ORDERED: ARTIFICAL TEARS 0.4 ML UNIT DOSE (REFRESH PLUS) OU PRN (10:30)
[2018-07-04] MEDS ORDERED: RT-ALBUTEROL/IPRATROPIUM 3 ML (DUONEB) VIAL INH PRN (11:00)
--- NOTE | 2018-07-04 11:04 | NUR ---
PALLIATIVE CARE consult requested for goals of care discussion including hospice out of home. Patient has had an acute change in health in the last week. He has fallen a few times. Currently in the hospital p fall and change of mental status. Had elevated troponin and Acute heart failure and renal failure and it has since been discovered that he has had a subacute stoke with loss of ability to swallow/kimmie and possible right side deficit. THis RN had 45 minute discussion with the family. Ultimate decision is made for [facility] with the reasoning of "he never wanted to live like this". I called and spoke to Mai receiving orders for [facility] and also Dr. Cottrell. Orders entered by this RN and Salud WALL aware.
[2018-07-04] MEDS: ASPIRIN 81 MG CHEW (CHILDREN'S ASA) PO SCH (11:18)
[2018-07-04] MEDS: LORazepam INJ 2 MG/ML (ATIVAN) VIAL IVP PRN ×2 (11:50→14:24)
--- NOTE | 2018-07-04 13:18 | NUR ---
CM/SS spoke with the patient's and step-daughter. The patient apparently has not had a relationship with his children for 20+ years, though has been close with the 's children. Discussed NH facilities available and encouraged them to stop in to see them and get more information if able to. Discussed medicaid process and application. Family stated that they would like [facility] at discharge. Family stated that will see how patient does on oxygen for a day and let other family arrive before taking oxygen off or making other comfort moves. Will re-visit with the family on selection of NH facility and then send referral for acceptance at that time.
[2018-07-04] MEDS: morphine INJ 4 MG/ML 1 ML (VIAL/SYRINGE) IV PRN (14:25)
--- NOTE | 2018-07-04 14:40 | NUR ---
Report given to MAE Lange
--- NOTE | 2018-07-04 14:45 | NUR ---
REPORT RECEIVED FROM MAE BUCHANAN. WILL ASSUME CARE OF PT WHEN ARRIVES TO FLOOR.
--- NOTE | 2018-07-04 14:55 | NUR ---
PT ARRIVED TO FLOOR VIA PT BED WITH PCT AND RN AT SIDE. PT APPEARS IN NO ACUTE DISTRESS, RESTING COMFORTABLY WITH EYES CLOSED. 3LNC IN PLACE. CROFT DRAINING TO DEPENDENT DRAINAGE. PT IS COMFORT CARE ONLY. FAMILY IS AT BEDSIDE AND WAS ORIENTED TO ROOM AND CALL LIGHT.
[2018-07-05] MEDS ORDERED: VANCOMYCIN 1250 MG/NS 250 ML IVPB IV SCH ×2 (07:30)
--- NOTE | 2018-07-05 07:59 | Progress Note (SOAP) ---
Subjective Time Seen by a Provider: 07:56 Subjective/Events-last exam Nonresponsive. Patient had a stroke. Patient. comfort care. Blood cultures positive Focused Exam Lactate Level 07/03/18 19:00: Lactic Acid Level 2.05*H 07/03/18 20:54: Lactic Acid Level 1.70 07/04/18 00:33: Lactic Acid Level 1.24 Objective Exam Vital Signs Date Time Temp Pulse Resp B/P (MAP) Pulse Ox O2 Delivery O2 Flow Rate FiO2 07/04/18 20:00 98 Nasal Cannula 2.00 07/04/18 19:40 99.0 63 22 121/57 (78) 100 Nasal Cannula 3.00 07/04/18 13:01 73 07/04/18 12:00 71 24 Nasal Cannula 3.00 07/04/18 11:00 68 27 157/68 (97) 98 Nasal Cannula 3.00 07/04/18 10:00 68 28 140/60 (86) 95 Vapotherm 30.00 16.00 07/04/18 09:00 66 27 127/51 (76) 97 Vapotherm 30.00 16.00 07/04/18 08:04 92 NIV Bilevel 25 07/04/18 08:00 62 25 130/58 (82) 93 Vapotherm 30.00 16.00 I & O 07/05/18 07:00 Intake Total 1000 ml Output Total 585 ml Balance 415 ml Capillary Refill : Less Than 3 Seconds General Appearance: Other (Patient does not respond to pain.Patient nonresponsive. Comfort care) Results Lab Microbiology 07/03/18 Blood Culture - Preliminary, Resulted No growth Assessment/Plan Assessment/Plan Assess & Plan/Chief Complaint Fall. AMS. Elevated BNP. Elevated lactic acid. CVA on left last night. Bilateral pleural effusion. Pericardial effusion. Left rib pain history. Multiple falls. Diabetes. Peripheral vascular disease. Peripheral artery disease. . 07/05/18. Patient nonresponsive. Patient had a stroke. Patient comfort care. Patient worse today Clinical Quality Measures DVT/VTE Risk/Contraindication: Risk Factor Score Per Nursin RFS Level Per Nursing on Admit: 4+=Very High BRITTANY ARRIAGA DO July 05, 2018 07:59
--- NOTE | 2018-07-05 08:10 | Pulmonary Progress Note ---
Subjective Time Seen by a Provider: 08:09 Subjective/Events-last exam Pt is now comfort measures only per family request. Sepsis Event Evaluation Height, Weight, BMI Height: 5'7.00" Weight: 182lbs. 0.1oz. 82.427357xb; 28.5 BMI Method:Stated Focused Exam Lactate Level 07/03/18 19:00: Lactic Acid Level 2.05*H 07/03/18 20:54: Lactic Acid Level 1.70 07/04/18 00:33: Lactic Acid Level 1.24 Exam Exam Vital Signs Date Time Temp Pulse Resp B/P (MAP) Pulse Ox O2 Delivery O2 Flow Rate FiO2 07/04/18 20:00 98 Nasal Cannula 2.00 07/04/18 19:40 99.0 63 22 121/57 (78) 100 Nasal Cannula 3.00 07/04/18 13:01 73 07/04/18 12:00 71 24 Nasal Cannula 3.00 07/04/18 11:00 68 27 157/68 (97) 98 Nasal Cannula 3.00 07/04/18 10:00 68 28 140/60 (86) 95 Vapotherm 30.00 16.00 07/04/18 09:00 66 27 127/51 (76) 97 Vapotherm 30.00 16.00 I & O 07/05/18 07:00 Intake Total 1000 ml Output Total 585 ml Balance 415 ml Height & Weight Height: 5'7.00" Weight: 182lbs. 0.1oz. 82.210256tz; 28.5 BMI Method:Stated General Appearance: Other (unrespoinsive) HEENT: Normal ENT Inspection, Pharynx Normal Neck: Full Range of Motion, Normal Inspection, Non Tender Respiratory: Chest Non Tender, Accessory Muscle Use, Decreased Breath Sounds Cardiovascular: Regular Rate, Rhythm, No Edema, No Gallop, No JVD, No Murmur, Normal Peripheral Pulses Capillary Refill: Less Than 3 Seconds Gastrointestinal: normal bowel sounds, non tender, soft, no organomegaly, no pulsatile mass, hernia (umbilical hernia - incarcerated ) Extremity: Normal Capillary Refill, Normal Inspection, Normal Range of Motion, Non Tender, No Calf Tenderness, No Pedal Edema Neurologic/Psychiatric: Alert, Disoriented, Motor Weakness (left sided paralysis ) Skin: Normal Color, Warm/Dry, Other (dressings on foot intact) Lymphatic: No Adenopathy Results Lab Laboratory Tests 07/03/18 19:00 07/04/18 00:33 Assessment/Plan Assessment/Plan Acute respiratory distress last night Leukocytosis Subacute CVA - with new onset left sided flaccid paralysis NSTEMI CHFAE with pulmonary edema Small Pericardial effusion - MS changes/metabolic encephalopathy Leukocytosis -Orantes culture -Check UA Confusion/MS changes Multiple falls debility PT is now comfort measures only. I am going to sign off. Please call with any questions or concerns. BETTY CONN DO July 05, 2018 08:10
--- NOTE | 2018-07-05 08:50 | NUR ---
FAMILY REQUESTING OXYGEN BE REMOVED FROM PT. 1LNC OXYGEN REMOVED AT THIS TIME. RT NOTIFIED. FAMILY AT BEDSIDE
--- NOTE | 2018-07-05 09:10 | NUR ---
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 PT IS RESTING IN BED WITH NO GRIMACING. FAMILY AT BEDSIDE. ORAL CARE PROVIDED. ASKED FAMILY TO LET STAFF REPOSITION PT AND FAMILY DECLINED.
[2018-07-05] MEDS: morphine INJ 4 MG/ML 1 ML (VIAL/SYRINGE) IV PRN ×3 (09:12→16:20)
--- NOTE | 2018-07-05 10:57 | Progress Note-Cardiology ---
Cardiology SOAP Progress Note Subjective: Unresponsive. No visible signs of distress Objective: I&O/Vital Signs 07/05/18 09:00 O2 Delivery Nasal Cannula O2 Flow Rate 1.00 07/05/18 00:00 Intake Total 1000 ml Output Total 435 ml Balance 565 ml Weight (Pounds): 182 Weight (Ounces): 0.1 Weight (Calculated Kilograms): 82.678723 Constitutional: No AAO x 3; well-developed, other (thin-appearing) Respiratory: No accessory muscle use; other (fair air entry, but diminished at the bases; prolonged exp pase) Cardiovascular: regular rate-rhythm, S1 and S2, systolic murmur (2/6 JOY at card base) Gastrointestional: No tender; soft; No guarding, No rebound; audible bowel sounds Extremities: No clubbing, No cyanosis, No significant edema Neurologic/Psychiatric: No oriented x 3; other (not able to cooperate with a neuro exam; seems to move all limbs equally) Skin: No rash on exposed areas, No ulcerations on exposed areas; other (R great toe and L heel under dressing that were not removed) Results/Procedures: Labs Microbiology 07/03/18 Blood Culture - Preliminary, Resulted Positive; See Report A/P: Assessment: Subacute, R occipital CVA and L-sided paralysis and unresponsiveness, managed by the Med Sve Mildly elevated troponin, flat, probably due to chronic systolic CHF (type 2 [place]) Pericard eff, mod on CT of 07/02/18, mild on ech of 07/03/18, no clinical evidence of tamponade H/o dilated cardiomyopathy and chronic, systolic CHF. Last echo on 07/03/18: LVEF 35-40%, mild percard eff, pulm hypertension with RVSP 50 mmHg, apical akinesis, mod MR, mod to sev TR CAD: s/p PCI to LAD and LCX with CANELO on card cath of 07/15/2017 PAD. Multiple, bilateral SFA and distal leg arterial interventions by Dr Colvin in 2018. Continues with ischemic foot ulcers. Has had R little toe amputation. Last peripheral angio on 02/24/2018 that showed severe left SFA stenosis, mild to moderate in-stent restenosis in the distal SFA stent, noderate to severe stenosis distal to the distal SFA stent, subtotal occlusion of the ostium of the left anterior tibial artery as well as severe stenosis of the left tibioperoneal trunk. Successful left mid SFA stent. Successful balloon angioplasty to the left anterior tibial artery and left tibioperoneal trunk. Hypertension, by history Hyperlipidemia, by history DM II, insulin-requiring H/o sinus sherly on beta-blockers Plan: * Complex management due to multiple comorbidities * Decreased mental status * Family has chosen comfort care Physician Assessment Physician Assessment Unresponsive. by bedside Cor: reg Lungs: decreased bs at bases Ext: no c/c/e Neuro: unresponsive A&R * As documented in our note above that I updated (italics) and as noted below * I had a detailed discussion with his . She states pt had desired DNR status in situations like the one he is currently in. She has requested comfort care only. This seems reasonable, given poor prognosis * We will sign off. Please recall, if needed OLAYINKA LOYA [employer] July 05, 2018 10:57 RIGO HARE MD FACP FAC CCDS July 05, 2018 14:18
--- NOTE | 2018-07-05 14:18 | NUR ---
CM/SS spoke with the patient's . Patient is now off of oxygen and they just want comfort measures for him. Patient's family will let staff know if they need anything. Will continue to follow.
--- NOTE | 2018-07-05 14:46 | NUR ---
Sole Cutter visit with Jossy at pt's bedside. Jossy shared that when she had surgery a month ago, she and the pt promised each other they would not "watch each other ." She told him that he could go to [facility] and that she would be alright, that she had her children and grandchildren with her. Pt and Jossy have been approx. 20 years, and both have children from previous marriages. Jossy said that the pt's children ceased contact with him after they , and the pt was not going to tell his children about his terminal illness. Pt's and step daughter decided to contact his children out of kindness, so they have opportunity to say goodbye.
--- NOTE | 2018-07-06 07:57 | Progress Note (SOAP) ---
Subjective Time Seen by a Provider: 07:51 Subjective/Events-last exam Patient nonresponsive. Patient does not respond to pain stimuli. Patient comfort care as per family's wishes. Acute CVA. Acute respiratory distress. Leukocytosis. Pericardial effusion. Confusion. Mental status change. Multiple falls. Positive blood cultures. Elevated troponin Focused Exam Lactate Level 07/03/18 19:00: Lactic Acid Level 2.05*H 07/03/18 20:54: Lactic Acid Level 1.70 07/04/18 00:33: Lactic Acid Level 1.24 Objective Exam Vital Signs Date Time Temp Pulse Resp B/P (MAP) Pulse Ox O2 Delivery O2 Flow Rate FiO2 07/05/18 20:44 Room Air 07/05/18 09:00 Nasal Cannula 1.00 I & O 07/06/18 07:00 Intake Total 1000 ml Output Total 350 ml Balance 650 ml Capillary Refill : Less Than 3 Seconds General Appearance: No Apparent Distress, Other (Patient unresponsive and does not respond to pain stimuli) Results Lab Microbiology 07/03/18 Blood Culture - Preliminary, Resulted Positive; See Report Assessment/Plan Assessment/Plan Assess & Plan/Chief Complaint Fall. AMS. Elevated BNP. Elevated lactic acid. CVA on left last night. Bilateral pleural effusion. Pericardial effusion. Left rib pain history. Multiple falls. Diabetes. Peripheral vascular disease. Peripheral artery disease. . 07/05/18. Patient nonresponsive. Patient had a stroke. Patient comfort care. Patient worse today. . 07/06/18 acute CVA. Leukocytosis. Pericardial effusion. Diabetes. Mental status change. Patient comfort care. Confusion. Positive blood cultures. Elevated troponin. Patient getting more fragile Clinical Quality Measures DVT/VTE Risk/Contraindication: Risk Factor Score Per Nursin RFS Level Per Nursing on Admit: 4+=Very High BRITTANY ARRIAGA DO July 06, 2018 07:57
[2018-07-06] MEDS ORDERED: morphine (ROXINOL) 10 MG/0.5 ML oral conc 0.5 ML PO PRN ×2 (09:15→14:15)
[2018-07-06] MEDS ORDERED: ATROPINE 1% OPHTHALMIC SOLN 2 ML SL PRN (09:15)
--- NOTE | 2018-07-06 10:55 | NUR ---
PALLIATIVE CARE RN in to see the patient. He is CCMO since Wednesday. He is no longer on O2 and has very juicy breath sounds. Atropine is being given and not being hugely effective. Respiratory rate near 40at times. Education to RN to give comfort med of Morphine or Ativan when respiration near 25 or if he is noted to have furrowing of his brows more that his usual. I have asked that the aides complete frequent oral care due. Lots of education to family on progression of the dying process and what to expect over the next days. Noted his ears to be thinning but expect passing in 24 to 48 hours.
--- NOTE | 2018-07-06 15:16 | NUR ---
PT AT 1516. DR ARRIAGA NOTIFIED VIA PHONE. FAMILY AT BEDSIDE. PASTORAL CARE PRESENT. FAMILY HAS CHOSEN [facility] FOR ARRANGEMENTS.
--- NOTE | 2018-07-06 15:20 | NUR ---
TOD visit to provide emotional support and healing ritual.
--- NOTE | 2018-07-06 16:24 | NUR ---
PT TAKEN BY [facility] [facility] [employer] AT THIS TIME. DENTURES SENT WITH.
[2018-07-07] MEDS ORDERED: TROUGH ORDER-PHARMACY XX NR (06:30)
--- NOTE | 2018-07-07 07:35 | Discharge Summary ---
Diagnosis/Chief Complaint Date of Admission July 02, 2018 at 18:30 Date of Discharge July 06, 2018 at 15:16 Discharge Time: 07:30 Discharge Diagnosis Multiple falls. Head trauma. Acute mental status change. Elevated troponin. Anemia. Coronary artery disease. Elevated troponin type II. Congestive heart failure. Bilateral pleural effusion. Nonresponsive. Pulmonary infiltrates. Diabetes. Confusion. Osteomyelitis of foot. DO NOT RESUSCITATE. Comfort care. Left sided hearing with plegia. Cerebrovascular accident. Pericardial effusion. Myocardial infarction type II pulmonary hypertension. Diabetic neuropathy. Acute mental status change Discharge Summary Consultations Cardiology. Pulmonology. Surgery Discharge Physical Examination Allergies: Coded Allergies: No Known Drug Allergies (Unverified , 02/24/18) Vitals & I&Os Vital Signs Date Time Temp Pulse Resp B/P (MAP) Pulse Ox O2 Delivery O2 Flow Rate FiO2 07/06/18 09:00 Room Air 07/05/18 09:00 1.00 07/04/18 20:00 98 07/04/18 19:40 99.0 63 22 121/57 (78) 07/04/18 08:04 25 Hospital Course Patient had an acute CVA left side. Family wanted a DO NOT RESUSCITATE. Family wanted comfort measures Labs (last 24 hrs) Laboratory Tests 07/02/18 12:18: White Blood Count 8.6, Red Blood Count 3.60L, Hemoglobin 8.5L, Hematocrit 27L, Mean Corpuscular Volume 76L, Mean Corpuscular Hemoglobin 24L, Mean Corpuscular Hemoglobin Concent 31L, Red Cell Distribution Width 15.9H, Platelet Count 308, Mean Platelet Volume 10.1, Neutrophils (%) (Auto) 78H, Lymphocytes (%) (Auto) 14, Monocytes (%) (Auto) 8, Eosinophils (%) (Auto) 0, Basophils (%) (Auto) 0, Neutrophils # (Auto) 6.7, Lymphocytes # (Auto) 1.2, Monocytes # (Auto) 0.7, Eosinophils # (Auto) 0.0, Basophils # (Auto) 0.0, Prothrombin Time 19.0H, INR Comment 1.5H, Activated Partial Thromboplast Time 37H, Sodium Level 139, Potassium Level 4.2, Chloride Level 107, Carbon Dioxide Level 21, Anion Gap 11, Blood Urea Nitrogen 24H, Creatinine 1.01, Estimat Glomerular Filtration Rate > 60, BUN/Creatinine Ratio 24, Glucose Level 122H, Lactic Acid Level 0.94, Calcium Level 8.6, Corrected Calcium 9.2, Magnesium Level 1.8, Total Bilirubin 0.6, Aspartate Amino Transf (AST/SGOT) 17, Alanine Aminotransferase (ALT/SGPT) 14, Alkaline Phosphatase 146H, Total Creatine Kinase 46, Creatine Kinase MB 2.7, Myoglobin 151.1H, Troponin I 1.576*H, Total Protein 5.9L, Albumin 3.2, TSH Hudspeth Testing 2.36, Serum Alcohol < 10 07/02/18 12:20: Urine Color YELLOW, Urine Clarity VERY CLOUDYH, Urine pH 5, Urine Specific [place] 1.020, Urine Protein 3+H, Urine Glucose (UA) NEGATIVE, Urine Ketones NEGATIVE, Urine Nitrite NEGATIVE, Urine Bilirubin NEGATIVE, Urine Urobilinogen NORMAL, Urine Leukocyte Esterase 1+H, Urine RBC (Auto) 3+H, Urine RBC 2-5H, Urine WBC 0-2, Urine Squamous Epithelial Cells 5-10, Urine Crystals PRESENTH, Urine Amorphous Sediment FEW MARI URATESH, Urine Bacteria NEGATIVE, Urine Casts NONE, Urine Mucus SMALLH, Urine Culture Indicated NO 07/02/18 16:18: Troponin I 1.603*H 07/02/18 22:09: Glucometer 72 07/03/18 03:00: White Blood Count 12.7H, Red Blood Count 3.70L, Hemoglobin 8.8L, Hematocrit 28L, Mean Corpuscular Volume 75L, Mean Corpuscular Hemoglobin 24L, Mean Corpuscular Hemoglobin Concent 32, Red Cell Distribution Width 16.5H, Platelet Count 334, Mean Platelet Volume 10.3, Neutrophils (%) (Auto) 90H, Lymphocytes (%) (Auto) 4L , Monocytes (%) (Auto) 6, Eosinophils (%) (Auto) 0, Basophils (%) (Auto) 0, Neutrophils # (Auto) 11.4H, Lymphocytes # (Auto) 0.5L, Monocytes # (Auto) 0.8, Eosinophils # (Auto) 0.0, Basophils # (Auto) 0.0, Neutrophils % (Manual) 90, Lymphocytes % (Manual) 4, Monocytes % (Manual) 6, Hypochromasia MARKED, Anisocytosis SLIGHT, Microcytosis SLIGHT, Acanthocytes MARKED, Sodium Level 142, Potassium Level 3.9, Chloride Level 109H, Carbon Dioxide Level 21, Anion Gap 12, Blood Urea Nitrogen 20H, Creatinine 0.88, Estimat Glomerular Filtration Rate > 60, BUN/Creatinine Ratio 23, Glucose Level 98, Calcium Level 8.6, Corrected Calcium 9.2, Total Bilirubin 0.5, Aspartate Amino Transf (AST/SGOT) 15, Alanine Aminotransferase (ALT/SGPT) 11, Alkaline Phosphatase 151H, B-Type Natriuretic Peptide 1293.2H, Total Protein 6.0L, Albumin 3.3 07/03/18 10:59: Glucometer 114H 07/03/18 16:51: Glucometer 246H 07/03/18 18:45: Blood Gas Puncture Site RIGHT RADIAL, Blood Gas Patient Temperature 98.6, Arterial Blood pH 7.40, Arterial Blood Partial Pressure CO2 37, Arterial Blood P artial Pressure O2 90, Arterial Blood HCO3 22L, Arterial Blood Total CO2 23.5, Arterial Blood Oxygen Saturation 97, Arterial Blood Base Excess -1.8, Reid Test POSITIVE, Blood Gas Ventilator Setting NO, Blood Gas Inspired Oxygen 3L 07/03/18 19:00: White Blood Count 13.4H, Red Blood Count 3.96L, Hemoglobin 9.4L, Hematocrit 30L, Mean Corpuscular Volume 76L, Mean Corpuscular Hemoglobin 24L, Mean Corpuscular Hemoglobin Concent 31L, Red Cell Distribution Width 16.7H, Platelet Count 354, Mean Platelet Volume 10.4, Neutrophils (%) (Auto) 93H, Lymphocytes (%) (Auto) 3L , Monocytes (%) (Auto) 4, Eosinophils (%) (Auto) 0, Basophils (%) (Auto) 0, Neutrophils # (Auto) 12.4H, Lymphocytes # (Auto) 0.4L, Monocytes # (Auto) 0.6, Eosinophils # (Auto) 0.0, Basophils # (Auto) 0.0, Sodium Level 140, Potassium Level 4.6, Chloride Level 108H, Carbon Dioxide Level 20L, Anion Gap 12, Blood Urea Nitrogen 26H, Creatinine 1.22, Estimat Glomerular Filtration Rate 58, BUN/Creatinine Ratio 21, Glucose Level 224H, Lactic Acid Level 2.05*H, Calcium Level 9.0, Corrected Calcium 9.4, Total Bilirubin 0.4, Aspartate Amino Transf (AST/SGOT) 21, Alanine Aminotransferase (ALT/SGPT) 13, Alkaline Phosphatase 161H , B-Type Natriuretic Peptide 1719.9H, Total Protein 6.5, Albumin 3.5 07/03/18 20:54: Lactic Acid Level 1.70 07/03/18 22:07: Glucometer 200H 07/04/18 00:33: White Blood Count 13.6H, Red Blood Count 3.79L, Hemoglobin 8.9L, Hematocrit 28L, Mean Corpuscular Volume 75L, Mean Corpuscular Hemoglobin 24L, Mean Corpuscular Hemoglobin Concent 31L, Red Cell Distribution Width 16.2H, Platelet Count 307, Mean Platelet Volume 10.2, Neutrophils (%) (Auto) 86H, Lymphocytes (%) (Auto) 6L , Monocytes (%) (Auto) 7, Eosinophils (%) (Auto) 0, Basophils (%) (Auto) 0, Neutrophils # (Auto) 11.7H, Lymphocytes # (Auto) 0.9L, Monocytes # (Auto) 1.0, Eosinophils # (Auto) 0.0, Basophils # (Auto) 0.0, Sodium Level 142, Potassium Level 4.5, Chloride Level 111H, Carbon Dioxide Level 20L, Anion Gap 11, Blood Urea Nitrogen 30H, Creatinine 1.14, Estimat Glomerular Filtration Rate > 60, BUN/Creatinine Ratio 26, Glucose Level 143H, Lactic Acid Level 1.24, Calcium Level 8.6, Phosphorus Level 3.5, Magnesium Level 2.1 07/04/18 07:00: Blood Gas Puncture Site R RADIAL, Blood Gas Patient Temperature 100.1, Arterial Blood pH 7.39, Arterial Blood Partial Pressure CO2 36, Arterial Blood Partial Pressure O2 80, Arterial Blood HCO3 22L, Arterial Blood Total CO2 22.6, Arterial Blood Oxygen Saturation 95, Arterial Blood Base Excess -2.4, Reid Test YES-POS, Blood Gas Ventilator Setting NO, Blood Gas Inspired Oxygen 25% Microbiology 07/03/18 Blood Culture - Preliminary, Resulted Positive; See Report Laboratory Tests 07/02/18 12:18 07/03/18 03:00 07/03/18 19:00 07/04/18 00:33 Pending Labs Microbiology Date/Time Source Procedure Growth Status 07/03/18 19:03 Peripheral Lt Ac Blood Culture - Preliminary Positive; See Report Resulted 07/03/18 19:00 Peripheral Rt Forearm Blood Culture - Preliminary Positive; See Report Resulted 07/02/18 13:04 Peripheral Rt Ac Blood Culture - Preliminary Corynebacterium species Resulted 07/02/18 12:18 Peripheral Lt Ac Blood Culture - Preliminary Corynebacterium species Resulted Laboratory Tests 07/02/18 12:18: White Blood Count 8.6, Red Blood Count 3.60, Hemoglobin 8.5, Hematocrit 27, Mean Corpuscular Volume 76, Mean Corpuscular Hemoglobin 24, Mean Corpuscular Hemogl obin Concent 31, Red Cell Distribution Width 15.9, Platelet Count 308, Mean Platelet Volume 10.1, Neutrophils (%) (Auto) 78, Lymphocytes (%) (Auto) 14, Monocytes (%) (Auto) 8, Eosinophils (%) (Auto) 0, Basophils (%) (Auto) 0, Neutrophils # (Auto) 6.7, Lymphocytes # (Auto) 1.2, Monocytes # (Auto) 0.7, Eosinophils # (Auto) 0.0, Basophils # (Auto) 0.0, Prothrombin Time 19.0, INR Comment 1.5, Activated Partial Thromboplast Time 37, Sodium Level 139, Potassium Level 4.2, Chloride Level 107, Carbon Dioxide Level 21, Anion Gap 11, Blood Urea Nitrogen 24, Creatinine 1.01, Estimat Glomerular Filtration Rate > 60, BUN/Creatinine Ratio 24, Glucose Level 122, Lactic Acid Level 0.94, Calcium Level 8.6, Corrected Calcium 9.2, Magnesium Level 1.8, Total Bilirubin 0.6, Aspartate Amino Transf (AST/SGOT) 17, Alanine Aminotransferase (ALT/SGPT) 14, Alkaline Phosphatase 146, Total Creatine Kinase 46, Creatine Kinase MB 2.7, Myoglobin 151.1, Troponin I 1.576, Total Protein 5.9, Albumin 3.2, TSH Hudspeth Testing 2.36, Serum Alcohol < 10 07/02/18 12:20: Urine Color YELLOW, Urine Clarity VERY CLOUDY, Urine pH 5, Urine Specific [place] 1.020, Urine Protein 3+, Urine Glucose (UA) NEGATIVE, Urine Ketones NEGATIVE, Urine Nitrite NEGATIVE, Urine Bilirubin NEGATIVE, Urine Urobilinogen NORMAL, Urine Leukocyte Esterase 1+, Urine RBC (Auto) 3+, Urine RBC 2-5, Urine WBC 0-2, Urine Squamous Epithelial Cells 5-10, Urine Crystals PRESENT, Urine Amorphous Sediment FEW MARI URATES, Urine Bacteria NEGATIVE, Urine Casts NONE, Urine Mucus SMALL, Urine Culture Indicated NO 07/02/18 16:18: Troponin I 1.603 07/02/18 22:09: Glucometer 72 07/03/18 03:00: White Blood Count 12.7, Red Blood Count 3.70, Hemoglobin 8.8, Hematocrit 28, Mean Corpuscular Volume 75, Mean Corpuscular Hemoglobin 24, Mean Corpuscular Hemoglobin Concent 32, Red Cell Distribution Width 16.5, Platelet Count 334, Mean Platelet Volume 10.3, Neutrophils (%) (Auto) 90, Lymphocytes (%) (Auto) 4, Monocytes (%) (Auto) 6, Eosinophils (%) (Auto) 0, Basophils (%) (Auto) 0, Neutrophils # (Auto) 11.4, Lymphocytes # (Auto) 0.5, Monocytes # (Auto) 0.8, Eosinophils # (Auto) 0.0, Basophils # (Auto) 0.0, Neutrophils % (Manual) 90, Lymphocytes % (Manual) 4, Monocytes % (Manual) 6, Hypochromasia MARKED, Anisocytosis SLIGHT, Microcytosis SLIGHT, Acanthocytes MARKED, Sodium Level 142, Potassium Level 3.9, Chloride Level 109, Carbon Dioxide Level 21, Anion Gap 12, Blood Urea Nitrogen 20, Creatinine 0.88, Estimat Glomerular Filtration Rate > 60, BUN/Creatinine Ratio 23, Glucose Level 98, Calcium Level 8.6, Corrected Calcium 9.2, Total Bilirubin 0.5, Aspartate Amino Transf (AST/SGOT) 15, Alanine Aminotransferase (ALT/SGPT) 11, Alkaline Phosphatase 151, B-Type Natriuretic Peptide 1293.2, Total Protein 6.0, Albumin 3.3 07/03/18 10:59: Glucometer 114 07/03/18 16:51: Glucometer 246 07/03/18 18:45: Blood Gas Puncture Site RIGHT RADIAL, Blood Gas Patient Temperature 98.6, Arterial Blood pH 7.40, Arterial Blood Partial Pressure CO2 37, Arterial Blood Partial Pressure O2 90, Arterial Blood HCO3 22, Arterial Blood Total CO2 23.5, Arterial Blood Oxygen Saturation 97, Arterial Blood Base Excess -1.8, Reid Test POSITIVE, Blood Gas Ventilator Setting NO, Blood Gas Inspired Oxygen 3L 07/03/18 19:00: White Blood Count 13.4, Red Blood Count 3.96, Hemoglobin 9.4, Hematocrit 30, Mean Corpuscular Volume 76, Mean Corpuscular Hemoglobin 24, Mean Corpuscular Hemoglobin Concent 31, Red Cell Distribution Width 16.7, Platelet Count 354, Mean Platelet Volume 10.4, Neutrophils (%) (Auto) 93, Lymphocytes (%) (Auto) 3, Monocytes (%) (Auto) 4, Eosinophils (%) (Auto) 0, Basophils (%) (Auto) 0, Neutrophils # (Auto) 12.4, Lymphocytes # (Auto) 0.4, Monocytes # (Auto) 0.6, Eosinophils # (Auto) 0.0, Basophils # (Auto) 0.0, Sodium Level 140, Potassium Level 4.6, Chloride Level 108, Carbon Dioxide Level 20, Anion Gap 12, Blood Urea Nitrogen 26, Creatinine 1.22, Estimat Glomerular Filtration Rate 58, BU N/Creatinine Ratio 21, Glucose Level 224, Lactic Acid Level 2.05, Calcium Level 9.0, Corrected Calcium 9.4, Total Bilirubin 0.4, Aspartate Amino Transf (AST/SGOT) 21, Alanine Aminotransferase (ALT/SGPT) 13, Alkaline Phosphatase 161, B-Type Natriuretic Peptide 1719.9, Total Protein 6.5, Albumin 3.5 07/03/18 20:54: Lactic Acid Level 1.70 07/03/18 22:07: Glucometer 200 07/04/18 00:33: White Blood Count 13.6, Red Blood Count 3.79, Hemoglobin 8.9, Hematocrit 28, Mean Corpuscular Volume 75, Mean Corpuscular Hemoglobin 24, Mean Corpuscular Hemoglobin Concent 31, Red Cell Distribution Width 16.2, Platelet Count 307, Mean Platelet Volume 10.2, Neutrophils (%) (Auto) 86, Lymphocytes (%) (Auto) 6, Monocytes (%) (Auto) 7, Eosinophils (%) (Auto) 0, Basophils (%) (Auto) 0, Neutrophils # (Auto) 11.7, Lymphocytes # (Auto) 0.9, Monocytes # (Auto) 1.0, Eosinophils # (Auto) 0.0, Basophils # (Auto) 0.0, Sodium Level 142, Potassium Level 4.5, Chloride Level 111, Carbon Dioxide Level 20, Anion Gap 11, Blood Urea Nitrogen 30, Creatinine 1.14, Estimat Glomerular Filtration Rate > 60, BUN/Creatinine Ratio 26, Glucose Level 143, Lactic Acid Level 1.24, Calcium Level 8.6, Phosphorus Level 3.5, Magnesium Level 2.1 07/04/18 07:00: Blood Gas Puncture Site R RADIAL, Blood Gas Patient Temperature 100.1, Arterial Blood pH 7.39, Arterial Blood Partial Pressure CO2 36, Arterial Blood Partial Pressure O2 80, Arterial Blood HCO3 22, Arterial Blood Total CO2 22.6, Arterial Blood Oxygen Saturation 95, Arterial Blood Base Excess -2.4, Reid Test YES-POS, Blood Gas Ventilator Setting NO, Blood Gas Inspired Oxygen 25% Discussion & Recommendations Family wanted comfort measures. Family new patient would never want that one shelter Discharge Home Medications: Active Scripts Active Reported Minocycline HCl 100 Mg Capsule 100 Mg PO TID Metronidazole 500 Mg Tablet 500 Mg PO BID Gabapentin 300 Mg Capsule 300 Mg PO HS Lisinopril 5 Mg Tablet 5 Mg PO DAILY Doxycycline Monohydrate 100 Mg Capsule 100 Mg PO BID Betadine (Povidone-Iodine) 3,780 Ml Solution TP BID [Hysept 0.25% Patch] TOP Q48H Furosemide 20 Mg Tablet 20 Mg PO DAILY Novolog (Insulin Aspart) 100 Unit/1 Ml Susp 3-9 Unit SQ AC USES OWN SLIDING SCALE Levemir (Insulin Determir) 1,000 Units/10 Ml Soln 21 Units SQ DAILY Atorvastatin Calcium 40 Mg Tablet 40 Mg PO HS Pantoprazole Sodium 40 Mg Tablet.dr 40 Mg PO DAILY Aspir 81 (Aspirin) 81 Mg Tablet.dr 81 Mg PO DAILY Clopidogrel (Clopidogrel Bisulfate) 75 Mg Tablet 75 Mg PO DAILY Instructions to patient/family Please see electronic discharge instructions given to patient. Clinical Quality Measures DVT/VTE Risk/Contraindication: Risk Factor Score Per Nursin RFS Level Per Nursing on Admit: 4+=Very High BRITTANY ARRIAGA DO July 07, 2018 07:35
[2018-07-07] MEDS ORDERED: PATCH REMOVAL TP SCH (10:29)
--- NOTE | 2018-07-11 17:02 | Physician Query-Final Dx ---
Final Diagnosis Give Final Diagnosis Please document cause of VJ HUYNH July 11, 2018 17:02
== END 2018-07-06 15:16 | disposition expired ==
LOC: EDUNIT# 12:08 → ER 12:09 → ICU 18:30 → 4TH 07-04 14:29
PROVIDERS: ADMIT Family Medicine; ATTEND Internal Medicine
DX: I21.A1 Myocardial infarction type 2 (principal); I11.0 Hypertensive heart disease with heart failure; I50.22 Chronic systolic (congestive) heart failure; G93.41 Metabolic encephalopathy; I42.0 Dilated cardiomyopathy; I31.3 Pericardial effusion (noninflammatory); I63.9 Cerebral infarction, unspecified; Z66 Do not resuscitate; Z51.5 Encounter for palliative care; M86.472 Chronic osteomyelitis with draining sinus, left ankle and foot; L97.519 Non-pressure chronic ulcer of other part of right foot with unspecified severity; G81.94 Hemiplegia, unspecified affecting left nondominant side; S09.90XA Unspecified injury of head, initial encounter; E78.00 Pure hypercholesterolemia, unspecified; E11.69 Type 2 diabetes mellitus with other specified complication; E11.621 Type 2 diabetes mellitus with foot ulcer; E11.40 Type 2 diabetes mellitus with diabetic neuropathy, unspecified; I25.10 Atherosclerotic heart disease of native coronary artery without angina pectoris; R06.03 Acute respiratory distress; E11.51 Type 2 diabetes mellitus with diabetic peripheral angiopathy without gangrene; D64.9 Anemia, unspecified; S50.311A Abrasion of right elbow, initial encounter; R40.2410 Glasgow coma scale score 13-15, unspecified time; W06.XXXA Fall from bed, initial encounter; W22.03XA Walked into furniture, initial encounter; W01.0XXA Fall on same level from slipping, tripping and stumbling without subsequent striking against object, initial encounter; Y92.003 Bedroom of unspecified non-institutional (private) residence as the place of occurrence of the external cause; Y92.007 Garden or yard of unspecified non-institutional (private) residence as the place of occurrence of the external cause; Z89.421 Acquired absence of other right toe(s); Z87.891 Personal history of nicotine dependence
CPT/HCPCS: 36415; 51702; 70450; 71045; 71260; 72125; 72170; 74177; 80048; 80053; 80320; 81000; 82550; 82553; 82805; 82962; 83605; 83735; 83874; 83880; 84100; 84443; 84484; 85007; 85018; 85025; 85027; 85610; 85730; 87040; 93005; 93041; 93306; 94640; 94660; 96360; 96361